=== PATIENT | female | born 1975 | race Caucasian/White ===

== ENCOUNTER → 2022-03-12 | Outpatient (CLI) | payer BC, SELFPAY ==
[2022-03-12 12:22] LABS: Absolute Lymphocyte Count 1.44 X10^3/uL (0.83-4.51); Basophil# 0.03 X10^3/uL; Basophil% 0.6 % (0-1); Hematocrit 39.8 % (37-47); Hemoglobin 13.2 g/dL (12.0-15.0); Lymphocyte # 1.44 X10^3/ul (0.83-4.51); Mean Corp Hgb Conc 33.2 g/dL (32-36); Mean Corpuscular Hgb 28.4 pg (27.0-32.0); Mean Corpuscular Volume 85.6 fL (81-99); Mean Platelet Vol. 10.1 fl (6.2-12.0); Monocyte# 0.43 X10^3/uL; Monocyte% 8.7 % (0-10); NRBC Flagged by Analyzer 0 % (0-5); Neutrophil # 2.95 X10^3/uL (2.7-7.7); Neutrophil % 59.5 % (47-70); Platelet Count 296 K/mm3 (150-450); RBC Distribution Width CV 13.2 % (11.6-14.6); RBC Distribution Width SD 40.9 fl (35.1-43.9); Red Blood Count 4.65 M/mm3 (4.2-5.4)
[2022-03-12 12:35] LABS: Vitamin B12 461 pg/mL (211-911); Vitamin D,25 Hydroxy 30.8 ng/mL
[2022-03-12 12:52] LABS: ALB/GLOB Ratio 0.9 RATIO (0.9-2.4); AST(SGOT) 13 U/L (15-37); Alanine Aminotransfer ALT/SGPT 18 U/L (13-56); Albumin, Serum 3.5 g/dL (3.2-5.0); Alkaline Phosphatase 68 U/L (45-117); Anion Gap 6 (5-15); BUN 15 mg/dL (7-18); BUN/Creat Ratio 20.6 RATIO (10-20); Calcium,Total 8.5 mg/dL (8.5-10.1); Chloride 110 mmol/L (98-107); Cholesterol 169 mg/dL (200); Creatinine, Serum 0.73 mg/dL (0.55-1.02); EST Glomerular Filtration Rate 91 mL/min (>60); Est Glom Filt Rate - Afr Amer 110 mL/min (>60); Globulin 3.8 g/dL (2.2-4.2); Glucose 93 mg/dL (74-106); High Density Lipoprotein 51 mg/dL; Potassium 4.2 mmol/L (3.5-5.1); Protein, Total 7.3 g/dL (6.4-8.2); Sodium Level 140 mmol/L (136-145); Thyroid Stim Hormone (TSH) 0.96 uIU/mL (0.358-3.74); Triglycerides 110 mg/dL; Very Low Density Lipoprotein 22 mg/dL (5-40)
== END | disposition home or self-care (01) ==
LOC: BIMLAB 08:02
PROVIDERS: PCP Nurse Practitioner Family; Referring Provider Nurse Practitioner Family; Visit Provider Nurse Practitioner Family
DX: Z00.00 Encounter for general adult medical examination without abnormal findings (principal); E56.9 Vitamin deficiency, unspecified; F41.9 Anxiety disorder, unspecified; F32.A Depression, unspecified; J30.2 Other seasonal allergic rhinitis
CPT/HCPCS: 36415; 80053; 80061; 82306; 82607; 84443; 85025

== ENCOUNTER → 2024-04-11 | Outpatient (CLI) | payer BC, SELFPAY ==
[2024-04-11 13:04] LABS: Absolute Neutrophil Count 2.2 X10^3/uL (2.0-7.7); Basophil# 0.01 X10^3/uL; Basophil% 0.2 % (0-1); Eosinophil# 0.09 X10^3/uL; Eosinophils% 2.2 % (0-5); Hematocrit 40.7 % (37-47); Hemoglobin 13.3 g/dL (12.0-15.0); Lymphocyte % 36.3 % (19-41); Mean Corp Hgb Conc 32.7 g/dL (32-36); Mean Corpuscular Hgb 29.2 pg (27.0-32.0); Mean Corpuscular Volume 89.3 fL (81-99); Mean Platelet Vol. 9.6 fl (6.2-12.0); Monocyte# 0.29 X10^3/uL; NRBC Flagged by Analyzer 0 % (0-5); Neutrophil # 2.23 X10^3/uL (2.7-7.7); Neutrophil % 54.1 % (47-70); Platelet Count 227 K/mm3 (150-450); RBC Distribution Width CV 12.7 % (11.6-14.6); RBC Distribution Width SD 41.8 fl (35.1-43.9); Red Blood Count 4.56 M/mm3 (4.2-5.4); White Blood Count 4.1 K/mm3 (4.4-11.0)
[2024-04-11 14:06] LABS: ALB/GLOB Ratio 1.8 RATIO (0.9-2.4); AST(SGOT) 16 U/L (<=31); Alanine Aminotransfer ALT/SGPT 12 U/L (<=34); Albumin, Serum 4.3 g/dL (3.5-5.0); Alkaline Phosphatase 53 U/L (35-104); Anion Gap 10 (5-15); BUN 14 mg/dL (4-19); BUN/Creat Ratio 18.3 RATIO (10-20); Calcium 8.8 mg/dL (7.6-11.0); Carbon Dioxide 23.3 mmol/L (22.0-29.0); Chloride 106 mmol/L (96-108); Cholesterol 183 mg/dL (<=200); Creatinine, Serum 0.8 mg/dL (0.6-1.0); EST Glomerular Filtration Rate 96 (>60); Globulin 2.5 g/dL (2.2-4.2); Glucose 83 mg/dL (70-99); High Density Lipoprotein 64 mg/dL; Low Density Lipoprotein Calc. 105 mg/dL; Potassium 4.5 mmol/L (3.3-5.1); Protein, Total 6.8 g/dL (5.9-8.4); Sodium Level 139 mmol/L (133-145); Total Bilirubin 0.35 mg/dL (0.00-1.30); Triglycerides 73 mg/dL; Very Low Density Lipoprotein 15 mg/dL (5-40); Vitamin B12 298 pg/mL (180-914); Vitamin D,25 Hydroxy 58.2 ng/mL (30-100); cholesterol:hdl ratio screen 2.87
== END | disposition home or self-care (01) ==
LOC: VSLAB 08:48
PROVIDERS: PCP Nurse Practitioner Family; Visit Provider Nurse Practitioner Family
DX: E66.9 Obesity, unspecified (principal); E56.9 Vitamin deficiency, unspecified; Z13.228 Encounter for screening for other metabolic disorders
CPT/HCPCS: 36415; 80053; 80061; 82306; 82607; 84443; 85025

== ENCOUNTER → 2024-06-18 | Outpatient (CLI) | payer BC, SELFPAY | END | disposition home or self-care (01) | LOC: VSLAB 14:49 | PROVIDERS: PCP Nurse Practitioner Family; Visit Provider Nurse Practitioner Family | DX: S00.86XA Insect bite (nonvenomous) of other part of head, initial encounter (principal) | CPT/HCPCS: 36415; 86617 ==

== ENCOUNTER → 2024-11-02 | Outpatient (CLI) | payer BC, SELFPAY ==
[2024-11-02 23:45] LABS: Mucous, Urine 0 SEEN /hpf (<or=2+); Squamous Epithelial Cells - UA 0 SEEN /hpf (5-10)
--- OUTSIDE RECORDS SUMMARY | 2024-11-02 23:47 | XMS RPT_ITS | CCD ---
Author Organization [facility] Care Team Providers Care [employer] F[employer] Name Role Phone JUNITO HOYTNDY Ubaldo Unavailable Unavailable Beto Huerta Unavailable Unavailable PAIGE CHEN Attending Unavailable MARCI CORONADO Primary Care Unavailable CARYN TORRES Attending UnavailMARCI Hawkins Primary Care Unavailable Beto Huerta MD Primary Care Provider Juan ELECTRONIC IMAGING SYSTEM OPERATOR, ELECTRONIC IMAGING SYSTEM OPERATOR-C Jacobo Attending Provider Beto Huerta MD Primary Care Provider Beto Huerta MD Primary Care Provider Beto Huerta MD Primary Care Provider Beto Huerta MD Primary Care Provider Beto Huerta MD Primary Care Provider Juan ELECTRONIC IMAGING SYSTEM OPERATOR-CJacobo Primary Care Provider Juan ELECTRONIC IMAGING SYSTEM OPERATOR-CJacobo Attending Provider Nickie ELECTRONIC IMAGING SYSTEM OPERATOR-CRadha Attending Provider BETO HUERTA Primary Care Unavailable BRADLEY BETO Winifred Primary Care Unavailable JACINTA SANCHEZ Referring Unavailable BLAYNE HUERTAHEN Winifred Primary Care Unavailable BLAYNE HUERTAHEN Winifred Primary Care Unavailable RADHA FU Referring UnavailJacobo Doyle Attending Unavailable Jacobo Martinez Primary Care Unavailable Radha Fu Attending Unavailable Jacobo Martinez Primary Care Unavailable Jacobo Martinez Primary Care Unavailable Radha Fu Referring Unavailable Radha Fu Consulting Unavailable Radha Fu Attending Unavailable JACINTA SANCHEZ Attending Unavailable BLAYNE HUERTAHEN B Primary Care Unavailable BRENDA RINALDI Attending Unavailable BRADLEY, BETO B Primary Care Unavailable BRADLEY, BETO B Primary Care Unavailable JACINTA SANCHEZ Attending Unavailable WEHNJACINTA Attending Unavailable BRADLEY, BETO B Primary Care Unavailable BRENDA RINALDI Referring Unavailable BRADLEY, BETO B Primary Care Unavailable BRADLEY, BETO B Primary Care Unavailable WEJACINTA DUNN Attending Unavailable BRADLEY, BETO B Primary Care Unavailable WESHAUN, JACINTA Cabrera Attending Unavailable BRADLEY, BETO B Primary Care Unavailable WEJACINTA DUNN Referring Unavailable BRADLEY, BETO B Primary Care Unavailable BRADLEY, BETO Primary Care Unavailable BRADLEY, BETO Attending Unavailable BRADLEY, BETO Primary Care Unavailable BRADLEY, BETO Attending Unavailable BRADLEY, BETO Primary Care Unavailable LUCI BERRY Attending Unavailable BRADLEY, BETO Primary Care Unavailable LUCI BERRY Referring Unavailable LUCI BERRY Attending Unavailable Allergies Allergy Classification Reported Allergen(s) Allergy Type Date of Onset Reaction(s) Facility (20 sources) Ciprofloxacin Drug Allergy 8 Nausea And Vomiting [facility] (20 sources) oxyCODONE Drug Allergy 8 Rash [facility] (2 sources) Promethazine Drug Allergy 9 [facility] (20 sources) Promethazine Drug Allergy 9 [facility] (7 sources) HYDROcodone; Translations: [HYDROCODONE] Drug Allergy 5 [facility] (1 source) Ciprofloxacin Drug Allergy 3 [facility] (1 source) oxyCODONE Drug Allergy 3 [facility]ository Medications Current Medications Medication Drug Class(es) Dates Sig (Normalized) Sig (Original) [id number] actuat albuterol 0.09 mg/actuat metered dose inhaler (20 sources) beta2-Adrenergic Agonist Start: 06-08-2022 End: 09-25-2024 take 2 puff(s) by inhalation every six hours as needed for wheezing albuterol 108 (90 Base) MCG/ACT inhaler Indications: Moderate persistent asthma without complication Inhale 2 puffs every 6 hours as needed for wheezing. 18 g 3 09/25/2024 Active Start: 03-12-2022 Albuterol Sulf ate 90 mcg/actuation HFA aerosol inhaler Active 2 NMA INHALATION EVERY 6 HOURS as needed March 12, 2022 1:00am Start: 03-12-2022 take 1 puff(s) by in halation every six hours Albuterol Sulfate Active 2 PUFF INHALATION EVERY 6 HOURS March 12, 2022 12:00am Start: 10-25-2020 End: 04-20-2024 take 2 puff(s) by inhalation every four hours as needed for wheezing albuterol HFA (PROVENTIL HFA, VENTOLIN HFA) 90 mcg/actuation inhaler Inhale 2 Puffs as instructed every 4 hours as needed for wheezing/shortness of breath. 1 Each 10/25/2020 04/20/2024 Discontinued Start: 10-20-2020 End: 04-20-2024 take 2 puff(s) by inhalation every four hours as needed for wheezing albuterol HFA (PROVENTIL HFA, VENTOLIN HFA) 90 mcg/actuation inhaler Inhale 2 Puffs as instructed every 4 hours as needed for wheezing/shortness of breath. 6.7 g 10/20/2020 04/20/2024 Discontinued Start: 05-22-2019 End: 06-08-2022 take 2 puff(s) by inhalation every six hours as needed albuterol 108 (90 Base) MCG/ACT inhaler Inhale 2 puffs every 6 hours as needed. 0 10/20/2020 Active Comment on above: Inhale 2 Puffs as in structed every 4 hours as needed for wheezing/shortness of breath. ALPRAZolam 0.5 mg oral tablet (20 sources) Benzodiazepine Start: 07-27-19 24 End: 10-26-19 25 take 0.5 tablet by mouth once daily as needed for anxiety ALPRAZolam (Xanax) 0.5 MG tablet Indications: Generalized anxiety disorder Take 0.5 tablets (0.25 mg) by mouth Nightly as needed for sleep or anxiety. 15 tablet 09/25/2024 10/25/2024 Active Start: 08-27-2021 End: 06-08-2022 take 1 tablet by mouth once daily as needed for sleep ALPRAZolam (Xanax) 0.5 MG tablet Indications: Insomnia, unspecified type Take 1 tablet (0.5 mg) by mouth Nightly as needed for sleep. 30 tablet 1 02/24/2022 Active Start: 11-05-2020 End: 01-04-2021 take 1 tablet by mouth once daily as needed for sleep ALPRAZolam (XANAX) 0.5 MG tablet Indications: Generalized anxiety disorder TAKE 1 TABLET BY MOUTH NIGHTLY NEEDED FOR SLEEP FOR UP TO 60 DAYS. 15 tablet 1 11/05/2020 01/04/2021 Active End: 07-27-2023 take 0.25 mg by mouth every twenty-four hours as needed ALPRAZolam (XANAX) 0.5 mg tablet Take 0.25 mg by mouth at bedtime as needed. patient takes one half tablet as needed. Active Comment on above: Take 0.25 mg by mout h at bedtime as needed. patient takes one half tablet as needed. benzonatate 200 mg oral capsule (2 sources) Non-narcotic Antitussive Start: 12-30-19 End: 01-29-20 take 1 capsule by mouth three times daily as needed for cough benzonatate (Tessalon) 200 MG capsule Indications: Acute non-recurrent frontal sinusitis Take 1 capsule (200 mg) by mouth 3 times daily as needed for cough. Do not crush or chew. 42 capsule 0 12/29/2022 01/28/2023 Active 60 actuat budesonide 0.08 mg/actuat / formoterol fumarate 0.0045 mg/actuat metered dose inhaler (20 sources) Corticosteroid, beta2-Adrenergic Agonist Start: 11-12-19 take 2 puff(s) by inhalation once daily budesonide-formoter ol (SYMBICORT) 80-4.5 MCG/ACT AERO Inhale 2 puffs into the lungs daily 10.2 g 3 11/11/2020 Active Start: 02-17-2018 take 2 puff(s) by mo uth twice daily SYMBICORT 80-4.5 MCG/ACT AERO TAKE 2 PUFFS BY MOUTH TWICE A DAY 6 02/17/2018 Active End: 06-04-2024 budesonide-formoterol (Symbi layla) 160-4.5 MCG/ACT inhaler Inhale 2 Inhalation in the morning and 2 Inhalation in the evening. 06/04/2024 Discontinued (Med list cleanup) budesonide/formoterol fumara te (SYMBICORT INHALATION) (14 sources) End: 12-19-2023 budesonide/formoterol fumara te (SYMBICORT INHALATION) Indications: History of asthma , History of pneumonia , Bronchitis Inhale as instructed. 12/19/2023 Discontinued (Other) budesonide/formo terol fumarate (SYMBICORT INHALATION) Indications: History of asthma , History of pneumonia , Bronchitis Inhale as instructed. 0 Active Comment on above: Inhale as instructed . doxycycline hyclate 100 mg oral capsule (2 sources) Tetracycline-class Drug Start: 01-21-2023 End: 01-31-2023 doxycycline (Vibramycin) 100 MG capsule Indications: Acute cough Take 1 capsule (100 mg) by mouth 2 times daily for 10 days. Take with at least 8 ounces (large glass) of water, do not lie down for 30 minutes after 20 capsule 0 01/21/2023 01/31/2023 Active 84 hr estradiol 0.37173 mg/hr transdermal system (13 sources) Estrogen Start: 08-01-2024 estradiol (VIVELLE-DOT) 0.05 mg/24 hr patch Apply 1 patch as directed two times a week. 2 times a week to lower abdomen or buttocks, not breast 24 patch 3 08/01/2024 Active Start: 04-20-2024 End: 09-25-2024 estradiol (Vivelle-DOT) 0.1 MG/24HR Place 1 patch on the skin Twice a Week. 04/20/2024 09/25/2024 Discontinued (Med list cleanup) Start: 04-20-2024 estradiol (KARLO YASMINE-DOT) 0.1 mg/24 hr patch Indications: Vasomotor symptoms due to menopause , Irritability , Brain fog Apply 1 Patch as directed two times a week. 24 Patch 1 04/20/2024 Active montelukast 10 mg oral tablet (20 sources) Leukotriene Receptor Antagonist Start: 02-09-2022 End: 07-26-2024 take 1 tablet by mouth once daily montelukast (Singulair) 10 MG tablet Indications: Other seasonal allergic rhinitis TAKE 1 TABLET (10 MG) BY MOUTH DAILY. 90 tablet 3 06/20/2024 Active Start: 07-10-2020 take 1 tablet by abhi once daily montelukast (SINGULAIR) 10 MG tablet Indications: Seasonal allergies Take 1 tablet by mouth daily 90 tablet 3 07/10/2020 Active MOUNJARO 7.5 mg/0.5 mL pen injector (4 sources) Start: 06-18-2024 inject 7.5 mg by subcutaneous injection every week MOUNJARO 7.5 mg/0.5 mL pen injector Inject 7.5 mg subcutaneously one time a week. 06/18/2024 Active Mounjaro 7.5 MG/0.5ML solution pen-injector (1 source) Start: 07-21-2023 Mounjaro 7.5 MG/0.5ML solution pen-injector inject 1 syringe subcutaneously once weekly 0 07/21/2023 Active Mounjaro 7.5 MG/0.5ML solution pen-injector (13 sources) Start: 07-21-2023 Mounjaro 7.5 MG/0.5ML solution pen-injector inject 1 syringe subcutaneously once weekly 07/21/2023 Active naproxen 500 mg oral tablet (7 sources) Nonsteroidal Anti-inflammatory Drug Start: 06-20-2024 End: 08-23-2024 take 1 tablet by mouth twice daily as needed for pain naproxen (Naprosyn) 500 MG tablet Indications: Acute pain of left knee TAKE 1 TABLET (500 MG) BY MOUTH 2 TIMES DAILY NEEDED FOR MILD PAIN (1-3) (PAIN). 60 tablet 07/24/2024 08/23/2024 Active Start: 05-07-2024 End: 06-06-2024 take 1 tablet by mouth twice daily as needed for pain naproxen (Naprosyn) 500 MG tablet Indications: Acute pain of left knee Take 1 tablet (500 mg) by mouth 2 times daily as needed for mild pain (1-3) (pain). 60 tablet 05/07/2024 06/06/2024 Active ondansetron 4 mg disintegrating oral tablet (12 sources) Serotonin-3 Receptor Antagonist Start: 12-29-2022 End: 01-28-2023 take 2 tablets by mouth every eight hours as needed for nausea and vomiting ondansetron ODT (Zofran-ODT) 4 MG disintegrating tablet Take 2 tablets (8 mg) by mouth every 8 hours as needed for nausea or vomiting. 20 tablet 3 12/29/2022 01/28/2023 Active Start: 05-07-2022 End: 09-27-2022 take 1 tablet by mouth every eight hours as needed for nausea and vomiting Ondansetron 4 mg tablet,disintegrating Active 4 mg PO Q8H as needed for nausea and vomiting September 27, 2022 4:27pm Start: 10-22-2020 take 1 tablet by abhi th three times daily as needed for nausea ondansetron (ZOFRAN) 4 MG tablet Take 1 tablet by mouth 3 times daily as needed for Nausea or Vomiting 15 tablet 0 10/22/2020 Active Start: 10-22-2020 End: 10-22-2020 ondansetron (ZOFRAN) 4 MG/2M L injection Start: 10-22-2020 End: 10-22-2020 ondansetron (ZOFRAN) injecti on 4 mg progesterone 200 mg oral capsule (13 sources) Progesterone Start: 08-01-2024 take 1 capsule by mouth once daily at dinner, then take 1 capsule by mouth once daily in the evening progesterone micronized (PROMETRIUM) 200 mg capsule Take 1 capsule by mouth daily with dinner. Take 1 pill in the evening daily with dinner. Needs food for absorption. Can't be used with peanut allergy. 90 capsule 3 08/01/2024 Active Start: 04-20-2024 progesterone ( Prometrium) 100 MG capsule Take 100 mg by mouth. 04/20/2024 Active sertraline 100 mg oral tablet (20 sources) Serotonin Reuptake Inhibitor Start: 09-25-2024 End: 09-25-2025 take 1 tablet by mouth once daily sertraline (Zoloft) 100 MG tablet Indications: Mild episode of recurrent major depressive disorder (HCC) , Generalized anxiety disorder Take 1 tablet (100 mg) by mouth daily. 90 tablet 3 09/25/2024 09/25/2025 Active Start: 05-07-2022 End: 09-25-2024 take 1 tablet by mouth once daily sertraline (Zoloft) 50 MG tablet TAKE 1 TABLET BY MOUTH EVERY DAY 90 tablet 3 03/21/2024 09/25/2024 Discontinued Start: 09-01-2010 End: 06-08-2022 SERTRALINE 100 mg ORAL table t 09/01/2010 Active Tirzepatide 7.5 mg/0.5 mL pe n injector (2 sources) Start: 08-04-2022 Tirzepatide 7. 5 mg/0.5 mL pen injector Active 7.5 mg SC EVERY WEEK 2 August 04, 2022 9:16am Completed/Discontinued Medications Medication Drug Class(es) Dates Sig (Normalized) Sig (Original) dexamethasone 6 mg oral tablet (1 source) Corticosteroid Start: 10-26-2020 End: 05-03-2022 take 1 tablet by mouth once daily at breakfast dexAMETHasone (DECADRON) 6 mg tablet Take 1 tablet by mouth daily with breakfast. For one dose starting tomorrow. 5 tablet 0 10/26/2020 05/03/2022 Discontinued Comment on above: Take 1 tablet by abhi th daily with breakfast. For one dose starting tomorrow. ethinyl estradiol 0.005 mg / norethindrone acetate 1 mg oral tablet (12 sources) Estrogen Start: 09-23-2023 End: 04-20-2024 take 1 tablet by mouth once daily norethindrone acetate-ethinyl estradiol (JINTELI) 1-5 mg-mcg tab Indications: Vasomotor symptoms due to menopause , Menstrual irregularity , Acute vaginitis , Cyclical pelvic pain Take 1 tablet by mouth once daily. 90 tablet 1 03/09/2024 04/20/2024 Discontinued fluconazole 150 mg oral tablet (9 sources) Azole Antifungal Start: 09-25-2023 End: 04-20-2024 fluconazole (DIFLUCAN) 150 mg tablet Indications: Acute vaginitis , Vaginal yeast infection Take 1 tablet by mouth every 72 hours as needed. 2 tablet 09/25/2023 04/20/2024 Discontinued fluticasone propionate 0.05 mg/actuat metered dose nasal spray (4 sources) Corticosteroid Start: 12-29-2022 End: 07-27-2023 take 2 spray(s) nasal route once daily fluticasone (Flonase) 50 MCG/ACT nasal spray Indications: Acute non-recurrent frontal sinusitis Administer 2 sprays into each nostril daily for 14 days. Shake gently. Before first use, prime pump. After use, clean tip and replace cap. 16 g 0 12/29/2022 07/27/2023 Discontinued (Med list cleanup) meloxicam 15 mg oral tablet (20 sources) Nonsteroidal Anti-inflammatory Drug Start: 02-11-2020 End: 04-20-2024 take 1 tablet by mouth once daily meloxicam (MOBIC) 15 mg tablet Take 1 tablet by mouth once daily. 30 tablet 1 02/11/2020 04/20/2024 Discontinued Comment on above: Take 1 tablet by abhi once daily. Mounjaro 5 MG/0.5ML solution pen-injector (6 sources) Start: 05-28-2022 End: 07-27-2023 inject 5 mg by subcutaneous injection every week Mounjaro 5 MG/0.5ML solution pen-injector 5 mg (0.5 mL) subcutaneously every week 0 05/28/2022 07/27/2023 Discontinued (Duplicate order) Start: 05-28-2022 inject 5 mg by subcu taneous injection every week Mounjaro 5 MG/0.5ML solution pen-injector 5 mg (0.5 mL) subcutaneously every week 0 05/28/2022 Active phentermine hydrochloride 37.5 mg oral tablet (6 sources) Sympathomimetic Amine Anorectic Start: 02-24-2022 End: 06-08-2022 take 32-32.9 tablets by mouth once daily before breakfast phentermine (Adipex-P) 37.5 MG tablet Indications: Class 1 obesity due to excess calories without serious comorbidity with body mass index (BMI) of 32.0 to 32.9 in adult Take 1 tablet (37.5 mg) by mouth every morning (before breakfast). 30 tablet 0 02/24/2022 06/08/2022 Discontinued (Med list cleanup) microencapsulated potassium chloride 20 meq extended release oral tablet (1 source) Start: 10-25-2020 End: 05-03-2022 take 1 tablet by mouth once daily potassium chloride ER (K-DUR, KLOR-CON) 20 mEq tablet Take 1 tablet by mouth once daily. 7 tablet 0 10/25/2020 05/03/2022 Discontinued Comment on above: Take 1 tablet by abhi once daily. predniSONE 10 mg oral tablet (4 sources) Start: 01-21-2023 End: 07-27-2023 predniSONE (Deltasone) 10 MG tablet Indications: Moderate persistent asthma without complication 4 pills daily for 3 days, 3 pills daily for 3 days, 2 pills daily for 3 days, 1 pill daily for 3 days. Take with food. Stop. 30 tablet 0 01/21/2023 07/27/2023 Discontinued (Med list cleanup) 50 ml sodium chloride 9 mg/ml injection (1 source) Start: 10-22-2020 End: 10-22-2020 0.9 % sodium chloride bolus Tirzepatide (Mounjaro) 5 mg/0.5 mL pen injector (5 sources) Start: 04-28-2022 End: 05-07-2022 Tirzepatide (Mounjaro) 5 mg/0.5 mL pen injector Discontinued 5 mg SC EVERY WEEK 2 April 28, 2022 12:54pm May 07, 2022 9:11am Start: 03-12-2022 End: 04-28-2022 Tirzepatide (Mounjaro) 5 mg/ 0.5 mL pen injector Discontinued 5 mg SC EVERY WEEK 2 March 12, 2022 1:00am April 28, 2022 12:54pm Start: 03-12-2022 Tirzepatide (M ounjaro) 5 mg/0.5 mL pen injector Active 5 MG SC EVERY WEEK 2 March 12, 2022 12:00am Tirzepatide (Mounjaro) 7.5 mg/0.5 mL pen injector (2 sources) Start: 05-07-2022 End: 08-04-2022 Tirzepatide (Mounjaro) 7.5 mg/0.5 mL pen injector Discontinued 7.5 mg SC EVERY WEEK 2 May 07, 2022 9:10am August 04, 2022 9:17am 1 ml triamcinolone acetonide 40 mg/ml injection (6 sources) Corticosteroid Start: 06-04-2024 End: 06-04-2024 triamcinolone acetonide (Kenalog-40) injection 60 mg Start: 06-04-2024 End: 06-04-2024 inject 60 mg by intramuscular injection once 60 mg, IntraMUSCular, Once, On Tue06/04/24 at 1445, For 1 dose Start: 07-27-2023 End: 07-27-2023 triamcinolone acetonide (Kenalog-40) injection 60 mg Start: 06-08-2022 End: 06-08-2022 triamcinolone acetonide (Kenalog-40) injection 60 mg Problems Active Problems Problem Classification Problem Date Documented Date Episodic/Chronic Anxiety disorders (20 sources) Generalized anxiety disorder; Translations: [Generalized anxiety disorder] Onset: 05-31-2015 05-31-2015 Chronic Anxiety disorders (2 sources) Feeling irritable; Translations: [Irritability and anger] 04-20-2024 Episodic Asthma (20 sources) Uncomplicated moderate persistent asthma; Translations: [Moderate persistent asthma, uncomplicated] Onset: 05-31-2015 05-31-2015 Chronic Diabetes mellitus without complication (4 sources) Hyperglycemia; Translations: [Hyperglycemia, unspecified] 03-12-2022 Episodic Inflammatory diseases of female pelvic organs (3 sources) Acute vaginitis; Translations: [Acute vaginitis] 09-23-2023 Episodic Menopausal disorders (7 sources) Menopausal syndrome; Translations: [Menopausal and female climacteric states] Onset: 07-17-2024 09-23-2023 Chronic Menstrual disorders (3 sources) Irregular periods; Translations: [Irregular menstruation, unspecified] 09-23-2023 Chronic Mood disorders (20 sources) Recurrent major depressive episodes, mild ; Translations: [Major depressive disorder, recurrent, mild] Onset: 06-18-2019 06-18-2019 Chronic Nausea and vomiting (1 source) Nausea and vomiting; Translations: [Nausea with vomiting, unspecified] Episodic Nonspecific chest pain (1 source) Chest pain, unspecified; Translations: [Chest pain, unspecified] Onset: 09-17-2024 Episodic Other female genital disorders (2 sources) History of gynecological disorder; Translations: [Personal history of other diseases of the female genital tract] Episodic Other lower respiratory disease (5 sources) Cough; Translations: [Cough] Onset: 04-05-2017 Resolved: 07-18-2019 07-18-2019 Episodic Other lower respiratory disease (1 source) Persistent cough; Translations: [Persistent cough] Episodic Other nervous system disorders (2 sources) Impaired cognition; Translations: [Other symptoms and signs involving cognitive functions and awareness] 04-20-2024 Episodic Other nutritional; endocrine; and metabolic disorders (20 sources) Obese class I; Translations: [Obesity, unspecified] Onset: 02-05-2019 02-05-2019 Chronic Other nutritional; endocrine; and metabolic disorders (3 sources) Obesity; Translations: [Other obesity due to excess calories] Chronic Other nutritional; endocrine; and metabolic disorders (1 source) Obesity, unspecified; Translations: [Obesity, unspecified] Onset: 04-26-2024 Chronic Other upper respiratory disease (20 sources) Seasonal allergy; Translations: [Other seasonal allergic rhinitis] Onset: 07-10-2020 07-10-2020 Chronic Other upper respiratory disease (3 sources) Other seasonal allergic rhinitis; Translations: [Allergic rhinitis, cause unspecified] Onset: 11-28-2021 03-12-2022 Chronic Other upper respiratory disease (3 sources) Seasonal allergic rhinitis; Translations: [Other seasonal allergic rhinitis] 08-22-2022 Chronic Other upper respiratory infections (1 source) Chronic sinusitis; Translations: [Chronic sinusitis, unspecified] 01-21-2023 Chronic Prolapse of female genital organs (14 sources) Incomplete uterovaginal prolapse; Translations: [Incomplete uterovaginal prolapse] Onset: 12-19-2023 12-19-2023 Chronic Residual codes; unclassified (4 sources) Insomnia; Translations: [Insomnia, unspecified] Episodic Residual codes; unclassified (1 source) Medical care unavailable; Translations: [Procedure and treatment not carried out for other reasons] 09-25-2023 Episodic Superficial injury; contusion (1 source) Insect bite (nonvenomous) of other part of head, initial encounter; Translations: [Insect bite (nonvenomous) of other part of head, initial encounter] Onset: 06-21-2024 Episodic Unclassified (2 sources) Cough / R05(ICD-10) Onset: 04-05-2017 Viral infection (3 sources) Disease caused by 2019-nCoV; Translations: [COVID-19] Onset: 10-11-2020 Episodic Viral infection (1 source) COVID-19; Translations: [COVID-19] Onset: 02-24-2024 Past or Other Problems Problem Classification Problem Date Documented Da te Episodic/Chronic Abdominal pain (20 sources) Pain in female pelvis; Translations: [Pelvic and perineal pain] Onset: 12-19-2023 Episodic Calculus of urinary tract (20 sources) History of calculus of kidney; Translations: [Personal history of urinary calculi] Onset: 02-14-2017 02-05-2019 Episodic Cardiac dysrhythmias (20 sources) Palpitations; Translations: [Palpitations] Onset: 10-18-2017 10-18-2017 Episodic Conditions associated with dizziness or vertigo (2 sources) Dizziness; Translations: [Dizziness and giddiness] Onset: 10-18-2017 10-18-2017 Episodic Nutritional deficiencies (20 sources) Vitamin deficiency; Translations: [Vitamin deficiency, unspecified] Onset: 03-22-2022 03-12-2022 Episodic Other aftercare (19 sources) Patient encounter status; Translations: [Encounter for screening for malignant neoplasm of colon] Onset: 02-16-2024 03-12-2022 Episodic Other non-traumatic joint disorders (7 sources) Pain in left knee; Translations: [Pain in joint, lower leg] Onset: 05-07-2024 05-07-2024 Episodic Other nutritional; endocrine; and metabolic disorders (20 sources) Body mass index 30+ - obesity; Translations: [Obesity, unspecified] Onset: 07-19-2015 Resolved: 12-29-2022 07-19-2015 Chronic Unclassified (1 source) Acute pain of left knee 05-07-2024 Results Test Name Value Interpretation Reference Range Facility Office Visiton 09-25-2024 Follow-up visit [id number] Candelaria Russell 1975 F Date Provider Department Center 09/25/2024 [facility] Family History Problem Relation Age of Onset No Known Problems Paternal Grandmother Heart disease Father Heart disease Paternal Grandfather No Known Problems Daughter No Known Problems Mother No Known Problems Daughter No Known Problems Sister Heart disease Maternal Grandfather Family Status - Relation Status Age at Paternal Grandmother Father Alive Paternal Grandfather Daughter Alive Mother Alive Daughter Alive Sister Alive Maternal Grandfather Maternal Grandmother Alive Level of Service:34252 AL OFFICE/OUTPATIENT ESTABLISHED MOD MDM 30 MIN Reason for Visit and Comments: Med Refill [[id number]] Normal [facility] Progress Noteon 09-25-2024 Progress Note [facility] - [address] [facility] [id number] Visit type: Established Patient Reason for Visit: Med Refill Assessment and Plan 1. Mild episode of recurrent major depressive disorder (HCC) (Primary) Anxiety is worse -Encouraged regular exercise -She is going to consider counseling -Increase Zoloft from 50 mg daily - sertraline (Zoloft) 100 MG tablet; Take 1 tablet (100 mg) by mouth daily. Dispense: 90 tablet; Refill: 3 2. Generalized anxiety disorder Worse -As #1 - ALPRAZolam (Xanax) 0.5 MG tablet; Take 0.5 tablets (0.25 mg) by mouth Nightly as needed for sleep or anxiety. Dispense: 15 tablet; Refill: 0 - sertraline (Zoloft) 100 MG tablet; Take 1 tablet (100 mg) by mouth daily. Dispense: 90 tablet; Refill: 3 3. Moderate persistent asthma without complication Stable - albuterol 108 (90 Base) MCG/ACT inhaler; Inhale 2 puffs every 6 hours as needed for wheezing. Dispense: 18 g; Refill: 3 4. Seasonal allergies Stable -Singulair 10 mg daily Follow up in about 6 months (around 03/28/2025) for follow up Dr Huerta 20 min. Note compiled with assistance of voice recognition software and though reviewed for errors, sound alike and misspelled words may be contained in the documentation. Subjective Med Refill Follow-up INA/insomnia. Dealing brain fog and inc anxiety. BP was spiking. Stopped her Vivelle patch. 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 More stress at work. Anxiety is worse. Was having some intermittent palpitations. Another clinic ordered a Holter monitor for 24 hours which was without any significant pathology. Does not have time for counseling. Zoloft 50 mg daily. Needing Xanax more often. Seasonal allergies. Not controlled. Taking Singulair Xyzal and Flonase without much help. She has asthma but this has not flared up. Asthma. Prn albuterol on hand but also has not needed as of late. Is taking tirzepitide through [facility]. Allergies[1] Current Medications[2] Medical History[3] Social History[4] Surgical History[5] Surgical History[6] Family History[7] Objective BP 111/75 (BP Location: Right arm, Patient Position: Sitting, BP Cuff Size: Adult) Pulse 101 Ht 5' 2.5" (1.588 m) Wt 154 lb (69.9 kg) SpO2 99% BMI 27.72 kg/m? Patient Weight 09/25/24 154 lb (69.9 kg) 06/04/24 159 lb (72.1 kg) 05/07/24 159 lb (72.1 kg) Physical Exam Nursing note reviewed. Constitutional: Appearance: Normal appearance. Cardiovascular: Rate and Rhythm: Normal rate and regular rhythm. Pulmonary: Effort: Pulmonary effort is normal. Breath sounds: Normal breath sounds. Abdominal: General: Abdomen is flat. Bowel sounds are normal. Tenderness: There is no abdominal tenderness. Musculoskeletal: Right lower leg: No edema. Left lower leg: No edema. Neurological: Mental Status: She is alert. Psychiatric: Mood and Affect: Mood normal. Behavior: Behavior normal. Thought Content: Thought content normal. Judgment: Judgment normal. Chart Clean Up: Medications Discontinued During This Encounter Medication Reason estradiol (Vivelle-DOT) 0.1 MG/24HR Med list cleanup sertraline (Zoloft) 50 MG tablet albuterol 108 (90 Base) MCG/ACT inhaler Reorder ALPRAZolam (Xanax) 0.5 MG tablet Reorder Beto Huerta MD 09/25/2024 10:12 AM [1] Allergies Allergen Reactions Ciprofloxacin Nausea And Vomiting Other reaction(s): Abd cramps/diarrhea Oxycodone Rash Other reaction(s): Abd cramps/diarrhea Promethazine Other reaction(s): wide awake [2] Current Outpatient Medications Medication Sig Dispense Refill montelukast (Singulair) 10 MG tablet TAKE 1 TABLET (10 MG) BY MOUTH DAILY. 90 tablet 3 Mounjaro 7.5 MG/0.5ML solution pen-injector inject 1 syringe subcutaneously once weekly progesterone (Prometrium) 100 MG capsule Take 100 mg by mouth. albuterol 108 (90 Base) MCG/ACT inhaler Inhale 2 puffs every 6 hours as needed for wheezing. 18 g 3 ALPRAZolam (Xanax) 0.5 MG tablet Take 0.5 tablets (0.25 mg) by mouth Nightly as needed for sleep or anxiety. 15 tablet 0 sertraline (Zoloft) 100 MG tablet Take 1 tablet (100 mg) by mouth daily. 90 tablet 3 No current facility-administe red medications for this visit. [3] Past Medical History: Diagnosis Date Generalized anxiety disorder 05/31/2015 Kidney stone Mild episode of recurrent major depressive disorder (HCC) 06/18/2019 Moderate persistent asthma without complication 05/31/2015 Obesity (BMI 30-39.9) 07/19/2015 [4] Social History Socioeconomic History Marital status: Tobacco Use Smoking status: Never Passive exposure: Never Smokeless tobacco: Never Vaping Use Vaping status: Never Used Substance and Sexual Activity Alcohol use: Not Currently Drug use: Never Social Drivers of Health Financial Resource Strain: Low Risk (09/24/2024) Overall Financial Resource Strain (CARDIA) Difficulty of Payin (more content not included)... [facility] ([facility]) -------- SALIMA RUSSELL ([id number]) 1975 F Date Time Provider Department 09/14/24 7:00 AM JACINTA SANCHEZ OBGYBR During your visit today, we recorded the following information about you: Blood pressure Weight Height Last Period 132/86 69.4 kg 1.626 m 08/15/24 Jacinta Sanchez PA-C 09/19/2024 7:24 AM Signed Obstetrics and Gynecology [place] Annual Exam Subjective Recording using ambient Culture Kitchen software for draft documentation of the visit was discussed with the patient/authorized sales representative uniforms; all questions welcomed and answered. Patient/authorized sales representative uniforms agreed to proceed CHIEF COMPLAINT: Salima Russell is a 49 yo patient who presents for routine POST DOCTORAL FELLOW exam HPI: Anxiety is still "so bad" following start Jinteli elevated blood pressures Switched from Jinteli to Prometrium and Vivelle dot- did not start VMS persist Postmenopausal? No. Menstrual cycle irregular not heavy (after starting Jinteli 09/2023) Intermenstrual spotting? No Post-coital bleeding? No +dyspareunia on occasion History of fibroids? No Dysmenorrhea? No PMDD? No History of sexual abuse? No History of anxiety disorder? Yes History of STD? No Concern for exposure to STDs? No Symptoms suggestive of Irritable Bowel Syndrome? No Dysuria, urinary frequency or urgency? No, stable MARJORIE Recent weight change? No Contraception: tubal sterilization Colonoscopy screening 2 yr ago, nl, repeat 10 yr Last pap 2023 OSMIN w/ neg HPV, no hx abnormal pap Last mammogram 2024 negative , no hx abnormal mammogram No hx nor concern STI, monogamous w/ HISTORY: OB History Gravida2 Para2 Term2 Preterm0 AB0 Living2 SAB0 IAB0 Ectopic0 Multiple0 Live Births2 Oval Or Circular Glass Cutter History LMP: 08/15/2024, Having periods Age at Menarche: 10 Age at First : Age at Menopause: Oval Or Circular Glass Cutter History Comments: Sexual Activity: Yes; Male Contraception: Tubal Ligation Menstrual Tracking History Flowsheet Row Office Visit from 09/14/2024 in OB/Gynecology Period Cycle (Days) 10 Period Duration (Days) 10 Menstrual Flow Heavy PAST MEDICAL HISTORY Diagnosis Date Anxiety and depression History of kidney stones 2018 right, required cysto PAST SURGICAL HISTORY Procedure Laterality Date DELIVERY ONLY 2003 DELIVERY ONLY 2008 with TL CYSTO FRAGMENTATION URETERAL STONE Right 2018 kidney stone PCHG TUBAL W/ Bilateral 2009 FAMILY HISTORY Problem Relation Age of Onset Breast Cancer Mother 64 alive age 70 (2018) Hypertension Father Heart Attack Father other (endometrial ablation) Sister AUB Stroke Maternal Grandfather Heart Attack Paternal Grandmother Cervical Cancer No Family History Ovarian cancer No Family History Uterine Cancer No Family History Colon Cancer No Family History Pancreatic Cancer No Family History Prostate Cancer No Family History Social History Tobacco Use Smoking status: Never Smokeless tobacco: Never Vaping Use Vaping status: Never Used Substance Use Topics Alcohol use: Yes Comment: social Drug use: No Current Outpatient Medications Medication Sig estradiol (VIVELLE-DOT) 0.05 mg/24 hr patch Apply 1 patch as directed two times a week. 2 times a week to lower abdomen or buttocks, not breast progesterone micronized (PROMETRIUM) 200 mg capsule Take 1 capsule by mouth daily with dinner. Take 1 pill in the evening daily with dinner. Needs food for absorption. Can't be used with peanut allergy. MOUNJARO 7.5 mg/0.5 mL pen injector Inject 7.5 mg subcutaneously one time a week. progesterone micronized (PROMETRIUM) 100 mg capsule Take 1 capsule by mouth daily at bedtime. TAKE WITH FOOD. estradiol (VIVELLE-DOT) 0.1 mg/24 hr patch Apply 1 Patch as directed two times a week. ALPRAZolam (XANAX) 0.5 mg tablet Take 0.25 mg by mouth at bedtime as needed. patient takes one half tablet as needed. SERTRALINE 100 mg ORAL tablet No current facility-administe red medications for this visit. ALLERGIES Allergen Reactions Hydrocodone Hives Screening tools reviewed and discussed with patient-POST DOCTORAL FELLOW intake questions, POST DOCTORAL FELLOW history questions, and 09/14/2024 New POST DOCTORAL FELLOW Intake First period 10 Still get period Yes LMP 08/15/2024 Period frequency Every 21-28 days Days of bleeding 5-10 Menstrual flow Heavy every hour maxi pad not saturated w/ clots Period amount bothersome Yes Bleeding between periods Yes Period symptoms Cramps Mood change Menopause symptoms Hot flashes Vaginal dryness Sexually active Yes Time with current partner 25 years Number of lifetime partners 2 Contraception Tubal Ligation control frequency Never HPV No Abnormal pap smear No, all prior PAP smears have been normal Pelvic pain Yes Multiple values from one day are sorted in reverse-chronologi ju order . Please see Patient Entered Data. REVIEW OF SYSTEMS: (more content not included)... Normal [facility] HOLTER MONITOR 24 HOURon HOLTER MONITOR 24 HOUR Holter Report : IMPRESSIONS AND FINDINGS: Sinus rhythm with periods of sinus tachycardia. Maximum HR:138 BPM, Minimum HR:69 BPM, Average HR:91 BPM Rare supraventricular ectopy seen as singles, one triplet and bigeminal cycles. Very rare Ventricular ectopy seen as one isolated PVC. Event marker not activated. No diary. Scanned on 07/24/2024. Lisa Sharma, CYNTHIA _ Confirmed by MD MARANDA, QARAB ([id number]) on 07/27/2024 2:54:50 PM Hookup Date: 20240720 Hookup Time: [id number] Recording Duration: 47487 S Minimum Heart Rate: 69 BPM Minimum Heart Rate Date/Time: 20240721 Maximum Heart Rate: 138 BPM Maximum Heart Rate Date/Time: 20240721 Average Heart Rate: 91 BPM Longest RR: 1.008 S Longest RR DATE/TIME: 2024072145 QRS complexes: 760225 Ventricular Ectopics: 1 Ventricular Isolated Beats: 1 Ventricular Bigeminal Cycles: 0 Ventricular Couplets: 0 Ventricular Runs: 0 Ventricular Beats in Runs: 0 Supraventricular Ectopics: 58 Supraventricular Isolated Beats: 55 Supraventricular Couplets: 0 Supraventricular Runs: 1 Supraventricular Beats in Runs: 3 Longest Supraventricular Run Date/Time: 20240721 Fastest Supraventricular Run, Date/Time: 20240721 Overreading Physician: LENORE LOW MD [facility] CNOVon 07-17-2024 CNOV Office Visit (OBGYBR) -------- SALIMA RUSSELL ([id number]) 1975 F Date Time Provider Department 07/17/24 1:00 PM BRENDA RINALDI OBGYBR During your visit today, we recorded the following information about you: Blood pressure Weight Height Last Period 132/84 69.4 kg 1.626 m 06/25/24 Brenda Rinaldi MD 07/24/2024 8:00 PM Signed Recording using MeetingSprout software for draft documentation of the visit was discussed with the patient/authorized sales representative uniforms; all questions welcomed and answered. Patient/authorized sales representative uniforms agreed to proceed SUBJECTIVE: The patient is a 49-year-old female presenting with perimenopausal symptoms, including anxiety, panic attacks, brain fog, and prolonged menstrual periods. Patient's last menstrual period was 06/25/2024 (exact date). Menopausal Symptoms - Currently using Vivelle-Dot estrogen patch twice a week and oral progesterone at night. - Reports feeling "terrible" since starting hormone therapy, with symptoms including increased blood pressure, lightheadedness, and severe anxiety. - Experiencing "brain fog" and memory issues, describing it as not thinking clearly" and doing really stupid stuff." - Denies experiencing these symptoms while on Gentilly. - Reports panic attacks and anxiety "through the roof" since starting hormone therapy. - Currently taking Zoloft and Xanax as needed for anxiety. - Reports blood pressure readings over 98, which is unusual for her. - Under the care of Dr. Noah Huerta, her primary care physician, for blood pressure management. - Interested in checking hormone levels to adjust medication dosages. Menstrual Irregularities - Still experiencing menstrual cycles, with the most recent period starting on June 25 and lasting a little over two weeks. - Denies ever going a full year without a period. - Reports that the prolonged menstrual period stopped early last week. - Denies abnormal bleeding currently but is concerned about the duration of her periods. Weight Management - Currently on Mounjaro for weight management. - Has lost approximately 40 pounds and reports stable weight loss. PAST MEDICAL HISTORY Diagnosis Date Anxiety and depression History of kidney stones 2018 right, required cysto PAST SURGICAL HISTORY Procedure Laterality Date DELIVERY ONLY 2003 DELIVERY ONLY 2008 with TL CYSTO FRAGMENTATION URETERAL STONE Right 2018 kidney stone PCHG TUBAL W/ Bilateral 2008 Current Outpatient Medications on File Prior to Visit Medication Sig MOUNJARO 7.5 mg/0.5 mL pen injector Inject 7.5 mg subcutaneously one time a week. progesterone micronized (PROMETRIUM) 100 mg capsule Take 1 capsule by mouth daily at bedtime. TAKE WITH FOOD. estradiol (VIVELLE-DOT) 0.1 mg/24 hr patch Apply 1 Patch as directed two times a week. ALPRAZolam (XANAX) 0.5 mg tablet Take 0.25 mg by mouth at bedtime as needed. patient takes one half tablet as needed. SERTRALINE 100 mg ORAL tablet No current facility-administe red medications on file prior to visit. Allergies: Hydrocodone OBJECTIVE: BP 132/84 Ht 162.6 cm (5' 4") Wt 69.4 kg (153 lb) LMP 06/25/2024 (Exact Date) BMI 26.26 kg/m? Patient appears well, INAD Pelvic Exam - deferred ASSESSMENT/PLAN: 1. Menopausal and perimenopausal disorder (N95.9) - Discussed perimenopausal symptoms. - Ordered hormone level blood tests; patient instructed to complete lab work today. - Discussed potential adjustment of hormone therapy based on lab results; may decrease Vivelle-Dot dosage and increase progesterone. - Results will be available within 1-2 days; will communicate findings and treatment adjustments via burrp!hart. - Advised continuation of Zoloft and Xanax as needed for anxiety management. - If your blood pressure remains high or you?re concerned, schedule an appointment with Dr. Noah Huerta (your PCP) for evaluation. - Patient understands and agrees with the plan. I spent a total of 30 minutes on the date of the service which included oadw-hq-khoy patient care, completing clinical documentation, obtaining and/or reviewing separately obtained history, counseling and educating the patient/family/car egiver, and ordering medications, tests, or procedures. Brenda Rinaldi MD Allergies As of Date: 07/17/2024 Noted Allergy Reaction HYDROCODONE 07/11/2024 4 - Hives Date Reviewed: 07/17/2024 Reviewed by: Geni Mclaughlin LPN - Fully Assessed Primary Visit Diagnosis:Menopaus al and perimenopausal disorder [N95.9] Order(s):FOLLICLE STIMULATING HORMONE [SQFSH] Order #: [id number] FUTURE ESTRADIOL-17B BLD [SQE2] Order #: [id number] FUTURE PROGESTERONE [SQPROG] Order #: [id number] FUTURE Prescriptions as of 07/24/2024 - MOUNJARO 7.5 mg/0.5 mL pen injector Inject 7.5 mg subcutaneously one time a week. - progesterone micronized (PROMETRIUM) 100 (more content not included)... Normal [facility] ESTRADIOL-17B BLDon 07-18-19 25 E2 [Mass/Vol] 585 pg/mL [facility] Comment on above: This test is not marjorie table for patients receiving treatment with the drug Fulvestrant (Faslodex). The drug causes an interference leading to falsely elevated estradiol results. Menstrual cycle Estradiol reference ranges: Follicular : < 234 pg/mL Ovulation : 41 to 398 pg/mL Luteal : < 342 pg/mL Estradiol reference ranges vary by gestational period: First trimester : 154 to 3243 pg/mL Second trimester : 1561 to 79218 pg/mL Third trimester : 8285 to >86245 pg/mL Post-menopausal Estradiol reference range: < 41 pg/mL Reference: 1. Estradiol - E2 (Estradiol III) [package insert V 3.0 Pakistani]. [facility], [place], [place], July 2015. Estradiol SerPl-mCncon 07-17 E2 [Mass/Vol] 585 pg/mL Normal [facility] Comment on above: Order Comment: Speci men Type: BLOOD SPECIMENOrdering Facility: [facility] Address: [address] [place] [address] Result Comment: This test is not suitable for patients receiving treatment with the drug Fulvestrant (Faslodex). The drug causes an interference leading to falsely elevated estradiol results. Menstrual cycle Estradiol reference ranges: Follicular : < 234 pg/mL Ovulation : 41 to 398 pg/mL Luteal : < 342 pg/mL Estradiol reference ranges vary by gestational period: First trimester : 154 to 3243 pg/mL Second trimester : 1561 to 11546 pg/mL Third trimester : 8285 to >27300 pg/mL Post-menopausal Estradiol reference range: < 41 pg/mL Reference: 1. Estradiol - E2 (Estradiol III) [package insert V 3.0 Pakistani]. [facility], [place], [place], July 2015. Performed By: #### 2 243-4, 2839-9, 13525-0 ####[facility] [id number] [address] FOLLICLE STIMULATING HORMONE on 07-17-2024 Follitropin Qn 4.4 m[IU]/mL See comment mIU/mL [facility] Comment on above: Reference range: Follicular: 3.5-12.5 mIU/mL Ovulation: 4.7-21.5 mIU/mL Luteal: 1.7-7.7 mIU/mL Postmenopausal: 25.8-134.8 mIU/mL [facility] SerPl-aCncon 07-17-2024 Follitropin Qn 4.4 m[IU]/mL Normal See comment [facility] Comment on above: Order Comment: Speci men Type: BLOOD SPECIMENOrdering Facility: [facility] Address: [address] [place] [address] Result Comment: Refe rence range: Follicular: 3.5-12.5 mIU/mL Ovulation: 4.7-21.5 mIU/mL Luteal: 1.7-7.7 mIU/mL Postmenopausal: 25.8-134.8 mIU/mL Performed By: #### 2 243-4, 2839-9, 40901-0 ####[facility] [id number] [address] [place] No Panel Informationon 07-17 [facility] PROGESTERONEon 07-17-2024 Progesterone [Mass/Vol] 0.5 ng/mL See comment [facility] Comment on above: Menstrual Cycle Prog esterone Reference Ranges: Follicular: <1.0 ng/mL Ovulation: <12.1 ng/mL Luteal: 1.8 to 23.9 ng/mL. Progesterone Reference Ranges vary by gestational period: First Trimester: 11.0 to 44.3 ng/mL Second Trimester: 25.4 to 83.3 ng/mL Third Trimester: 58.7 to 214 ng/mL Post menopausal Progesterone: <0.5 ng/mL Reference: 1. Progesterone (Progesterone III) [package insert V 1.0 Pakistani]. [facility], [place], [place]. November 2014. Progest SerPl-mCncon 025 Progesterone [Mass/Vol] 0.5 ng/mL Normal See comment [facility] Comment on above: Order Comment: Speci men Type: BLOOD SPECIMENOrdering Facility: [facility] Address: [address] [place] [address] Result Comment: Mens trual Cycle Progesterone Reference Ranges: Follicular: <1.0 ng/mL Ovulation: <12.1 ng/mL Luteal: 1.8 to 23.9 ng/mL. Progesterone Reference Ranges vary by gestational period: First Trimester: 11.0 to 44.3 ng/mL Second Trimester: 25.4 to 83.3 ng/mL Third Trimester: 58.7 to 214 ng/mL Post menopausal Progesterone: <0.5 ng/mL Reference: 1. Progesterone (Progesterone III) [package insert V 1.0 Pakistani]. [facility], [place], [place]. November 2014. Performed By: #### 2 243-4, 2839-9, 05258-7 ####[facility] [id number] [address] 36on 07-12-2024 36 Name of caller: Salima Contact phone number: [phone] Relationship to Patient: patient Provider: [place] Practice: [facility] Chief Complaint/Reason for Call: patient said she scheduled with a different dr she wanted the ed visit with Luci Berry cancelled . Best time of day caller can be reached: any Patient advised that office/PCP has 24-48 business hours to return their call: No [facility] 36 Appointment noted. Normal [facility] 36 Left vm scheduled with Wilman berry [facility] 36 Name of Caller: Salima Contact Phone Number: [phone] Reason for Appointment: pt calling needing an ED follow up for chest pain and sob. She also said she needs a heart monitor ordered and would like to get in jeet Office Name: ana Medication Refills need, if any: Medication Name: [facility] ALLIED HEALTHon 07-11-2024 ALLIED HEALTH HNO ID: [id number] Author: CHLOE AHUMADA RT(Nikki) Service: Radiology Author Type: Technologist Type: Allied Health Filed: 07/11/2024 13:20 Note Text: Radiology Service Progress Note PATIENT NAME: Salima Russell DATE OF SERVICE: July 11, 2024 TIME: 1:20 PM PATIENT IDENTITY VERIFICATION COMPLETED USING TWO (2) IDENTIFIERS: Name and Date of confirmed by patient verbally. FALL SCREENING: Has the patient had 2 falls in the last year or 1 fall with injury or currently using an Ambulatory Assistive Device (Walker, Cane, Wheelchair, Crutches, etc.)? Emergency Room Patient: Screened in ED PATIENT GENDER DATA: Assigned female at . status: : No status: NO. PATIENT RELEVANT IMPLANT DATA REVIEWED: Not Applicable PATIENT PRESENTS WITH AN IMPLANTABLE OR ATTACHED ASSURANCE SOURCING MANAGER: No RADIOLOGY DEPARTMENT: General X-ray: Exam(s) Completed: Chest X-Ray PERIPHERAL IV DATA: Not applicable SIGNED BY: RT Mikey(R) July 11, 2024 1:20 PM [facility] Basic metabolic 2000 panelon 07-11-2024 Anion gap [Moles/Vol] 6 mmol/L Low 8-15 [facility] Comment on above: Order Comment: Speci men Type: BLOOD SPECIMEN [facility] Address: [address] [place] [address] Performed By: #### 2 4321-2, 43172-4 #### [facility] CLIA [id number] [address] [place] [address] [place] Calcium [Mass/Vol] 8.7 mg/dL Normal 8.5-10.2 [facility] Comment on above: Order Comment: Speci men Type: BLOOD SPECIMEN Ordering Facility: [facility] Address: [address] [place] [address] Performed By: #### 2 4321-2, #### [facility] CLIA [id number] [address] [place] [address] [place] Chloride [Moles/Vol] 103 mmol/L Normal 98-107 [facility] Comment on above: Order Comment: Speci men Type: BLOOD SPECIMEN Ordering Facility[facility] Address: [address] [place] [address] Performed By: #### 2 4320-2, #### [facility] CLIA [id number] [address] [place], [place] [id number] [place] CO2 [Moles/Vol] 27 mmol/L Normal 22-30 [facility] Comment on above: Order Comment: Speci men Type: BLOOD SPECIMEN [facility]ing Facility[facility] Address: [address] [place] [address] Performed By: #### 2 2, #### [facility] CLIA [id number] [address] [place] [address] [place] Creatinine [Mass/Vol] 0.65 mg/dL Normal 0.58-0.96 [facility] Comment on above: Order Comment: Speci men Type: BLOOD SPECIMEN Ordering Facility: [facility] Address: [address] [place] [address] Result Comment: Use of this assay is not recommended for patients undergoing treatment with phenindione, due to the potential for falsely depressed results. Performed By: #### 2 4320-2, #### [facility] CLIA [id number] [address] [place] [address] [place] Creatinine and Glomerular filtration rate.predicted panel (S/P/Bld) 107 mL/min/1.73m??? Normal >=60 [facility] Comment on above: Order Comment: Sunni santoyo Type: BLOOD SPECIMEN [facility] Address: [address] [place] [address] Result Comment: Merry mated Glomerular Filtration Rate (eGFR) is calculated using the 2020 CKD-EPI creatinine equation. This equation utilizes serum creatinine, sex, and age as parameters. The creatinine assay has traceable calibration to isotope dilution-mass spectrometry. Refer to KDIGO guidelines for clinical interpretation. In patients with unstable renal function, e.g. those with acute kidney injury, the eGFR may not accurately reflect actual GFR. Performed By: #### 2 4321-2, 17977-2 #### [facility] CLIA [id number] [address] [place] [address] [place] Glucose [Mass/Vol] 108 mg/dL High 74-99 [facility] Comment on above: Order Comment: Sunni santoyo Type: BLOOD SPECIMEN Ordering Facility: [facility] Address: [address] [place] [address] Result Comment: The [place] Diabetes Association (ADA) provides guidance for cutoff values for fasting glucose and random glucose. The ADA defines fasting as no caloric intake for at least 8 hours. Fasting plasma glucose results between 100 to 125 mg/dL indicate increased risk for diabetes (prediabetes). Fasting plasma glucose results greater than or equal to 126 mg/dL meet the criteria for diagnosis of diabetes. In the absence of unequivocal hyperglycemia, results should be confirmed by repeat testing. In a patient with classic symptoms of hyperglycemia or hyperglycemic crisis, random plasma glucose results greater than or equal to 200 mg/dL meet the criteria for diagnosis of diabetes. Reference: Standards of Medical Care in Diabetes 2016, [place] Diabetes Association. Diabetes Care. 2016.39(Suppl 1). Performed By: #### 2 4321-2, 28872-5 #### [facility] CLIA [id number] [address] [place] [address] [place] Potassium [Moles/Vol] 4.0 mmol/L Normal 3.7-5.1 [facility] Comment on above: Order Comment: Sunni santoyo Type: BLOOD SPECIMEN Ordering Facility: [facility] Address: [address] [id number] Performed By: #### 2 4321-2, #### [facility] CLIA [id number] [address] [place] [address] [place] Sodium [Moles/Vol] 136 mmol/L Normal 136-144 [facility] Comment on above: Order Comment: Speci men Type: BLOOD SPECIMEN Ordering Facility: [facility] Address: [address] [place] [address] Performed By: #### 2 4321-2, #### [facility] CLIA [id number] [address] [place] [address] [place] Urea nitrogen [Mass/Vol] 15 mg/dL Normal 7-21 [facility] Comment on above: Order Comment: Speci men Type: BLOOD SPECIMEN Ordering Facility: [facility] Address: [address] [place] [address] Performed By: #### 2 432-2, #### [facility] CLIA [id number] [address] [place], [place] [phone] [place] CBC W Auto Differential pane l (Bld)on 07-11-2024 Basophils (Bld) [#/Vol] 10*3/uL Normal <0.11 [facility] Comment on above: Order Comment: Speci men Type: BLOOD SPECIMEN Ordering Facility: [facility] Address: [address] [place] [address] Performed By: #### 5 7021-8 #### [facility] CLIA [id number] [address] [place], [place] [phone] [place] Basophils/100 WBC (Bld) 0.3 % Normal A [facility] Comment on above: Order Comment: Speci men Type: BLOOD SPECIMEN Ordering Facility: [facility] Address: [address] [place] [address] Performed By: #### 5 7021-8 #### [facility] CLIA [id number] [address] [place], [place] [phone] [place] Differential cell count method Nom (Bld) Auto Normal [facility] Comment on above: Order Comment: Speci men Type: BLOOD SPECIMEN Ordering Facility: [facility] Address: [address] [place] [address] Performed By: #### 5 7021-8 #### [facility] CLIA [id number] [address] [place] [address] [place] Eosinophils (Bld) [#/Vol] 0.11 10*3/uL Normal <0.46 [facility] Comment on above: Order Comment: Speci men Type: BLOOD SPECIMEN Ordering Facility: [facility] Address: [address] [place] [address] Performed By: #### 5 7021-8 #### [facility] CLIA [id number] [address] [place], [place] [phone] [facility] Eosinophils/100 WBC (Bld) 1.7 % Normal [facility] Comment on above: Order Comment: Speci men Type: BLOOD SPECIMEN Ordering Facility: [facility] Address: [address] [place] [address] Performed By: #### 5 7021-8 #### [facility] CLIA [id number] [address] [place], [place] [phone] [place] Erythrocyte distribution width (RBC) [Ratio] 12.3 % Normal 11.5-15.0 [facility] Comment on above: Order Comment: Speci men Type: BLOOD SPECIMEN Ordering Facility: [facility] Address: [address] [place] [address] Performed By: #### 5 7021-8 #### [facility] CLIA [id number] [address] [place] [address] [place] Hematocrit (Bld) [Volume fraction] 41.0 % Normal 36.0-46.0 [facility] Comment on above: Order Comment: Speci men Type: BLOOD SPECIMEN Ordering Facility: [facility] Address: [address] [place] [address] Performed By: #### 5 7021-8 #### [facility] CLIA [id number] [address] [place] [address] [place] Hemoglobin (Bld) [Mass/Vol] 13.9 g/dL Normal 11.5-15. 5 [facility] Comment on above: Order Comment: Speci men Type: BLOOD SPECIMEN Ordering Facility: [facility] Address: [address] [place] [address] Performed By: #### 5 7021-8 #### [facility] CLIA [id number] [address] [place] [address] [place] Immature granulocytes (Bld) [#/Vol] 10*3/uL Normal <0.10 [facility] Comment on above: Order Comment: Speci men Type: BLOOD SPECIMEN Ordering Facility: [facility] Address: [facility] [place] [address] Performed By: #### 5 7021-8 #### [facility] CLIA [id number] [address] [place], [place] [phone] [place] Immature granulocytes/100 WBC (Bld) 0.2 % Normal [facility] Comment on above: Order Comment: Speci men Type: BLOOD SPECIMEN Ordering Facility: [facility] Address: [address] [place] [address] Performed By: #### 5 7021-8 #### [facility] CLIA [id number] [address] [place], [place] [phone] [place] Lymphocytes (Bld) [#/Vol] 2.03 10*3/uL Normal 1.00-4.0 0 [facility] Comment on above: Order Comment: Speci men Type: BLOOD SPECIMEN Ordering Facility: [facility] Address: [address] [place] [address] Performed By: #### 5 7021-8 #### [facility] CLIA [id number] [address] [place], [place] [phone] [place] Lymphocytes/100 WBC (Bld) 32.1 % Normal [facility] Comment on above: Order Comment: Speci men Type: BLOOD SPECIMEN Ordering Facility: [facility] Address: [address] [place] [address] Performed By: #### 5 7021-8 #### [facility] CLIA [id number] [address] [place] [address] [place] MCH (RBC) [Entitic mass] 31.0 pg Normal 26.0-34.0 [facility] Comment on above: Order Comment: Speci men Type: BLOOD SPECIMEN Ordering Facility: [facility] Address: [address] [place] [address] Performed By: #### 5 7021-8 #### [facility] CLIA [id number] [address] [place] [address] [place] MCHC (RBC) [Mass/Vol] 33.9 g/dL Normal 30.5-36.0 [facility] Comment on above: Order Comment: Speci men Type: BLOOD SPECIMEN Ordering Facility: [facility] Address: [address] [place] [address] Performed By: #### 5 7021-8 #### [facility] CLIA [id number] [address] [place] [address] [place] MCV (RBC) [Entitic vol] 91.5 fL Normal 80.0-100.0 A [facility] Comment on above: Order Comment: Speci men Type: BLOOD SPECIMEN Ordering Facility: [facility] Address: [address] [place] [address] Performed By: #### 5 7021-8 #### [facility] CLIA [id number] [address] [place], [place] [phone] [facility] Monocytes (Bld) [#/Vol] 0.42 10*3/uL Normal <0.87 [facility] Comment on above: Order Comment: Speci men Type: BLOOD SPECIMEN Ordering Facility: [facility] Address: [address] [place] [address] Performed By: #### 5 7021-8 #### [facility] CLIA [id number] [address] [place], [place] [phone] [facility] Monocytes/100 WBC (Bld) 6.6 % Normal A [facility] Comment on above: Order Comment: Speci men Type: BLOOD SPECIMEN Ordering Facility: [facility] Address: [address] [place] [address] Performed By: #### 5 7021-8 #### [facility] CLIA [id number] [address] [place] [address] [place] Neutrophils (Bld) [#/Vol] 3.73 10*3/uL Normal 1.45-7.5 0 [facility] Comment on above: Order Comment: Speci men Type: BLOOD SPECIMEN Ordering Facility: [facility] Address: [address] [place] [address] Performed By: #### 5 7021-8 #### [facility] CLIA [id number] [address] [place] [address] [place] Neutrophils/100 WBC (Bld) 59.1 % Normal [facility] Comment on above: Order Comment: Speci men Type: BLOOD SPECIMEN Ordering Facility: [facility] Address: [address] [place] [address] Performed By: #### 5 7021-8 #### [facility] CLIA [id number] [address] [place] [address] [place] Nucleated RBC (Bld) [#/Vol] Normal [facility] Comment on above: Order Comment: Speci men Type: BLOOD SPECIMEN Ordering Facility: [facility] Address: [address] [place] [address] Performed By: #### 5 7021-8 #### [facility] CLIA [id number] [address] [place] [address] [place] Nucleated RBC/100 WBC (Bld) [Ratio] Normal [facility] Comment on above: Order Comment: Speci men Type: BLOOD SPECIMEN Ordering Facility: [facility] Address: [address] [place] [address] Performed By: #### 5 7021-8 #### [facility] CLIA [id number] [address] [place] [address] [place] Platelet mean volume (Bld) [Entitic vol] 9.1 fL Normal 9.0-12.7 [facility] Comment on above: Order Comment: Speci men Type: BLOOD SPECIMEN Ordering Facility: [facility] Address: [address] [place] [address] Performed By: #### 5 7021-8 #### [facility] CLIA [id number] [address] [place] [address] [place] Platelets (Bld) [#/Vol] 259 10*3/uL Normal 150-400 [facility] Comment on above: Order Comment: Speci men Type: BLOOD SPECIMEN Ordering Facility: [facility] Address: [address] [place] [address] Performed By: #### 5 7021-8 #### [facility] CLIA [id number] [address] [place] [address] [facility] RBC (Bld) [#/Vol] 4.48 10*6/uL Normal 3.90-5.20 [facility] Comment on above: Order Comment: Speci men Type: BLOOD SPECIMEN Ordering Facility: [facility] Address: [address] [place] [address] Performed By: #### 5 7021-8 #### [facility] CLIA [id number] [address] [place] [address] [place] WBC (Bld) [#/Vol] 6.32 10*3/uL Normal 3.70-11.00 [facility] Comment on above: Order Comment: Speci men Type: BLOOD SPECIMEN Ordering Facility: [facility] Address: [address] [place] [address] Performed By: #### 5 7021-8 #### [facility] CLIA [id number] [address] [place] [address] [facility] ED NOTEon 07-11-2024 ED NOTE HNO ID: [id number] Author: MARITZA ROUSE RN Service: Emergency Medicine Author Type: Registered Nurse Type: ED Notes Filed: 07/11/2024 15:02 Note Text: Discussed discharge instructions with pt including importance of follow up with pcp. Education provided including s/s to return to ER. Pt verbalized understanding. Pt resp even and unlabored with no s/s of distress noted. Pt able to speak in complete sentences without difficulty. All questions answered and pt denies any needs at this time. Pt ambulatory with steady gait on departure. Normal [facility] ED PROV NOTEon 07-11-2024 ED PROV NOTE HNO ID: [id number] Author: MARIA ANTONIA DRAKE APRN.ALEXANDRA Service: Emergency Medicine Author Type: Nurse Practitioner Type: ED Provider Notes Filed: 07/11/2024 14:59 Note Text: ED Provider Note Patient Name: Salima Russell : 1975 SERVICE DATE: 07/11/24 History Patient presents with: Dizziness Chest Pain: Pt reports dizziness with and without movement since Tuesday and getting worse, chest pain with no radiation that started today. Pt repots assoc SOB. Pt denies any fever chills, N/V Patient is a 49-year-old female presenting to the ED with a chief complaint of palpitations. This is been coming and going intermittently for about the past 4 to 5 days. She states when these palpitations occur she does get some pain in her chest that she feels dizzy. Nothing seems to provoke these episodes. They come and go spontaneously. She has a history of anxiety and notes that she takes Zoloft and Xanax as needed. She suspects that she may be feeling anxious just because of the symptoms and that the anxiety may not truly be causing it. She does note that she recently started estrogen patches and progesterone tablets daily for menopause. She does not feel like it is helping. She is occasionally nauseous denies any abdominal pain or vomiting. No changes. PAST MEDICAL HISTORY Diagnosis Date Anxiety and depression History of kidney stones 2018 right, required cysto PAST SURGICAL HISTORY Procedure Laterality Date DELIVERY ONLY 2004 DELIVERY ONLY 2009 with TL CYSTO FRAGMENTATION URETERAL STONE Right 2018 kidney stone PCHG TUBAL W/ Bilateral 2009 FAMILY HISTORY Problem Relation Age of Onset Breast Cancer Mother 64 alive age 70 (2019) Hypertension Father Heart Attack Father other (endometrial ablation) Sister AUB Stroke Maternal Grandfather Heart Attack Paternal Grandmother Cervical Cancer No Family History Ovarian cancer No Family History Uterine Cancer No Family History Colon Cancer No Family History Pancreatic Cancer No Family History Prostate Cancer No Family History Social History Tobacco Use Smoking status: Never Smokeless tobacco: Never Vaping Use Vaping status: Never Used Substance and Sexual Activity Alcohol use: Yes Comment: social Drug use: No Sexual activity: Yes Partners: Male control/protection : Tubal Ligation ALLERGIES Allergen Reactions Hydrocodone Hives Review of Systems All other systems reviewed and are negative. Physical Exam Vitals [07/11/24 1236] BP Pulse Temp Temp src Resp SpO2 Weight Height 160/97 (!) 107 36.4 ?C (97.6 ?F) Temporal 20 99 % 69.4 kg (153 lb) 1.626 m (5' 4") Physical Exam Vitals and nursing note reviewed. Constitutional: Appearance: Normal appearance. She is well-developed. HENT: Head: Normocephalic and atraumatic. Nose: Nose normal. Mouth/Throat: Mouth: Mucous membranes are moist. Eyes: General: No scleral icterus. Cardiovascular: Rate and Rhythm: Normal rate. Pulses: Normal pulses. Heart sounds: Normal heart sounds. Pulmonary: Effort: Pulmonary effort is normal. No respiratory distress. Breath sounds: Normal breath sounds. Abdominal: General: Abdomen is flat. Bowel sounds are normal. There is no distension. Palpations: Abdomen is soft. Tenderness: There is no abdominal tenderness. There is no guarding or rebound. Musculoskeletal: General: Normal range of motion. Cervical back: Normal range of motion. Skin: General: Skin is warm. Capillary Refill: Capillary refill takes less than 2 seconds. Neurological: Mental Status: She is alert and oriented to person, place, and time. Psychiatric: Mood and Affect: Mood normal. Behavior: Behavior normal. Thought Content: Thought content normal. Diagnostic Testing ED Labs Ordered and Reviewed - No data to display Procedures ED Course / Clinical Impression Clinical Impressions as of 07/11/24 1457 Palpitations MDM / Disposition / Plan Patient is a 49-year-old female here in the ED with complaints of palpitations with dizziness and some chest discomfort. Presentation she is mildly tachycardic which I believe is normal due to anxiety/stress. Vital signs otherwise stable. Work appears reassuring. EKG shows no acute ischemic changes no arrhythmia. Chest x-ray without acute Pardy pulm abnormalities. She has 2 normal cardiac biomarkers making ACS unlikely. Thyroid normal. Electrolytes normal. No acute anemia. No acute leukocytosis. Given reassuring exam and findings we will plan to discharge home with PCP follow-up. Would benefit from Holter monitor given her symptoms or complaints. History and Record Review External record(s) reviewed: PDMP reviewed. SIGNATURE: Maria Antonia Drake APRN.ALEXANDRA Kierra VIDAL MARIA ANTONIA 07/11/24 1459 Normal [facility] EKGon 07-11-2024 Electrocardiogram Ventricular Rate : 98 BPM Atrial Rate : 98 BPM P-R Interval : 142 ms QRS Duration : 80 ms Q-T Interval : 334 ms QTC Calculation(Bazett ) : 426 ms Calculated P Rock : 38 degrees Calculated R Rock : 25 degrees Calculated T Rock : 42 degrees NORMAL SINUS RHYTHM NORMAL ECG WHEN COMPARED WITH ECG OF 25-Oct-2020 11:04, NONSPECIFIC T WAVE ABNORMALITY NO LONGER EVIDENT IN LATERAL LEADS Confirmed by KELSY BENITEZ MD ([id number]) on 07/12/2024 8:41:23 AM NAME : SALIMA RUSSELL PID : [id number] : 1975 Gender : Female Race : ORD : Procedure Date : Jul 11 2024 12:37:34 Edit Date : Jul 12 2024 08:41:24 Diagnosis: NORMAL SINUS RHYTHM NORMAL ECG WHEN COMPARED WITH ECG OF 25-Oct-2020 11:04, NONSPECIFIC T WAVE ABNORMALITY NO LONGER EVIDENT IN LATERAL LEADS Confirmed by KELSY BENITEZ MD ([id number]) on 07/12/2024 8:41:23 AM Test Reason : Location : 148 : [facility] ED Overread By : KELSY BENITEZ MD Edited By : KELSY BENITEZ MD Referred By : , Acquired by : MIMI BIGGS [facility] HIGH SENSITIVITY TROPONIN I (INITIAL)on 07-11-2024 Tropinin I.cardiac panel High sensitivity method <2.0 Normal <=20.7 [facility] Comment on above: Order Comment: Speci men Type: BLOOD SPECIMEN Ordering Facility: [facility] Address: [address] [place] [address] Performed By: #### L [id number] #### [facility] CLIA [id number] [address] [place] [address] [place] HIGH SENSITIVITY TROPONIN I (SECOND)on 07-11-2024 Tropinin I.cardiac panel High sensitivity method <2.0 Normal <=20.7 [facility] Comment on above: Order Comment: Speci men Type: BLOOD SPECIMENOrdering Facility: [facility] Address: [address] [place], [place] [address] Performed By: #### H STROPI2 ####[facility] [id number] [address] [place] [id number] [place] Magnesium SerPl-mCncon 07-11 Magnesium [Mass/Vol] 1.8 mg/dL Normal 1.7-2.3 [facility] Comment on above: Order Comment: Speci men Type: BLOOD SPECIMEN Ordering Facility: [facility] Address: [address] [place] [address] Performed By: #### 2 4321-2, 70592-4 #### [facility] CLIA [id number] [address] [place], [place] [id number] [place] TSH SerPl-aCncon 07-11-2024 TSH Qn 1.684 m[IU]/L Normal 0.270-4.200 [facility] Comment on above: Order Comment: Speci yarelis Type: BLOOD SPECIMEN Ordering Facility: [facility] Address: [address] [place] [address] Performed By: #### 3 016-3 #### [facility] CLIA [id number] [address] [place], [place] [id number] [place] XR CHEST 2V FRONTAL/LATon XR CHEST 2V FRONTAL/LAT * * *Final Repor t* * * DATE OF EXAM: Jul 11 2024 1:21PM [id number] - XR CHEST 2V FRONTAL/LAT / PROCEDURE REASON: Chest Pain * * * * Physician Interpretation * * * * EXAMINATION: CHEST RADIOGRAPH (2 VIEW FRONTAL and LATERAL) CLINICAL HISTORY: Chest Pain MQ: [id number] EXAM DATE/TIME: 07/11/2024 1:21 PM COMPARISON: 02/24/2024 RESULT: Lines, tubes, and devices: None. Lungs and pleura: No consolidation. No lung mass. No pleural effusion. No pneumothorax. Cardiomediastinal silhouette: Normal cardiomediastinal silhouette. Bones and soft tissues: Degenerative changes are present within the thoracic spine. IMPRESSION: No acute radiographic abnormality. Waterworks Chief Engineer: BECKY Transcribe Date/Time: Jul 11 2024 1:46P Dictated by : SERVANDO ALAN MD This examination was interpreted and the report reviewed and electronically signed by: SERVANDO ALAN MD on Jul 11 2024 1:46PM EST [id number] Normal [facility] Lyme Antibodies,W Bloton Lyme Additional Comment Normal . [facility] Comment on above: Result Comment: Per CDC criteria, the Lyme IgG Immunoblot is interpreted as positive if IgG-class antibodies are detected to 5 or more B. burgdorferi proteins, and the Lyme IgM Immunoblot is interpreted as positive if IgM-class antibodies are detected to 2 or more B. burgdorferi proteins. Immunoblot patterns not meeting these criteria should not be interpreted as positive. Epitopes from certain B. burgdorferi proteins (e.g., p41) are conserved across other bacteria, which may lead to the detection of IgM-and/or IgG class antibodies on the Lyme disease immunoblots in patients without Lyme disease. Immunoblot should only be ordered on specimens that are positive or equivocal by an FDA-licensed Lyme disease antibody screening test (e.g., EIA). Results of the Lyme IgM immunoblot should not be considered in patients with 30 or more days of symptoms. Performed at: [address] [id number] [employer] Craft[employer] Teacher: Alyssa Freitas MD, Phone: [phone] Performed By: #### L 7000.5800 #### [facility] [address] [place], [address] LYME IgG INTERP Negative Normal Negative [facility] Comment on above: Performed By: #### L 7000.5800 #### [facility] [address] [place], [address] LYME IgM INTERP Negative Normal Negative [facility] Comment on above: Result Comment: Adilson welch Note: Lyme immunoblot alone is not recommended for the diagnosis of Lyme disease. Current guidelines recommend the use of a two-tiered approach to Lyme serology testing to improve the sensitivity and specificity of testing. [facility] offers test code 906165 Lyme Disease Serology with Reflex to aid in the diagnosis of Lyme Disease. Performed By: #### L 6999.5800 #### [facility] [address] [place], [address] P18 Ab Absent Normal . [facility] Comment on above: Performed By: #### L 6999.5800 #### [facility] [address] [place], [address] P23 Ab Absent Normal . [facility] Comment on above: Performed By: #### L 6999.0 #### [facility] [address] [place], [address] P28 Ab Absent Normal . [facility] Comment on above: Performed By: #### L 5800 #### [facility] [address] [place], [address] P30 Ab Absent Normal . [facility] Comment on above: Performed By: #### L 5800 #### [facility] [address] [place], [address] P39 Ab Absent Normal . [facility] Comment on above: Performed By: #### L 5800 #### [facility] [address] [place], [address] P39 Ab Present Normal . [facility] Comment on above: Performed By: #### L 5800 #### [facility] [address] [place], [address] P41 Ab Present Normal . [facility] Comment on above: Performed By: #### L 6999.5800 #### [facility] [address] [place], [address] P41 Ab Absent Normal . [facility] Comment on above: Performed By: #### L 5800 #### [facility] [address] [place], [address] P45 Ab Absent Normal . [facility] Comment on above: Performed By: #### L 7000.5800 #### [facility] [address], [address] P58 Ab Absent Normal . [facility] Comment on above: Performed By: #### L [id number] #### [facility] [address], [address] P66 Ab Absent Normal . [facility] Comment on above: Performed By: #### L 7000.5800 #### [facility] [address] [place], [address] P93 Ab Absent Normal . [facility] Comment on above: Performed By: #### L 7000.5800 #### [facility] [address] [place], [place], [address] 36on 06-19-2024 36 Patient scheduled 12/07/24 Normal [facility] 36on 06-18-2024 36 Lmom to schedule for physical to get Rx refills. Normal [facility] 36 Pt is overdue for physical Please call to schedule Normal [facility] AMB POC DRUG SCREEN 12, LABS OURCEOrdered By: Kayla Mancia on 06-04-2024 Amphetamine Screen, Urine Negative [facility] Barbiturates Screen Ql (U) Not detected None De tected [facility] Benzodiazepines Ql (U) Not detected None Detect ed [facility] BUPRENORPHINE SCREEN Negative Negative [facility] Cannabinoids Screen (U) [Mass/Vol] Negative [facility] Cocaine Ql (U) Not detected None Detected [facility] FENTANYL SCREEN, URINE Negative Negative [facility] Interpretation and review of laboratory results Normal [facility] Methadone Screen Ql (U) Not detected [facility] Methamphetamine (U) [Mass/Vol] Negative [facility] Methylenedioxymethamphetami ne (U) [Mass/Vol] Negative ng/mL [facility] Opiates Screen Ql (U) Not detected S [facility] oxyCODONE Ql (U) Negative [facility] Phencyclidine Ql (U) Not detected None Detected [facility] TRAMADOL SCREEN, URINE Negative Negative [facility] Tricyclic antidepressants Screen Ql (U) Not detected [facility] Office Visiton 06-04-2024 Follow-up visit [id number] Candelaria Russell 1975 F Date Provider Department Center 06/04/2024 [id number] MOSER [facility] Family History Problem Relation Age of Onset No Known Problems Paternal Grandmother Heart disease Father Heart disease Paternal Grandfather No Known Problems Daughter No Known Problems Mother No Known Problems Daughter No Known Problems Sister Heart disease Maternal Grandfather Family Status - Relation Status Age at Paternal Grandmother Father Alive Paternal Grandfather Daughter Alive Mother Alive Daughter Alive Sister Alive Maternal Grandfather Maternal Grandmother Alive Level of Service:84981 AL OFFICE/OUTPATIENT ESTABLISHED MOD MDM 30 MIN Reason for Visit and Comments: Med Refill [[id number]] - Here for med refill and requesting Kenalog shot for allergies. Was exposed to ticks recently, daughter was sick. Normal [facility] Progress Noteon 06-04-2024 Progress Note [facility] [place] [id number] [facility] [address] [facility] [address] Visit type: Established Patient Reason for Visit: Med Refill (Here for med refill and requesting Kenalog shot for allergies. Was exposed to ticks recently, daughter was sick. ) Assessment and Plan 1. Seasonal allergies (Primary) Uncontrolled. Recommended: -cont OTC meds - triamcinolone acetonide (Kenalog-40) injection 60 mg 2. Moderate persistent asthma without complication Stable declines daily meds other than singulair -albuterol prn 3. Generalized anxiety disorder stable - ALPRAZolam (Xanax) 0.5 MG tablet; Take 0.5 tablets (0.25 mg) by mouth Nightly as needed for sleep or anxiety. Dispense: 15 tablet; Refill: 0 - AMB POC DRUG SCREEN 12, [facility] Follow up in about 6 months (around 12/04/2024) for follow up Dr Huerta 20 min. Subjective HPI Seasonal allergies. Not controlled. Taking Singulair Xyzal and Flonase without much help. She has asthma but this has not flared up. Would like to have Kenalog. Asthma. Prn albuterol on hand but also has not needed as of late INA/insomnia. Mood has been good. Still needs Xanax 1-2 times a week to help sleep. Zoloft 50 mg daily helpful Allergies Allergen Reactions Ciprofloxacin Nausea And Vomiting Other reaction(s): Abd cramps/diarrhea Oxycodone Rash Other reaction(s): Abd cramps/diarrhea Promethazine Other reaction(s): wide awake Current Outpatient Medications Medication Sig Dispense Refill albuterol 108 (90 Base) MCG/ACT inhaler Inhale 2 puffs every 6 hours as needed for wheezing. 18 g 3 estradiol (Vivelle-DOT) 0.1 MG/24HR Place 1 patch on the skin Twice a Week. montelukast (Singulair) 10 MG tablet Take 1 tablet (10 mg) by mouth daily. 90 tablet 3 Mounjaro 7.5 MG/0.5ML solution pen-injector inject 1 syringe subcutaneously once weekly naproxen (Naprosyn) 500 MG tablet Take 1 tablet (500 mg) by mouth 2 times daily as needed for mild pain (1-3) (pain). 60 tablet 0 progesterone (Prometrium) 100 MG capsule Take 100 mg by mouth. sertraline (Zoloft) 50 MG tablet TAKE 1 TABLET BY MOUTH EVERY DAY 90 tablet 3 ALPRAZolam (Xanax) 0.5 MG tablet Take 0.5 tablets (0.25 mg) by mouth Nightly as needed for sleep or anxiety. 15 tablet 0 No current facility-administe red medications for this visit. Past Medical History: Diagnosis Date Generalized anxiety disorder 05/31/2015 Kidney stone Mild episode of recurrent major depressive disorder (HCC) 06/18/2019 Moderate persistent asthma without complication 05/31/2015 Obesity (BMI 30-39.9) 07/19/2015 Social History Socioeconomic History Marital status: Tobacco Use Smoking status: Never Passive exposure: Never Smokeless tobacco: Never Vaping Use Vaping status: Never Used Substance and Sexual Activity Alcohol use: Not Currently Drug use: Never Social Drivers of Health Financial Resource Strain: Low Risk (06/01/2021) Received from [facility] Overall Financial Resource Strain (CARDIA) Difficulty of Paying Living Expenses: Not hard at all Food Insecurity: No Food Insecurity (06/01/2021) Received from [facility] Hunger Vital Sign Worried About Running Out of Food in the Last Year: Never true Ran Out of Food in the Last Year: Never true Transportation Needs: No Transportation Needs (06/01/2021) Received from [facility] PRAPARE - Transportation Lack of Transportation (Medical): No Lack of Transportation (Non-Medical): No Physical Activity: Sufficiently Active (06/01/2021) Received from [facility] Exercise Vital Sign Days of Exercise per Week: 4 days Minutes of Exercise per Session: 60 min Stress: Stress Concern Present (06/01/2021) Received from [facility] [employer] [place] [employer] - Occupational Stress Questionnaire Feeling of Stress : To some extent Social Connections: Socially Integrated (06/01/2021) Received from [facility] Social Connection and Isolation Panel [NHANES] Frequency of Communication with Friends and Family: More than three times a week Frequency of Social Gatherings with Friends and Family: More than three times a week Attends Gnosticist Services: More than 4 times per year Active Member of Clubs or Organizations: Yes Attends Club or Organization Meetings: More than 4 times per year Marital Status: Past Surgical History: Procedure Laterality Date ABDOMINAL SURGERY SECTION (HISTORICAL) X 2 OTHER SURGICAL HISTORY Right 11/17/2017 cystoscopy pyelogram ureteroscopy stone basket extraction stent placement right WISDOM TOOTH EXTRACTION Pas (more content not included)... Normal [facility] Office Visiton 05-07-2024 Follow-up visit [id number] Candelaria Russell 1975 F Date Provider Department Center 05/07/2024 [id number] BERRY [facility] Family History Problem Relation Age of Onset No Known Problems Paternal Grandmother Heart disease Father Heart disease Paternal Grandfather No Known Problems Daughter No Known Problems Mother No Known Problems Daughter No Known Problems Sister Heart disease Maternal Grandfather Family Status - Relation Status Age at Paternal Grandmother Father Alive Paternal Grandfather Daughter Alive Mother Alive Daughter Alive Sister Alive Maternal Grandfather Maternal Grandmother Alive Level of Service:84177 AL OFFICE/OUTPATIENT ESTABLISHED LOW MDM 20 MIN Reason for Visit and Comments: Knee Pain [[id number]] - states has been having intermittent left knee pain for the last month. At times walks with a limp. Has woken her up at night. Unknown injury Normal [facility] Progress Noteon 05-07-2024 Progress Note [facility] [place] [address] [facility] [address] [facility] [address] Dept Visit Date: 05/07/24 HPI: Candelaria Russell is a 49 y.o. female who presents today for: Chief Complaint Patient presents with Knee Pain states has been having intermittent left knee pain for the last month. At times walks with a limp. Has woken her up at night. Unknown injury Knee Pain There was no injury mechanism. The pain is present in the left knee. The quality of the pain is described as aching. The pain is moderate. The pain has been Fluctuating since onset. Associated symptoms include an inability to bear weight. Pertinent negatives include no loss of motion, loss of sensation, muscle weakness, numbness or tingling. She reports no foreign bodies present. The symptoms are aggravated by movement, palpation and weight bearing. She has tried NSAIDs and rest for the symptoms. The treatment provided mild relief. Current Outpatient Medications Medication Sig Dispense Refill albuterol 108 (90 Base) MCG/ACT inhaler Inhale 2 puffs every 6 hours as needed for wheezing. 18 g 3 ALPRAZolam (Xanax) 0.5 MG tablet Take 0.5 tablets (0.25 mg) by mouth Nightly as needed for sleep or anxiety. 15 tablet 0 montelukast (Singulair) 10 MG tablet Take 1 tablet (10 mg) by mouth daily. 90 tablet 3 Mounjaro 7.5 MG/0.5ML solution pen-injector inject 1 syringe subcutaneously once weekly sertraline (Zoloft) 50 MG tablet TAKE 1 TABLET BY MOUTH EVERY DAY 90 tablet 3 budesonide-formote rol (Symbicort) 160-4.5 MCG/ACT inhaler Inhale 2 Inhalation in the morning and 2 Inhalation in the evening. (Patient not taking: Reported on 05/07/2024) naproxen (Naprosyn) 500 MG tablet Take 1 tablet (500 mg) by mouth 2 times daily as needed for mild pain (1-3) (pain). 60 tablet 0 No current facility-administe red medications for this visit. Allergies Allergen Reactions Ciprofloxacin Nausea And Vomiting Other reaction(s): Abd cramps/diarrhea Oxycodone Rash Other reaction(s): Abd cramps/diarrhea Promethazine Other reaction(s): wide awake Past Medical History: Diagnosis Date Generalized anxiety disorder 05/31/2015 Kidney stone Mild episode of recurrent major depressive disorder (HCC) 06/18/2019 Moderate persistent asthma without complication 05/31/2015 Obesity (BMI 30-39.9) 07/19/2015 Subjective: Review of Systems Musculoskeletal: Positive for arthralgias and gait problem. Neurological: Negative for tingling and numbness. Objective: BP 114/68 (BP Location: Right arm, Patient Position: Sitting, BP Cuff Size: Adult) Pulse 89 Temp 36.7 ?C (98.1 ?F) (Temporal) Ht 5' 2.5" (1.588 m) Wt 159 lb (72.1 kg) SpO2 97% BMI 28.62 kg/m? Physical Exam Vitals and nursing note reviewed. Constitutional: General: She is not in acute distress. Appearance: Normal appearance. She is not ill-appearing or toxic-appearing. Pulmonary: Effort: Pulmonary effort is normal. Musculoskeletal: Right knee: Normal. Left knee: No swelling, erythema, ecchymosis or crepitus. Decreased range of motion (limited flexion due to pain). Tenderness present over the lateral joint line. No patellar tendon tenderness. No LCL laxity, MCL laxity or ACL laxity.Normal alignment, normal meniscus and normal patellar mobility. Instability Tests: Anterior drawer test negative. Posterior drawer test negative. Neurological: Mental Status: She is alert. Assessment: Diagnosis Plan 1. Acute pain of left knee XR knee 3 views left naproxen (Naprosyn) 500 MG tablet [facility] [place] Plan: Salima was seen today for knee pain. Diagnoses and all orders for this visit: Acute pain of left knee (Primary) Acute, uncontrolled. No known injury. No improvement with home treatment, activity modification, brace, nsaids. Check xray today. Naproxen as needed. See PT. - XR knee 3 views left; Future - naproxen (Naprosyn) 500 MG tablet; Take 1 tablet (500 mg) by mouth 2 times daily as needed for mild pain (1-3) (pain). - [facility] [place]; Future Follow up if symptoms worsen or fail to improve. Luci Berry APRN-[facility] FORMER 05/07/2024 9:07 AM Normal [facility] XR Knee - left 3 Viewson 1. Small joint effusion. No acute osseous abnormality. Report Dictated on Electronically Signed By: Tom Olivares MD Electronically Signed Date/Time: 05/07/2024 11:56 PM EDT [facility] Patient Name: CANDELARIA RUSSELL : 1975 Exam Date/Time: 05/07/2024 09:17 Procedure: XR KNEE 3 VIEWS LEFT Ordering Provider: BERRY JENNIFER Reason For Exam: left knee pain LEFT KNEE THREE VIEWS CLINICAL INDICATION: left knee pain TECHNIQUE: Three views of the left knee. COMPARISON: None FINDINGS: No significant joint space narrowing. No fracture or dislocation. Small joint effusion. [facility] Tom Olivares MD - 05/07/2024 Patient Name: CANDELARIA RUSSELL : 1975 Exam Date/Time: 05/07/2024 09:17 Procedure: XR KNEE 3 VIEWS LEFT Ordering Provider: BERRY JENNIFER Reason For Exam: left knee pain LEFT KNEE THREE VIEWS CLINICAL INDICATION: left knee pain TECHNIQUE: Three views of the left knee. COMPARISON: None FINDINGS: No significant joint space narrowing. No fracture or dislocation. Small joint effusion. IMPRESSION: 1. Small joint effusion. No acute osseous abnormality. Report Dictated on Electronically Signed By: Tom Olivares MD Electronically Signed Date/Time: 05/07/2024 11:56 PM EDT [facility] Rad[facility] Study observation (narrative) [employer] XR Knee - left 3 ViewsOrdere d By: Tom Olivares on 05-07-2024 [employer] Work Phone: 36on 05-05-2024 36 S: patient calling [facility] d/t left knee pain B: Symptoms started a month ago A:states has been having intermittent knee pain for the last month. At times walks with a limp. Has woken her up at night. Denies swelling redness, fever. Covid screening negative Has been taking ibuprofen and wearing knee brace that helps temporarily. R: Insurance verified. Maureen scheduled with Wilman Berry on 05/07 at 8:40 advised to come 10-15 minutes early bring insurance card id and medication list. Discussed otc medication. Patient advised to call back with worsening of symptoms, concern or questions. Patient verbalized understanding. Reason for Disposition [1] MODERATE pain (e.g., interferes with normal activities, limping) AND [2] present > 3 days Protocols used: Knee Ygji-NUEOX-CV Normal [facility] Absolute lymphocyte countOrd ered By: Jacobo Martinez on 04-11-2024 Lymphocytes Auto (Unsp spec) [#/Vol] 1.50 10*3/uL 0.83-4.51 [facility] Absolute neutrophil countOrd ered By: Jacobo Martinez on 04-11-2024 Neutrophils (Bld) [#/Vol] 2.2 10*3/uL 2.0-7.7 [facility] Automated lymphocyte count a s percentage of total leukocytesOrdered By: Jacobo Martinez on 04-11-2024 Lymphocytes/100 WBC Auto (Unsp spec) 36.3 % 19-41 [facility] BUN/creatinine ratioOrdered By: Jacobo Martinez on 04-11-2024 Urea nitrogen/Creatinine [Mass ratio] 18.3 mg/mg 10-20 [facility] Basophil percentageOrdered B y: Jacobo Martinez on 04-11-2024 Basophils/100 WBC (Bld) 0.2 % 0-1 [facility] Bilirubin, totalOrdered By: Jacobo Martinez on 04-11-2024 Bilirubin [Mass/Vol] 0.35 mg/dL 0.00-1.30 [facility] CBC W/Diff, Automatedon 03-18 Absolute Lymph 1.50 X10 3/uL Normal 0.83-4.51 [facility] Comment on above: Performed By: #### L 500.4050, L100.0100, L500.4100, L501.9520, L506.1001, L503.0106 #### [facility] [address] [place], [address] Absolute Neut 2.2 X10 3/uL Normal 2.0-7.7 [facility] Comment on above: Performed By: #### L 500.4050, L100.0100, L500.4100, L501.9520, L506.1001, L503.0106 #### [facility] [address] [place], [address] Basophils/100 WBC (Bld) 0.2 % Normal 0-1 [facility] Comment on above: Performed By: #### L 500.4050, L100.0100, L500.4100, L501.9520, L506.1001, L503.0106 #### [facility] [address] [place], [address] Eosinophils/100 WBC (Bld) 2.2 % Normal 0-5 [facility] Comment on above: Performed By: #### L 500.4050, L100.0100, L500.4100, L501.9520, L506.1001, L503.0106 #### [facility] [address] [place], [address] Erythrocyte distribution width (RBC) [Ratio] 12.7 % Normal 11.6-14.6 [facility] Comment on above: Performed By: #### L 500.4050, L100.0100, L500.4100, L501.9520, L506.1001, L503.0106 #### [facility] [address] [place], [address] Hematocrit (Bld) [Volume fraction] 40.7 % Normal 37-47 [facility] Comment on above: Performed By: #### L 500.4050, L100.0100, L500.4100, L501.9520, L506.1001, L503.0106 #### [facility] [address] [place], [address] Hemoglobin (Bld) [Mass/Vol] 13.3 g/dL Normal 12.0-15. 0 [facility] Comment on above: Performed By: #### L 500.4050, L100.0100, L500.4100, L501.9520, L506.1001, L503.0106 #### [facility] [address] [place], [address] IG% 0.200 Normal 0.0-0.9 [facility] Comment on above: Result Comment: IG% - Immature Granulocytes (promyelocytes, myelocytes and metamyelocytes) > 1% indicates that a LEFT SHIFT is Present. Performed By: #### L 500.4050, L100.0100, L500.4100, L501.9520, L506.1001, L503.0106 #### [facility] [address] [place], [address] Lymphocytes/100 WBC (Bld) 36.3 % Normal 19-41 [facility] Comment on above: Performed By: #### L 500.4050, L100.0100, L500.4100, L501.9520, L506.1001, L503.0106 #### [facility] [address] [place], [address] MCH (RBC) [Entitic mass] 29.2 pg Normal 27.0-32.0 [facility] Comment on above: Performed By: #### L 500.4050, L100.0100, L500.4100, L501.9520, L506.1001, L503.0106 #### [facility] [address], [address] MCHC (RBC) [Mass/Vol] 32.7 g/dL Normal 32-36 [facility] Comment on above: Performed By: #### L 500.4050, L100.0100, L500.4100, L501.9520, L506.1001, L503.0106 #### [facility] [address] [place], [address] MCV (RBC) [Entitic vol] 89.3 fL Normal 81-99 [facility] Comment on above: Performed By: #### L 500.4050, L100.0100, L500.4100, L501.9520, L506.1001, L503.0106 #### [facility] [address] [place], [address] Monocytes/100 WBC (Bld) 7.0 % Normal 0-10 [facility] Comment on above: Performed By: #### L 500.4050, L100.0100, L500.4100, L501.9520, L506.1001, L503.0106 #### [facility] [address] [place], [address] Neutrophils/100 WBC (Bld) 54.1 % Normal 47-70 [facility] Comment on above: Performed By: #### L 500.4050, L100.0100, L500.4100, L501.9520, L506.1001, L503.0106 #### [facility] [address] [place], [address] Nucleated RBC (Bld) [#/Vol] 0 10*3/uL Normal 0-5 [facility] Comment on above: Performed By: #### L 500.4050, L100.0100, L500.4100, L501.9520, L506.1001, L503.0106 #### [facility] [address] [place], [address] Platelet mean volume (Bld) [Entitic vol] 9.6 fL Normal 6.2-12.0 [facility] Comment on above: Performed By: #### L 500.4050, L100.0100, L500.4100, L501.9520, L506.1001, L503.0106 #### [facility] [address] [place], [address] Platelets (Bld) [#/Vol] 227 10*3/uL Normal 150-450 [facility] Comment on above: Performed By: #### L 500.4050, L100.0100, L500.4100, L501.9520, L506.1001, L503.0106 #### [facility] [address] [place], [address] RBC (Bld) [#/Vol] 4.56 10*6/uL Normal 4.2-5.4 [facility] Comment on above: Performed By: #### L 500.4050, L100.0100, L500.4100, L501.9520, L506.1001, L503.0106 #### [facility] [address] [place], [address] RDW SD 41.8 fl Normal 35.1-43.9 [facility] Comment on above: Performed By: #### L 500.4050, L100.0100, L500.4100, L501.9520, L506.1001, L503.0106 #### [facility] [address] [place], [address] WBC (Bld) [#/Vol] 4.1 10*3/uL Low 4.4-11.0 [facility] Comment on above: Performed By: #### L 500.4050, L100.0100, L500.4100, L501.9520, L506.1001, L503.0106 #### [facility] [address] [place], [address] Calculated very low density lipoprotein (VLDL) cholesterol measurementOrdered By: Jacobo Martinez on 04-11-2024 Calculated very low density lipoprotein (VLDL) cholesterol measurement 15 mg/dL 5-40 [facility] VLDL Cholesterol 15 mg/dL 5-40 [facility] Carbon dioxide measurementOr dered By: Jacobo Martinez on 04-11-2024 CO2 [Moles/Vol] 23.3 mmol/L 22.0-29.0 [facility] Chloride measurementOrdered By: Jacobo Martinez on 04-11-2024 Chloride [Moles/Vol] 106 mmol/L 96-108 [facility] Comprehensive Metabolic Prof ilon 04-11-2024 Albumin [Mass/Vol] 4.3 g/dL Normal 3.5-5.0 [facility] Comment on above: Performed By: #### L 500.4050, L100.0100, L500.4100, L501.9520, L506.1001, L503.0106 #### [facility] [address] [place], [address] Albumin/Globulin [Mass ratio] 1.8 {ratio} Normal 0.9-2.4 [facility] Comment on above: Performed By: #### L 500.4050, L100.0100, L500.4100, L501.9520, L506.1001, L503.0106 #### [facility] [address] [place], [address] ALK PHOS 53 U/L Normal 35-104 [facility] Comment on above: Performed By: #### L 500.4050, L100.0100, L500.4100, L501.9520, L506.1001, L503.0106 #### [facility] [address] [place], [address] ALT [Catalytic activity/Vol] 12 U/L Normal <=34 [facility] [facility] Comment on above: Performed By: #### L 500.4050, L100.0100, L500.4100, L501.9520, L506.1001, L503.0106 #### [facility] [address] [place], [address] Anion gap [Moles/Vol] 10 mmol/L Normal 5-15 [facility] Comment on above: Performed By: #### L 500.4050, L100.0100, L500.4100, L501.9520, L506.1001, L503.0106 #### [facility] [address], [address] AST [Catalytic activity/Vol] 16 U/L Normal <=31 [facility] Comment on above: Performed By: #### L 500.4050, L100.0100, L500.4100, L501.9520, L506.1001, L503.0106 #### [facility] [address] [place], [address] Bilirubin [Mass/Vol] 0.35 mg/dL Normal 0.00-1.30 [facility] Comment on above: Performed By: #### L 500.4050, L100.0100, L500.4100, L501.9520, L506.1001, L503.0106 #### [facility] [address] [place], [address] BUN/CRE 18.3 RATIO Normal 10-20 [facility] Comment on above: Performed By: #### L 500.4050, L100.0100, L500.4100, L501.9520, L506.1001, L503.0106 #### [facility] [address] [place], [address] Calcium [Mass/Vol] 8.8 mg/dL Normal 7.6-11.0 [facility] Comment on above: Performed By: #### L 500.4050, L100.0100, L500.4100, L501.9520, L506.1001, L503.0106 #### [facility] [address] [place], [address] Chloride [Moles/Vol] 106 mmol/L Normal 96-108 [facility] Comment on above: Performed By: #### L 500.4050, L100.0100, L500.4100, L501.9520, L506.1001, L503.0106 #### [facility] [address] [place], [address] CO2 [Moles/Vol] 23.3 mmol/L Normal 22.0-29.0 [facility] Comment on above: Performed By: #### L 500.4050, L100.0100, L500.4100, L501.9520, L506.1001, L503.0106 #### [facility] [address] [place], [address] Creatinine [Mass/Vol] 0.8 mg/dL Normal 0.6-1.0 [facility] Comment on above: Performed By: #### L 500.4050, L100.0100, L500.4100, L501.9520, L506.1001, L503.0106 #### [facility] [address] [place], [address] GFR/1.73 sq M.predicted among non-blacks MDRD (S/P/Bld) [Vol rate/Area] 96 mL/min/{1.73_m2} Normal >60 [facility] Comment on above: Result Comment: mL/m in/1.73m2 CKD-EPI Creatinine Equation (2020) Performed By: #### L 500.4050, L100.0100, L500.4100, L501.9520, L506.1001, L503.0106 #### [facility] [address] [place], [address] Globulin (S) [Mass/Vol] 2.5 g/dL Normal 2.2-4.2 [facility] Comment on above: Performed By: #### L 500.4050, L100.0100, L500.4100, L501.9520, L506.1001, L503.0106 #### [facility] [address] [place], [address] Glucose [Mass/Vol] 83 mg/dL Normal 70-99 [facility] Comment on above: Performed By: #### L 500.4050, L100.0100, L500.4100, L501.9520, L506.1001, L503.0106 #### [facility] [address] [place], [address] Potassium [Moles/Vol] 4.5 mmol/L Normal 3.3-5.1 [facility] Comment on above: Performed By: #### L 500.4050, L100.0100, L500.4100, L501.9520, L506.1001, L503.0106 #### [facility] [address] [place], [address] Sodium [Moles/Vol] 139 mmol/L Normal 133-145 [facility] Comment on above: Performed By: #### L 500.4050, L100.0100, L500.4100, L501.9520, L506.1001, L503.0106 #### [facility] [address] [place], [address] T PROT 6.8 g/dL Normal 5.9-8.4 [facility] Comment on above: Performed By: #### L 500.4050, L100.0100, L500.4100, L501.9520, L506.1001, L503.0106 #### [facility] [address] [place], [address] Urea nitrogen [Mass/Vol] 14 mg/dL Normal 4-19 [facility] Comment on above: Performed By: #### L 500.4050, L100.0100, L500.4100, L501.9520, L506.1001, L503.0106 #### [facility] [address] [place], [address] Eosinophil percentageOrdered By: Jacobo Martinez on 04-11-2024 Eosinophils/100 WBC (Bld) 2.2 % 0-5 [facility] Erythrocyte distribution wid th ratioOrdered By: Jacobo Martinez on 04-11-2024 Erythrocyte distribution width (RBC) [Ratio] 12.7 % 11.6-14.6 [facility] Erythrocyte distribution wid th standard deviationOrdered By: Jacobo Martinez on 04-11-2024 Erythrocyte distribution width (RBC) [Entitic vol] 41.8 fL 35.1-43.9 [facility] Erythrocyte distribution width (RBC) [Ratio] 41.8 fl 35.1-43.9 [facility] GFR/1.73 sq M.predicted tatiana g non-blacks MDRD (S/P/Bld) [Vol rate/Area]Ordered By: Jacobo Martinez on 04-11-2024 Estimated GFR (MDRD) Non-Af Amer 96 >60 [facility] Comment on above: mL/min/1.73m2 CKD-EP I Creatinine Equation (2020) Glomerular filtration rate ( GFR) estimation/1.73 sq m using serum, plasma, or whole bOrdered By: Jacobo Martinez on 04-11-2024 GFR/1.73 sq M.predicted among non-blacks MDRD (S/P/Bld) [Vol rate/Area] 96 mL/min/{1.73_m2} >60 [facility] Comment on above: mL/min/1.73m2 CKD-EP I Creatinine Equation (2020) Hematocrit Auto (Bld) [Volum e fraction]Ordered By: Jacobo Martinez on 04-11-2024 Hematocrit (Bld) [Volume fraction] 40.7 % 37-47 [facility] Hemoglobin measurementOrdere d By: Jacobo Martinez on 04-11-2024 Hemoglobin (Bld) [Mass/Vol] 13.3 g/dL 12.0-15. 0 [facility] Immature granulocytes/100 WB C Auto (Bld)Ordered By: Jacobo Martinez on 04-11-2024 Immature granulocytes/100 WBC (Bld) 0.200 % 0.0-0.9 [facility] Comment on above: IG% - Immature Granu locytes (promyelocytes, myelocytes and metamyelocytes) > 1% indicates that a LEFT SHIFT is Present. L503.0106on 04-11-2024 Cobalamin (Vitamin B12) [Mass/Vol] 298 pg/mL Normal 180-914 [facility] Comment on above: Performed By: #### L 500.4050, L100.0100, L500.4100, L501.9520, L506.1001, L503.0106 #### [facility] [address] [place], [address] L506.1001on 04-11-2024 Vitamin D 25-OH 58.2 ng/mL Normal 30-100 [facility] Comment on above: Result Comment: Delaney min D Status Deficiency: <20 ng/mL (50nmol/L) Insufficiency: 20-30 ng/mL (50-75 nmol/L) Sufficiency: 30-100 ng/mL (75-250 nmol/L) Toxicity: >100 ng/mL (>250 nmol/L) Performed By: #### L 500.4050, L100.0100, L500.4100, L501.9520, L506.1001, L503.0106 #### [facility] [address] [place], [address] LDL calc ser/plasOrdered By: Jacobo Martinez on 04-11-2024 Cholesterol in LDL [Mass/Vol] 105 mg/dL [facility] Comment on above: Loghgplmax=276-189 m g/dL & Higher Vuru=267 mg/dL or greater LDL Cholesterol, Calculated 105 mg/dL [facility] Comment on above: Wozetpekuz=473-314 m g/dL & Higher Ffjn=511 mg/dL or greater Laboratory - Chemistry and C hemistry - challengeOrdered By: Jacobo Martinez on 04-11-2024 AST [Catalytic activity/Vol] 16 U/L <32 [facility] Lipid Profileon 04-11-2024 CHOL:HDL 2.87 Normal [facility] Comment on above: Performed By: #### L 500.4050, L100.0100, L500.4100, L501.9520, L506.1001, L503.0106 #### [facility] [address] [place], [address] Cholesterol [Mass/Vol] 183 mg/dL Normal <=200 [facility] Comment on above: Result Comment: Chol esterol level, Desirable <200 mg/dL Borderline high cholesterol 200-239 mg/dL High cholesterol >=240 mg/dL Recommendations of the NCEP Adult Treatment Panel for the following risk-cutoff thresholds for the [place] population. Performed By: #### L 500.4050, L100.0100, L500.4100, L501.9520, L506.1001, L503.0106 #### [facility] [address] [place], [address] Cholesterol in HDL [Mass/Vol] 64 mg/dL Normal [facility] Comment on above: Result Comment: Barbie onal Cholesterol Education Program (NCEP) guidelines: <40 mg/dL: Low HDL-cholesterol (major risk factor for CHD) >= 60 mg/dL: High HDL-cholesterol (negative risk factor for CHD) HDL-cholesterol is affected by a number of factors, e.g. smoking, exercise, hormones, sex and age. Performed By: #### L 500.4050, L100.0100, L500.4100, L501.9520, L506.1001, L503.0106 #### [facility] [address] [place], [address] Cholesterol in LDL [Mass/Vol] 105 mg/dL Normal [facility] Comment on above: Result Comment: Bord qdtpmj=686-679 mg/dL Higher Ebmi=930 mg/dL or greater Performed By: #### L 500.4050, L100.0100, L500.4100, L501.9520, L506.1001, L503.0106 #### [facility] [address] [place], [address] Cholesterol in VLDL [Mass/Vol] 15 mg/dL Normal 5-40 [facility] Comment on above: Performed By: #### L 500.4050, L100.0100, L500.4100, L501.9520, L506.1001, L503.0106 #### [facility] [address] [place], [address] Triglyceride [Mass/Vol] 73 mg/dL Normal [facility] Comment on above: Result Comment: The drugs N-Acetylcysteine and Metamizole may falsely depress this assay. Normal range: <150 mg/dL Borderline High: 150-199 mg/dL High: 200-499 mg/dL Very High: >500 mg/dL Performed By: #### L 500.4050, L100.0100, L500.4100, L501.9520, L506.1001, L503.0106 #### [facility] [address] [place], [place], [id number] [phone] Lymphocytes Auto (Unsp spec) [#/Vol]Ordered By: Jacobo Martinez on 04-11-2024 Lymphocytes (Bld) [#/Vol] 1.50 10*3/uL 0.83-4.5 1 [facility] Lymphocytes/100 WBC Auto (Un sp spec)Ordered By: Jacobo Martinez on 04-11-2024 Lymphocytes/100 WBC (Bld) 36.3 % 19-41 [facility] MCV (mean corpuscular volume ) determinationOrdered By: Jacobo Martinez on 04-11-2024 MCV (RBC) [Entitic vol] 89.3 fL 81-99 [facility] Mean corpuscular hemoglobin (MCH) determinationOrdered By: Jacobo Martinez on 04-11-2024 MCH (RBC) [Entitic mass] 29.2 pg 27.0-32.0 [facility] Mean corpuscular hemoglobin concentration (MCHC) determinationOrdered By: Jacobo Martinez on 04-11-2024 MCHC (RBC) [Mass/Vol] 32.7 g/dL 32-36 [facility] Mean platelet volume determi nationOrdered By: Jacobo Martinez on 04-11-2024 Platelet mean volume (Bld) [Entitic vol] 9.6 fL 6.2-12.0 [facility] Monocyte percentageOrdered B y: Jacobo Martinez on 04-11-2024 Monocytes/100 WBC (Bld) 7.0 % 0-10 [facility] Neutrophil percentageOrdered By: Jacobo Martinez on 04-11-2024 Neutrophils/100 WBC (Bld) 54.1 % 47-70 [facility] Nucleated red blood cell per centageOrdered By: Jacobo Martinez on 04-11-2024 Nucleated RBC/100 WBC (Bld) [Ratio] 0 % 0-5 [facility] Platelet countOrdered By: Shanda Martinez on 04-11-2024 Platelets (Bld) [#/Vol] 227 10*3/uL 150-450 [facility] RBC Auto (Bld) [#/Vol]Ordere d By: Jacobo Martinez on 04-11-2024 RBC (Bld) [#/Vol] 4.56 10*6/uL 4.2-5.4 [facility] Screening total cholesterol/ high density lipoprotein (HDL) cholesterol ratioOrdered By: Jacobo Martinez on 04-11-2024 Cholesterol.total/Cholester ol in HDL [Mass ratio] 2.87 {ratio} [facility] Serum creatinine measurement (mass/volume)Ordered By: Jacobo Martinez on 04-11-2024 Creatinine [Mass/Vol] 0.8 mg/dL 0.70-1.20 [facility] Serum globulin measurementOr dered By: Jacobo Martinez on 04-11-2024 Globulin (S) [Mass/Vol] 2.5 g/dL 2.2-4.2 [facility] Serum glucose measurement (m ass/volume)Ordered By: Jacobo Martinez on 04-11-2024 Glucose [Mass/Vol] 83 mg/dL 70-99 [facility] Serum or plasma alanine light otransferase (ALT) measurementOrdered By: Jacobo Martinez on 04-11-2024 ALT [Catalytic activity/Vol] 12 U/L <35 [facility] Serum or plasma albumin teresa urement (mass/volume)Ordered By: Jacobo Martinez on 04-11-2024 Albumin [Mass/Vol] 4.3 g/dL 3.5-5.0 [facility] Serum or plasma albumin/glob ulin mass ratioOrdered By: Jacobo Martinez on 04-11-2024 Albumin/Globulin [Mass ratio] 1.8 {ratio} 0.9-2.4 [facility] Serum or plasma alkaline gayathri sphatase measurementOrdered By: Jacobo Martinez on 04-11-2024 ALP [Catalytic activity/Vol] 53 U/L 35-104 [facility] Serum or plasma anion gap de termination (moles/volume)Ordered By: Jacobo Martinez on 04-11-2024 Anion gap [Moles/Vol] 10 mmol/L 5-15 [facility] Serum or plasma calcium teresa urement (mass/volume)Ordered By: Jacobo Martinez on 04-11-2024 Calcium [Mass/Vol] 8.8 mg/dL 7.6-11.0 [facility] Serum or plasma cholesterol in HDL measurement (mass/volume)Ordered By: Jacobo Martinez on 04-11-2024 Cholesterol in HDL [Mass/Vol] 64 mg/dL >40 [facility] Comment on above: National Cholesterol Education Program (NCEP) guidelines:<40 mg/dL: Low HDL-cholesterol (major risk factor for CHD)>= 60 mg/dL: High HDL-cholesterol (negative risk factor for CHD)HDL-cholesterol is affected by a number of factors, e.g. smoking, exercise, hormones, sex and age. Serum or plasma cholesterol measurement (mass/volume)Ordered By: Jacobo Martinez on 04-11-2024 Cholesterol [Mass/Vol] 183 mg/dL <201 [facility] Comment on above: Cholesterol level, D esirable <200 mg/dLBorderline high cholesterol 200-239 mg/dLHigh cholesterol >=240 mg/dLRecommendations of the NCEP Adult Treatment Panel for the following risk-cutoff thresholds for the [place] population. Serum or plasma potassium me asurementOrdered By: Jacobo Martinez on 04-11-2024 Potassium [Moles/Vol] 4.5 mmol/L 3.3-5.1 [facility] Serum or plasma sodium measu rement (moles/volume)Ordered By: Jacobo Martinez on 04-11-2024 Sodium [Moles/Vol] 139 mmol/L 133-145 [facility] Serum or plasma urea nitroge n measurement (mass/volume)Ordered By: Jacobo Martinez on 04-11-2024 Urea nitrogen [Mass/Vol] 14 mg/dL 4-19 [facility] TSH DL <= 0.005 mIU/L QnOrde red By: Jacobo Martinez on 04-11-2024 Thyroid Stimulating Hormone (TSH) 1.260 uIU/mL 0.300-4.200 [facility] TSH Qn 1.260 uIU/mL 0.300-4.200 [facility] Thyroid Stim Hormone (TSH)on 04-11-2024 TSH 1.260 uIU/mL Normal 0.300-4.200 [facility] Comment on above: Performed By: #### L 500.4050, L100.0100, L500.4100, L501.9520, L506.1001, L503.0106 #### [facility] [address], [address] Total proteinOrdered By: Aminta Martinez on 04-11-2024 Protein [Mass/Vol] 6.8 g/dL 5.9-8.4 [facility] Triglycerides measurementOrd ered By: Jacobo Martinez on 04-11-2024 Triglyceride [Mass/Vol] 73 mg/dL <199 [facility] Comment on above: The drugs N-Acetylcy steine and Metamizole may falsely depress this assay. Normal range: <150 mg/dLBorderline High: 150-199 mg/dLHigh: 200-499 mg/dLVery High: >500 mg/dL Vitamin B12 ser/plasOrdered By: Jacobo Martinez on 04-11-2024 Cobalamin (Vitamin B12) [Mass/Vol] 298 pg/mL 180-914 [facility] Vitamin D, 25-hydroxyOrdered By: Jacobo Martinez on 04-11-2024 Vitamin D 25-Hydroxy 58.2 ng/mL 30-100 [facility] Comment on above: Vitamin D StatusDefi ciency: <20 ng/mL (50nmol/L)Insufficiency: 20-30 ng/mL (50-75 nmol/L)Sufficiency: 30-100 ng/mL (75-250 nmol/L)Toxicity: >100 ng/mL (>250 nmol/L) White blood cell (WBC) count Ordered By: Jacobo Martinez on 04-11-2024 WBC (Bld) [#/Vol] 4.1 10*3/uL Low 4.4-11.0 [facility] XR CHEST 2V FRONTAL/LATon XR CHEST 2V FRONTAL/LAT * * *Final Repor t* * * DATE OF EXAM: Feb 24 2024 9:26AM MDX 5291 - XR CHEST 2V FRONTAL/LAT / PROCEDURE REASON: covid 19, u07.1 * * * * Physician Interpretation * * * * EXAMINATION: CHEST RADIOGRAPH (2 VIEW FRONTAL and LATERAL) CLINICAL HISTORY: , COVID 19 MQ: XC2_6 EXAM DATE/TIME: 02/24/2024 9:26 AM COMPARISON: 10/25/2020 RESULT: Lines, tubes, and devices: None. Lungs and pleura: No consolidation. No lung mass. No pleural effusion. No pneumothorax. Cardiomediastinal silhouette: Normal cardiomediastinal silhouette. Bones and soft tissues: Unremarkable. IMPRESSION: No acute radiographic abnormality. Waterworks Chief Engineer: SHAUNPlanet OS Transcribe Date/Time: Feb 24 2024 4:54P Dictated by : MATHEUS SANTANA MD This examination was interpreted and the report reviewed and electronically signed by: MATHEUS SANTANA MD on Feb 24 2024 4:55PM EST [id number] IACN [facility] XR Chest PA and Lateralon IMPRESSION: No acute radiographic abnormality. Waterworks Chief Engineer: BECKY Transcribe Date/Time: Feb 24 2024 4:54P Dictated by : MATHEUS SANTANA MD This examination was interpreted and the report reviewed and electronically signed by: MATHEUS SANTANA MD on Feb 24 2024 4:55PM [facility] * * *Final Report* * * DATE OF EXAM: Feb 24 2024 9:26AM MDX 5291 - XR CHEST 2V FRONTAL/LAT / PROCEDURE REASON: covid 19, u07.1 * * * * Physician Interpretation * * * * EXAMINATION: CHEST RADIOGRAPH (2 VIEW FRONTAL & LATERAL) CLINICAL HISTORY: , COVID 19 MQ: XC2_6 EXAM DATE/TIME: 02/24/2024 9:26 AM COMPARISON: 10/25/2020 RESULT: Lines, tubes, and devices: None. Lungs and pleura: No consolidation. No lung mass. No pleural effusion. No pneumothorax. Cardiomediastinal silhouette: Normal cardiomediastinal silhouette. Bones and soft tissues: Unremarkable. [facility] Provider, [facility] - 02/24/2024 * * *Final Report* * * DATE OF EXAM: Feb 24 2024 9:26AM MDX 5291 - XR CHEST 2V FRONTAL/LAT / PROCEDURE REASON: covid 19, u07.1 * * * * Physician Interpretation * * * * EXAMINATION: CHEST RADIOGRAPH (2 VIEW FRONTAL & LATERAL) CLINICAL HISTORY: , COVID 19 MQ: XC2_6 EXAM DATE/TIME: 02/24/2024 9:26 AM COMPARISON: 10/25/2020 RESULT: Lines, tubes, and devices: None. Lungs and pleura: No consolidation. No lung mass. No pleural effusion. No pneumothorax. Cardiomediastinal silhouette: Normal cardiomediastinal silhouette. Bones and soft tissues: Unremarkable. IMPRESSION IMPRESSION: No acute radiographic abnormality. Waterworks Chief Engineer: PSCB Transcribe Date/Time: Feb 24 2024 4:54P Dictated by : MATHEUS SANTANA MD This examination was interpreted and the report reviewed and electronically signed by: MATHEUS SANTANA MD on Feb 24 2024 4:55PM [facility] Radiology Study observation (narrative) [facility] XR Chest PA and LateralOrder ed By: Cc Provider on 02-24-2024 [facility] NBA SCREENING W TOMOon 02-[address] [facility] SCREENING W WILDER * * *Final Report* * * DATE OF EXAM: Feb 16 2024 7:53AM CATRINA 0582 - NBA SCREENING W WILDER / PROCEDURE REASON: Z12.31-Encounter for screening mammogram for malignant neoplasm of breast * * * * Physician Interpretation * * * * [place] [phone] #[id number] - NBA SCREENING W WILDER HISTORY: Patient is 48 years old and is seen for screening. No current complaints. Patient states no personal history of breast cancer. Patient states no personal history of other cancers. COMPARISON STUDIES: The present examination has been compared to prior imaging studies dated 04/02/2019 (mammogram), 08/03/2022 (mammogram), 08/09/2022 (ultrasound) and 08/09/2022 (mammogram). MAMMOGRAM TECHNIQUE: The study was acquired using full field digital technology and interpreted from soft copy. Digital Breast Tomosynthesis (DBT) images were obtained and used to assist in the interpretation of this examination. Computer-aided detection was utilized by the radiologist in the interpretation of this examination. MAMMOGRAM FINDINGS: There are scattered areas of fibroglandular density. No suspicious masses, calcifications or other abnormalities are seen in either breast. There are no significant interval changes. IMPRESSION: There is no mammographic evidence of malignancy in either breast. Routine screening mammogram is recommended. Annual mammogram will be due in 1 year. BI-RADS Category 1: Negative RISK: Based on the Tyrer-Cuzick (TC) risk assessment model, this patient has a 14.9% lifetime risk of developing breast cancer, meaning they are at average risk for developing breast cancer. However, this is only an estimate based on available history provided on the patient's questionnaire. We encourage all patients to talk with their providers about these results, further recommendations for managing breast health, and appropriate supplemental screening options if the patient has dense breast tissue. Interpreting Radiologist: Aleksandar Campoverde M.D. Electronically signed on: 02/17/2024 Waterworks Chief Engineer: MAMIE Transcribe Date/Time: Feb 16 2024 7:40A Dictated by : ALEKSANDAR CAMPOVERDE MD This examination was interpreted and the report reviewed and electronically signed by: ALEKSANDAR CAMPOVERDE MD on Feb 17 2024 7:30PM EST [id number] IACN [facility] 36on 02-09-2024 36 Duplicate automated callback made. Patient already has apt today with office. Patient advised to call back with other questions or concerns. Reason for Disposition Caller has already spoken with another triager or PCP (or office), and has further questions and triager able to answer questions. Protocols used: No Contact or Duplicate Contact [facility] CNPN Telephone (NETNAV) -------- SALIMA RUSSELL ([id number]) 1975 F Date Time Provider Department 02/01/24 NO PCP NETNAV During your visit today, we recorded the following information about you: Noelle Winchester 02/01/2024 12:47 PM Signed POPULATION HEALTH NAVIGATION OUTREACH Action/FYI Contacted Patient Reason for Outreach Care Gap/HCC or Scheduling Wellness Visits Care Gaps due: Physical Therapy Patient Contacted: Unable or unnecessary to reach patient: Left message Navigation Signature: Noelle Winchester February 01, 2024 12:47 PM Allergies As of Date: 02/01/2024 (No Known Allergies) Date Reviewed: 12/19/2023 Reviewed by: Jacinta Sanchez PA-C - Fully Assessed Prescriptions as of 02/01/2024 - fluconazole (DIFLUCAN) 150 mg tablet Take 1 tablet by mouth every 72 hours as needed. - norethindrone acetate-ethinyl estradiol (JINTELI) 1-5 mg-mcg tab Take 1 tablet by mouth once daily. - ALPRAZolam (XANAX) 0.5 mg tablet Take 0.25 mg by mouth at bedtime as needed. patient takes one half tablet as needed. - albuterol HFA (PROVENTIL HFA, VENTOLIN HFA) 90 mcg/actuation inhaler Inhale 2 Puffs as instructed every 4 hours as needed for wheezing/shortness of breath. - albuterol HFA (PROVENTIL HFA, VENTOLIN HFA) 90 mcg/actuation inhaler Inhale 2 Puffs as instructed every 4 hours as needed for wheezing/shortness of breath. - meloxicam (MOBIC) 15 mg tablet Take 1 tablet by mouth once daily. - SERTRALINE 100 mg ORAL tablet Problem List As Of Date 02/01/2024 Noted Resolved Obesity, Class I, BMI 30-34.9 [E66.811] 02/05/2019 Anxiety and depression [F41.9, F32.A] History of kidney stones [Z87.442] 2018 Incomplete uterovaginal prolapse [N81.2] 12/19/2023 Pelvic pain in female [R10.2] 12/19/2023 Encounter Status:Closed by NOELLE WINCHESTER on 02/01/24 Normal [facility] 36on 01-11-2024 36 Medication name: Alprazolam Medication dosage: 0.50 mg (Miligrams Monthly quantity needed: 15 How many day supply requestin Medication route: oral (PO) Medication administration time(s): daily If taking medication PRN, reason for taking medication: N/A If this is a controlled substance do you receive this or any other controlled medication from any other doctor or facility: N/A Ordering provider: Date of last office visit: 07/27/23 Date of next office visit: None Date of last refill: (see medication tab): 07/27/23 Updated/Validated preferred pharmacy: Yes Patient instructed to contact the pharmacy prior to picking up the medication: Yes Normal [facility] US Pelvison 01-03-2024 Indication Pain, AUB Impression The uterus is anteverted and measures 97 mm x 57 mm x 67 mm. The endometrial thickness is 5.1 mm. The myometrium appears heterogenous. The right ovary measures 19 mm x 15 mm x 16 mm. Physiological in appearance. The left ovary measures 25 mm x 26 mm x 18 mm. Physiological in appearance. There is no free fluid visualized. Recommendations Clinically correlate. Repeat US will be performed if requested. Method Transabdominal and transvaginal ultrasound examination, 3D ultrasound examination, Color Doppler examination. View: Adequate visualization Uterus Uterus: Visualized Uterus position: anteverted Description of uterine malformations: normally shaped Myometrium: heterogeneous Endometrium: endometrial midline: linear Cervix details: normal Uterus length 97 mm Uterus width 67 mm Uterus height 57 mm Uterus Vol 193.2 cm Endometrial thickness, total 5.1 mm Right Ovary Rt ovary: Visualized Outline: smooth Rt ovary morphology: postmenopausal atrophic Rt ovary D1 19 mm Rt ovary D2 15 mm Rt ovary D3 16 mm Rt ovary Vol 2.5 cm Left Ovary Lt ovary: Visualized Outline: smooth Lt ovary morphology: premenopausal normal follicular Lt ovary D1 25 mm Lt ovary D2 26 mm Lt ovary D3 18 mm Lt ovary Vol 5.9 cm Cul de Sac Visualized. no free fluid visualized Performed By: Chanda Rushing RDMS Read By: Santos Aburto M.D. MATERNAL MEDICINE [facility] US Pelvison 01-02-2024 Radiology Study observation (narrative) [facility] CNOVon 12-19-2023 CNOV Office Visit (OBGMEM) -------- SALIMA RUSSELL ([id number]) 1975 F Date Time Provider Department 12/19/23 8:00 AM JACINTA SANCHEZ OBMARIANNE During your visit today, we recorded the following information about you: Respiration Blood pressure Weight Last Period 18/minute 122/84 72.6 kg 10/21/23 Jacinta Sanchez, PA-C 12/19/2023 8:33 AM Signed Salima Russell is a 48 year old female who presents for routine POST DOCTORAL FELLOW exam with the complaint of sharp pelvic pain, intermittent for the past 4 mth, but recurrent over the past 1.5 yr. Pain is Left sided stabbing intermittent. Comes and goes. Normal pelvic US 05/2022 in the evaluation of the same. Currently having any pain? No 0 on a scale of 0 to 10 Her VMS and mood changes +irritable, hot flashes, night sweats have somewhat improved since starting Jinteli, though did have irregular bleeding for the first three months. Not currently bleeding. Postmenopausal? No. Menstrual cycle irregular not heavy (after starting HT 09/2023) Intermenstrual spotting? No Post-coital bleeding? No +dyspareunia on occasion History of fibroids? No Dysmenorrhea? No PMDD? No History of sexual abuse? No History of anxiety disorder? Yes History of STD? No Concern for exposure to STDs? No Symptoms suggestive of Irritable Bowel Syndrome? No Dysuria, urinary frequency or urgency? No, stable MARJORIE Recent weight change? No Contraception: tubal sterilization Colonoscopy screening 1 yr ago, nl, repeat 10 yr Last pap 2018 OSMIN w/ neg HPV, no hx abnormal pap Last mammogram 2022 negative after adtl views, no hx abnormal mammogram No hx nor concern STI, monogamous w/ OB History T2 L2 SAB0 IAB0 Ectopic0 Multiple0 Live Births2 PAST MEDICAL HISTORY Diagnosis Date Anxiety and depression History of kidney stones 2018 right, required cysto PAST SURGICAL HISTORY Procedure Laterality Date DELIVERY ONLY 2003 DELIVERY ONLY 2009 with TL CYSTO FRAGMENTATION URETERAL STONE Right 2018 kidney stone PCHG TUBAL W/ Bilateral 2008 FAMILY HISTORY Problem Relation Age of Onset Breast Cancer Mother 64 alive age 70 (2018) Hypertension Father Heart Attack Father Stroke Maternal Grandfather Heart Attack Paternal Grandmother Cervical Cancer No Family History Ovarian cancer No Family History Uterine Cancer No Family History Colon Cancer No Family History Pancreatic Cancer No Family History Prostate Cancer No Family History Social History Tobacco Use Smoking status: Never Smokeless tobacco: Never Vaping Use Vaping status: Never Used Substance Use Topics Alcohol use: Yes Comment: social Drug use: No EXAM: BP 122/84 Resp 18 Wt 72.6 kg (160 lb 0.9 oz) LMP 10/21/2023 (Exact Date) BMI 27.47 kg/m? GENERAL: pleasant, female in no apparent distress HEENT: Normocephalic, atraumatic, mucus membranes moist, and no lesions NECK: Supple, full range of motion, no adenopathy, and thyroid normal DERMATOLOGY: Normal, without lesions, non-icteric, and non-hirsute CHEST: Normal inspiratory effort ABDOMEN: soft, non-tender, and no masses PELVIC: external genitalia normal, normal Bartholin's glands, urethra, Shelton's glands, no vulvar lesions, no cervical lesions, good vaginal support, physiologic discharge present, normal appearing perineal body and perianal region BIMANUAL: uterus normal size, shape and consistency, no adnexal masses, non-tender, and no cervical motion tenderness, grade I-II uterovaginal prolapse RECTOVAGINAL: deferred. NEURO: alert and oriented x3,exam grossly non-focal EXTREMITIES: normal ASSESSMENT: Women's annual routine gynecological examination (primary encounter diagnosis) Encounter for screening mammogram for malignant neoplasm of breast Cervical cancer screening Screening for hpv (human papillomavirus) Pelvic pain in female Incomplete uterovaginal prolapse VMS improvement 3 mth after starting Jinteli, okay to continue. Update at 6 mth to office for refills if indicated, vs VV if change in therapy desired Pelvic US and PFPT w/ normal US 1) Health maintenance: Pap/HPV updated today Mammogram ordered w/ wilder Nutrition, exercise and routine health maintenance exams reviewed. Labs per PCP Colon cancer screening up to date 2) Contraception: tubal ligation. 3) STD screening: declined Follow up 1 yr sooner PRN Jacinta Sanchez PA-C Allergies As of Date: 12/19/2023 (No Known Allergies) Date Reviewed: 12/19/2023 Reviewed by: Jacinta Sanchez PA-C - Fully Assessed Reason for Visit: Well Woman [[id number]] Primary Visit Diagnosis:Women's annual routine gynecological examination [Z01.419] Other Visit Diagnoses:Encounte r for screening mammogram for malignant neoplasm of breast [Z12.31] Cervical cancer screening [Z12.4] Screening for HPV (human papillomavirus) [Z11.51] (more content not included)... Normal [facility] HIGH RISK HUMAN PAPILLOMA MERLIN (HPV), PCR FOR DETECTION AND GENOTYPINGon 12-19-2023 HPV 16 Ag Ql (Unsp spec) Not detected Normal Not detec buster [facility] Comment on above: Order Comment: Speci men Type: FLUID SPECIMENOrdering Facility: [facility] Address: [address] [place] [address] Performed By: #### H PVHRT ####[facility] LABCLIA [id number] [place] [address] [place] HPV 18 Ag Ql (Unsp spec) Not detected Normal Not detec buster [facility] Comment on above: Order Comment: Speci men Type: FLUID SPECIMENOrdering Facility: [facility] Address: [address] [place] [address] Performed By: #### H PVHRT ####[facility] LABCLIA [id number] [place] [address] [place] HPV 31+33+35+39+45+51+52+56+58+ 59+66+68 DNA CINTIA+probe Ql (Cvx) Not detected Normal Not detected [facility] Comment on above: Order Comment: Speci men Type: FLUID SPECIMENOrdering Facility: [facility] Address: [address] [place] [address] Result Comment: High Risk HPV Other Type includes HPV types 31, 33, 35, 39, 45, 51, 52, 56, 58, 59, 66 and 68. Performed By: #### H PVHRT ####[facility] LABCLIA [id number] [place] [address] [place] PAP TESTon 12-19-2023 ADEQUACY Satisfactory for interpretation. Normal [facility] Comment on above: Order Comment: Speci men Type: FLUID SPECIMENOrdering Facility: [facility] Address: [address] [place] [address] Performed By: #### L [id number] ####[facility] LABCLIA [id number] [place] [address] [place] CASE REPORT Normal [facility] Comment on above: Order Comment: Speci men Type: FLUID SPECIMENOrdering Facility: [facility] Address: [address] [place] [address] Result Comment: Gyne cologic Cytology Report Case: [id number] Authorizing Provider: Jacinta Sanchez PA-C Collected: 12/19/2023 08:34 AM Ordering Location: Obstetrics/Gynecology Received: 12/19/2023 01:44 PM First Screen: Janice Morris, CT, ASCP Pathologist: Luci Mathis MD Specimen: Pap Test, ThinPrep, Cervix Performed By: #### L [id number] ####[facility] LABCLIA [id number] [place] [id number] [place] CLINICAL HISTORY, CYTOLOGY, POST DOCTORAL FELLOW Routine Exam Normal [facility] Comment on above: Order Comment: Speci men Type: FLUID SPECIMENOrdering Facility: [facility] Address: [address] [place] [address] Performed By: #### L [id number] ####[facility] LABCLIA [id number] [facility] [place] [address] [place] FINAL PERFORMING LAB Normal [facility] Comment on above: Order Comment: Speci men Type: FLUID SPECIMENOrdering Facility: [facility] Address: [address] [place] [address] Result Comment: Tech nical component, milk tester screening performed at [facility], [address] [place], [place] [id number] CLIA# [id number] Diagnostic interpretation performed at [facility], [address] [place], [place] [id number] CLIA# [id number] Agency Sales Management Assistant: Willi Gallardo M.D. Performed By: #### L [id number] ####[facility] LABCLIA [id number] [place] [address] [place] INTERPRETATION, CYTOLOGY, POST DOCTORAL FELLOW Normal [facility] Comment on above: Order Comment: Speci men Type: FLUID SPECIMENOrdering Facility: [facility] Address: [address] [place] [address] Result Comment: Nega tive for squamous intraepithelial lesion. Performed By: #### L [id number] ####[facility] LABCLIA [id number] [place] [address] [place] LMP 10/21/2023 Normal [facility] Comment on above: Order Comment: Speci men Type: FLUID SPECIMENOrdering Facility: [facility] Address: [address] [place] [address] Performed By: #### L [id number] ####[facility] LABCLIA [id number] [place] [address] [place] PAP DISCLAIMER COMMENT The Pap Smear is a screening test for cervical cancer. False negative results occur with all screening tests, emphasizing the need for rescreening at recommended intervals, and clinical correlation. Normal [facility] Comment on above: Order Comment: Speci men Type: FLUID SPECIMENOrdering Facility: [facility] Address: [address] [place] [address] Performed By: #### L [id number] ####[facility] LABCLIA [id number] [place] [address] [place] PAP OVERHEAD CRANE INSPECTOR COMMENT This specimen has been analyzed by the ThinPrep Imaging System, an automated imaging and review system, which assists the laboratory in evaluating cells on ThinPrep Pap tests. Following automated imaging, selected ramirez from every slide are reviewed by a milk tester. Normal [facility] Comment on above: Order Comment: Speci men Type: FLUID SPECIMENOrdering Facility: [facility] Address: [address] [place] [address] Performed By: #### L [id number] ####[facility] LABCLIA [id number] [place] [address] [place] BACTERIAL VAGINOSIS NAATon 0 09-23-2023 Lactobacillus crispatus+gasseri+jensenii + Gardnerella vaginalis + Atopobium vaginae rRNA CINTIA+probe Ql (Vag fld) Negative Normal Negative for bacterial vaginosis [facility] Comment on above: Order Comment: Speci men Type: SWABOrdering Facility: [facility] Address: [address] [place] [address] Performed By: #### B VAMP, CVTV ####[facility] LABCLIA [id number] [place] [address] [place] ANTONI/TRICHOMONAS NAATon 0 8 C. glabrata RNA CINTIA+probe Ql (Vag fld) Negative Normal Negative for Antoni glabrata [facility] Comment on above: Order Comment: Speci men Type: SWABOrdering Facility: [facility] Address: [address] [place] [address] Performed By: #### B VAMP, CVTV ####[facility] LABCLIA [id number] [place] [address] [place] Antoni sp DNA CINTIA+probe Ql (Vag fld) Positive Abnormal Negative for Antoni species [facility] Comment on above: Order Comment: Speci men Type: SWABOrdering Facility: [facility] Address: [address] [place] [address] Performed By: #### B VAMP, CVTV ####[facility] LABCLIA [id number] [place] [address] [place] T. vaginalis DNA CINTIA+probe Ql (Unsp spec) Negative Normal Negative for Trichomonas vaginalis by amplification [facility] Comment on above: Order Comment: Speci men Type: SWABOrdering Facility: [facility] Address: [address] [place] [address] Performed By: #### B VAMP, CVTV ####[facility] LABCLIA [id number] [place] [address] [place] CNOVon 09-23-2023 CNOV Office Visit (OBGYBR) -------- SALIMA RUSSELL ([id number]) 1975 F Date Time Provider Department 09/23/23 9:15 AM JACINTA SANCHEZ OBGYCHELITA During your visit today, we recorded the following information about you: Blood pressure Weight Height Last Period 117/80 72.8 kg 1.626 m 08/26/23 Jacinta Sanchez PA-C 09/23/2023 1:53 PM Signed Salima Russell is a 48 year old female who presents with the complaint of sharp pelvic pain, intermittent for the past 2 mth, but recurrent over the past 1.5 yr. Pain is Left sided stabbing intermittent. Comes and goes Currently having any pain? No 0 on a scale of 0 to 10 Also bothered by +irritable, hot flashes, night sweats first two days of bleeding. Becoming bothersome and feels irritability is affecting quality of life and relationships Also recent abx use and believes sx associated w/ vaginal yeast infection including vaginal irritation Postmenopausal? No. Menstrual cycle every 28-34 days Flow 3-21 days Heavy bleeding? Yes, first few days Intermenstrual spotting? No Post-coital bleeding? sometimes History of fibroids? No Dysmenorrhea? No PMDD? No History of sexual abuse? No History of anxiety disorder? Yes History of STD? No Concern for exposure to STDs? No Symptoms suggestive of Irritable Bowel Syndrome? No Dysuria, urinary frequency or urgency?yes, frequency Recent weight change? No Contraception: tubal sterilization OB History T2 L2 SAB0 IAB0 Ectopic0 Multiple0 Live Births2 PAST MEDICAL HISTORY No date: Anxiety and depression 2018: History of kidney stones Comment: right, required cysto PAST SURGICAL HISTORY 2004: DELIVERY ONLY 2009: DELIVERY ONLY Comment: with TL 2018: CYSTO FRAGMENTATION URETERAL STONE; Right Comment: kidney stone 2009: PCHG TUBAL W/ ; Bilateral FAMILY HISTORY Problem Relation Age of Onset Hypertension Father Stroke Maternal Grandfather Breast Cancer Mother 64 alive age 70 (2019) Cervical Cancer No Family History Ovarian cancer No Family History Uterine Cancer No Family History Colon Cancer No Family History Pancreatic Cancer No Family History Prostate Cancer No Family History Social History Tobacco Use Smoking status: Never Smokeless tobacco: Never Vaping Use Vaping Use: Never used Substance Use Topics Alcohol use: Yes Comment: social Drug use: No EXAM: BP 117/80 Ht 162.6 cm (5' 4") Wt 72.8 kg (160 lb 7.9 oz) LMP 08/26/2023 (Exact Date) BMI 27.55 kg/m? GENERAL: pleasant, female in no apparent distress HEENT: Normocephalic, atraumatic, mucus membranes moist, and no lesions NECK: Supple, full range of motion, no adenopathy, and thyroid normal DERMATOLOGY: Normal, without lesions, non-icteric, and non-hirsute CHEST: Normal inspiratory effort ABDOMEN: soft, non-tender, and no masses PELVIC: external genitalia normal, normal Bartholin's glands, urethra, Shelton's glands, no vulvar lesions, no cervical lesions, good vaginal support, physiologic discharge present, normal appearing perineal body and perianal region BIMANUAL: uterus normal size, shape and consistency, no adnexal masses, non-tender, and no cervical motion tenderness RECTOVAGINAL: deferred. NEURO: alert and oriented x3,exam grossly non-focal EXTREMITIES: normal ASSESSMENT: Vasomotor symptoms due to menopause (primary encounter diagnosis) Menstrual irregularity Acute vaginitis Cyclical pelvic pain PLAN: Bothersome vasomotor symptoms, mood changes, cyclic menstrual sx. Supportive/hormona l/non-hormonal options discussed, as well as option for observation. No h/o breast disease, no endometrial disease, no abnormal vaginal bleeding, no h/o DVT/clotting disorder, no CVA hx, no liver nor gallbladder disease. No contraindication for HRT. Pt made aware of r/b/a/se of medication, and will trial Jinteli Vaginitis testing for pathogen directed tx as indicated based on results The following approved medication requests have been transmitted electronically. Requested Prescriptions Signed Prescriptions Disp Refills norethindrone acetate-ethinyl estradiol (JINTELI) 1-5 mg-mcg tab 90 tablet 1 Sig: Take 1 tablet by mouth once daily. Jacinta Sanchez PA-C Follow up 6 mth routine POST DOCTORAL FELLOW exam and recheck symptoms CARYL Ruiz Danielle E, PA-C 09/23/2023 9:21 AM Signed Non-Hormonal Ways to [place] with Hot Flashes and Menopause Hormone therapy is the most effective therapy for hot flashes. It is also the only FDA approved method to treat hot flashes. However, other non-hormonal options are available for women who are suffering from symptoms, but are not yet ready to consider hormone therapy. Some women are not appropriate candidates for hormone therapy, such as those have been recently treated for breast cancer, ovarian cancer, or endometrial/uterin e cancer. (more content not included)... Normal [facility] Perrin AMB POC DRUG SCREEN 12, LABS OURCEon 07-27-2023 Amphetamine Screen, Urine Negative [facility] Barbiturates Screen Ql (U) Not detected None De tected [facility] Benzodiazepines Ql (U) Not detected None Detect ed [facility] Cannabinoids Screen (U) [Mass/Vol] Negative [facility] Cocaine Ql (U) Not detected None Detected [facility] Interpretation and review of laboratory results Normal [facility] Methadone Screen Ql (U) Negative S [facility] Methamphetamine (U) [Mass/Vol] Negative [facility] Methylenedioxymethamphetami ne (U) [Mass/Vol] Negative ng/mL [facility] Opiates Screen Ql (U) Not detected S [facility] oxyCODONE Ql (U) Negative [facility] Phencyclidine Ql (U) Not detected None Detected [facility] Tricyclic antidepressants Screen Ql (U) Not detected [facility] Radiology Study observation (narrative) [facility] XR Chest 2 Viewson 3 No acute consolidative process. Report Dictated on Electronically Signed By: Adal Drake DR Electronically Signed Date/Time: 01/22/2023 1:04 AM EST [facility] Patient Name: CANDELARIA RUSSELL : 1975 Exam Date/Time: 01/21/2023 15:02 Procedure: XR CHEST 2 VIEWS Ordering Provider: MENDENHALL GLENNA Reason For Exam: COUGH Clinical History: COUGH Comparison: 01/19/2021 Technique: PA and lateral radiographs were obtained of the chest. Findings: The heart size and mediastinal contours are normal. Pulmonary vascularity is normal and there is no pneumothorax. The lungs are clear with no acute infiltrate or effusion. No displaced rib fractures seen. [facility] Adal Drake MD - 01/22/2023 Patient Name: CANDELARIA RUSSELL : 1975 Exam Date/Time: 01/21/2023 15:02 Procedure: XR CHEST 2 VIEWS Ordering Provider: MENDENHALL GLENNA Reason For Exam: COUGH Clinical History: COUGH Comparison: 01/19/2021 Technique: PA and lateral radiographs were obtained of the chest. Findings: The heart size and mediastinal contours are normal. Pulmonary vascularity is normal and there is no pneumothorax. The lungs are clear with no acute infiltrate or effusion. No displaced rib fractures seen. IMPRESSION: No acute consolidative process. Report Dictated on Electronically Signed By: Adal Drake DR Electronically Signed Date/Time: 01/22/2023 1:04 AM EST [employer] XR Chest 2 ViewsOrdered By: Adal Drake on 01-22-2023 [employer] Work Phone: XR Chest 2 Viewson Radiology Study observation (narrative) [facility] [place] [address] COLONOSCOPY DIAGNOSTICon [facility] NBA DIAG W WILDER LEFTon 08-09 [facility] US BREAST LTD LEFTon 023 [facility] NBA SCREENING W TOMOon 08-03 [facility] PELVIC US WHIon 05-20-2022 [facility] Absolute lymphocyte countOrd ered By: Jacobo Martinez on 03-12-2022 Lymphocytes Auto (Unsp spec) [#/Vol] 1.44 10*3/uL 0.83-4.51 [facility] Basophil percentageOrdered B y: Jacobo Martinez on 03-12-2022 Basophils/100 WBC (Bld) 0.6 % 0-1 [facility] Bilirubin [Mass/Vol] 0.20 mg/dL 0.20-1.00 [facility] Comment on above: For patients on eltr ombopag therapy, use of Dimension [place] TBIL is not recommended. Chloride [Moles/Vol] 110 mmol/L 98-107 [facility] Cholesterol [Mass/Vol] 169 mg/dL <200 [facility] Comment on above: <200 mg/dL Desirable 200-240 mg/dL Borderline >240 mg/dL High Risk Eosinophils/100 WBC (Bld) 2.0 % 0-5 [facility] Glucose [Mass/Vol] 93 mg/dL 74-106 [facility] Neutrophils (Bld) [#/Vol] 3.0 10*3/uL 2.0-7.7 [facility] Neutrophils/100 WBC (Bld) 59.5 % 47-70 [facility] Potassium [Moles/Vol] 4.2 mmol/L 3.5-5.1 [facility] Protein [Mass/Vol] 7.3 g/dL 6.4-8.2 [facility] Sodium [Moles/Vol] 140 mmol/L 136-145 [facility] Triglyceride [Mass/Vol] 110 mg/dL <199 [facility] Comment on above: The drugs N-Acetylcy steine and Metamizole may falsely depress this assay.Serum Triglycerides Reference Interval Normal <150 mg/dL Borderline high 150 - 199 mg/dL High 200 - 499 mg/dL Very High > or = 500 mg/dL WBC (Bld) [#/Vol] 5.0 10*3/uL 4.4-11.0 [facility] Blood erythrocytes count (nu mber/volume)Ordered By: Jacobo Martinez on 03-12-2022 RBC (Bld) [#/Vol] 4.65 10*6/uL 4.2-5.4 [facility] Blood hemoglobin measurement (mass/volume)Ordered By: Jacobo Martinez on 03-12-2022 Hemoglobin (Bld) [Mass/Vol] 13.2 g/dL 12.0-15. 0 [facility] Blood lymphocytes/100 leukoc ytesOrdered By: Jacobo Martinez on 03-12-2022 Lymphocytes/100 WBC (Bld) 29.0 % 19-41 [facility] Blood monocytes/100 leukocyt esOrdered By: Jacobo Martinez on 03-12-2022 Monocytes/100 WBC (Bld) 8.7 % 0-10 [facility] Blood platelet mean volumeOr dered By: Jacobo Martinez on 03-12-2022 Platelet mean volume (Bld) [Entitic vol] 10.1 fL 6.2-12.0 [facility] Determination of erythrocyte mean corpuscular volume (MCV)Ordered By: Jacobo Martinez on 03-12-2022 MCV (RBC) [Entitic vol] 85.6 fL 81-99 [facility] Hematocrit Auto (Bld) [Volum e fraction]Ordered By: Jacobo Martinez on 03-12-2022 Hematocrit (Bld) [Volume fraction] 39.8 % 37-47 [facility] Laboratory - Chemistry and C hemistry - challengeOrdered By: Jacobo Martinez on 03-12-2022 ALP [Catalytic activity/Vol] 68 U/L 45-117 [facility] ALT [Catalytic activity/Vol] 18 U/L 13-56 [facility] CO2 [Moles/Vol] 24.0 mmol/L 21.0-32.0 [facility] Cobalamin (Vitamin B12) [Mass/Vol] 461 pg/mL 211-911 [facility] Globulin (S) [Mass/Vol] 3.8 g/dL 2.2-4.2 [facility] Urea nitrogen/Creatinine [Mass ratio] 20.6 mg/mg 10-20 [facility] Laboratory - Hematology and Cell countsOrdered By: Jacobo Martinez on 03-12-2022 Erythrocyte distribution width (RBC) [Entitic vol] 40.9 fL 35.1-43.9 [facility] Erythrocyte distribution width (RBC) [Ratio] 13.2 % 11.6-14.6 [facility] Immature granulocytes/100 WBC (Bld) 0.200 % 0.0-0.9 [facility] Comment on above: IG% - Immature Granu locytes (promyelocytes, myelocytes and metamyelocytes) > 1% indicates that a LEFT SHIFT is Present. MCH (RBC) [Entitic mass] 28.4 pg 27.0-32.0 [facility] Nucleated RBC/100 WBC (Bld) [Ratio] 0 % 0-5 [facility] Laboratory - Hematology and Cell countson 03-12-2022 HbA1c (Bld) [Mass fraction] 5.6 % 4.2-6.3 [facility] MCHC Auto (RBC) [Mass/Vol]Or dered By: Jacobo Martinez on 03-12-2022 MCHC (RBC) [Mass/Vol] 33.2 g/dL 32-36 [facility] No Panel InformationOrdered By: Jacobo Martinez on 03-12-2022 Estimated GFR (MDRD) Amer 110 mL/min >60 [facility] Comment on above: GFR Calc Estimated GFR (MDRD) Non-Af Amer 91 mL/min >60 [facility] Comment on above: Non- GFR Calc Thyroid Stimulating Hormone (TSH) 0.96 uIU/mL 0.358-3.74 [facility] Vitamin D 25-Hydroxy 30.8 ng/mL [facility] Comment on above: Vitamin D 25(OH) Sta tus Range Deficiency <20 ng/mL (50nmol/L) Insufficiency 20 - 30 ng/mL (50 - 75 nmol/L) Sufficiency 30 - 100 ng/mL (75 - 250 nmol/L) Toxicity >100 ng/mL (>250 nmol/L) Platelets bldOrdered By: Aminta Martinez on 03-12-2022 Platelets (Bld) [#/Vol] 296 10*3/uL 150-450 [facility] Serum or plasma albumin teresa urement (mass/volume)Ordered By: Jacobo Martinez on 03-12-2022 Albumin [Mass/Vol] 3.5 g/dL 3.2-5.0 [facility] Serum or plasma albumin/glob ulin mass ratioOrdered By: Jacobo Martinez on 03-12-2022 Albumin/Globulin [Mass ratio] 0.9 {ratio} 0.9-2.4 [facility] Serum or plasma calcium teresa urement (mass/volume)Ordered By: Jacobo Martinez on 03-12-2022 Calcium [Mass/Vol] 8.5 mg/dL 8.5-10.1 [facility] Serum or plasma cholesterol in HDL measurement (mass/volume)Ordered By: Jacobo Martinez on 03-12-2022 Cholesterol in HDL [Mass/Vol] 51 mg/dL >40 [facility] Comment on above: The drugs N-Acetylcy steine and Metamizole may falsely depress this assay. Reference Range HDL <40 mg/dL Low HDL Cholesterol HDL >or= 60 mg/dL High HDL Cholesterol Serum or plasma cholesterol in VLDL measurement (mass/volume)Ordered By: Jacobo Martinez on 03-12-2022 Cholesterol in VLDL [Mass/Vol] 22 mg/dL 5-40 [facility] Serum or plasma creatinine m easurement (mass/volume)Ordered By: Jacobo Martinez on 03-12-2022 Creatinine [Mass/Vol] 0.73 mg/dL 0.55-1.02 [facility] Comment on above: The validity of the calculated GFR & GFRAA in patients over 70 years has not been determined. Clinical correlation is essential. Serum or plasma low density lipoprotein (LDL) cholesterol measurement (mass/volume)Ordered By: Jacobo Martinez on 03-12-2022 Cholesterol in LDL [Mass/Vol] 96 mg/dL 0-130 [facility] Serum or plasma urea nitroge n measurement (mass/volume)Ordered By: Jacobo Martinez on 03-12-2022 Urea nitrogen [Mass/Vol] 15 mg/dL 7-18 [facility] Thin prep Papanicolaou smear with manual screeningOrdered By: Jacobo Martinez on 03-12-2022 Thin prep Papanicolaou smear with manual screening 13 U/L 15-37 [facility] Thin prep Papanicolaou smear with manual screening 6 5-15 [facility] Laboratory - Drug toxicology on 02-24-2022 Barbiturates Screen Ql (U) Not detected None De tected [facility] Benzodiazepines Ql (U) Not detected None Detect ed [facility] Cannabinoids Screen (U) [Mass/Vol] Negative [facility] Cocaine Ql (U) Not detected None Detected [facility] Methadone Screen Ql (U) Negative [facility] Methamphetamine (U) [Mass/Vol] Negative [facility] Methylenedioxymethamphetami ne (U) [Mass/Vol] Negative ng/mL [facility] Opiates Screen Ql (U) Not detected S [facility] oxyCODONE Ql (U) Negative [facility] Phencyclidine Ql (U) Not detected None Detected [facility] Tricyclic antidepressants Screen Ql (U) Not detected [facility] No Panel Informationon 02-24 Amphetamine Screen, Urine Negative [facility] BUPRENORPHINE SCREEN Negative Negative [facility] FENTANYL SCREEN, URINE Negative Negative [facility] Interpretation and review of laboratory results Normal [facility] TRAMADOL SCREEN, URINE Negative Negative [facility] CR Chest PA/LATon 01-19-2021 CR Chest PA/LAT Patient Name: CANDELARIA RUSSELL Diagnostic Radiology ACCESSION EXAM DATE/TIME PROCEDURE ORDERING PROVIDER [id number] 01/19/2021 11:40 EST CR Chest PA and LAT MD HUERTA STEPHEN B CPT code 70770 Reason For Exam (CR Chest PA and LAT) COVID-19 Report CLINICAL INFORMATION: Covid. Frontal and lateral views of the chest were obtained. Comparison was made to the study dated 11/13/2020. No acute pulmonary disease is noted. The previously seen minimal streaky infiltrate in the left lung base is no longer visualized. The cardiovascular silhouette is within normal limits. There are no pleural effusions. IMPRESSION: No acute pulmonary disease. Report Dictated on Final Dictated: 01/19/2021 12:57 pm Dictating Physician: DO ONOFRE ANTHONY Signed Date and Time: 01/19/2021 12:57 pm Signed by: DO ONOFRE ANTHONY Transcribed Date and Time: 01/19/2021 12:57 Normal [facility] CR Chest PA/LATon 11-13-2020 CR Chest PA/LAT Patient Name: CANDELARIA RUSSELL Diagnostic Radiology ACCESSION EXAM DATE/TIME PROCEDURE ORDERING PROVIDER [id number] 11/13/2020 16:01 EDT CR Chest PA and LAT LAY LUNA DIANE R CPT code 43902 Reason For Exam (CR Chest PA and LAT) COVID-19 Report CHEST, PA and LATERAL: INDICATION: Pneumonia COMPARISON: 10/31/2020 PA and lateral views of the chest were obtained. The heart is normal in size. The mediastinal silhouette is normal. Minimal streaky infiltrate is seen involving the left lung base. No effusions are noted. There is no pleural thickening. The osseous structures are unremarkable. IMPRESSION: Minimal streaky infiltrate of the left base. Report Dictated on Final Dictated: 11/16/2020 4:54 pm Dictating Physician: DO FREED ALFRED Signed Date and Time: 11/16/2020 4:54 pm Signed by: DO FREED ALFRED Transcribed Date and Time: 11/16/2020 4:54 Normal [facility] CR Chest PA/LATon 10-31-2020 CR Chest PA/LAT Patient Name: CANDELARIA RUSSELL Diagnostic Radiology ACCESSION EXAM DATE/TIME PROCEDURE ORDERING PROVIDER [id number] 10/31/2020 11:02 EDT CR Chest PA and LAT JANIE FERNANDEZ CPT code 26966 Reason For Exam (CR Chest PA and LAT) f/u from 10/25 XR showing pneumonia Report PA AND LATERAL CHEST CLINICAL INDICATION: Cough, shortness of breath, history of Covid 19 pneumonia TECHNIQUE: PA and Lateral chest COMPARISON: Most recent available study from 03/20/2018 FINDINGS: The cardiac and mediastinal silhouettes are normal. There is patchy vague opacity in the peripheral mid and lower left lung. The right lung appears grossly clear. There is no sizable pleural effusion. The osseous structures are unremarkable. IMPRESSION: Multifocal left lung infiltrate, concerning for pneumonia. Imaging features can be seen with (Covid-19) pneumonia, though are nonspecific and can occur with a variety of infectious and noninfectious processes. Report Dictated on Final Dictated: 10/31/2020 1:15 pm Dictating Physician: MD REEDER KERISTEN L Signed Date and Time: 10/31/2020 1:17 pm Signed by: MD REEDER KERISTEN L Transcribed Date and Time: 10/31/2020 1:15 Normal [facility] Basic Metabolic Panelon Urea nitrogen [Mass/Vol] 11 mg/dL Normal - [facility] Comment on above: Performed By: #### H CORINE BMP3 #### [facility] [address] [place] [address] Creatinine [Mass/Vol] 0.45 mg/dL Low 0.52-1.25 [facility] Comment on above: Performed By: #### H CORINE BMP3 #### [facility] [address] [place] [address] eGFR OTHER > 90.0 Normal >60 [facility] Comment on above: Result Comment: KDIG O guidelines provide the following GFR categories: Stage GFR(ml/min/1.73 m2) Terms G1 >=90 Normal or high G2 60-89 Mildly decreased* G3a 45-59 Mildly to moderately decreased G3b 30-44 Moderately to severely decreased G4 15-29 Severely decreased G5 <15 Kidney failure *Relative to young adult level. In the absence of evidence of kidney damage, neither GFR category G1 nor G2 fulfill the criteria for CKD. The CKD-EPI equation is validated in individuals 18 years of age and older. Currently the best equation for estimating glomerular filtration rate (GFR) from serum creatinine in children is the Bedside Amos equation. It is less accurate in patients with extremes of muscle mass, restriction of dietary protein, ingestion of creatine, extra-renal metabolism of creatinine, or treatment with medications that affect renal tubular creatinine secretion. Performed By: #### H CORINE BMP3 #### [facility] [address] [place] [address] GFR/1.73 sq M.predicted among blacks MDRD (S/P/Bld) [Vol rate/Area] mL/min/{1.73_m2} Normal >60 [facility] Comment on above: Performed By: #### H CORINE BMP3 #### [facility] [address] [place] [address] Potassium [Moles/Vol] 4.1 mmol/L Normal 3.5-5.1 [facility] Comment on above: Performed By: #### H CORINE BMP3 #### [facility] [address] [place] [address] Chloride [Moles/Vol] 110 mmol/L High 98-107 [facility] Comment on above: Performed By: #### H CORINE BMP3 #### [facility] [address] [place] [address] Sodium [Moles/Vol] 136 mmol/L Normal 135-145 [facility] Comment on above: Performed By: #### H CORINE BMP3 #### [facility] [address] [place] [address] Basic Metabolic PanelOrdered By: Brian Brown on 10-22-2020 Anion gap [Moles/Vol] 5 mmol/L Normal 3-13 [facility] Work Phone: Comment on above: Performed By: #### H CORINE BMP3 #### [facility] [address] [place] [address] Calcium [Mass/Vol] 8.5 mg/dL Normal 8.4-10.4 [facility] Work Phone: Comment on above: Performed By: #### H JOURDAN POOL3 #### [facility] [address] [place] [address] CO2 [Moles/Vol] 21 mmol/L Low 22-30 [facility] Work Phone: Comment on above: Performed By: #### H JOURDAN POOL3 #### [facility] [address] [place] [address] Glucose [Mass/Vol] 107 mg/dL High 70-100 [facility] Work Phone: Comment on above: Performed By: #### H JOURDAN POOL3 #### [facility] [address] [facility] [place] [address] Chloride [Moles/Vol] 110 mmol/L High 98 - 10 7 mmol/L [facility] Work Phone: Creatinine [Mass/Vol] 0.45 mg/dL Low 0.52 - 1.25 mg/dL [facility] Work Phone: EGFR IF NonAfrican Trinidadian >90.0 >60 mL/m in [facility] Work Phone: Comment on above: KDIGO guidelines pro vide the following GFR categories: Stage GFR(ml/min/1.73 m2) Terms G1 >=90 Normal or high G2 60-89 Mildly decreased* G3a 45-59 Mildly to moderately decreased G3b 30-44 Moderately to severely decreased G4 15-29 Severely decreased G5 <15 Kidney failure *Relative to young adult level. In the absence of evidence of kidney damage, neither GFR category G1 nor G2 fulfill the criteria for CKD. The CKD-EPI equation is validated in individuals 18 years of age and older. Currently the best equation for estimating glomerular filtration rate (GFR) from serum creatinine in children is the Bedside Amos equation. It is less accurate in patients with extremes of muscle mass, restriction of dietary protein, ingestion of creatine, extra-renal metabolism of creatinine, or treatment with medications that affect renal tubular creatinine secretion. GFR/1.73 sq M.predicted among blacks MDRD (S/P/Bld) [Vol rate/Area] mL/min/{1.73_m2} >60 mL/min [facility] Work Phone: Interpretation and review of laboratory results Abnormal [facility] Work Phone: Potassium [Moles/Vol] 4.1 mmol/L 3.5 - 5.1 mmol/L [facility] Work Phone: Sodium [Moles/Vol] 136 mmol/L 135 - 145 mmol/L [facility] Work Phone: Urea nitrogen (BldV) [Mass/Vol] 11 mg/dL 9 - 20 mg/dL [facility] Work Phone: 1 Test Performed by [facility], [address] [place], [place] [address] [place] [address] [facility] Work Phone: [facility] Work Phone: Hemogram (CBC) w/Auto DiffOr dered By: Brian Brown on 10-22-2020 Absolute Baso # 0.0 10*3/uL 0.0 - 0.2 10*3/uL [facility] Work Phone: Absolute Neut # 2.3 10*3/uL 1.8 - 7.0 10*3/uL [facility] Work Phone: 222 Basophils/100 WBC (Bld) 0.4 % 0.0 - 2.0 % [facility] Work Phone: 222 Eosinophils (Bld) [#/Vol] 0.0 10*3/uL 0. 0 - 0.5 10*3/uL [facility] Work Phone: 222 Eosinophils/100 WBC (Bld) 0.0 % Low 1.0 - 6.0 % [facility] Work Phone: 222 Granulocytes/100 WBC (Bld) 73.8 % 40.0 - 80 .0 % [facility] Work Phone: Hematocrit (Bld) [Volume fraction] 37.9 % 35.0 - 47.0 % [facility] Work Phone: Hemoglobin.gastrointestinal spec 1 Ql (Stl) 12.8 g/dL 11.7 - 16.0 g/dL [facility] Work Phone: [phone] Interpretation and review of laboratory results Abnormal [facility] Work Phone: 1() 222 Lymphocytes (Bld) [#/Vol] 0.6 10*3/uL Low 1. 0 - 4.3 10*3/uL [facility] Work Phone: 1() 222 Lymphocytes/100 WBC (Bld) 17.7 % Low 20.0 - 40. 0 % [facility] Work Phone: 1() 222 MCH (RBC) [Entitic mass] 29.4 pg 26.0 - 34.0 pg [facility] Work Phone: 1() 222 MCHC (RBC) [Mass/Vol] 33.8 % 32.0 - 36.0 % [facility] Phone: 1() 222 MCV (RBC) [Entitic vol] 86.9 fL 79.0 - 98.0 fL [facility] Work Phone: 1() 222 Monocytes (Bld) [#/Vol] 0.3 10*3/uL 0.0 - 0.8 10*3/uL [facility] Work Phone: 1() 222 Monocytes/100 WBC (Bld) 8.1 % 2.0 - 10.0 % [facility] Phone: 1() 222 Platelet distribution width (Bld) [Ratio] 12.8 % 11.5 - 14.5 % [facility] Phone: 1() 222 Platelet mean volume (Bld) [Entitic vol] 8.0 fL 7.4 - 10.4 fL [facility] Phone: 1() 222 Platelets (Bld) [#/Vol] 139 10*3/uL Low 140 - 440 10*3/uL [facility] Work Phone: 1() 222 RBC (Bld) [#/Vol] 4.36 10*6/uL 3.80 - 5.2 0 10*6/uL [facility] Work Phone: 1() 222 WBC (Bld) [#/Vol] 3.1 10*3/uL Low 3.6 - 10.7 10*3/uL [facility] Work Phone: 1() 222 Test Performed by [facility], [facility] [address] , [place] [id number] [place] [address] Work Phone: [facility] Work Phone: Hemogram w/ Autodiffon 10-22 Abs Baso Cnt 0.0 10*3/uL Normal 0.0-0.2 [facility] Comment on above: Performed By: #### H EMDF, BMP3 #### [facility] [address] [place] [address] Abs Neutrophile Cnt 2.3 10*3/uL Normal 1.8-7.0 [facility] Comment on above: Performed By: #### H EMDF BMP3 #### [facility] [address] [place] [place] [address] Basophils/100 WBC (Bld) 0.4 % Normal 0.0-2.0 [facility] Comment on above: Performed By: #### H CORINE BMP3 #### [facility] [address] [place] [address] Eosinophils (Bld) [#/Vol] 0.0 10*3/uL Normal 0.0-0.5 [facility] Comment on above: Performed By: #### H CORINE BMP3 #### [facility] [address] [place] [address] Eosinophils/100 WBC (Bld) 0.0 % Low 1.0-6.0 [facility] Comment on above: Performed By: #### H CORINE BMP3 #### [facility] [address] [place] [address] Erythrocyte distribution width (RBC) [Ratio] 12.8 % Normal 11.5-14.5 [facility] Comment on above: Performed By: #### H EMDBozena BMP3 #### [facility] [address] [place] [place] [address] Granulocytes/100 WBC (Bld) 73.8 % Normal 40.0-80.0 [facility] Comment on above: Performed By: #### H EMDF, BMP3 #### [facility] [address] [place] [address] Hematocrit (Bld) [Volume fraction] 37.9 % Normal 35.0-47.0 [facility] Comment on above: Performed By: #### H CORINE BMP3 #### [facility] [address] [place] [address] Hemoglobin (Bld) [Mass/Vol] 12.8 g/dL Normal 11.7-16. 0 [facility] Comment on above: Performed By: #### H CORINE BMP3 #### [facility] [address] [place] [address] Lymphocytes (Bld) [#/Vol] 0.6 10*3/uL Low 1.0-4.3 [facility] Comment on above: Performed By: #### H CORINE BMP3 #### [facility] [address] [place] [place] [address] Lymphocytes/100 WBC (Bld) 17.7 % Low 20.0-40.0 [facility] Comment on above: Performed By: #### Yoel POOL BMP3 #### [facility] [address] [place] [address] MCH (RBC) [Entitic mass] 29.4 pg Normal 26.0-34.0 [facility] Comment on above: Performed By: #### Yoel POOL BMP3 #### [facility] [address] [place] [place] [address] MCHC 33.8 % Normal 32.0-36.0 [facility] Comment on above: Performed By: #### H CORINE BMP3 #### [facility] [address] [place] [address] MCV (RBC) [Entitic vol] 86.9 fL Normal 79.0-98.0 [facility] Comment on above: Performed By: #### H CORINE BMP3 #### [facility] [address] [place] [place] [address] Monocytes (Bld) [#/Vol] 0.3 10*3/uL Normal 0.0-0.8 [facility] Comment on above: Performed By: #### H CORINE BMP3 #### [facility] [address] [place] [address] Monocytes/100 WBC (Bld) 8.1 % Normal 2.0-10.0 [facility] Comment on above: Performed By: #### H CORINE, BMP3 #### [facility] [address] [place] [address] Platelet mean volume (Bld) [Entitic vol] 8.0 fL Normal 7.4-10.4 [facility] Comment on above: Performed By: #### H CORINE, BMP3 #### [facility] [address] [place] [address] Platelets (Bld) [#/Vol] 139 10*3/uL Low 140-440 [facility] Comment on above: Performed By: #### H CORINE, BMP3 #### [facility] [address] [place] [address] RBC (Bld) [#/Vol] 4.36 10*6/uL Normal 3.80-5.20 [facility] Comment on above: Performed By: #### H EMDBozena, BMP3 #### [facility] [address] [place] [address] WBC (Bld) [#/Vol] 3.1 10*3/uL Low 3.6-10.7 [facility] Comment on above: Performed By: #### H EMDF, BMP3 #### [facility] [address] [place] [address] CHEST 2 VIEW PA AND LATon CHEST 2 VIEW PA AND LAT Name: DELMI RUSSELL STUDY:CHEST 2 VIEW PA AND LAT; 04/05/2017 4:52 pm INDICATION:Signs/S ymptoms: cough. COMPARISON:None. ORDERING CLINICIAN:BEN HOYT FINDINGS: CARDIOMEDIASTINAL SILHOUETTE:Cardiom ediastinal silhouette is normal in size and configuration. LUNGS:Lungs are clear. ABDOMEN:No remarkable upper abdominal findings. BONES:No acute osseous changes. IMPRESSION:1. No evidence of acute cardiopulmonary process.Electronic ally signed by: DOMINICK WASHINGTON MD Normal [facility] Vital Signs Date Time Vital Sign Value Performing Clinician Facility 09-25-2024 09:47-0400 Body height 158.8 cm Beto Huerta MD Work Phone: [facility] 09-25-2024 09:47-0400 Body mass index (BMI) [Ratio] 27.72 kg/m2 Beto Huerta MD Work Phone: [facility] 09-25-2024 09:47-0400 Body weight 69.85 kg Beto Huerta MD Work Phone: [facility] 09-25-2024 09:47-0400 Diastolic blood pressure 75 mm[Hg] Beto Huerta MD Work Phone: [facility] 09-25-2024 09:47-0400 Heart rate 101 /min Beto Huerta MD Work Phone: [facility] 09-25-2024 09:47-0400 SaO2% (BldA) [Mass fraction] 99 % Beto Huerta MD Work Phone: [facility] 09-25-2024 09:47-0400 Systolic blood pressure 111 mm[Hg] Beto Huerta MD Work Phone: [facility] 07-17-2024 13:00-0400 Body height 162.6 cm Brenda Rinaldi MD Work Phone: [facility] 07-17-2024 13:00-0400 Body mass index (BMI) [Ratio] 26.26 kg/m2 Brenda Rinaldi MD Work Phone: [facility] 07-17-2024 13:00-0400 Body weight 69.4 kg Brenda Rinaldi MD Work Phone: [facility] 07-17-2024 13:00-0400 Diastolic blood pressure 84 mm[Hg] Brenda Rinaldi MD Work Phone: [facility] 07-17-2024 13:00-0400 Systolic blood pressure 132 mm[Hg] Brenda Rinaldi MD Work Phone: [facility] 06-04-2024 13:58-0400 Body height 163.8 cm Beto Huerta MD Work Phone: [facility] 06-04-2024 13:58-0400 Body mass index (BMI) [Ratio] 26.87 kg/m2 Beto Huerta MD Work Phone: [facility] 06-04-2024 13:58-0400 Body temperature 98.1 [degF] Beto Huerta MD Work Phone: [facility] 06-04-2024 13:58-0400 Body weight 72.12 kg Beto Huerta MD Work Phone: [facility] 06-04-2024 13:58-0400 Diastolic blood pressure 81 mm[Hg] Beto Huerta MD Work Phone: [facility] 06-04-2024 13:58-0400 Heart rate 73 /min Beto Huerta MD Work Phone: [facility] 06-04-2024 13:58-0400 SaO2% (BldA) [Mass fraction] 96 % Beto Huerta MD Work Phone: [facility] 06-04-2024 13:58-0400 Systolic blood pressure 121 mm[Hg] Beto Huerta MD Work Phone: [facility] 05-07-2024 08:49-0400 Body height 158.8 cm Luci Lozada CNP Work Phone: [facility] 05-07-2024 08:49-0400 Body mass index (BMI) [Ratio] 28.62 kg/m2 Luci Berry APRN - ALEXANDRA Work Phone: [facility] 05-07-2024 08:49-0400 Body temperature 98.1 [degF] Luci Berry APRN - [employer] Work Phone: [facility] 05-07-2024 08:49-0400 Body weight 72.12 kg Luci Lozada CNP Work Phone: [facility] 05-07-2024 08:49-0400 Diastolic blood pressure 68 mm[Hg] Luci Ariasias [employer] - [employer] Work Phone: [facility] 05-07-2024 08:49-0400 Heart rate 89 /min Luci Berry [employer] - [employer] Work Phone: [facility] 05-07-2024 08:49-0400 SaO2% (BldA) [Mass fraction] 97 % Luci Berry [employer] - [employer] Work Phone: [facility] 05-07-2024 08:49-0400 Systolic blood pressure 114 mm[Hg] Luci Ariasias [employer] - [employer] Work Phone: [facility] 12-19-2023 08:07-0500 Body mass index (BMI) [Ratio] 27.47 kg/m2 Jacinta Sanchez PA-C Work Phone: [facility] 12-19-2023 08:07-0500 Body weight 72.6 kg Jacinta Sanchez PA-C Work Phone: [facility] 12-19-2023 08:07-0500 Diastolic blood pressure 84 mm[Hg] Jacinta Sanchez PA-C Work Phone: [facility] 12-19-2023 08:07-0500 Respiratory rate 18 /min Jacinta Sanchez PA-C Work Phone: [facility] [facility] 12-19-2023 08:07-0500 Systolic blood pressure 122 mm[Hg] Jacinta Sanchez PA-C Work Phone: [facility] 09-23-2023 08:59-0400 Body height 162.6 cm Jacinta Sanchez PA-C Work Phone: [facility] 09-23-2023 08:59-0400 Body mass index (BMI) [Ratio] 27.55 kg/m2 Jacinta Sanchez PA-C Work Phone: [facility] 09-23-2023 08:59-0400 Body weight 72.8 kg Jacinta Sanchez PA-C Work Phone: [facility] 09-23-2023 08:59-0400 Diastolic blood pressure 80 mm[Hg] Jacinta Sanchez PA-C Work Phone: [facility] 09-23-2023 08:59-0400 Systolic blood pressure 117 mm[Hg] Jacinta Sanchez PA-C Work Phone: [facility] 07-27-2023 15:18-0400 Body height 158.8 cm Beto Huerta MD Work Phone: [facility] 07-27-2023 15:18-0400 Body mass index (BMI) [Ratio] 28.8 kg/m2 Beto Huerta MD Work Phone: [facility] 07-27-2023 15:18-0400 Body weight 72.58 kg Beto Huerta MD Work Phone: [facility] 07-27-2023 15:18-0400 Diastolic blood pressure 82 mm[Hg] Beto Huerta MD Work Phone: [facility] 07-27-2023 15:18-0400 Heart rate 84 /min Beto Huerta MD Work Phone: [facility] 07-27-2023 15:18-0400 SaO2% (BldA) [Mass fraction] 98 % Beto Huerta MD Work Phone: [facility] 07-27-2023 15:18-0400 Systolic blood pressure 129 mm[Hg] Beto Huerta MD Work Phone: [facility] 01-21-2023 14:23-0500 Body height 158.8 cm Alejandrina Mendenhall MD Work Phone: [facility] 01-21-2023 14:23-0500 Body mass index (BMI) [Ratio] 28.8 kg/m2 Alejandrina Mendenhall MD Work Phone: [facility] 01-21-2023 14:23-0500 Body temperature 98.2 [degF] Alejandrina Mendenhall MD Work Phone: [facility] 01-21-2023 14:23-0500 Body weight 72.58 kg Alejandrina Mendenhall MD Work Phone: [facility] 01-21-2023 14:23-0500 Diastolic blood pressure 82 mm[Hg] Alejandrina Mendenhall MD Work Phone: [facility] 01-21-2023 14:23-0500 Heart rate 98 /min Alejandrina Mendenhall MD Work Phone: [facility] 01-21-2023 14:23-0500 SaO2% (BldA) [Mass fraction] 98 % Alejandrina Mendenhall MD Work Phone: [facility] 01-21-2023 14:23-0500 Systolic blood pressure 136 mm[Hg] Alejandrina Mendenhall MD Work Phone: [facility] 10-08-2022 08:45-0400 Diastolic blood pressure 53 mm[Hg] Noah Hayes MD Work Phone: [facility] 10-08-2022 08:45-0400 Heart rate 76 /min Noah Hayes MD Work Phone: [facility] 10-08-2022 08:45-0400 Respiratory rate 18 /min Noah Hayes MD Work Phone: [facility] 10-08-2022 08:45-0400 SaO2% (BldA) [Mass fraction] 100 % Noah Hayes MD Work Phone: [facility] 10-08-2022 08:45-0400 Systolic blood pressure 92 mm[Hg] Noah Hayes MD Work Phone: [facility] 10-08-2022 08:18-0400 Body temperature 97.7 [degF] Noah Hayes MD Work Phone: [facility] 10-08-2022 06:43-0400 Body height 162.6 cm Noah Hayes MD Work Phone: [facility] 10-08-2022 06:43-0400 Body weight 70.31 kg Noah Hayes MD Work Phone: [facility] 06-08-2022 07:43-0400 Body height 163.8 cm Beto Huerta MD Work Phone: [facility] 06-08-2022 07:43-0400 Body mass index (BMI) [Ratio] 28.73 kg/m2 Beto Huerta MD Work Phone: [facility] 06-08-2022 07:43-0400 Body temperature 98.01 [degF] Beto Huerta MD Work Phone: [facility] 06-08-2022 07:43-0400 Body weight 77.11 kg Beto Huerta MD Work Phone: [facility] 06-08-2022 07:43-0400 Diastolic blood pressure 81 mm[Hg] Beto Huerta MD Work Phone: [facility] 06-08-2022 07:43-0400 Heart rate 85 /min Beto Huerta MD Work Phone: [facility] 06-08-2022 07:43-0400 SaO2% (BldA) [Mass fraction] 98 % Beto Huerta MD Work Phone: [facility] 06-08-2022 07:43-0400 Systolic blood pressure 115 mm[Hg] Beto Huerta MD Work Phone: [facility] 05-31-2022 07:22-0400 Body weight 78.47 kg Jacinta Sanchez PA-C Work Phone: [facility] 05-31-2022 07:22-0400 Diastolic blood pressure 70 mm[Hg] Jacinta WHITEC Work Phone: [facility] 05-31-2022 07:22-0400 Systolic blood pressure 98 mm[Hg] Jacinta CHUN-C Work Phone: [facility] 05-03-2022 07:29-0400 Body weight 80.29 kg Jacinta WHITEC Work Phone: [facility] 05-03-2022 07:29-0400 Diastolic blood pressure 64 mm[Hg] Jacinta CHUN-C Work Phone: [facility] 05-03-2022 07:29-0400 Systolic blood pressure 90 mm[Hg] Jacinta CHUN-C Work Phone: [facility] 03-12-2022 07:11-0500 Body height 163.83 cm ELECTRONIC IMAGING SYSTEM OPERATOR-C Jacobo Martinez ELECTRONIC IMAGING SYSTEM OPERATOR Work Phone: [facility] 03-12-2022 07:11-0500 Body mass index (BMI) [Ratio] 31.6 kg/m2 ELECTRONIC IMAGING SYSTEM OPERATOR-C Jacobo Martinez ELECTRONIC IMAGING SYSTEM OPERATOR Work Phone: [facility] 03-12-2022 07:11-0500 Body temperature 97.4 [degF] ELECTRONIC IMAGING SYSTEM OPERATOR-C Jacobo Martinez ELECTRONIC IMAGING SYSTEM OPERATOR Work Phone: [facility] 03-12-2022 07:11-0500 Body weight 85.04 kg ELECTRONIC IMAGING SYSTEM OPERATOR-C Jacobo Martinez ELECTRONIC IMAGING SYSTEM OPERATOR Work Phone: [facility] 03-12-2022 07:11-0500 Diastolic blood pressure 60 mm[Hg] ELECTRONIC IMAGING SYSTEM OPERATOR-C Jacobo Martinez ELECTRONIC IMAGING SYSTEM OPERATOR Work Phone: [facility] 03-12-2022 07:11-0500 Heart rate 84 /min ELECTRONIC IMAGING SYSTEM OPERATOR-C Jacobo Martinez ELECTRONIC IMAGING SYSTEM OPERATOR Work Phone: [facility] 03-12-2022 07:11-0500 Respiratory rate 18 /min ELECTRONIC IMAGING SYSTEM OPERATOR-C Jacobo Martinez ELECTRONIC IMAGING SYSTEM OPERATOR Work Phone: [facility] 03-12-2022 07:11-0500 SaO2% (BldA) [Mass fraction] 98 % ELECTRONIC IMAGING SYSTEM OPERATOR-C Jacobo Martinez ELECTRONIC IMAGING SYSTEM OPERATOR Work Phone: [facility] 03-12-2022 07:11-0500 Systolic blood pressure 106 mm[Hg] ELECTRONIC IMAGING SYSTEM OPERATOR-C Jacobo Martinez ELECTRONIC IMAGING SYSTEM OPERATOR Work Phone: [facility] 02-24-2022 07:03-0500 Body height 163.8 cm Love Roberson APRN - [employer] Work Phone: [employer] 02-24-2022 07:03-0500 Body mass index (BMI) [Ratio] 32.18 kg/m2 Love Roberson APRN - [employer] Work Phone: [employer] 02-24-2022 07:03-0500 Body weight 86.36 kg Love Roberson APRN - [employer] Work Phone: [facility] 02-24-2022 07:03-0500 Diastolic blood pressure 77 mm[Hg] Love Roberson APRN - [employer] Work Phone: [facility] 02-24-2022 07:03-0500 Heart rate 80 /min Love Roberson APRN - [employer] Work Phone: [facility] 02-24-2022 07:03-0500 Respiratory rate 18 /min Love Roberson APRN - [employer] Work Phone: [facility] 02-24-2022 07:03-0500 Systolic blood pressure 109 mm[Hg] Love Roberson APRN - [employer] Work Phone: [facility] 10-22-2020 13:40-0400 Diastolic blood pressure 75 mm[Hg] Brian Brown MD Work Phone: [facility] Work Phone: 10-22-2020 13:40-0400 Heart rate 84 /min Brian Brown MD Work Phone: [facility] Work Phone: 10-22-2020 13:40-0400 Respiratory rate 20 /min Brian Brown MD Work Phone: [facility] Work Phone: 10-22-2020 13:40-0400 SaO2% (BldA) [Mass fraction] 98 % Brian Brown MD Work Phone: [facility] Work Phone: 10-22-2020 13:40-0400 Systolic blood pressure 112 mm[Hg] Brian Brown MD Work Phone: [facility] Work Phone: 10-22-2020 12:20-0400 Body height 162.6 cm [facility] Work Phone: 10-22-2020 12:20-0400 Body mass index (BMI) [Ratio] 28.32 kg/m2 Brian Brown MD Work Phone: [facility] Work Phone: 10-22-2020 12:20-0400 Body temperature 98.4 [degF] Brian Brown MD Work Phone: [facility] Work Phone: 10-22-2020 12:20-0400 Body weight 74.84 kg Brian Brown MD Work Phone: [facility] Work Phone: Encounters Encounter Date Encounter Type Care Provider Facility Start: 10-04-2024 ambulatory [facility] Facility:[facility] Start: 09-25-2024 End: 09-25-2024 Office outpatient visit 25 minutes Beto Huerta MD Work Phone: [facility] Comment on above: Mild episode of recu rrent major depressive disorder (HCC) (Primary Dx); Generalized anxiety disorder; Moderate persistent asthma without complication; Seasonal allergies Start: 09-25-2024 End: 09-25-2024 ambulatory BETO HUERTA [facility] Start: 09-14-2024 End: 09-14-2024 ambulatory BETO HUERTA Facility:[facility] Start: 09-14-2024 Patient encounter procedure JACINTA SANCHEZ [facility] Start: 09-10-2024 End: 09-10-2024 ambulatory BETO HUERTA Facility:[facility] Start: 08-13-2024 End: 08-13-2024 ambulatory Jacinta WHITEC Work Phone: OB/Gynecology Comment on above: Medication Start: 07-25-2024 End: 08-01-2024 ambulatory Brenda Rinaldi MD Work Phone: OB/Gynecology Comment on above: Test results Start: 07-20-2024 ambulatory BETO HUERTA Facili ty:[facility] Start: 07-20-2024 End: 07-24-2024 Subsequent hospital visit by physician Janette [facility] Work Phone: Cardiology Lab Comment on above: Acute pain of left k nee Start: 07-17-2024 End: 07-17-2024 Patient encounter procedure Brenda Rinaldi MD Work Phone: OB/Gynecology Comment on above: Menopausal and perim enopausal disorder (Primary Dx) Start: 07-17-2024 End: 07-17-2024 ambulatory BRENDA RINALDI Facility:[facility] Start: 07-12-2024 End: 08-08-2024 Telephone encounter Beto Huerta MD Work Phone: [facility] Comment on above: ER Follow-up; Appoin tment Request; Cancelled Appointment (Patient cancelled appointment with luci Berry . Patient stated she made a appointment elsewhere.) Start: 07-11-2024 End: 07-11-2024 Emergency department patient visit BETO HUERTA Facility:[facility] Start: 06-18-2024 End: 06-18-2024 ambulatory Jacobo Martinez ELECTRONIC IMAGING SYSTEM OPERATOR-C Work Phone: [facility] Work Phone: Start: 06-18-2024 End: 06-18-2024 Patient encounter procedure Radha Fu ELECTRONIC IMAGING SYSTEM OPERATOR-C -Laboratory, [facility] Start: 06-18-2024 End: 06-18-2024 ambulatory Radha Fu Facility:[facility] Start: 06-16-2024 End: 06-20-2024 Refill Luci Berry [employer] Work Phone: [facility] Comment on above: Acute pain of left k nee Other seasonal aller gic rhinitis Start: 06-04-2024 End: 06-04-2024 Office outpatient visit 25 minutes Beto Huerta MD Work Phone: [facility] Comment on above: Seasonal allergies ( Primary Dx); Moderate persistent asthma without complication; Generalized anxiety disorder Start: 06-04-2024 End: 06-04-2024 ambulatory [facility] Start: 05-07-2024 End: 05-07-2024 Subsequent hospital visit by physician Luci Berry [employer] Work Phone: [facility] X-ray Comment on above: Acute pain of left k nee Start: 05-07-2024 End: 05-07-2024 ambulatory [facility] Start: 05-07-2024 End: 05-07-2024 Office outpatient visit 15 minutes Luci Berry [employer] Work Phone: [facility] Comment on above: Acute pain of left k nee (Primary Dx) Start: 05-05-2024 End: 05-05-2024 ambulatory Nelsy Jorgensen RN [facility] Clinical Communication Start: 05-05-2024 End: 05-05-2024 Patient encounter procedure Nelsy Jorgensen RN [facility] Clinical Communication Start: 04-20-2024 End: 04-20-2024 ambulatory Jacinta Sanchez PA-C Work Phone: OB/Gynecology Comment on above: Vasomotor symptoms d ue to menopause (Primary Dx); Irritability; Brain fog Start: 04-20-2024 End: 04-20-2024 Telemedicine consultation with patient Jacinta Sanchez PA-C Work Phone: OB/Gynecology Start: 04-11-2024 End: 04-11-2024 ambulatory Jacobo aMrtinez ELECTRONIC IMAGING SYSTEM OPERATOR-C Work Phone: [facility] Work Phone: Start: 04-11-2024 End: 04-11-2024 Patient encounter procedure Jacobo Martinez ELECTRONIC IMAGING SYSTEM OPERATOR-C -[facility] Start: 04-11-2024 End: 04-11-2024 ambulatory Jacobo Martinez Facility:[facility] Start: 04-02-2024 End: 04-03-2024 ambulatory Jacinta Sanchez PA-C Work Phone: Obstetrics/Gynecology Comment on above: Hormone pill Start: 03-20-2024 End: 03-21-2024 Refill Beto Huerta MD Work Phone: [facility] Clinical Communication Start: 03-09-2024 End: 03-09-2024 Refill Jacinta Sanchez PA-C Work Phone: OB/Gynecology Comment on above: Refill Request Start: 03-08-2024 End: 03-08-2024 Refill Jacinta Sanchez PA-C Work Phone: OB/Gynecology Comment on above: Refill Request Start: 02-24-2024 ambulatory BETO Winifred Ray ty:[facility] Start: 02-24-2024 End: 02-24-2024 Subsequent hospital visit by physician Xr [facility] Radiology Comment on above: COVID-19 [U07.1] Start: 02-16-2024 ambulatory BETO Ray ty:[facility] Start: 02-16-2024 End: 02-16-2024 Subsequent hospital visit by physician Screen/Diagnostic Mammo 1 [facility] Work Phone: Mammography Comment on above: Encounter for screen ing mammogram for malignant neoplasm of breast [Z12.31] Start: 02-09-2024 End: 02-09-2024 ambulatory Ann Guevara RN [facility] Clinical Communication Start: 02-09-2024 End: 02-09-2024 [facility] Start: 02-01-2024 End: 02-01-2024 Telephone encounter No Pcp SPICE BLENDER [facility] Start: 01-11-2024 End: 01-11-2024 Refill Beto Huerta MD Work Phone: [facility] Comment on above: Generalized anxiety disorder Start: 01-02-2024 End: 01-02-2024 ambulatory Appeals Rn [facility] Work Phone: OB/Gynecology Start: 01-02-2024 End: 01-02-2024 Patient encounter procedure Appeals Rn [facility] Work Phone: OB/Gynecology Start: 12-19-2023 End: 12-19-2023 ambulatory JACINTA SANCHEZ Facility:[facility] Start: 12-19-2023 End: 12-19-2023 Patient encounter procedure Jacinta Sanchez PA-C Work Phone: [facility] Work Phone: Start: 12-19-2023 End: 12-19-2023 Periodic preventive med est patient 40-64yrs Jacinta Sanchez PA-C Work Phone: Obstetrics/Gynecology Comment on above: Women's annual routi ne gynecological examination (Primary Dx); Encounter for screening mammogram for malignant neoplasm of breast; Cervical cancer screening; Screening for HPV (human papillomavirus); Pelvic pain in female; Incomplete uterovaginal prolapse Start: 09-25-2023 End: 09-25-2023 ambulatory BETO HUERTA Facility:[facility] Start: 09-25-2023 End: 09-25-2023 Telemedicine consultation with patient Best Valdez CARYL Work Phone: Telemedicine Comment on above: Treatment not availa ble (Primary Dx) Start: 09-23-2023 End: 09-23-2023 ambulatory JACINTA SANCHEZ Facility:[facility] Start: 09-23-2023 End: 09-23-2023 Office outpatient visit 25 minutes Jacinta Sanchez PA-C Work Phone: OB/Gynecology Comment on above: Vasomotor symptoms d ue to menopause (Primary Dx); Menstrual irregularity; Acute vaginitis; Cyclical pelvic pain Start: 07-27-2023 End: 07-27-2023 Office outpatient visit 25 minutes Beto Huerta MD Work Phone: [facility] Medical [facility] Family Medicine Comment on above: Seasonal allergies ( Primary Dx); Other seasonal allergic rhinitis; Moderate persistent asthma without complication; Mild episode of recurrent major depressive disorder (HCC); Generalized anxiety disorder Start: 05-23-2023 Refill Beto Huerta MD Work Phone: [facility] Clinical Communication Start: 01-21-2023 End: 01-21-2023 Subsequent hospital visit by physician Alejandrina Mendenhall MD Work Phone: [facility] X-ray Comment on above: Moderate persistent asthma without complication; Acute cough Start: 01-21-2023 End: 01-21-2023 Office outpatient visit 15 minutes Alejandrina Mendenhall MD Work Phone: [facility] Medicine Comment on above: Moderate persistent asthma without complication (Primary Dx); Acute cough; Sinobronchitis Start: 10-08-2022 End: 10-08-2022 Subsequent hospital visit by physician Noah Hayes MD Work Phone: [facility] Endoscopy Comment on above: Colon cancer screeni ng [Z12.11] Start: 08-22-2022 Refill Beto Huerta MD Work Phone: [facility] Medicine Comment on above: Other seasonal aller gic rhinitis Start: 08-09-2022 End: 08-09-2022 Subsequent hospital visit by physician Screen/Diagnostic Mammo 2 [facility] Work Phone: Mammography Start: 08-03-2022 Documentation procedure Mammog yoselin Coordinator [facility] Start: 08-03-2022 Letter encounter Mammography Coordinator [facility] Department Start: 08-03-2022 End: 08-03-2022 Orders Only Jacinta Sanchez PA-C Work Phone: Obstetrics/Gynecology Comment on above: Abnormal mammogram ( Primary Dx) Mammogram Result Ju l Back Encounter for screen ing mammogram for malignant neoplasm of breast [Z12.31] Start: 06-08-2022 End: 06-08-2022 Office outpatient visit 25 minutes Beto Huerta MD Work Phone: [facility] Medicine Comment on above: Seasonal allergies ( Primary Dx); Moderate persistent asthma without complication; Insomnia, unspecified type; Screening for endocrine, metabolic, and immunity disorder Start: 05-31-2022 End: 05-31-2022 Patient encounter procedure Jacinta Sanchez PA-C Work Phone: Obstetrics/Gynecology Comment on above: Women's annual routi ne gynecological examination (Primary Dx); Colon cancer screening; Pelvic pain in female; Encounter for screening mammogram for malignant neoplasm of breast Start: 05-25-2022 Telephone encounter Janie real PA-C Work Phone: [facility] Family Medicine Start: 05-21-2022 ambulatory Jacinta gamble PA-C Work Phone: Obstetrics/Gynecology Comment on above: Test results Start: 05-20-2022 End: 05-20-2022 ambulatory Jacinta Russell MD Work Phone: OB/Gynecology Comment on above: Ultrasound Start: 05-20-2022 End: 05-20-2022 Patient encounter procedure Jacinta Russell MD Work Phone: [facility] Start: 05-03-2022 End: 05-03-2022 Patient encounter procedure Jacinta Sanchez PA-C Work Phone: Obstetrics/Gynecology Comment on above: Pelvic pain in femal e (Primary Dx); History of ovarian cyst Start: 03-12-2022 End: 03-12-2022 ambulatory ELECTRONIC IMAGING SYSTEM OPERATOR-C Jacobo Martinez ELECTRONIC IMAGING SYSTEM OPERATOR Work Phone: [facility] Work Phone: Start: 03-12-2022 End: 03-12-2022 Patient encounter procedure ELECTRONIC IMAGING SYSTEM OPERATOR-C Jacobo Martinez ELECTRONIC IMAGING SYSTEM OPERATOR Work Phone: [facility] [place] Start: 03-12-2022 Patient encounter status ELECTRONIC IMAGING SYSTEM OPERATOR-C Jacobo Martinez ELECTRONIC IMAGING SYSTEM OPERATOR Work Phone: [facility] Start: 03-12-2022 End: 03-12-2022 Encounter for general adult medical examination without abnormal findings ELECTRONIC IMAGING SYSTEM OPERATOR-C Jacobo Martinez ELECTRONIC IMAGING SYSTEM OPERATOR Work Phone: [facility] Start: 03-12-2022 End: 03-12-2022 Patient encounter procedure ELECTRONIC IMAGING SYSTEM OPERATOR-C Jacobo Martinez ELECTRONIC IMAGING SYSTEM OPERATOR Work Phone: [facility] Internal Medicine Start: 02-24-2022 End: 02-24-2022 Office outpatient visit 15 minutes Love F Roberson [employer]ER [employer] Work Phone: [facility] Comment on above: Insomnia, unspecifie d type (Primary Dx); Class 1 obesity due to excess calories without serious comorbidity with body mass index (BMI) of 32.0 to 32.9 in adult; Medication management Start: 11-30-2021 Transcribe Orders Beto rick MD Work Phone: [facility] Comment on above: Encounter for screen ing mammogram for malignant neoplasm of breast (Primary Dx) Start: 11-13-2020 End: 11-13-2020 Subsequent hospital visit by physician Prerna Luna PA-C Work Phone: [facility] X-Ray Comment on above: COVID-19; Persistent cough Start: 10-22-2020 End: 10-22-2020 Emergency department patient visit Brian Brown MD Work Phone: Health system Comment on above: COVID-19 (Primary Dx ); Non-intractable vomiting with nausea, unspecified vomiting type Start: 03-25-2018 End: 03-25-2018 Patient encounter procedure CARYN TORRES Facility:[facility] Start: 03-06-2018 End: 03-06-2018 Patient encounter procedure PAIGE CHEN Facility:[facility] Start: 04-05-2017 Ambulatory BEN HOYT Facil ity:[facility] Procedures Date Procedure Procedure Detail Performing Clinician Start: 07-20-2024 Xtrnl ecg & 48 hr recording Beto Huerta MD Work Phone: Start: 07-11-2024 Thyrotropin [Units/v olume] in Serum or Plasma Beto Huerta MD Work Phone: Start: 06-04-2024 Drug tst prsmv read instrmnt asstd dir opt obs Beto Huerta MD Work Phone: Start: 05-07-2024 Radiologic examinati on knee 3 views Luci Berry [employer] Work Phone: Start: 04-11-2024 Vitamin D, 25-hydrox y measurement Jacobo Martinez ELECTRONIC IMAGING SYSTEM OPERATOR-C Work Phone: Comment on above: Vitamin D StatusDefi ciency: <20 ng/mL (50nmol/L)Insufficiency: 20-30 ng/mL (50-75 nmol/L)Sufficiency: 30-100 ng/mL (75-250 nmol/L)Toxicity: >100 ng/mL (>250 nmol/L) Start: 02-24-2024 Radiologic exam ches t 2 views [facility] Provider Start: 02-16-2024 Mammography Nelsy Lory moe RN Start: 01-02-2024 Us pelvic nonobstetr ic real-time image complete Jacinta Sanchez PA-C Work Phone: Start: 12-19-2023 Microscopic observat ion [Identifier] in Cervix by Cyto stain Beto Huerta MD Work Phone: Start: 07-27-2023 Drug tst prsmv read instrmnt asstd dir opt obs Beto Huerta MD Work Phone: Start: 01-21-2023 Radiologic exam ches t 2 views Alejandrina Mendenhall MD Work Phone: Start: 10-08-2022 Colonoscopy flx dx w /collj spec when pfrmd Jacinta Sanchez PA-C Work Phone: Start: 10-08-2022 Colonoscopy Noah lorenz MD Work Phone: Start: 10-01-2022 Lipid 1996 panel - S matt or Plasma Alejandrina Mendenhall MD Work Phone: Start: 10-01-2022 Thyrotropin [Units/v olume] in Serum or Plasma Beto Huerta MD Work Phone: Start: 08-09-2022 Us breast uni real t félix with image limited Jacinta Sanchez PA-C Work Phone: Start: 08-09-2022 Digital breast tomosynthesis unilateral Jacinta Sanchez PA-C Work Phone: Start: 08-03-2022 End: 08-03-2022 Mammography Jacinta Sanchez PA-C Work Phone: Start: 05-20-2022 Us pelvic nonobstetr ic real-time image complete Jacinta Sanchez PA-C Work Phone: Start: 02-24-2022 Drug tst prsmv read instrmnt asstd dir opt obs Love Roberson [employer] Work Phone: Start: 06-01-2021 Lipid 1996 panel - S matt or Plasma Love Roberson [employer] Work Phone: Start: 10-22-2020 Basic metabolic pane l calcium total Brian Brown MD Work Phone: Start: 04-02-2019 Mammography Jacinta wakefield PA-C Work Phone: Start: 07-18-2015 Mammography Beto marte MD Work Phone: Start: 05-31-2015 Microscopic observat ion [Identifier] in Cervix by Cyto stain Brian Brown MD Work Phone: Plan of Treatment Date Care Activity Detail Author Start: 2048 RSV Immunization for Adults (1 - 1-dose 75+ series) RSV Immunization for Adults (1 - 1-dose 75+ series) [facility] Start: 2038 Pneumococcal 0-64 ye ars Vaccine (2 of 2 - PPSV23) Pneumococcal 0-64 years Vaccine (2 of 2 - PPSV23) [facility] Work Phone: Start: 2033 RSV Immunization age d 60 or older (1 - 1-dose 60+ series) RSV Immunization aged 60 or older (1 - 1-dose 60+ series) [facility] Start: 10-08-2032 Screening for malign ant neoplasm of colon [facility] Start: 12-18-2028 Screening for malign ant neoplasm of cervix Cervical Cancer Screening [facility] Start: 10-02-2027 Lipid panel [facility] Start: 10-02-2027 LIPID SCREEN LIPID SCREEN [facility] Start: 07-12-2027 Diabetes Screening Diabetes Screenin g [facility] Start: 12-18-2026 Screening for malign ant neoplasm of cervix [facility] Start: 06-01-2026 Lipid panel Lipid Panel [facility] Start: 06-01-2026 LIPID SCREEN LIPID SCREEN [facility] Start: 10-01-2025 Diabetes mellitus screening Diabetes Screening [facility] Start: 10-01-2025 DIABETES SCREEN DIABETES SCREEN [facility] Start: 10-01-2025 Diabetes Screening Diabetes Screenin g [facility] Start: 07-11-2025 Thyroid stimulating hormone measurement TSH Level [facility] Start: 05-30-2025 DTaP/Tdap/Td vaccine (2 - Td or Tdap) DTaP/Tdap/Td vaccine (2 - Td or Tdap) [facility] Work Phone: Start: 05-30-2025 DTaP/Tdap/Td Vaccine s (2 - Td or Tdap) DTaP/Tdap/Td Vaccines (2 - Td or Tdap) [facility] Start: 05-30-2025 Urine microalbumin profile DTaP,Tdap,Td Vaccine (2 - Td or Tdap) [facility] Start: 03-27-2025 Depression Monitoring Depression [facility] Start: 03-25-2025 End: 03-25-2025 Patient encounter procedure 03/25/2025 8:40 AM EST Office Visit [facility] [address] [place] [address] [place] [phone] Beto Huerta MD [address] [address] [facility] Start: 02-15-2025 Screening for malign ant neoplasm of breast [facility] Start: 12-24-2024 End: 12-24-2024 Patient encounter procedure 12/24/2024 7:45 AM EST Office Visit Obstetrics/Gynecology [address] [address] Jacinta Sanchez, PAKierraC [address] [place] [address] Annual Obstetrics/Gynecology Comment on above: Annual Start: 12-07-2024 End: 12-07-2024 Patient encounter procedure 12/07/2024 2:40 PM EDT Office Visit [facility] [address] [facility] [address] [place] [phone] Beto Huerta MD [address] [facility] [address] [place] [address] [facility] Start: 10-15-2024 Influenza vaccination S [facility] Start: 09-26-2024 End: 09-26-2024 Patient encounter procedure 09/26/2024 7:00 AM EDT Office Visit Obstetrics/Gynecology [address] [address] Jacinta Sanchez, PA-C [address] [place], [place] [phone] Return in about 4 months (around 01/23/2024) for annual. Obstetrics/Gynecology Comment on above: Return in about 4 mo nths (around 01/23/2024) for annual. Start: 09-14-2024 End: 09-14-2024 Patient encounter procedure 09/14/2024 7:00 AM EDT Office Visit OB/Gynecology [address] [place] [address] Jacinta Sanchez PA-C [address] [place], [place] [phone] annual. OB/Gynecology Comment on above: annual. Start: 09-10-2024 End: 09-10-2024 ambulatory 09/10/2024 9:00 AM EDT [facility] Obstetrics/Gynecology [address] [place] [address] Jacinta Sanchez PA-C [address] [place] [address] Discuss test results? (Patient unclear, but was no happy with her visit in [place] with another Provider) Obstetrics/Gynecology Comment on above: Discuss test results ? (Patient unclear, but was no happy with her visit in [place] with another Provider) Start: 06-18-2024 Borrelia burgdorferi blot test [facility] Start: 06-04-2024 End: 06-04-2024 Patient encounter procedure 06/04/2024 2:00 PM EDT Office Visit [facility] [address] [place] [phone] Beto Huerta MD [address] [facility] [address] [place] [address] [facility] Start: 06-01-2024 Diabetes mellitus screening Diabetes Screening [facility] Start: 05-07-2024 End: 05-07-2025 XR Knee - left 3 Views [facility] Work Phone: Comment on above: Expected: 05/07/2024 , Expires: 05/07/2025 Start: 05-07-2024 End: 05-07-2024 Patient encounter procedure 05/07/2024 8:40 AM EDT Office Visit [facility] [address] [place] [phone] Luci Berry, [employer] [address] [place], [place] [phone] [facility] Start: 03-14-2024 End: 03-14-2024 Patient encounter procedure 03/14/2024 1:00 PM EST Office Visit Obstetrics/Gynecology [address] [address] Jacinta Sanchez, PA-C [address] [place] [address] Return in about 4 months (around 01/23/2024) for annual. Obstetrics/Gynecology Comment on above: Return in about 4 mo nths (around 01/23/2024) for annual. Start: 02-16-2024 End: 02-16-2024 Patient encounter procedure 02/16/2024 7:40 AM EST Appointment Mammography [address] [place] [address] Encounter for screening mammogram for malignant neoplasm of breast [Z12.31] Mammography Comment on above: Encounter for screen ing mammogram for malignant neoplasm of breast [Z12.31] Start: 02-06-2024 HPV TESTING HPV TESTING [facility] Start: 02-06-2024 PAP TESTING PAP TESTING [facility] Start: 02-06-2024 Screening for malign ant neoplasm of cervix Cervical Cancer Screening [facility] Start: 01-02-2024 End: 01-02-2024 Manual pelvic examination 01/02/2024 8:00 AM EST Procedure OB/Gynecology [address] [place] [address] [facility], [address] [facility] [address] [place] [address] Pelvic pain in female [R10.2] OB/Gynecology Comment on above: Pelvic pain in femal e [R10.2] Start: 12-30-2023 COVID-19 Vaccine (#1) COVID-19 Vacci ne (#1) [facility] Comment on above: Postponed from 09/12 (Patient Refused) Start: 12-30-2023 COVID-19 Vaccine ( season) COVID-19 Vaccine ( season) [facility] Comment on above: Postponed from 10/15 (Patient Refused) Start: 12-19-2023 End: 12-18-2024 US Pelvis PELVIC US [facility] Anc Imaging Routine Pelvic pain in female Expected: 12/19/2023, Expires: 12/18/2024 [facility] Comment on above: Expected: 12/19/2023 , Expires: 12/18/2024 Start: 10-26-2023 DIABETES SCREEN DIABETES SCREEN [facility] Start: 10-16-2023 Covid-19 Vaccine () Covid-19 Vaccine () [facility] Start: 10-16-[address] [facility] Start: 10-09-2023 Colonoscopy COLONOSCOPY [facility] Start: 10-09-2023 COLORECTAL CANCER SCREENING COLORECTAL CANCER SCREENING [facility] Start: 10-09-2023 Screening for malign ant neoplasm of colon [facility] Start: 10-02-2023 Thyroid stimulating hormone measurement TSH Level [facility] Start: 08-14-2023 Influenza vaccination Influenza Vacc ine (#1) [facility] Comment on above: Postponed from 10/15 (Patient Refused) Start: 08-04-2023 Mammography MAMMOGRAM [facility] Start: 08-04-2023 Screening for malign ant neoplasm of breast Mammogram Screening [facility] Start: 07-27-2023 End: 07-27-2023 Patient encounter procedure 07/27/2023 3:20 PM EDT Office Visit [facility] Family Medicine [address] [place] [address] [address] [place] [phone] Beto Huerta MD [address] [place] [address] [place] [address] [facility] Start: 07-26-2023 Lipid panel Lipid screen [facility] Work Phone: Start: 2023 Pneumococcal Vaccine : 50+ (2 of 2 - PCV) Pneumococcal Vaccine: 50+ (2 of 2 - PCV) [facility] Start: 2023 Shingrix Vaccine (1 of 2) Shingrix Vaccine (1 of 2) [facility] Start: 2023 Zoster Vaccines (1 of 2) Zoste r Vaccines (1 of 2) [facility] Start: 01-21-2023 End: 01-22-2024 XR Chest 2 Views [facility] Work Phone: Comment on above: Expected: 01/21/2023 , Expires: 01/22/2024 Start: 12-08-2022 End: 12-08-2022 Patient encounter procedure [facility] Start: 10-15-2022 Covid-19 Vaccine ( season) Covid-19 Vaccine ( season) [facility] Start: 09-01-2023 Influenza vaccination [facility] Start: 06-08-2022 End: 06-09-2023 CBC panel - Blood by Automated count CBC Lab Routine Screening for endocrine, metabolic, and immunity disorder Expected: 06/08/2022 (Approximate), Expires: 06/09/2023 [facility] Comment on above: Expected: 06/08/2022 (Approximate), Expires: 06/09/2023 Start: 06-08-2022 End: 06-09-2023 Comprehensive metabolic 1998 panel - Serum or Plasma Comprehensive metabolic panel Lab Routine Screening for endocrine, metabolic, and immunity disorder Expected: 06/08/2022 (Approximate), Expires: 06/09/2023 [facility] Work Phone: Comment on above: Expected: 06/08/2022 (Approximate), Expires: 06/09/2023 Start: 06-08-2022 End: 06-09-2023 Hemoglobin A1c/Hemoglobin.total in Blood Hemoglobin A1c Lab Routine Screening for endocrine, metabolic, and immunity disorder Expected: 06/08/2022 (Approximate), Expires: 06/09/2023 [facility] Comment on above: Expected: 06/08/2022 (Approximate), Expires: 06/09/2023 Start: 06-08-2022 End: 06-09-2023 Lipid 1996 panel - Serum or Plasma Lipid panel Lab Routine Screening for endocrine, metabolic, and immunity disorder Expected: 06/08/2022 (Approximate), Expires: 06/09/2023 [facility] Comment on above: Expected: 06/08/2022 (Approximate), Expires: 06/09/2023 Start: 06-08-2022 End: 06-09-2023 Thyrotropin [Units/volume] in Serum or Plasma TSH Lab Routine Screening for endocrine, metabolic, and immunity disorder Expected: 06/08/2022 (Approximate), Expires: 06/09/2023 [facility] Comment on above: Expected: 06/08/2022 (Approximate), Expires: 06/09/2023 Start: 05-26-2022 End: 05-26-2022 Patient encounter procedure 05/26/2022 Office Visit Family Medicine Love Roberson, [employer] [address] [place] [address] [facility] [place] [facility] Start: 05-03-2022 End: 05-04-2023 PELVIC US WHI PELVIC US [facility] Anc Imaging Routine Pelvic pain in female History of ovarian cyst Expected: 05/03/2022, Expires: 05/04/2023 [facility] Work Phone: Comment on above: Expected: 05/03/2022 , Expires: 05/04/2023 Start: 03-12-2022 Patient referral [facility] Work Phone: Start: 11-30-2021 End: 11-30-2022 MG Breast - bilateral Screening Bilateral screening mammogram Imaging Routine Encounter for screening mammogram for malignant neoplasm of breast Expected: 11/30/2021, Expires: 11/30/2022 [facility] Work Phone: Comment on above: Expected: 11/30/2021 , Expires: 11/30/2022 Start: 10-15-[address] [facility] Start: 09-01-2021 Diabetes screen Diabetes screen [facility] Work Phone: Start: 11-24-2020 LIPID SCREEN LIPID SCREEN [facility] Start: 10-15-2020 Influenza vaccination Flu vaccine (# 1) [facility] Work Phone: Start: 05-30-2020 Screening for malign ant neoplasm of cervix [facility] Start: 04-02-2020 Mammography MAMMOGRAM [facility] Start: 07-15-2019 Pneumococcal Vaccine : 50+ Years (2 of 2 - PCV) Pneumococcal Vaccine: 50+ Years (2 of 2 - PCV) [facility] Start: 07-15-2019 Pneumococcal Vaccine : Pediatrics (0 to 5 Years) and At-Risk Patients (6 to 64 Years) (2 - PCV) Pneumococcal Vaccine: Pediatrics (0 to 5 Years) and At-Risk Patients (6 to 64 Years) (2 - PCV) [facility] Start: 07-15-2019 Pneumococcal Vaccine : Pediatrics (0 to 5 Years) and At-Risk Patients (6 to 64 Years) (2 of 2 - PCV) Pneumococcal Vaccine: Pediatrics (0 to 5 Years) and At-Risk Patients (6 to 64 Years) (2 of 2 - PCV) [facility] Start: 05-30-2018 Screening for malign ant neoplasm of cervix Pap smear [facility] Work Phone: Start: 2018 COLOGUARD (FIT-DNA) COLOGUARD (FIT-D NA) [facility] Start: 2018 Colonoscopy COLONOSCOPY [facility] Start: 2018 COLORECTAL CANCER SCREENING COLORECTAL CANCER SCREENING [facility] Start: [address] COLONOGRAPHY [facility] Start: 2018 FECAL OCCULT BLOOD FECAL OCCULT BLOO D [facility] Start: 2018 Screening for malign ant neoplasm of colon [facility] Start: [address] [facility] Start: 07-17-2016 Screening for malign ant neoplasm of breast Mammogram [facility] Start: 2013 Screening for malign ant neoplasm of breast Mammogram [facility] Start: 2003 Screening for malign ant neoplasm of cervix [facility] Start: 1994 Screening for malign ant neoplasm of cervix Pap Smear [facility] Start: 1992 Hepatitis B Vaccine (1 of 3 - 19+ 3-dose series) Hepatitis B Vaccine (1 of 3 - 19+ 3-dose series) [facility] Start: 1992 Urine microalbumin profile DTAP,TDAP,TD (1 - Tdap) [facility] Start: 1991 HEPATITIS C SCREENING HEPATITIS C SC REENING [facility] Start: 1991 HIV SCREENING HIV SCREENING [facility] Start: 1991 HIV screening HIV Screening [facility] Start: 1988 HIV screening HIV screen [facility] Work Phone: Start: 1985 COVID-19 Vaccine (1) COVID-19 Vaccin e (1) [facility] Work Phone: Start: 1985 Depression Monitoring Depression Mon itoring [facility] Start: 1985 Depresssion Monitoring Depresssion M onitoring [facility] Start: 1974 MMR Vaccines (1 of 1 - Standard series) MMR Vaccines (1 of 1 - Standard series) [facility] Start: 1973 COVID-19 VACCINE (#1) COVID-19 VACCI NE (#1) [facility] Start: 1973 HEPATITIS B (1 of 3 - 3-dose series) HEPATITIS B (1 of 3 - 3-dose series) [facility] Start: 1973 Hepatitis B Vaccines (1 of 3 - 3-dose series) Hepatitis B Vaccines (1 of 3 - 3-dose series) [facility] Start: 1973 Hepatitis C screening Hepatitis C sc reen [facility] Work Phone: Start: 1973 Screening for malign ant neoplasm of colon [facility] Start: 1973 Thyroid stimulating hormone measurement TSH Level [facility] BACTERIAL VAGINOSIS NAAT BACTERI AL VAGINOSIS NAAT Lab Routine Acute vaginitis 09/23/2023 9:25 AM EDT [facility] ANTONI/TRICHOMONAS NAAT ANTONI /TRICHOMONAS NAAT Lab Routine Acute vaginitis 09/23/2023 9:25 AM EDT [facility] Work Phone: End: 06-01-2023 COLONOSCOPY DIAGNOSTIC COLONOSCOPY DIAGNOSTIC Endoscopy Routine Colon cancer screening Pelvic pain in female 1 Occurrences starting 05/31/2022 until 06/01/2023 [facility] Work Phone: Comment on above: 1 Occurrences starti ng 05/31/2022 until 06/01/2023 End: 01-17-2025 DBT Breast - bilateral screening NBA SCREENING [facility]iology Routine Encounter for screening mammogram for malignant neoplasm of breast 1 Occurrences starting 12/19/2023 until 01/17/2025 [facility] Work Phone: Comment on above: 1 Occurrences starti ng 12/19/2023 until 01/17/2025 DBT Breast - bilater al screening NBA SCREENING [facility] Radiology Routine Encounter for screening mammogram for malignant neoplasm of breast 02/16/2024 7:53 AM EST [facility] Work Phone: Laboratory data interpretation [facility] End: 09-02-2023 NBA DIAGNOSTIC LEFT NBA DIAGNOSTIC LEFT Radiology Routine Abnormal mammogram 1 Occurrences starting 08/03/2022 until 09/02/2023 [facility] Work Phone: Comment on above: 1 Occurrences starti ng 08/03/2022 until 09/02/2023 End: 06-30-2023 NBA SCREENING W WILDER NBA SCREENING [facility] Radiology Routine Encounter for screening mammogram for malignant neoplasm of breast 1 Occurrences starting 05/31/2022 until 06/30/2023 [facility] Work Phone: Comment on above: 1 Occurrences starti ng 05/31/2022 until 06/30/2023 PAP TEST PAP TEST Lab [facility] dottie Women's annual routine gynecological examination Cervical cancer screening Screening for HPV (human papillomavirus) Ordered: 12/19/2023 [facility] Comment on above: Ordered: 12/19/2023 Patient referral [facility] Work Phone: End: 11-13-2020 XR CHEST (2 VW) XR CHEST (2 VW) Imaging Routine COVID-19 Persistent cough 1 Occurrences starting 11/13/2020 until 11/13/2020 [facility] Work Phone: Comment on above: 1 Occurrences starti ng 11/13/2020 until 11/13/2020 XR CHEST (2 VW) XR CHEST (2 VW) Imaging Routine COVID-19 Persistent cough 11/13/2020 3:53 PM EDT [facility] Work Phone: [facility] Immunizations Immunization Date Immunization Notes Care Provider Fa cili 11-12-2018 influenza virus vacc ine, unspecified formulation Brian Brown MD Work Phone: [facility] 11-12-2018 influenza, injectabl e, quadrivalent, preservative free Brian Brown MD Work Phone: [facility] 07-14-2018 pneumococcal polysaccharide vaccine, 23 valent Brian Brown MD Work Phone: [facility] 10-04-2015 influenza virus vacc ine, unspecified formulation Brian Brown MD Work Phone: [facility] 10-04-2015 influenza virus vacc ine, whole virus Brian Brown MD Work Phone: [facility] Work Phone: 05-31-2015 tetanus toxoid, redu salbador diphtheria toxoid, and acellular pertussis vaccine, adsorbed Brian Brown MD Work Phone: [facility] Work Phone: Payers Date Payer Category Payer Self-pay 2020 [employer] Blue [employer] BLUE ACCE SS O Member Subscriber Plan / Payer (Effective 2020-Present) Name: CANDELARIA RUSSELL Relation to Subscriber: Spouse Name: Donaldo Russell Date of : 1975 (Home) Address: [address] [place] [address] Payer ID: [id number] (NAIC) Type: PPO Address: [place] [id number] 2020 Blue Cross Blue Shie Managed Care - [facility] BLUE CROSS [id number] 2020 Unknown [id number] 2020 Unknown [id number] [facility] [id number] Unknown [id number] Unknown [id number] Unknown [id number] Social History Date Type Detail Facility Start: 10-22-2020 End: 12-29-2022 Tobacco smoking status NHIS Never smoker [facility] Start: 10-22-2020 End: 12-29-2022 Tobacco use and exposure Never used [facility] Start: 10-22-2020 End: 09-25-2024 Alcohol intake Ex-drinker (finding) [facility] Work Phone: Start: 07-14-2018 End: 05-18-2019 History SDOH Alcohol Frequency 3 [facility] Work Phone: Start: 07-14-2018 End: 02-05-2019 History SDOH Alcohol Std Drinks 1 [facility] Work Phone: Start: 02-05-2019 End: 05-18-2019 History SDOH Physical Activity DPW 2 [facility] Work Phone: Start: 10-15-2020 History SDOH Financial 5 [facility] Work Phone: Start: 02-17-2015 Alcohol Comment occasional--1 drink per week [facility] Work Phone: Start: 1975 Sex Assigned At Not on file [facility] Work Phone: Exposure to SARS-CoV -2 (event) Yes [facility] Start: 03-12-2022 Tobacco smoking stat us RIIS Unknown if ever smoked [facility] Start: 1975 Sex Assigned At Female [facility] Start: 05-03-2022 End: 07-17-2024 Alcohol intake Current drinker of alcohol (finding) [facility] Start: 09-16-2010 Alcohol Comment social [facility] Start: 06-08-2022 End: 09-24-2024 History of Social function [facility] Work Phone: Start: 06-08-2022 End: 09-24-2024 Tobacco use panel [facility] Work Phone: Start: 02-16-2022 Gender identity Identifies as female gender (finding) [facility] Start: 02-16-2022 Sexual orientation Heterosexual (fin martínez) [facility] How often to you hav e a drink containing alcohol? Monthly or less [facility] Work Phone: How many standard drinks containing alcohol do you have on a typical day? 1 or 2 [facility] Work Phone: How often do you hav e 6 or more drinks on 1 occasion? Never [facility] Work Phone: National Score (1-100), lower number is lower risk 51 [facility] Start: 09-14-2021 End: 04-26-2024 Sex Female (finding) [facility] Start: 02-13-2022 End: 02-23-2022 Exposure to SARS-CoV-2 (event) Not sure [facility] Has the [employer], or [employer] threatened to shut off services in your home in past 12Mo No [facility] Are you now , , , , never or living with a partner? [facility] How often to you hav e a drink containing alcohol? 2-4 times a month [facility] Do you feel stress - tense, restless, nervous, or anxious, or unable to sleep at night because your mind is troubled all the time - these days [OSQ] Very much [facility] (I/We) worried wheth er (my/our) food would run out before (I/we) got money to buy more. Never true [facility] NEGATED: Highlighted rowStart: NINF History of tobacco use Passive smoker [facility] Clinical Notes 02-24-2022 to 09-25-2024 Beto Hureta MD - 09/25/2024 9:40 AM Brenda Dumont MD - 07/17/2024 1:00 PM EDTTelephone Encounter - Nakia Branham - 07/12/2024 1:16 PM EDTTelephone Encounter - Nakia Branham - 07/12/2024 1:16 PM EDT Note Date & Type Note Facility 09-25-2024 History of Presen t illness Narrative Images from the original note were not included. [facility] [place] [address] [place] [address] [facility] [id number] Visit type: Established Patient Reason for Visit: Med Refill Assessment and Plan 1. Mild episode of recurrent major depressive disorder (HCC) (Primary) Anxiety is worse -Encouraged regular exercise -She is going to consider counseling -Increase Zoloft from 50 mg daily - sertraline (Zoloft) 100 MG tablet; Take 1 tablet (100 mg) by mouth daily. Dispense: 90 tablet; Refill: 3 2. Generalized anxiety disorder Worse -As #1 - ALPRAZolam (Xanax) 0.5 MG tablet; Take 0.5 tablets (0.25 mg) by mouth Nightly as needed for sleep or anxiety. Dispense: 15 tablet; Refill: 0 - sertraline (Zoloft) 100 MG tablet; Take 1 tablet (100 mg) by mouth daily. Dispense: 90 tablet; Refill: 3 3. Moderate persistent asthma without complication Stable - albuterol 108 (90 Base) MCG/ACT inhaler; Inhale 2 puffs every 6 hours as needed for wheezing. Dispense: 18 g; Refill: 3 4. Seasonal allergies Stable -Singulair 10 mg daily Follow up in about 6 months (around 03/28/2025) for follow up Dr Huerta 20 min. Note compiled with assistance of voice recognition software and though reviewed for errors, sound alike and misspelled words may be contained in the documentation. Subjective Med Refill Follow-up INA/insomnia. Dealing brain fog and inc anxiety. BP was spiking. Stopped her Vivelle patch. 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 More stress at work. Anxiety is worse. Was having some intermittent palpitations. Another clinic ordered a Holter monitor for 24 hours which was without any significant pathology. Does not have time for counseling. Zoloft 50 mg daily. Needing Xanax more often. Seasonal allergies. Not controlled. Taking Singulair Xyzal and Flonase without much help. She has asthma but this has not flared up. Asthma. Prn albuterol on hand but also has not needed as of late. Is taking tirzepitide through loss center. Allergies[1] Current Medications[2] Medical History[3] Social History[4] Surgical History[5] Surgical History[6] Family History[7] Objective BP 111/75 (BP Location: Right arm, Patient Position: Sitting, BP Cuff Size: Adult) Pulse 101 Ht 5' 2.5" (1.588 m) Wt 154 lb (69.9 kg) SpO2 99% BMI 27.72 kg/m Patient Weight 09/25/24 154 lb (69.9 kg) 06/04/24 159 lb (72.1 kg) 05/07/24 159 lb (72.1 kg) Physical Exam Nursing note reviewed. Constitutional: Appearance: Normal appearance. Cardiovascular: Rate and Rhythm: Normal rate and regular rhythm. Pulmonary: Effort: Pulmonary effort is normal. Breath sounds: Normal breath sounds. Abdominal: General: Abdomen is flat. Bowel sounds are normal. Tenderness: There is no abdominal tenderness. Musculoskeletal: Right lower leg: No edema. Left lower leg: No edema. Neurological: Mental Status: She is alert. Psychiatric: Mood and Affect: Mood normal. Behavior: Behavior normal. Thought Content: Thought content normal. Judgment: Judgment normal. Chart Clean Up: Medications Discontinued During This Encounter Medication Reason estradiol (Vivelle-DOT) 0.1 MG/24HR Med list cleanup sertraline (Zoloft) 50 MG tablet albuterol 108 (90 Base) MCG/ACT inhaler Reorder ALPRAZolam (Xanax) 0.5 MG tablet Reorder Beto Huerta MD 09/25/2024 10:12 AM [1] Allergies Allergen Reactions Ciprofloxacin Nausea And Vomiting Other reaction(s): Abd cramps/diarrhea Oxycodone Rash Other reaction(s): Abd cramps/diarrhea Promethazine Other reaction(s): wide awake [2] Current Outpatient Medications Medication Sig Dispense Refill montelukast (Singulair) 10 MG tablet TAKE 1 TABLET (10 MG) BY MOUTH DAILY. 90 tablet 3 Mounjaro 7.5 MG/0.5ML solution pen-injector inject 1 syringe subcutaneously once weekly progesterone (Prometrium) 100 MG capsule Take 100 mg by mouth. albuterol 108 (90 Base) MCG/ACT inhaler Inhale 2 puffs every 6 hours as needed for wheezing. 18 g 3 ALPRAZolam (Xanax) 0.5 MG tablet Take 0.5 tablets (0.25 mg) by mouth Nightly as needed for sleep or anxiety. 15 tablet 0 sertraline (Zoloft) 100 MG tablet Take 1 tablet (100 mg) by mouth daily. 90 tablet 3 No current facility-administered medications for this visit. [3] Past Medical History: Diagnosis Date Generalized anxiety disorder 05/31/2015 Kidney stone Mild episode of recurrent major depressive disorder (HCC) 06/18/2019 Moderate persistent asthma without complication 05/31/2015 Obesity (BMI 30-39.9) 07/19/2015 [4] Social History Socioeconomic History Marital status: Tobacco Use Smoking status: Never Passive exposure: Never Smokeless tobacco: Never Vaping Use Vaping status: Never Used Substance and Sexual Activity Alcohol use: Not Currently Drug use: Never Social Drivers of Health Financial Resource Strain: Low Risk (09/24/2024) Overall Financial Resource Strain (CARDIA) Difficulty of Paying Living Expenses: Not hard at all Food Insecurity: No Food Insecurity (09/24/2024) Hunger Vital Sign Worried About Running Out of Food in the Last Year: Never true Ran Out of Food in the Last Year: Never true Transportation Needs: No Transportation Needs (09/24/2024) PRAPARE - Transportation Lack of Transportation (Medical): No Lack of Transportation (Non-Medical): No Physical Activity: Sufficiently Active (09/24/2024) Exercise Vital Sign Days of Exercise per Week: 4 days Minutes of Exercise per Session: 40 min Stress: Stress Concern Present (09/24/2024) [employer] [place] [employer] - Occupational Stress Questionnaire Feeling of Stress : Very much Social Connections: Socially Integrated (09/24/2024) Social Connection and Isolation Panel [NHANES] Frequency of Communication with Friends and Family: Twice a week Frequency of Social Gatherings with Friends and Family: Once a week Attends Gnosticist Services: More than 4 times per year Active Member of Clubs or Organizations: Yes Attends Club or Organization Meetings: 1 to 4 times per year Marital Status: Intimate Partner Violence: Not At Risk (09/24/2024) Humiliation, Afraid, Rape, and Kick questionnaire Fear of Current or Ex-Partner: No Emotionally Abused: No Physically Abused: No Sexually Abused: No Housing Stability: Unknown (09/24/2024) Housing Stability Vital Sign Unable to Pay for Housing in the Last Year: No Homeless in the Last Year: No [5] Past Surgical History: Procedure Laterality Date ABDOMINAL SURGERY SECTION (HISTORICAL) X 2 OTHER SURGICAL HISTORY Right 11/17/2017 cystoscopy pyelogram ureteroscopy stone basket extraction stent placement right WISDOM TOOTH EXTRACTION [6] Past Surgical History: Procedure Laterality Date ABDOMINAL SURGERY SECTION (HISTORICAL) X 2 OTHER SURGICAL HISTORY Right 11/17/2017 cystoscopy pyelogram ureteroscopy stone basket extraction stent placement right WISDOM TOOTH EXTRACTION [7] Family History Problem Relation Name Age of Onset No Known Problems Paternal Grandmother Heart disease Father Heart disease Paternal Grandfather No Known Problems Daughter No Known Problems Mother No Known Problems Daughter No Known Problems Sister Heart disease Maternal Grandfather documented in this encounter [facility] 09-14-2024 Note HNO ID: [id number] Author: JACINTA SANCHEZ PA-C Service: ? Author Type: Physician Horse Identifier Type: Progress Notes Filed: 09/19/2024 07:24 Note Text: Obstetrics and Gynecology [place] Annual Exam Subjective Recording using ambient [employer] Kitchen software for draft documentation of the visit was discussed with the patient/authorized sales representative uniforms; all questions welcomed and answered. Patient/authorized sales representative uniforms agreed to proceed CHIEF COMPLAINT: Salima Russell is a 49 yo patient who presents for routine POST DOCTORAL FELLOW exam HPI: Anxiety is still "so bad" following start Jinteli elevated blood pressures Switched from Jinteli to Prometrium and Vivelle dot- did not start VMS persist Postmenopausal? No. Menstrual cycle irregular not heavy (after starting Jinteli 09/2023) Intermenstrual spotting? No Post-coital bleeding? No +dyspareunia on occasion History of fibroids? No Dysmenorrhea? No PMDD? No History of sexual abuse? No History of anxiety disorder? Yes History of STD? No Concern for exposure to STDs? No Symptoms suggestive of Irritable Bowel Syndrome? No Dysuria, urinary frequency or urgency? No, stable MARJORIE Recent weight change? No Contraception: tubal sterilization Colonoscopy screening 2 yr ago, nl, repeat 10 yr Last pap 2023 OSMIN w/ neg HPV, no hx abnormal pap Last mammogram 2024 negative , no hx abnormal mammogram No hx nor concern STI, monogamous w/ HISTORY: OB History Gravida2 Para2 Term2 Preterm0 AB0 Living2 SAB0 IAB0 Ectopic0 Multiple0 Live Births2 Oval Or Circular Glass Cutter History LMP: 08/15/2024, Having periods Age at Menarche: 10 Age at First : Age at Menopause: Oval Or Circular Glass Cutter History Comments: Sexual Activity: Yes; Male Contraception: Tubal Ligation Menstrual Tracking History Flowsheet Row Office Visit from 09/14/2024 in OB/Gynecology Period Cycle (Days) 10 Period Duration (Days) 10 Menstrual Flow Heavy PAST MEDICAL HISTORY Diagnosis Date Anxiety and depression History of kidney stones 2018 right, required cysto PAST SURGICAL HISTORY Procedure Laterality Date DELIVERY ONLY 2003 DELIVERY ONLY 2008 with TL CYSTO FRAGMENTATION URETERAL STONE Right 2018 kidney stone PCHG TUBAL W/ Bilateral 2009 FAMILY HISTORY Problem Relation Age of Onset Breast Cancer Mother 64 alive age 70 (2019) Hypertension Father Heart Attack Father other (endometrial ablation) Sister AUB Stroke Maternal Grandfather Heart Attack Paternal Grandmother Cervical Cancer No Family History Ovarian cancer No Family History Uterine Cancer No Family History Colon Cancer No Family History Pancreatic Cancer No Family History Prostate Cancer No Family History Social History Tobacco Use Smoking status: Never Smokeless tobacco: Never Vaping Use Vaping status: Never Used Substance Use Topics Alcohol use: Yes Comment: social Drug use: No Current Outpatient Medications Medication Sig estradiol (VIVELLE-DOT) 0.05 mg/24 hr patch Apply 1 patch as directed two times a week. 2 times a week to lower abdomen or buttocks, not breast progesterone micronized (PROMETRIUM) 200 mg capsule Take 1 capsule by mouth daily with dinner. Take 1 pill in the evening daily with dinner. Needs food for absorption. Can't be used with peanut allergy. MOUNJARO 7.5 mg/0.5 mL pen injector Inject 7.5 mg subcutaneously one time a week. progesterone micronized (PROMETRIUM) 100 mg capsule Take 1 capsule by mouth daily at bedtime. TAKE WITH FOOD. estradiol (VIVELLE-DOT) 0.1 mg/24 hr patch Apply 1 Patch as directed two times a week. ALPRAZolam (XANAX) 0.5 mg tablet Take 0.25 mg by mouth at bedtime as needed. patient takes one half tablet as needed. SERTRALINE 100 mg ORAL tablet No current facility-administered medications for this visit. ALLERGIES Allergen Reactions Hydrocodone Hives Screening tools reviewed and discussed with patient-POST DOCTORAL FELLOW intake questions, POST DOCTORAL FELLOW history questions, and 09/14/2024 New POST DOCTORAL FELLOW Intake First period 10 Still get period Yes LMP 08/15/2024 Period frequency Every 21-28 days Days of bleeding 5-10 Menstrual flow Heavy every hour maxi pad not saturated w/ clots Period amount bothersome Yes Bleeding between periods Yes Period symptoms Cramps Mood change Menopause symptoms Hot flashes Vaginal dryness Sexually active Yes Time with current partner 25 years Number of lifetime partners 2 Contraception Tubal Ligation control frequency Never HPV No Abnormal pap smear No, all prior PAP smears have been normal Pelvic pain Yes Multiple values from one day are sorted in reverse-chronological order . Please see Patient Entered Data. REVIEW OF SYSTEMS: Abdomen: No abdominal pain, nausea, vomiting, diarrhea, or constipation. No bloating, early satiety, indigestion, or increased flatulence. Bladder: No dysuria, gross hematuria, urinary frequency, urinary urgency, or incontinence. Breast: No breast (more content not included)... [facility] 09-10-2024 Note HNO ID: [id number] Author: JACINTA SANCHEZ PA-C Service: ? Author Type: Physician Horse Identifier Type: Progress Notes Filed: 09/10/2024 09:13 Note Text: Connection issues w/ virtual visit. Upcoming visit w/ author scheduled 09/14/24. Offered telephone visit, pt prefers to cancel this appointment today and we can discuss at upcoming appointment 09/14 No charge visit Jacinta Sanchez PA-C September 10, 2024 9:12 AM [facility] 07-17-2024 Note HNO ID: [id number] Author: BRENDA RINALDI MD Service: ? Author Type: Physician Type: Progress Notes Filed: 07/24/2024 20:00 Note Text: Recording using Meeting[employer]out software for draft documentation of the visit was discussed with the patient/authorized sales representative uniforms; all questions welcomed and answered. Patient/authorized sales representative uniforms agreed to proceed SUBJECTIVE: The patient is a 49-year-old female presenting with perimenopausal symptoms, including anxiety, panic attacks, brain fog, and prolonged menstrual periods. Patient's last menstrual period was 06/25/2024 (exact date). Menopausal Symptoms - Currently using Vivelle-Dot estrogen patch twice a week and oral progesterone at night. - Reports feeling "terrible" since starting hormone therapy, with symptoms including increased blood pressure, lightheadedness, and severe anxiety. - Experiencing "brain fog" and memory issues, describing it as not thinking clearly" and "doing really stupid stuff." - Denies experiencing these symptoms while on Gentilly. - Reports panic attacks and anxiety "through the roof" since starting hormone therapy. - Currently taking Zoloft and Xanax as needed for anxiety. - Reports blood pressure readings over 98, which is unusual for her. - Under the care of Dr. Noah Huerta, her primary care physician, for blood pressure management. - Interested in checking hormone levels to adjust medication dosages. Menstrual Irregularities - Still experiencing menstrual cycles, with the most recent period starting on June 25 and lasting a little over two weeks. - Denies ever going a full year without a period. - Reports that the prolonged menstrual period stopped early last week. - Denies abnormal bleeding currently but is concerned about the duration of her periods. Weight Management - Currently on Mounjaro for weight management. - Has lost approximately 40 pounds and reports stable weight loss. PAST MEDICAL HISTORY Diagnosis Date Anxiety and depression History of kidney stones 2018 right, required cysto PAST SURGICAL HISTORY Procedure Laterality Date DELIVERY ONLY 2003 DELIVERY ONLY 2008 with TL CYSTO FRAGMENTATION URETERAL STONE Right 2018 kidney stone PCHG TUBAL W/ Bilateral 2008 Current Outpatient Medications on File Prior to Visit Medication Sig MOUNJARO 7.5 mg/0.5 mL pen injector Inject 7.5 mg subcutaneously one time a week. progesterone micronized (PROMETRIUM) 100 mg capsule Take 1 capsule by mouth daily at bedtime. TAKE WITH FOOD. estradiol (VIVELLE-DOT) 0.1 mg/24 hr patch Apply 1 Patch as directed two times a week. ALPRAZolam (XANAX) 0.5 mg tablet Take 0.25 mg by mouth at bedtime as needed. patient takes one half tablet as needed. SERTRALINE 100 mg ORAL tablet No current facility-administered medications on file prior to visit. Allergies: Hydrocodone OBJECTIVE: BP 132/84 Ht 162.6 cm (5' 4") Wt 69.4 kg (153 lb) LMP 06/25/2024 (Exact Date) BMI 26.26 kg/m? Patient appears well, INAD Pelvic Exam - deferred ASSESSMENT/PLAN: 1. Menopausal and perimenopausal disorder (N95.9) - Discussed perimenopausal symptoms. - Ordered hormone level blood tests; patient instructed to complete lab work today. - Discussed potential adjustment of hormone therapy based on lab results; may decrease Vivelle-Dot dosage and increase progesterone. - Results will be available within 1-2 days; will communicate findings and treatment adjustments via [email or web address][employer][email or web address]. - Advised continuation of Zoloft and Xanax as needed for anxiety management. - If your blood pressure remains high or you?re concerned, schedule an appointment with Dr. Noah Huerta (your PCP) for evaluation. - Patient understands and agrees with the plan. I spent a total of 30 minutes on the date of the service which included [id number] patient care, completing clinical documentation, obtaining and/or reviewing separately obtained history, counseling and educating the patient/family/caregiver, and ordering medications, tests, or procedures. Brenda Rinaldi MD [facility] 07-17-2024 History of Presen t illness Narrative Recording using MeetingSprout software for draft documentation of the visit was discussed with the patient/authorized sales representative uniforms; all questions welcomed and answered. Patient/authorized sales representative uniforms agreed to proceed SUBJECTIVE: The patient is a 49-year-old female presenting with perimenopausal symptoms, including anxiety, panic attacks, brain fog, and prolonged menstrual periods. Patient's last menstrual period was 06/25/2024 (exact date). Menopausal Symptoms - Currently using Vivelle-Dot estrogen patch twice a week and oral progesterone at night. - Reports feeling "terrible" since starting hormone therapy, with symptoms including increased blood pressure, lightheadedness, and severe anxiety. - Experiencing "brain fog" and memory issues, describing it as "not thinking clearly" and doing really stupid stuff. - Denies experiencing these symptoms while on Gentilly. - Reports panic attacks and anxiety "through the roof" since starting hormone therapy. - Currently taking Zoloft and Xanax as needed for anxiety. - Reports blood pressure readings over 98, which is unusual for her. - Under the care of Dr. Noah Huerta, her primary care physician, for blood pressure management. - Interested in checking hormone levels to adjust medication dosages. Menstrual Irregularities - Still experiencing menstrual cycles, with the most recent period starting on June 25 and lasting a little over two weeks. - Denies ever going a full year without a period. - Reports that the prolonged menstrual period stopped early last week. - Denies abnormal bleeding currently but is concerned about the duration of her periods. Weight Management - Currently on Mounjaro for weight management. - Has lost approximately 40 pounds and reports stable weight loss. PAST MEDICAL HISTORY Diagnosis Date Anxiety and depression History of kidney stones 2018 right, required cysto PAST SURGICAL HISTORY Procedure Laterality Date DELIVERY ONLY 2003 DELIVERY ONLY 2008 with TL CYSTO FRAGMENTATION URETERAL STONE Right 2018 kidney stone PCHG TUBAL W/ Bilateral 2008 Current Outpatient Medications on File Prior to Visit Medication Sig MOUNJARO 7.5 mg/0.5 mL pen injector Inject 7.5 mg subcutaneously one time a week. progesterone micronized (PROMETRIUM) 100 mg capsule Take 1 capsule by mouth daily at bedtime. TAKE WITH FOOD. estradiol (VIVELLE-DOT) 0.1 mg/24 hr patch Apply 1 Patch as directed two times a week. ALPRAZolam (XANAX) 0.5 mg tablet Take 0.25 mg by mouth at bedtime as needed. patient takes one half tablet as needed. SERTRALINE 100 mg ORAL tablet No current facility-administered medications on file prior to visit. Allergies: Hydrocodone OBJECTIVE: BP 132/84 Ht 162.6 cm (5' 4") Wt 69.4 kg (153 lb) LMP 06/25/2024 (Exact Date) BMI 26.26 kg/m Patient appears well, INAD Pelvic Exam - deferred ASSESSMENT/PLAN: 1. Menopausal and perimenopausal disorder (N95.9) - Discussed perimenopausal symptoms. - Ordered hormone level blood tests; patient instructed to complete lab work today. - Discussed potential adjustment of hormone therapy based on lab results; may decrease Vivelle-Dot dosage and increase progesterone. - Results will be available within 1-2 days; will communicate findings and treatment adjustments via [employer]. - Advised continuation of Zoloft and Xanax as needed for anxiety management. - If your blood pressure remains high or you re concerned, schedule an appointment with Dr. Noah Huerta (your PCP) for evaluation. - Patient understands and agrees with the plan. I spent a total of 30 minutes on the date of the service which included [id number] patient care, completing clinical documentation, obtaining and/or reviewing separately obtained history, counseling and educating the patient/family/caregiver, and ordering medications, tests, or procedures. Brenda Rinaldi MD documented in this encounter [facility] 07-12-2024 Telephone encounter Note Name of caller: Salima Contact phone number: [phone] Relationship to Patient: patient Provider: [facility] Practice: [facility] Chief Complaint/Reason for Call: patient said she scheduled with a different dr she wanted the ed visit with Luci Berry cancelled . Best time of day caller can be reached: any Patient advised that office/PCP has 24-48 business hours to return their call: No [facility] 07-12-2024 Miscellaneous Notes Name of caller: Salima Contact phone number: [phone] Relationship to Patient: patient Provider: [facility] Practice: [facility] Chief Complaint/Reason for Call: patient said she scheduled with a different dr she wanted the ed visit with Luci Berry cancelled . Best time of day caller can be reached: any Patient advised that office/PCP has 24-48 business hours to return their call: No Appointment noted. Left vm scheduled with Wilman berry Name of Caller: Salima Contact Phone Number: [phone] Reason for Appointment: pt calling needing an ED follow up for chest pain and sob. She also said she needs a heart monitor ordered and would like to get in jeet Office Name: [facility] Medication Refills need, if any: Medication Name: documented in this encounter [facility] 07-12-2024 Telephone encounter Note Appointment noted. [facility] Work Phone: 07-12-2024 Telephone encounter Note Left vm scheduled with Wilman berry [facility] 07-12-2024 Telephone encounter Note Name of Caller: Salima Contact Phone Number: [phone] Reason for Appointment: pt calling needing an ED follow up for chest pain and sob. She also said she needs a heart monitor ordered and would like to get in jeet Office Name: [facility] Medication Refills need, if any: Medication Name: [facility] 06-19-2024 Telephone encounter Note Patient scheduled 12/07/24 [facility] 06-19-2024 Miscellaneous Notes Patient scheduled 12/07/24 Lmom to schedule for physical to get Rx refills. Pt is overdue for physical Please call to schedule documented in this encounter [facility] 06-18-2024 Telephone encounter Note Lmom to schedule for physical to get Rx refills. [facility] 06-18-2024 Telephone encounter Note Pt is overdue for physical Please call to schedule [facility] 06-04-2024 History of Presen t illness Narrative Images from the original note were not included. [facility] [address] [facility] [id number] Visit type: Established Patient Reason for Visit: Med Refill (Here for med refill and requesting Kenalog shot for allergies. Was exposed to ticks recently, daughter was sick. ) Assessment and Plan 1. Seasonal allergies (Primary) Uncontrolled. Recommended: -cont OTC meds - triamcinolone acetonide (Kenalog-40) injection 60 mg 2. Moderate persistent asthma without complication Stable declines daily meds other than singulair -albuterol prn 3. Generalized anxiety disorder stable - ALPRAZolam (Xanax) 0.5 MG tablet; Take 0.5 tablets (0.25 mg) by mouth Nightly as needed for sleep or anxiety. Dispense: 15 tablet; Refill: 0 - AMB POC DRUG SCREEN 12, [facility] Follow up in about 6 months (around 12/04/2024) for follow up Dr Huerta 20 min. Subjective HPI Seasonal allergies. Not controlled. Taking Singulair Xyzal and Flonase without much help. She has asthma but this has not flared up. Would like to have Kenalog. Asthma. Prn albuterol on hand but also has not needed as of late INA/insomnia. Mood has been good. Still needs Xanax 1-2 times a week to help sleep. Zoloft 50 mg daily helpful Allergies Allergen Reactions Ciprofloxacin Nausea And Vomiting Other reaction(s): Abd cramps/diarrhea Oxycodone Rash Other reaction(s): Abd cramps/diarrhea Promethazine Other reaction(s): wide awake Current Outpatient Medications Medication Sig Dispense Refill albuterol 108 (90 Base) MCG/ACT inhaler Inhale 2 puffs every 6 hours as needed for wheezing. 18 g 3 estradiol (Vivelle-DOT) 0.1 MG/24HR Place 1 patch on the skin Twice a Week. montelukast (Singulair) 10 MG tablet Take 1 tablet (10 mg) by mouth daily. 90 tablet 3 Mounjaro 7.5 MG/0.5ML solution pen-injector inject 1 syringe subcutaneously once weekly naproxen (Naprosyn) 500 MG tablet Take 1 tablet (500 mg) by mouth 2 times daily as needed for mild pain (1-3) (pain). 60 tablet 0 progesterone (Prometrium) 100 MG capsule Take 100 mg by mouth. sertraline (Zoloft) 50 MG tablet TAKE 1 TABLET BY MOUTH EVERY DAY 90 tablet 3 ALPRAZolam (Xanax) 0.5 MG tablet Take 0.5 tablets (0.25 mg) by mouth Nightly as needed for sleep or anxiety. 15 tablet 0 No current facility-administered medications for this visit. Past Medical History: Diagnosis Date Generalized anxiety disorder 05/31/2015 Kidney stone Mild episode of recurrent major depressive disorder (HCC) 06/18/2019 Moderate persistent asthma without complication 05/31/2015 Obesity (BMI 30-39.9) 07/19/2015 Social History Socioeconomic History Marital status: Tobacco Use Smoking status: Never Passive exposure: Never Smokeless tobacco: Never Vaping Use Vaping status: Never Used Substance and Sexual Activity Alcohol use: Not Currently Drug use: Never Social Drivers of Health Financial Resource Strain: Low Risk (06/01/2021) Received from [facility] Overall Financial Resource Strain (CARDIA) Difficulty of Paying Living Expenses: Not hard at all Food Insecurity: No Food Insecurity (06/01/2021) Received from [facility] Hunger Vital Sign Worried About Running Out of Food in the Last Year: Never true Ran Out of Food in the Last Year: Never true Transportation Needs: No Transportation Needs (06/01/2021) Received from [facility] PRAPARE - Transportation Lack of Transportation (Medical): No Lack of Transportation (Non-Medical): No Physical Activity: Sufficiently Active (06/01/2021) Received from [facility] Exercise Vital Sign Days of Exercise per Week: 4 days Minutes of Exercise per Session: 60 min Stress: Stress Concern Present (06/01/2021) Received from [facility] [employer] [place] [employer] - Occupational Stress Questionnaire Feeling of Stress : To some extent Social Connections: Socially Integrated (06/01/2021) Received from [facility] Social Connection and Isolation Panel [NHANES] Frequency of Communication with Friends and Family: More than three times a week Frequency of Social Gatherings with Friends and Family: More than three times a week Attends Gnosticist Services: More than 4 times per year Active Member of Clubs or Organizations: Yes Attends Club or Organization Meetings: More than 4 times per year Marital Status: Past Surgical History: Procedure Laterality Date ABDOMINAL SURGERY SECTION (HISTORICAL) X 2 OTHER SURGICAL HISTORY Right 11/17/2017 cystoscopy pyelogram ureteroscopy stone basket extraction stent placement right WISDOM TOOTH EXTRACTION Past Surgical History: Procedure Laterality Date ABDOMINAL SURGERY SECTION (HISTORICAL) X 2 OTHER SURGICAL HISTORY Right 11/17/2017 cystoscopy pyelogram ureteroscopy stone basket extraction stent placement right WISDOM TOOTH EXTRACTION Family History Problem Relation Name Age of Onset No Known Problems Paternal Grandmother Heart disease Father Heart disease Paternal Grandfather No Known Problems Daughter No Known Problems Mother No Known Problems Daughter No Known Problems Sister Heart disease Maternal Grandfather Objective BP 121/81 (BP Location: Left arm, Patient Position: Sitting, BP Cuff Size: Adult) Pulse 73 Temp 36.7 C (98.1 F) (Oral) Ht 5' 4.5" (1.638 m) Wt 159 lb (72.1 kg) SpO2 96% BMI 26.87 kg/m Patient Weight 06/04/24 159 lb (72.1 kg) 05/07/24 159 lb (72.1 kg) 07/27/23 160 lb (72.6 kg) Physical Exam Nursing note reviewed. Constitutional: Appearance: Normal appearance. Cardiovascular: Rate and Rhythm: Normal rate and regular rhythm. Pulmonary: Effort: Pulmonary effort is normal. Breath sounds: Normal breath sounds. Comments: Normal speaking effort Neurological: Mental Status: She is alert. Psychiatric: Mood and Affect: Mood normal. Behavior: Behavior normal. Thought Content: Thought content normal. Judgment: Judgment normal. Chart Clean Up: Medications Discontinued During This Encounter Medication Reason budesonide-formoterol (Symbicort) 160-4.5 MCG/ACT inhaler Med list cleanup ALPRAZolam (Xanax) 0.5 MG tablet Reorder Beto Huerta MD 06/05/2024 10:39 AM documented in this encounter [facility] 05-07-2024 History of Presen t illness Narrative Images from the original note were not included. [facility] [address] [facility] [id number] Dept Visit Date: 05/07/24 HPI: Candelaria Russell is a 49 y.o. female who presents today for: Chief Complaint Patient presents with Knee Pain states has been having intermittent left knee pain for the last month. At times walks with a limp. Has woken her up at night. Unknown injury Knee Pain There was no injury mechanism. The pain is present in the left knee. The quality of the pain is described as aching. The pain is moderate. The pain has been Fluctuating since onset. Associated symptoms include an inability to bear weight. Pertinent negatives include no loss of motion, loss of sensation, muscle weakness, numbness or tingling. She reports no foreign bodies present. The symptoms are aggravated by movement, palpation and weight bearing. She has tried NSAIDs and rest for the symptoms. The treatment provided mild relief. Current Outpatient Medications Medication Sig Dispense Refill albuterol 108 (90 Base) MCG/ACT inhaler Inhale 2 puffs every 6 hours as needed for wheezing. 18 g 3 ALPRAZolam (Xanax) 0.5 MG tablet Take 0.5 tablets (0.25 mg) by mouth Nightly as needed for sleep or anxiety. 15 tablet 0 montelukast (Singulair) 10 MG tablet Take 1 tablet (10 mg) by mouth daily. 90 tablet 3 Mounjaro 7.5 MG/0.5ML solution pen-injector inject 1 syringe subcutaneously once weekly sertraline (Zoloft) 50 MG tablet TAKE 1 TABLET BY MOUTH EVERY DAY 90 tablet 3 budesonide-formoterol (Symbicort) 160-4.5 MCG/ACT inhaler Inhale 2 Inhalation in the morning and 2 Inhalation in the evening. (Patient not taking: Reported on 05/07/2024) naproxen (Naprosyn) 500 MG tablet Take 1 tablet (500 mg) by mouth 2 times daily as needed for mild pain (1-3) (pain). 60 tablet 0 No current facility-administered medications for this visit. Allergies Allergen Reactions Ciprofloxacin Nausea And Vomiting Other reaction(s): Abd cramps/diarrhea Oxycodone Rash Other reaction(s): Abd cramps/diarrhea Promethazine Other reaction(s): wide awake Past Medical History: Diagnosis Date Generalized anxiety disorder 05/31/2015 Kidney stone Mild episode of recurrent major depressive disorder (HCC) 06/18/2019 Moderate persistent asthma without complication 05/31/2015 Obesity (BMI 30-39.9) 07/19/2015 Subjective: Review of Systems Musculoskeletal: Positive for arthralgias and gait problem. Neurological: Negative for tingling and numbness. Objective: BP 114/68 (BP Location: Right arm, Patient Position: Sitting, BP Cuff Size: Adult) Pulse 89 Temp 36.7 C (98.1 F) (Temporal) Ht 5' 2.5" (1.588 m) Wt 159 lb (72.1 kg) SpO2 97% BMI 28.62 kg/m Physical Exam Vitals and nursing note reviewed. Constitutional: General: She is not in acute distress. Appearance: Normal appearance. She is not ill-appearing or toxic-appearing. Pulmonary: Effort: Pulmonary effort is normal. Musculoskeletal: Right knee: Normal. Left knee: No swelling, erythema, ecchymosis or crepitus. Decreased range of motion (limited flexion due to pain). Tenderness present over the lateral joint line. No patellar tendon tenderness. No LCL laxity, MCL laxity or ACL laxity.Normal alignment, normal meniscus and normal patellar mobility. Instability Tests: Anterior drawer test negative. Posterior drawer test negative. Neurological: Mental Status: She is alert. Assessment: Diagnosis Plan 1. Acute pain of left knee XR knee 3 views left naproxen (Naprosyn) 500 MG tablet [facility] [place] Plan: Salima was seen today for knee pain. Diagnoses and all orders for this visit: Acute pain of left knee (Primary) Acute, uncontrolled. No known injury. No improvement with home treatment, activity modification, brace, nsaids. Check xray today. Naproxen as needed. See PT. - XR knee 3 views left; Future - naproxen (Naprosyn) 500 MG tablet; Take 1 tablet (500 mg) by mouth 2 times daily as needed for mild pain (1-3) (pain). - [facility] [place]; Future Follow up if symptoms worsen or fail to improve. DIONE Navarrete 05/07/2024 9:07 AM documented in this encounter [facility] 05-05-2024 Telephone encounter Note S: patient calling [facility] d/t left knee pain B: Symptoms started a month ago A:states has been having intermittent knee pain for the last month. At times walks with a limp. Has woken her up at night. Denies swelling redness, fever. Covid screening negative Has been taking ibuprofen and wearing knee brace that helps temporarily. R: Insurance verified. Maureen scheduled with Wilman Berry on 05/07 at 8:40 advised to come 10-15 minutes early bring insurance card id and medication list. Discussed otc medication. Patient advised to call back with worsening of symptoms, concern or questions. Patient verbalized understanding. Reason for Disposition [1] MODERATE pain (e.g., interferes with normal activities, limping) AND [2] present > 3 days Protocols used: Knee [id number]-DC [facility] 05-05-2024 Miscellaneous Notes S: patient calling [facility] d/t left knee pain B: Symptoms started a month ago A:states has been having intermittent knee pain for the last month. At times walks with a limp. Has woken her up at night. Denies swelling redness, fever. Covid screening negative Has been taking ibuprofen and wearing knee brace that helps temporarily. R: Insurance verified. Maureen scheduled with Wilman Berry on 05/07 at 8:40 advised to come 10-15 minutes early bring insurance card id and medication list. Discussed otc medication. Patient advised to call back with worsening of symptoms, concern or questions. Patient verbalized understanding. Reason for Disposition [1] MODERATE pain (e.g., interferes with normal activities, limping) AND [2] present > 3 days Protocols used: Knee Olza-XJULD-CA documented in this encounter [facility] 04-20-2024 Note HNO ID: [id number] Author: JACINTA SANCHEZ PA-C Service: ? Author Type: Physician Horse Identifier Type: Progress Notes Filed: 04/20/2024 14:16 Note Text: OGI VIRTUAL Patient seen on [employer] Video Visit platform. Location of patient: [place] Virtual limitations reviewed with patient, as well as possible need to travel to have diagnostic services. Patient voiced understanding. I have communicated my name and active licensure. The patient's identity and physical location were verified at the time of this visit. 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 Salima Russell is a 48 year old female who presents with the continued and not improved menopausal symptoms including +irritable, hot flashes, night sweats first two days of bleeding. Becoming bothersome and feels irritability is affecting quality of life and relationships, brain fog. Despite use of Jinteli for past 6 mth, no improvement menses has become more frequent every ~2-3 wk. Tubal sterilzation OB History T2 L2 SAB0 IAB0 Ectopic0 Multiple0 Live Births2 PAST MEDICAL HISTORY Diagnosis Date Anxiety and depression History of kidney stones 2018 right, required cysto PAST SURGICAL HISTORY Procedure Laterality Date DELIVERY ONLY 2004 DELIVERY ONLY 2009 with TL CYSTO FRAGMENTATION URETERAL STONE Right 2018 kidney stone PCHG TUBAL W/ Bilateral 2008 FAMILY HISTORY Problem Relation Age of Onset Breast Cancer Mother 64 alive age 70 (2019) Hypertension Father Heart Attack Father other (endometrial ablation) Sister AUB Stroke Maternal Grandfather Heart Attack Paternal Grandmother Cervical Cancer No Family History Ovarian cancer No Family History Uterine Cancer No Family History Colon Cancer No Family History Pancreatic Cancer No Family History Prostate Cancer No Family History Social History Tobacco Use Smoking status: Never Smokeless tobacco: Never Vaping Use Vaping status: Never Used Substance Use Topics Alcohol use: Yes Comment: social Drug use: No EXAM: GENERAL: pleasant, female in no apparent distress HEENT: Normocephalic, atraumatic, mucus membranes moist, and no lesions NECK: Supple, full range of motion, no adenopathy, and thyroid normal DERMATOLOGY: Normal, without lesions, non-icteric, and non-hirsute CHEST: Normal inspiratory effort ABDOMEN: soft, non-tender, and no masses PELVIC: external genitalia normal, normal Bartholin's glands, urethra, Shelton's glands, no vulvar lesions, no cervical lesions, good vaginal support, physiologic discharge present, normal appearing perineal body and perianal region BIMANUAL: uterus normal size, shape and consistency, no adnexal masses, non-tender, and no cervical motion tenderness RECTOVAGINAL: deferred. NEURO: alert and oriented x3,exam grossly non-focal EXTREMITIES: normal ASSESSMENT: Vasomotor symptoms due to menopause (primary encounter diagnosis) Irritability Brain fog PLAN: Bothersome vasomotor symptoms, mood changes, cyclic menstrual sx. Supportive/hormonal/non-hormonal options discussed, as well as option for observation. No h/o breast disease, no endometrial disease, no abnormal vaginal bleeding, no h/o DVT/clotting disorder, no CVA hx, no liver nor gallbladder disease. No contraindication for HRT. Pt made aware of r/b/a/se of medication, and will trial switch from Jinteli to Prometrium and Vivelle Dot Vaginitis testing for pathogen directed tx as indicated based on results The following approved medication requests have been transmitted electronically. Requested Prescriptions Signed Prescriptions Disp Refills progesterone micronized (PROMETRIUM) 100 mg capsule 90 capsule 1 Sig: Take 1 capsule by mouth daily at bedtime. TAKE WITH FOOD. estradiol (VIVELLE-DOT) 0.1 mg/24 hr patch 24 Patch 1 Sig: Apply 1 Patch as directed two times a week. Jacinta Sanchez PA-C - Red flags discussed for in person care and follow up - All questions answered We strongly encourage you to share the following record of today's visit with your primary care provider. This will help in providing you the best care. Follow up 12/2024 annual POST DOCTORAL FELLOW exam Jacinta Sanchez PA-C [facility] 04-20-2024 History of Presen t illness Narrative OGI VIRTUAL Patient seen on [employer] Video Visit platform. Location of patient: [place] Virtual limitations reviewed with patient, as well as possible need to travel to have diagnostic services. Patient voiced understanding. I have communicated my name and active licensure. The patient's identity and physical location were verified at the time of this visit. 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 Salima Russell is a 48 year old female who presents with the continued and not improved menopausal symptoms including +irritable, hot flashes, night sweats first two days of bleeding. Becoming bothersome and feels irritability is affecting quality of life and relationships, brain fog. Despite use of Jinteli for past 6 mth, no improvement menses has become more frequent every ~2-3 wk. Tubal sterilzation OB History T2 L2 SAB0 IAB0 Ectopic0 Multiple0 Live Births2 PAST MEDICAL HISTORY Diagnosis Date Anxiety and depression History of kidney stones 2018 right, required cysto PAST SURGICAL HISTORY Procedure Laterality Date DELIVERY ONLY 2003 DELIVERY ONLY 2008 with TL CYSTO FRAGMENTATION URETERAL STONE Right 2018 kidney stone PCHG TUBAL W/ Bilateral 2008 FAMILY HISTORY Problem Relation Age of Onset Breast Cancer Mother 64 alive age 70 (2019) Hypertension Father Heart Attack Father other (endometrial ablation) Sister AUB Stroke Maternal Grandfather Heart Attack Paternal Grandmother Cervical Cancer No Family History Ovarian cancer No Family History Uterine Cancer No Family History Colon Cancer No Family History Pancreatic Cancer No Family History Prostate Cancer No Family History Social History Tobacco Use Smoking status: Never Smokeless tobacco: Never Vaping Use Vaping status: Never Used Substance Use Topics Alcohol use: Yes Comment: social Drug use: No EXAM: GENERAL: pleasant, female in no apparent distress HEENT: Normocephalic, atraumatic, mucus membranes moist, and no lesions NECK: Supple, full range of motion, no adenopathy, and thyroid normal DERMATOLOGY: Normal, without lesions, non-icteric, and non-hirsute CHEST: Normal inspiratory effort ABDOMEN: soft, non-tender, and no masses PELVIC: external genitalia normal, normal Bartholin's glands, urethra, Shelton's glands, no vulvar lesions, no cervical lesions, good vaginal support, physiologic discharge present, normal appearing perineal body and perianal region BIMANUAL: uterus normal size, shape and consistency, no adnexal masses, non-tender, and no cervical motion tenderness RECTOVAGINAL: deferred. NEURO: alert and oriented x3,exam grossly non-focal EXTREMITIES: normal ASSESSMENT: Vasomotor symptoms due to menopause (primary encounter diagnosis) Irritability Brain fog PLAN: Bothersome vasomotor symptoms, mood changes, cyclic menstrual sx. Supportive/hormonal/non-hormonal options discussed, as well as option for observation. No h/o breast disease, no endometrial disease, no abnormal vaginal bleeding, no h/o DVT/clotting disorder, no CVA hx, no liver nor gallbladder disease. No contraindication for HRT. Pt made aware of r/b/a/se of medication, and will trial switch from Jinteli to Prometrium and Vivelle Dot Vaginitis testing for pathogen directed tx as indicated based on results The following approved medication requests have been transmitted electronically. Requested Prescriptions Signed Prescriptions Disp Refills progesterone micronized (PROMETRIUM) 100 mg capsule 90 capsule 1 Sig: Take 1 capsule by mouth daily at bedtime. TAKE WITH FOOD. estradiol (VIVELLE-DOT) 0.1 mg/24 hr patch 24 Patch 1 Sig: Apply 1 Patch as directed two times a week. Jacinta Sanchez PA-C - Red flags discussed for in person care and follow up - All questions answered We strongly encourage you to share the following record of today's visit with your primary care provider. This will help in providing you the best care. Follow up 12/2024 annual POST DOCTORAL FELLOW exam Jacinta Sanchez PA-C documented in this encounter [facility] 02-24-2024 History of Presen t illness Narrative Radiology Service Progress Note PATIENT NAME: Salima Russell DATE OF SERVICE: February 24, 2024 TIME: 9:26 AM PATIENT IDENTITY VERIFICATION COMPLETED USING TWO (2) IDENTIFIERS: Name and Date of confirmed by patient verbally. FALL SCREENING: Has the patient had 2 falls in the last year or 1 fall with injury or currently using an Ambulatory Assistive Device (Walker, Cane, Wheelchair, Crutches, etc.)? No PATIENT GENDER DATA: Female. status: : No status: NO. PATIENT RELEVANT IMPLANT DATA REVIEWED: Not Applicable PATIENT PRESENTS WITH AN IMPLANTABLE OR ATTACHED ASSURANCE SOURCING MANAGER: No RADIOLOGY DEPARTMENT: General X-ray: Exam(s) Completed: Chest X-Ray PERIPHERAL IV DATA: Not applicable SIGNED BY: BESS Parnell February 24, 2024 9:26 AM documented in this encounter [facility] 02-24-2024 Note HNO ID: [id number] Author: VIVIAN RINALDI CT Service: Radiology Author Type: Technologist Type: Progress Notes Filed: 02/24/2024 09:27 Note Text: Radiology Service Progress Note PATIENT NAME: Salima Russell DATE OF SERVICE: February 24, 2024 TIME: 9:26 AM PATIENT IDENTITY VERIFICATION COMPLETED USING TWO (2) IDENTIFIERS: Name and Date of confirmed by patient verbally. FALL SCREENING: Has the patient had 2 falls in the last year or 1 fall with injury or currently using an Ambulatory Assistive Device (Walker, Cane, Wheelchair, Crutches, etc.)? No PATIENT GENDER DATA: Female. status: : No status: NO. PATIENT RELEVANT IMPLANT DATA REVIEWED: Not Applicable PATIENT PRESENTS WITH AN IMPLANTABLE OR ATTACHED ASSURANCE SOURCING MANAGER: No RADIOLOGY DEPARTMENT: General X-ray: Exam(s) Completed: Chest X-Ray PERIPHERAL IV DATA: Not applicable SIGNED BY: BESS Parnell February 24, 2024 9:26 AM [facility] 02-16-2024 History of Presen t illness Narrative Radiology Service Progress Note PATIENT NAME: Salima Russell DATE OF SERVICE: February 16, 2024 TIME: 7:52 AM PATIENT IDENTITY VERIFICATION COMPLETED USING TWO (2) IDENTIFIERS: Name and Date of confirmed by patient verbally. FALL SCREENING: Has the patient had 2 falls in the last year or 1 fall with injury or currently using an Ambulatory Assistive Device (Walker, Cane, Wheelchair, Crutches, etc.)? No PATIENT GENDER DATA: Female. status: : No status: NO. PATIENT RELEVANT IMPLANT DATA REVIEWED: Not Applicable PATIENT PRESENTS WITH AN IMPLANTABLE OR ATTACHED ASSURANCE SOURCING MANAGER: No RADIOLOGY DEPARTMENT: Mammography PERIPHERAL IV DATA: Not applicable SIGNED BY: Candy BEAR February 16, 2024 7:52 AM Radiology Service Progress Note PATIENT NAME: Salima Russell DATE OF SERVICE: February 16, 2024 TIME: 8:59 AM PATIENT IDENTITY VERIFICATION COMPLETED USING TWO (2) IDENTIFIERS: Name and Date of confirmed by patient verbally. FALL SCREENING: Has the patient had 2 falls in the last year or 1 fall with injury or currently using an Ambulatory Assistive Device (Walker, Cane, Wheelchair, Crutches, etc.)? No PATIENT GENDER DATA: Female. status: : No status: NO. PATIENT RELEVANT IMPLANT DATA REVIEWED: Not Applicable PATIENT PRESENTS WITH AN IMPLANTABLE OR ATTACHED ASSURANCE SOURCING MANAGER: No RADIOLOGY DEPARTMENT: Mammography PERIPHERAL IV DATA: Not applicable SIGNED BY: Candy BEAR February 16, 2024 8:59 AM documented in this encounter [facility] 02-16-2024 Note HNO ID: [id number] Author: JAMA RINALDI CT Service: Radiology Author Type: Technologist Type: Progress Notes Filed: 02/16/2024 09:00 Note Text: Radiology Service Progress Note PATIENT NAME: Salima Russell DATE OF SERVICE: February 16, 2024 TIME: 8:59 AM PATIENT IDENTITY VERIFICATION COMPLETED USING TWO (2) IDENTIFIERS: Name and Date of confirmed by patient verbally. FALL SCREENING: Has the patient had 2 falls in the last year or 1 fall with injury or currently using an Ambulatory Assistive Device (Walker, Cane, Wheelchair, Crutches, etc.)? No PATIENT GENDER DATA: Female. status: : No status: NO. PATIENT RELEVANT IMPLANT DATA REVIEWED: Not Applicable PATIENT PRESENTS WITH AN IMPLANTABLE OR ATTACHED ASSURANCE SOURCING MANAGER: No RADIOLOGY DEPARTMENT: Mammography PERIPHERAL IV DATA: Not applicable SIGNED BY: Candy BEAR February 16, 2024 8:59 AM [facility] 02-16-2024 Note HNO ID: [id number] Author: JAMA RINALDI CT Service: Radiology Author Type: Technologist Type: Progress Notes Filed: 02/16/2024 07:52 Note Text: Radiology Service Progress Note PATIENT NAME: Salima Russell DATE OF SERVICE: February 16, 2024 TIME: 7:52 AM PATIENT IDENTITY VERIFICATION COMPLETED USING TWO (2) IDENTIFIERS: Name and Date of confirmed by patient verbally. FALL SCREENING: Has the patient had 2 falls in the last year or 1 fall with injury or currently using an Ambulatory Assistive Device (Walker, Cane, Wheelchair, Crutches, etc.)? No PATIENT GENDER DATA: Female. status: : No status: NO. PATIENT RELEVANT IMPLANT DATA REVIEWED: Not Applicable PATIENT PRESENTS WITH AN IMPLANTABLE OR ATTACHED ASSURANCE SOURCING MANAGER: No RADIOLOGY DEPARTMENT: Mammography PERIPHERAL IV DATA: Not applicable SIGNED BY: Candy BEAR February 16, 2024 7:52 AM [facility] 02-09-2024 Telephone encounter Note Duplicate automated callback made. Patient already has apt today with office. Patient advised to call back with other questions or concerns. Reason for Disposition Caller has already spoken with another triager or PCP (or office), and has further questions and triager able to answer questions. Protocols used: No Contact or Duplicate Contact Msea-QCHOE-PT [facility] 02-09-2024 Miscellaneous Notes Duplicate automated callback made. Patient already has apt today with office. Patient advised to call back with other questions or concerns. Reason for Disposition Caller has already spoken with another triager or PCP (or office), and has further questions and triager able to answer questions. Protocols used: No Contact or Duplicate Contact [id number] documented in this encounter [facility] 02-01-2024 Telephone encounter Note POPULATION HEALTH NAVIGATION OUTREACH Action/FYI Contacted Patient Reason for Outreach Care Gap/HCC or Scheduling Wellness Visits Care Gaps due: Physical Therapy Patient Contacted: Unable or unnecessary to reach patient: Left message Navigation Signature: Noelle Winchester February 01, 2024 12:47 PM [facility] 02-01-2024 Miscellaneous Notes POPULATION HEALTH NAVIGATION OUTREACH Action/FYI Contacted Patient Reason for Outreach Care Gap/HCC or Scheduling Wellness Visits Care Gaps due: Physical Therapy Patient Contacted: Unable or unnecessary to reach patient: Left message Navigation Signature: Noelle Winchester February 01, 2024 12:47 PM documented in this encounter [facility] 01-11-2024 Telephone encounter Note Medication name: Alprazolam Medication dosage: 0.50 mg (Miligrams Monthly quantity needed: 15 How many day supply requestin Medication route: oral (PO) Medication administration time(s): daily If taking medication PRN, reason for taking medication: N/A If this is a controlled substance do you receive this or any other controlled medication from any other doctor or facility: N/A Ordering provider: Date of last office visit: 07/27/23 Date of next office visit: None Date of last refill: (see medication tab): 07/27/23 Updated/Validated preferred pharmacy: Yes Patient instructed to contact the pharmacy prior to picking up the medication: Yes [facility] 01-11-2024 Miscellaneous Notes Medication name: Alprazolam Medication dosage: 0.50 mg (Miligrams Monthly quantity needed: 15 How many day supply requestin Medication route: oral (PO) Medication administration time(s): daily If taking medication PRN, reason for taking medication: N/A If this is a controlled substance do you receive this or any other controlled medication from any other doctor or facility: N/A Ordering provider: Date of last office visit: 07/27/23 Date of next office visit: None Date of last refill: (see medication tab): 07/27/23 Updated/Validated preferred pharmacy: Yes Patient instructed to contact the pharmacy prior to picking up the medication: Yes documented in this encounter [facility] 01-03-2024 Note HNO ID: [id number] Author: SANTOS ABURTO MD Service: ? Author Type: Physician Type: Progress Notes Filed: 01/03/2024 09:43 Note Text: The patient presents for requested ultrasound. Full report available in the "Imaging" tab in Gety[employer]. Santos Aburto MD [facility] 01-03-2024 History of Presen t illness Narrative The patient presents for requested ultrasound. Full report available in the "Imaging" tab in [employer]. 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 Pain is Left sided stabbing intermittent. Comes and goes. Normal pelvic US 05/2022 in the evaluation of the same. Currently having any pain? No 0 on a scale of 0 to 10 Her VMS and mood changes +irritable, hot flashes, night sweats have somewhat improved since starting Jinteli, though did have irregular bleeding for the first three months. Not currently bleeding. Postmenopausal? No. Menstrual cycle irregular not heavy (after starting HT 09/2023) Intermenstrual spotting? No Post-coital bleeding? No +dyspareunia on occasion History of fibroids? No Dysmenorrhea? No PMDD? No History of sexual abuse? No History of anxiety disorder? Yes History of STD? No Concern for exposure to STDs? No Symptoms suggestive of Irritable Bowel Syndrome? No Dysuria, urinary frequency or urgency? No, stable MARJORIE Recent weight change? No Contraception: tubal sterilization Colonoscopy screening 1 yr ago, nl, repeat 10 yr Last pap 2018 OSMIN w/ neg HPV, no hx abnormal pap Last mammogram 2022 negative after adtl views, no hx abnormal mammogram No hx nor concern STI, monogamous w/ OB History T2 L2 SAB0 IAB0 Ectopic0 Multiple0 Live Births2 PAST MEDICAL HISTORY Diagnosis Date Anxiety and depression History of kidney stones 2018 right, required cysto PAST SURGICAL HISTORY Procedure Laterality Date DELIVERY ONLY 2003 DELIVERY ONLY 2009 with TL CYSTO FRAGMENTATION URETERAL STONE Right 2018 kidney stone PCHG TUBAL W/ Bilateral 2008 FAMILY HISTORY Problem Relation Age of Onset Breast Cancer Mother 64 alive age 70 (2019) Hypertension Father Heart Attack Father Stroke Maternal Grandfather Heart Attack Paternal Grandmother Cervical Cancer No Family History Ovarian cancer No Family History Uterine Cancer No Family History Colon Cancer No Family History Pancreatic Cancer No Family History Prostate Cancer No Family History Social History Tobacco Use Smoking status: Never Smokeless tobacco: Never Vaping Use Vaping status: Never Used Substance Use Topics Alcohol use: Yes Comment: social Drug use: No EXAM: BP 122/84 Resp 18 Wt 72.6 kg (160 lb 0.9 oz) LMP 10/21/2023 (Exact Date) BMI 27.47 kg/m GENERAL: pleasant, female in no apparent distress HEENT: Normocephalic, atraumatic, mucus membranes moist, and no lesions NECK: Supple, full range of motion, no adenopathy, and thyroid normal DERMATOLOGY: Normal, without lesions, non-icteric, and non-hirsute CHEST: Normal inspiratory effort ABDOMEN: soft, non-tender, and no masses PELVIC: external genitalia normal, normal Bartholin's glands, urethra, Shelton's glands, no vulvar lesions, no cervical lesions, good vaginal support, physiologic discharge present, normal appearing perineal body and perianal region BIMANUAL: uterus normal size, shape and consistency, no adnexal masses, non-tender, and no cervical motion tenderness, grade I-II uterovaginal prolapse RECTOVAGINAL: deferred. NEURO: alert and oriented x3,exam grossly non-focal EXTREMITIES: normal ASSESSMENT: Women's annual routine gynecological examination (primary encounter diagnosis) Encounter for screening mammogram for malignant neoplasm of breast Cervical cancer screening Screening for hpv (human papillomavirus) Pelvic pain in female Incomplete uterovaginal prolapse VMS improvement 3 mth after starting Jinteli, okay to continue. Update at 6 mth to office for refills if indicated, vs VV if change in therapy desired Pelvic US and PFPT w/ normal US 1) Health maintenance: Pap/HPV updated today Mammogram ordered w/ wilder Nutrition, exercise and routine health maintenance exams reviewed. Labs per PCP Colon cancer screening up to date 2) Contraception: tubal ligation. 3) STD screening: declined Follow up 1 yr sooner PRN Jacinta Sanchez PA-C documented in this encounter [facility] 12-19-2023 Note HNO ID: [id number] Author: JACINTA SANCHEZ PA-C Service: ? 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 Pain is Left sided stabbing intermittent. Comes and goes. Normal pelvic US 05/2022 in the evaluation of the same. Currently having any pain? No 0 on a scale of 0 to 10 Her VMS and mood changes +irritable, hot flashes, night sweats have somewhat improved since starting Jinteli, though did have irregular bleeding for the first three months. Not currently bleeding. Postmenopausal? No. Menstrual cycle irregular not heavy (after starting HT 09/2023) Intermenstrual spotting? No Post-coital bleeding? No +dyspareunia on occasion History of fibroids? No Dysmenorrhea? No PMDD? No History of sexual abuse? No History of anxiety disorder? Yes History of STD? No Concern for exposure to STDs? No Symptoms suggestive of Irritable Bowel Syndrome? No Dysuria, urinary frequency or urgency? No, stable MARJORIE Recent weight change? No Contraception: tubal sterilization Colonoscopy screening 1 yr ago, nl, repeat 10 yr Last pap 2018 OSMIN w/ neg HPV, no hx abnormal pap Last mammogram 2022 negative after adtl views, no hx abnormal mammogram No hx nor concern STI, monogamous w/ OB History T2 L2 SAB0 IAB0 Ectopic0 Multiple0 Live Births2 PAST MEDICAL HISTORY Diagnosis Date Anxiety and depression History of kidney stones 2018 right, required cysto PAST SURGICAL HISTORY Procedure Laterality Date DELIVERY ONLY 2003 DELIVERY ONLY 2009 with TL CYSTO FRAGMENTATION URETERAL STONE Right 2018 kidney stone PCHG TUBAL W/ Bilateral 2008 FAMILY HISTORY Problem Relation Age of Onset Breast Cancer Mother 64 alive age 70 (2018) Hypertension Father Heart Attack Father Stroke Maternal Grandfather Heart Attack Paternal Grandmother Cervical Cancer No Family History Ovarian cancer No Family History Uterine Cancer No Family History Colon Cancer No Family History Pancreatic Cancer No Family History Prostate Cancer No Family History Social History Tobacco Use Smoking status: Never Smokeless tobacco: Never Vaping Use Vaping status: Never Used Substance Use Topics Alcohol use: Yes Comment: social Drug use: No EXAM: BP 122/84 Resp 18 Wt 72.6 kg (160 lb 0.9 oz) LMP 10/21/2023 (Exact Date) BMI 27.47 kg/m? GENERAL: pleasant, female in no apparent distress HEENT: Normocephalic, atraumatic, mucus membranes moist, and no lesions NECK: Supple, full range of motion, no adenopathy, and thyroid normal DERMATOLOGY: Normal, without lesions, non-icteric, and non-hirsute CHEST: Normal inspiratory effort ABDOMEN: soft, non-tender, and no masses PELVIC: external genitalia normal, normal Bartholin's glands, urethra, Shelton's glands, no vulvar lesions, no cervical lesions, good vaginal support, physiologic discharge present, normal appearing perineal body and perianal region BIMANUAL: uterus normal size, shape and consistency, no adnexal masses, non-tender, and no cervical motion tenderness, grade I-II uterovaginal prolapse RECTOVAGINAL: deferred. NEURO: alert and oriented x3,exam grossly non-focal EXTREMITIES: normal ASSESSMENT: Women's annual routine gynecological examination (primary encounter diagnosis) Encounter for screening mammogram for malignant neoplasm of breast Cervical cancer screening Screening for hpv (human papillomavirus) Pelvic pain in female Incomplete uterovaginal prolapse VMS improvement 3 mth after starting Jinteli, okay to continue. Update at 6 mth to office for refills if indicated, vs VV if change in therapy desired Pelvic US and PFPT w/ normal US 1) Health maintenance: Pap/HPV updated today Mammogram ordered w/ wilder Nutrition, exercise and routine health maintenance exams reviewed. Labs per PCP Colon cancer screening up to date 2) Contraception: tubal ligation. 3) STD screening: declined Follow up 1 yr sooner DIGNA Sanchez PA-C [facility] 09-25-2023 Note HNO ID: [id number] Author: BEST VALDEZ PA-C Service: ? Author Type: Physician Horse Identifier Type: Progress Notes Filed: 09/25/2023 17:14 Note Text: Telemedicine Visit - Distance Health Virtual Visit Note Patient seen on [employer] Video Visit platform. Location of patient: [place] I have communicated my name and active licensure. The patient's identity and physical location were verified at the time of this visit. 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 Pt presents with persistent/ worsening cough/ sore throat despite 10 day course of augmentin. Advised in person visit. Discussed options for this visit, pt verbalized understanding No charge Best Valdez PA-C [facility] 09-25-2023 History of Presen t illness Narrative Telemedicine Visit - Distance Health Virtual Visit Note Patient seen on [employer] Video Visit platform. Location of patient: [place] I have communicated my name and active licensure. The patient's identity and physical location were verified at the time of this visit. 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 Pt presents with persistent/ worsening cough/ sore throat despite 10 day course of augmentin. Advised in person visit. Discussed options for this visit, pt verbalized understanding No charge Best Valdez PA-C documented in this encounter [facility] 09-23-2023 Instructions Jacinta Sanchez PA-C - 09/23/2023 9:21 AM EDT Images from the original note were not included. Non-Hormonal Ways to [place] with Hot Flashes and Menopause Hormone therapy is the most effective therapy for hot flashes. It is also the only FDA approved method to treat hot flashes. However, other non-hormonal options are available for women who are suffering from symptoms, but are not yet ready to consider hormone therapy. Some women are not appropriate candidates for hormone therapy, such as those have been recently treated for breast cancer, ovarian cancer, or endometrial/uterine cancer. It is important to remember that when used appropriately, hormone therapy can be a safe and effective option for many women. Here we will review non-hormonal treatment options for women. Knowing the triggers of hot flashes Hot flashes may be precipitated by hot weather, smoking, caffeine, spicy foods, alcohol, tight clothing, heat and stress. Identify and avoid your hot flash "triggers." Some women notice hot flashes when they eat a lot of sugar. Exercising in warm temperatures might make hot flashes worse. Diet Avoiding caffeine, spicy foods, and alcohol can help lessen both the number and severity of hot flashes. Many women try to incorporate more plant estrogens into their diet. Plant estrogens, such as isoflavones, are thought to have weak estrogen-like effects that may reduce hot flashes. They may work in the body like a weak form of estrogen. Examples of plant estrogens include: soybeans, chickpeas, lentils, flaxseed, grains, beans, fruits, red clover and vegetables. In general, soybeans, chickpeas, and lentils are considered to have the most powerful plant estrogens, though their effect is much less than that of human estrogen. Try to choose natural foods rather than supplements. Also remember that only crushed or ground forms of flaxseed are likely to help (as compared to the whole seed or seed oil forms). What foods have high amounts of isoflavones Food Isoflavone Amount (Mg) In Food (100g) Soymilk 9.65 Soybeans, green, raw 151.17 Soy flour (textured) 148.61 148.61 Soybeans, dry roasted 128.35 Instant beverage soy, powder, not reconstituted 109.51 Miso soup mix, dry 60.39 Soybean chips 54.16 Tempeh, cooked 53.00 Soybean curd cheese 28.20 Tofu, silken 27.91 Tofu, yogurt 16.30 Source: [employer] -- [facility] Database on the Isoflavone Content of Foods, 1998 Lifestyle changes Reducing the temperature in a room, dressing in layers, and the use of a fan while asleep can be effective ways to help deal with troublesome hot flashes. Women who are overweight tend to have more bothersome hot flashes, therefore weight loss can be helpful. Quitting smoking has a dual importance during menopause. First, smoking contributes to the increased cardiovascular risks of being postmenopausal. Second, smokers tend to experience more hot flashes. Women who lead a sedentary life seem to suffer more from hot flashes; however, it is best to exercise in a cooler environment. Try deep, slow abdominal breathing (6 to 8 breaths per minute). Practice deep breathing for 15 minutes in the morning, 15 minutes in the evening and at the onset of hot flashes. For some women, wearing socks to bed is helpful as it can help to cool core body temperature. Relieving insomnia Keep the bedroom cool to prevent night sweats. Avoid using sleeping pills. Exercise daily. Avoid caffeine and alcohol at night. Take a warm bath or shower at bedtime. Try milk products at bedtime or during the night (but avoid products that contain caffeine). Coping with mood swings, fears, and depression Find a self-calming skill to practice, such as yoga, meditation or slow, deep breathing. Avoid tranquilizers, if possible. Engage in a creative outlet that fosters a sense of achievement. Stay connected with your family and community; nurture your friendships. Relieving painful intercourse Try using a vaginal water-based moisturizing lotion or lubricant during intercourse. These are sold without a prescription near the condoms in most stores. Common names include-Astroglide and [place] liquid . Avoid Vaseline , as it may lead to yeast infections. Prescription and nonprescription remedies A number of non-hormonal remedies are available for the treatment of hot flashes. Some of these remedies (e.g., black cohosh and soy products) are available ckrj-lkd-dikracd but are not FDA-approved. Some prescription medications are used off label to help reduce hot flashes. Using a product "off label" means that it is not FDA approved for the treatment of hot flashes, but is often used because it can be safe and effective for hot flash treatment.(considered the more effective non-hormonal treatments): Drug Side Effect Effectiveness venlafaxine (Effexor ) Nausea, change in bowel habits, headache (temporary side effects for most). Elevated blood pressure (at high doses) Effectiveness has been proven in several well-designed studies. One of the safer medications for women taking tamoxifen (no drug interaction). desvenlafaxine (Pristiq ) Similar to venlafaxine. Nausea, change in bowel habits, headache (temporary side effects for most). Elevated blood pressure (at high doses) Improvement in hot flashes compared to placebo has been shown. Newer med compared to venlafaxine, so a smaller number of studies are available. fluoxetine (Prozac ) Nausea, change in bowel habits, decreased libido, insomnia. Should be avoided in women taking tamoxifen. Improvement in hot flashes has been shown in well-designed studies. paroxetine (Paxil ) Nausea, change in bowel habits, decreased libido, dry mouth, weight gain (not common) Should be avoided in women taking tamoxifen. eTends to be more effective for sleep in women who are also suffering with insomnia. Improvement in hot flashes has been shown in well-designed studies. scitalopram (Lexapro ) Nausea, change in bowel habits, decreased libido, abnormal EKG (not common) Improvement in hot flashes has been shown in well-designed studies. Gabapentin (Neurontin ) Fatigue, dizziness, nausea, disorientation, swelling, weight gain Tends to be more effective for sleep in women who are also suffering with insomnia. Clonidine (Catapres ) Dry mouth, drowsiness, fatigue, constipation, lowers blood pressure Relieved hot flashes in some, but not all studies.Less commonly used than some of the other options. Non-prescription, herbal, kxrb-exm-hxjsyco therapies: Drug Side Effects Effectiveness [facility] Oil Nausea, diarrhea, headache. Only one well-designed study showing not effective. Black cohosh Mild stomach upset. Safe up to 6 months only due to possible estrogen-like effects. Liver toxicity has been reported. Some small, short-term studies have suggested benefits, however most studies do not suggest that it works. Soy (plant estrogen) Also referred to as phytoestrogens. Appears safe if consumed in foods. In supplement form, consistency of dose and quality can be a concern. Supplements are not recommended for breast cancer survivors For the most part, results from clinical studies show that phytoestrogens are not effective for treatment of hot flashes. Acupuncture Uncomfortable for some, often costly. Generally well-tolerated, but multiple visits required Individual trials have reported some benefits, but larger studies have not shown any improvement over placebo procedures. However some women do report benefits with this, so it is possible that more well-designed studies are needed to answer this question. Vitamin E 13% increase risk of heart failure. Might increase rate in those who use high doses for a long time. A higher risk of prostate cancer has also been shown, but applies only to men. One study showing effective. However the improvement seen in this was only one less hot flash per day compared to placebo. Are the tbyk-vyp-blpwzly herbal products (botanicals) safe? While safe when taken in moderate amounts through diet, the consumption of extraordinary amounts of soy and isoflavone supplements may be harmful to women with a history of estrogen-dependent cancer, like breast cancer, and possibly to other women as well. More research is needed to determine the safety and effectiveness of botanical treatments. For example, Ginseng, Dong [place]ai, Wild yam, Progesterone cream, reflexology, and magnetic devices are sold to help menopausal symptoms, but there are no good studies looking at their safety or effectiveness. To make an informed decision about the use of these treatments, be sure to discuss them with your doctor. Because little is known about many botanicals, the best way to evaluate their safety and effectiveness is to become an educated consumer. Here are some tips to consider when shopping for alternative therapies. Ask yourself the following questions: What is the treatment? What does it involve? How does it work? Why does it work? Are there any risks? What are the side effects? Is it effective? (Ask for evidence or proof) How much does it cost? Once you answer these questions, discuss the therapy with your doctor. Make sure your doctor knows what therapy you are considering in order to discuss possible interactions or side effects with your current treatment. What are warning signs that a product may not be legitimate? When trying to determine whether or not a product is what it says it is, one of the elements you may want to look at is how the product is promoted. Be cautious of products promoted through: [employer] Direct mailings Perficient Ads disguised as valid news articles Ads in the back of magazines Additional red flags to look for include: Big claims: If products claim to be a "cure" for your condition, or gives outrageous claims, be cautious. Source: Be wary if the product is only offered through one addressograph operator or purchased only through a health care provider s office. Ingredients: Make sure all of the active ingredients are listed, and don t trust "secret formulas." Testimonials: Remember that only people who are satisfied with a product give testimonials and that they may be getting paid for their endorsement References: National Center for Complementary and Alternative Medicine. Vitamin E. [facility].nih.gov Assessed May 15, 2012 Rick Ibarra et al. meta-analysis: High Dosage Vitamin E. Supplementation Might Increase All Cause Mortality. Annals of Internal Medicine February 18, 2004. annals.org National Center for Complementary and Alternative Medicine. Menopausal Symptoms and CAM. [facility].nih.gov Accessed May 15, 2012 [place] [employer], Hormone Therapy for women in 2012. www.menopause.org Assessed May 15, 2012 [place] [employer]nec[employer]. Publications. The Menopause Years. www.acog.org Accessed 04/13/2010 Centers for Disease Control and Prevention. Women s Reproductive Health: Menopause. www.cdc.gov Accessed 04/13/2010 National [place] [employer] [place]. Age Page: Menopause. www.malissa.nih.gov Accessed 04/13/2010 Hormone Therapy* (HT): Understanding Benefits and Risks (*Sometimes also called hormone replacement therapy, HRT) What are estrogen and progesterone? Estrogen and progesterone are hormones that are produced by a woman's ovaries. Why does the body need estrogen? Estrogen thickens the lining of the uterus, preparing it for the possible implantation of a fertilized egg. Estrogen also influences how the body uses calcium, an important mineral in the building of bones. In addition, estrogen helps maintain healthy levels of cholesterol in the blood. Estrogen is necessary in keeping the vagina healthy. As menopause nears, the ovaries reduce most of their production of these hormones. Lowered or fluctuating estrogen levels may cause menopause symptoms such as hot flashes, and medical conditions such as osteoporosis. What is hormone therapy (HT)? Hormone therapy (HT) is a treatment that is used to supplement the body with either estrogen alone or estrogen and progesterone in combination. When the ovaries no longer produce adequate amounts of these hormones (as in menopause), HT can be given to supplement the body with adequate levels of estrogen and progesterone. HT helps to replenish the estrogen, relieving some of the symptoms of menopause and helping to prevent osteoporosis. Why is progesterone taken? Progesterone is used along with estrogen in women who still have their uterus. In these women, estrogen-- if taken without progesterone--increases a woman's risk for cancer of the endometrium (the lining of the uterus). During a woman's reproductive years, cells from the endometrium are shed during menstruation. When the endometrium is no longer shed, estrogen can cause an overgrowth of cells in the uterus, a condition that can lead to cancer. Progesterone reduces the risk of endometrial (uterine) cancer by making the endometrium thin. Women who take progesterone may have monthly bleeding, or no bleeding at all, depending on how the hormone therapy is taken. Monthly bleeding can be lessened and, in some cases, eliminated by taking progesterone and estrogen together continuously. Women who have had a hysterectomy (removal of the uterus through surgery) usually do not need to take progesterone. This is an important point, because estrogen taken alone has fewer long-term risks than HT that uses a combination of estrogen and progesterone. What are the types of HT? There are two main types of HT: Estrogen Therapy (ET): Estrogen is taken alone. Doctors most often prescribe a low dose of estrogen to be taken as a pill or patch every day. Estrogen may also be prescribed as a cream, vaginal ring, gel or spray. You should take the lowest dose of estrogen needed to relieve menopause symptoms and/or to prevent osteoporosis. This type of HT is used if a woman has had a hysterectomy. Estrogen Progesterone/Progestin Hormone Therapy (EPT): Also called combination therapy, this form of HT combines doses of estrogen and progesterone (progestin is a synthetic form of progesterone). This type of HT is used if a woman still has her uterus. What are the benefits of taking HT? HT is prescribed to relieve: Hot flashes Vaginal dryness that can result in painful intercourse Other problematic symptoms of menopause, such as night sweats and dry, itchy skin Other benefits of taking HT include: Reduced risk of developing osteoporosis and reduced risk of bone breakage Improvement of mood and overall sense of mental well-being in some women Decreased tooth loss Lowered risk of colon cancer Lowered risk of diabetes Modest improvement in joint pains Lower rate for women who take hormone therapy in their 50s. What are the risks of taking HT? While HT helps many women get through menopause, the treatment (like any prescription or even non-prescription medicines) is not risk-free. Known health risks include: An increased risk of endometrial cancer (only if a woman still has her uterus and is not taking a progestin along with estrogen). Increased risk of blood clots and stroke. However, in women within 5 years of menopause there was no statistically significant increase in stroke risk. Also, studies suggest that using estrogen delivered from the skin via a patch/cream might further lessen the risk of blood clots. Increased chance of gallbladder/gallstone problems. Increased risk of dementia if hormone therapy is started after a woman has been in menopause for 10 years. It is not yet known if it might be beneficial for women who start HT in their 50s. Most of our understanding about the benefits and risks of hormone therapy on the heart and breast come from the Women s Health Initiative (WHI) study (one of the largest studies done on hormone therapy): HT and the heart Recent analysis of WHI actually shows that the risk of heart disease may be related more to the advanced age of the participants as opposed to the HT. The study also found that HT given to younger women, at the onset of menopause, appeared to decrease the risk of heart disease. More specifically: An increased risk of heart disease is only seen in women taking long-term estrogen-progestin combination therapy (EPT) if they start HT in their mid-60s. There does not seem to be an increased risk of heart disease when women in their 50s start EPT. Estrogen alone (ET) has not been shown to increase the risk of heart disease. Analysis of the age since menopause actually shows a decrease in the risk of heart disease when ET was started in younger women (those just beginning menopause). Currently, it is not recommended to use hormone therapy solely for the purpose of preventing heart disease. However these studies give us reassurance that when women just newly approaching menopause need HT for a short time, it is safe to do so in terms of [facility] heart disease risk. HT and breast cancer Diagnosis of breast cancer increases when combination EPT is used beyond 3-5 years. This means that out of 10,000 women who use estrogen progestin therapy for more than 5 years, there will be 8 additional breast cancers diagnosed. In contrast, the WHI study showed women who use estrogen alone had no increase in risk of breast cancer even after 11 years of use. In fact, fewer breast cancers were seen in the group taking estrogen alone, though this was not statistically significant. When a woman comes off of hormone therapy, any potential increase in her risk of breast cancer quickly goes back to her baseline norm. This is why hormone therapy can be a safe option when women in their 50s (who are generally at lower risk for breast cancer compared to older women). Does starting HT closer to the time of menopause make it safer? One of the problems with the WHI study, which gave us much of our knowledge on the risks of HT, is that most women in the study were starting hormones in their mid-60s. Typically, women who need HT are newly menopausal, in their early 50s. Younger women in the WHI study had fewer risks and more benefits from HT. Newer studies are trying to understand the risks and benefits of HT in women in their 50s. One such study showed HT started early in postmenopausal women significantly reduced rate, heart attacks and heart failure. These postmenopausal women who started HT early and used it for more than 10 years were not at increased risk of breast cancer or stroke. What are some commonly used postmenopausal hormones? The following charts list the names of some, but not all, postmenopausal hormones. Types Brand Names Vaginal Tablet Vagifem Estrogen Pills Cenestin , Estinyl , Estrace , Menest , Ogen , Premarin , Femtrace Cream Estrace , Ogen , Premarin Vaginal Ring Estring , Femring Patch Belem , Climara , Minivelle , Estraderm , Vivelle , Vivelle-Dot , Menostar Progestin Types Brand Names Pills/Capsules Amen , Aygestin , Curretab , Cycrin , Megace , Prometrium , Provera Vaginal Gel Prochieve progesterone gel 4%, 8% Combination types Brand Names Pills Activella , FemHRT , Premphase , Prempro , Angeliq Patchs CombiPatch , Climara-Pro Who shouldn't take HT? HT is not usually recommended for women who have: Active or past breast cancer Recurrent or active endometrial cancer Abnormal vaginal bleeding that has not been evaluated Recurrent or active blood clots History of stroke Liver disease Known or suspected What are the side effects of HT? Like almost all medications, hormone therapy has side effects. The most common side effects are: Monthly bleeding (if progestin given cyclical) Irregular spotting Breast tenderness Less common side effects of hormone therapy include: Fluid retention Headaches (including migraine) Skin discoloration (brown or black spots) Increased breast density making mammogram interpretation more difficult Skin irritation under estrogen patch How can I reduce these side effects? Adjusting either the dosage or the form of the medication you are taking can often reduce side effects of HT. However, you should never make changes in your medication or stop taking it without first consulting your doctor. How can I know if HT is right for me? The balance of risks versus benefits of HT can be very different for each woman, depending on her age, family history, and personal medical history. It is important to allow enough time at an office visit to discuss the risks and benefits of hormone therapy. This is a question that should usually be addressed at a separate office visit to allow plenty of time for detailed discussion with your doctor. How long should I take HT? Since research on HT is ongoing, women should reevaluate their treatment plans each year. Discontinue HT (under your health care provider's guidance) if you develop a medical condition that would make it less safe for you. Based on the WHI study results, should I stop taking HT? It's important that you do not make any abrupt changes to your HT without consulting your doctor. He or she can discuss with you the benefits and risks of HT based on your individual circumstances. First, the therapy should not be continued or started to prevent heart disease. Women should consult their doctor about other methods of prevention, such as lifestyle changes, and cholesterol- and blood pressure-lowering drugs. Second, for osteoporosis prevention, women should consult their doctor and weigh the benefits against their personal risks. Alternate treatments also are available to prevent osteoporosis and fractures. Finally, women taking HT for relief of menopausal symptoms may reap more benefits than risks. Women should talk with their doctor about their personal risks and benefits. References: Effect of Hormone Replacement Therapy on Cardiovascular Events in Recently Postmenopausal Women: Randomized Trial. BMJ Nov 2011. [place] [employer]. The 2012 hormone therapy position statement Accessed 07/13/12. [place] [employer] Endocrinologists. [place] [employer] Endocrinologists Medical Guidelines for the Clinical Practice for the Diagnosis and Treatment of Menopause Accessed 08/06/12. Committee on Gynecological Practice. Postmenopausal estrogen therapy: Route of administration and risk of venous thromboembolism. Obstet Gynecol 2013 May; 121:887. Estrogen alone and joint symptoms in the Women's Health Initiative randomized trial. Menopause 2012May 01. MENSTRUAL FLOW CHART # of days from start of period to beginning of next Breast Exam Done Month 1 2 3 4 5 6 7 8 9 10 11 12 13 14 15 16 17 18 19 20 21 22 23 24 25 26 27 28 29 30 31 Feb. Mar. April. Oct. Nov. Jan. Don't forget to have this chart with you when you call or visit the doctor TYPE OF FLOW Normal = N Light = L Heavy = H documented in this encounter [facility] 09-23-2023 Note HNO ID: [id number] Author: JACINTA SANCHEZ PA-C Service: ? Author Type: Physician Horse Identifier Type: Progress Notes Filed: 09/23/2023 13:53 Note Text: Salima Russell is a 48 year old female who presents with the complaint of sharp pelvic pain, intermittent for the past 2 mth, but recurrent over the past 1.5 yr. Pain is Left sided stabbing intermittent. Comes and goes Currently having any pain? No 0 on a scale of 0 to 10 Also bothered by +irritable, hot flashes, night sweats first two days of bleeding. Becoming bothersome and feels irritability is affecting quality of life and relationships Also recent abx use and believes sx associated w/ vaginal yeast infection including vaginal irritation Postmenopausal? No. Menstrual cycle every 28-34 days Flow 3-21 days Heavy bleeding? Yes, first few days Intermenstrual spotting? No Post-coital bleeding? sometimes History of fibroids? No Dysmenorrhea? No PMDD? No History of sexual abuse? No History of anxiety disorder? Yes History of STD? No Concern for exposure to STDs? No Symptoms suggestive of Irritable Bowel Syndrome? No Dysuria, urinary frequency or urgency?yes, frequency Recent weight change? No Contraception: tubal sterilization OB History T2 L2 SAB0 IAB0 Ectopic0 Multiple0 Live Births2 PAST MEDICAL HISTORY No date: Anxiety and depression 2018: History of kidney stones Comment: right, required cysto PAST SURGICAL HISTORY 2004: DELIVERY ONLY 2009: DELIVERY ONLY Comment: with TL 2018: CYSTO FRAGMENTATION URETERAL STONE; Right Comment: kidney stone 2009: PCHG TUBAL W/ ; Bilateral FAMILY HISTORY Problem Relation Age of Onset Hypertension Father Stroke Maternal Grandfather Breast Cancer Mother 64 alive age 70 (2019) Cervical Cancer No Family History Ovarian cancer No Family History Uterine Cancer No Family History Colon Cancer No Family History Pancreatic Cancer No Family History Prostate Cancer No Family History Social History Tobacco Use Smoking status: Never Smokeless tobacco: Never Vaping Use Vaping Use: Never used Substance Use Topics Alcohol use: Yes Comment: social Drug use: No EXAM: BP 117/80 Ht 162.6 cm (5' 4") Wt 72.8 kg (160 lb 7.9 oz) LMP 08/26/2023 (Exact Date) BMI 27.55 kg/m? GENERAL: pleasant, female in no apparent distress HEENT: Normocephalic, atraumatic, mucus membranes moist, and no lesions NECK: Supple, full range of motion, no adenopathy, and thyroid normal DERMATOLOGY: Normal, without lesions, non-icteric, and non-hirsute CHEST: Normal inspiratory effort ABDOMEN: soft, non-tender, and no masses PELVIC: external genitalia normal, normal Bartholin's glands, urethra, Shelton's glands, no vulvar lesions, no cervical lesions, good vaginal support, physiologic discharge present, normal appearing perineal body and perianal region BIMANUAL: uterus normal size, shape and consistency, no adnexal masses, non-tender, and no cervical motion tenderness RECTOVAGINAL: deferred. NEURO: alert and oriented x3,exam grossly non-focal EXTREMITIES: normal ASSESSMENT: Vasomotor symptoms due to menopause (primary encounter diagnosis) Menstrual irregularity Acute vaginitis Cyclical pelvic pain PLAN: Bothersome vasomotor symptoms, mood changes, cyclic menstrual sx. Supportive/hormonal/non-hormonal options discussed, as well as option for observation. No h/o breast disease, no endometrial disease, no abnormal vaginal bleeding, no h/o DVT/clotting disorder, no CVA hx, no liver nor gallbladder disease. No contraindication for HRT. Pt made aware of r/b/a/se of medication, and will trial Jinteli Vaginitis testing for pathogen directed tx as indicated based on results The following approved medication requests have been transmitted electronically. Requested Prescriptions Signed Prescriptions Disp Refills norethindrone acetate-ethinyl estradiol (JINTELI) 1-5 mg-mcg tab 90 tablet 1 Sig: Take 1 tablet by mouth once daily. Jacinta Sanchez PA-C Follow up 6 mth routine POST DOCTORAL FELLOW exam and recheck symptoms Jacinta Sanchez PA-C [facility] 09-23-2023 History of Presen t illness Narrative Salima Russell is a 48 year old female who presents with the complaint of sharp pelvic pain, intermittent for the past 2 mth, but recurrent over the past 1.5 yr. Pain is Left sided stabbing intermittent. Comes and goes Currently having any pain? No 0 on a scale of 0 to 10 Also bothered by +irritable, hot flashes, night sweats first two days of bleeding. Becoming bothersome and feels irritability is affecting quality of life and relationships Also recent abx use and believes sx associated w/ vaginal yeast infection including vaginal irritation Postmenopausal? No. Menstrual cycle every 28-34 days Flow 3-21 days Heavy bleeding? Yes, first few days Intermenstrual spotting? No Post-coital bleeding? sometimes History of fibroids? No Dysmenorrhea? No PMDD? No History of sexual abuse? No History of anxiety disorder? Yes History of STD? No Concern for exposure to STDs? No Symptoms suggestive of Irritable Bowel Syndrome? No Dysuria, urinary frequency or urgency?yes, frequency Recent weight change? No Contraception: tubal sterilization OB History T2 L2 SAB0 IAB0 Ectopic0 Multiple0 Live Births2 PAST MEDICAL HISTORY No date: Anxiety and depression 2018: History of kidney stones Comment: right, required cysto PAST SURGICAL HISTORY 2004: DELIVERY ONLY 2009: DELIVERY ONLY Comment: with TL 2018: CYSTO FRAGMENTATION URETERAL STONE; Right Comment: kidney stone 2009: PCHG TUBAL W/ ; Bilateral FAMILY HISTORY Problem Relation Age of Onset Hypertension Father Stroke Maternal Grandfather Breast Cancer Mother 64 alive age 70 (2019) Cervical Cancer No Family History Ovarian cancer No Family History Uterine Cancer No Family History Colon Cancer No Family History Pancreatic Cancer No Family History Prostate Cancer No Family History Social History Tobacco Use Smoking status: Never Smokeless tobacco: Never Vaping Use Vaping Use: Never used Substance Use Topics Alcohol use: Yes Comment: social Drug use: No EXAM: BP 117/80 Ht 162.6 cm (5' 4") Wt 72.8 kg (160 lb 7.9 oz) LMP 08/26/2023 (Exact Date) BMI 27.55 kg/m GENERAL: pleasant, female in no apparent distress HEENT: Normocephalic, atraumatic, mucus membranes moist, and no lesions NECK: Supple, full range of motion, no adenopathy, and thyroid normal DERMATOLOGY: Normal, without lesions, non-icteric, and non-hirsute CHEST: Normal inspiratory effort ABDOMEN: soft, non-tender, and no masses PELVIC: external genitalia normal, normal Bartholin's glands, urethra, Shelton's glands, no vulvar lesions, no cervical lesions, good vaginal support, physiologic discharge present, normal appearing perineal body and perianal region BIMANUAL: uterus normal size, shape and consistency, no adnexal masses, non-tender, and no cervical motion tenderness RECTOVAGINAL: deferred. NEURO: alert and oriented x3,exam grossly non-focal EXTREMITIES: normal ASSESSMENT: Vasomotor symptoms due to menopause (primary encounter diagnosis) Menstrual irregularity Acute vaginitis Cyclical pelvic pain PLAN: Bothersome vasomotor symptoms, mood changes, cyclic menstrual sx. Supportive/hormonal/non-hormonal options discussed, as well as option for observation. No h/o breast disease, no endometrial disease, no abnormal vaginal bleeding, no h/o DVT/clotting disorder, no CVA hx, no liver nor gallbladder disease. No contraindication for HRT. Pt made aware of r/b/a/se of medication, and [facility] directed tx as indicated based on results The following approved medication requests have been transmitted electronically. Requested Prescriptions Signed Prescriptions Disp Refills norethindrone acetate-ethinyl estradiol (JINTELI) 1-5 mg-mcg tab 90 tablet 1 Sig: Take 1 tablet by mouth once daily. Jacinta Sanchez PA-C Follow up 6 mth routine POST DOCTORAL FELLOW exam and recheck symptoms Jacinta Sanchez PA-C documented in this encounter [facility] 07-27-2023 History of Presen t illness Narrative Images from the original note were not included. [facility] [id number] [facility] [id number] Visit type: Established Patient Reason for Visit: Follow-up (Pt states here for follow up appointment. Requesting kenalog injection and refills. ) Assessment and Plan Seasonal allergies Not controlled - montelukast (Singulair) 10 MG tablet; Take 1 tablet (10 mg) by mouth daily. Dispense: 90 tablet; Refill: 3 - triamcinolone acetonide (Kenalog-40) injection 60 mg 3. Moderate persistent asthma without complication Stable -singulair -Symbicort 4. Mild episode of recurrent major depressive disorder (HCC) Controlled -Sertarline 5. Generalized anxiety disorder controlled - ALPRAZolam (Xanax) 0.5 MG tablet; Take 0.5 tablets (0.25 mg) by mouth Nightly as needed for sleep or anxiety. Dispense: 15 tablet; Refill: 0 - AMB POC DRUG SCREEN 12, [facility] I, Beto Huerta MD, provide the continuing focal point for all needed health care services, including all acute and chronic conditions, for, Candelaria Godoydenaprabhjot. I assume responsibility for the patient's ongoing medical care of this condition. Follow up in about 6 months (around 01/26/2024) for follow up Dr Huerta 20 min. Subjective HPI Seasonal allergies. Not controlled. Taking Singulair Xyzal and Flonase without much help. She has asthma but this has not flared up. Asthma. She has Symbicort but not using. Prn albuterol on hand but also has not needed as of late INA/insomnia. Mood has been good. Still needs Xanax 1-2 times a week to help sleep. Zoloft 50 mg daily helpful OARRs Reviewed., Possible medication effects, risk of tolerance/dependence & alternative treatments discussed. , No signs of potential drug abuse or diversion identified., Assessed functional status., Random urine drug screen sent today., and "Opioid Consent" or "Medication Contract" obtained today. Review of Systems As above Allergies Allergen Reactions Ciprofloxacin Nausea And Vomiting Other reaction(s): Abd cramps/diarrhea Oxycodone Rash Other reaction(s): Abd cramps/diarrhea Promethazine Other reaction(s): wide awake Outpatient Medications Prior to Visit Medication Sig Dispense Refill albuterol 108 (90 Base) MCG/ACT inhaler Inhale 2 puffs every 6 hours as needed for wheezing. 18 g 3 budesonide-formoterol (Symbicort) 160-4.5 MCG/ACT inhaler Inhale 2 Inhalation in the morning and 2 Inhalation in the evening. Mounjaro 7.5 MG/0.5ML solution pen-injector inject 1 syringe subcutaneously once weekly sertraline (Zoloft) 50 MG tablet Take 1 tablet (50 mg) by mouth daily. 90 tablet 3 ALPRAZolam (Xanax) 0.5 MG tablet Take 0.25 mg by mouth Nightly as needed. montelukast (Singulair) 10 MG tablet TAKE 1 TABLET BY MOUTH EVERY DAY 30 tablet 11 fluticasone (Flonase) 50 MCG/ACT nasal spray Administer 2 sprays into each nostril daily for 14 days. Shake gently. Before first use, prime pump. After use, clean tip and replace cap. 16 g 0 Mounjaro 5 MG/0.5ML solution pen-injector 5 mg (0.5 mL) subcutaneously every week predniSONE (Deltasone) 10 MG tablet 4 pills daily for 3 days, 3 pills daily for 3 days, 2 pills daily for 3 days, 1 pill daily for 3 days. Take with food. Stop. 30 tablet 0 No facility-administered medications prior to visit. Past Medical History: Diagnosis Date Generalized anxiety disorder 05/31/2015 Kidney stone Mild episode of recurrent major depressive disorder (HCC) 06/18/2019 Moderate persistent asthma without complication 05/31/2015 Obesity (BMI 30-39.9) 07/19/2015 Social History Socioeconomic History Marital status: Tobacco Use Smoking status: Never Passive exposure: Never Smokeless tobacco: Never Vaping Use Vaping Use: Never used Substance and Sexual Activity Alcohol use: Not Currently Drug use: Never Past Surgical History: Procedure Laterality Date ABDOMINAL SURGERY SECTION (HISTORICAL) X 2 OTHER SURGICAL HISTORY Right 11/17/2017 cystoscopy pyelogram ureteroscopy stone basket extraction stent placement right WISDOM TOOTH EXTRACTION Past Surgical History: Procedure Laterality Date ABDOMINAL SURGERY SECTION (HISTORICAL) X 2 OTHER SURGICAL HISTORY Right 11/17/2017 cystoscopy pyelogram ureteroscopy stone basket extraction stent placement right WISDOM TOOTH EXTRACTION Family History Problem Relation Name Age of Onset No Known Problems Paternal Grandmother Heart disease Father Heart disease Paternal Grandfather No Known Problems Daughter No Known Problems Mother No Known Problems Daughter No Known Problems Sister Heart disease Maternal Grandfather Objective BP 129/82 (BP Location: Left arm, Patient Position: Sitting, BP Cuff Size: Adult) Pulse 84 Ht 5' 2.5" (1.588 m) Wt 160 lb (72.6 kg) LMP 06/27/2023 (Approximate) SpO2 98% BMI 28.80 kg/m Patient Weight 07/27/23 160 lb (72.6 kg) 01/21/23 160 lb (72.6 kg) 12/29/22 159 lb (72.1 kg) Physical Exam Nursing note reviewed. Constitutional: Appearance: Normal appearance. Pulmonary: Comments: Normal speaking effort Neurological: Mental Status: She is alert. Psychiatric: Mood and Affect: Mood normal. Behavior: Behavior normal. Thought Content: Thought content normal. Judgment: Judgment normal. Chart Clean Up: Medications Discontinued During This Encounter Medication Reason Mounjaro 5 MG/0.5ML solution pen-injector Duplicate order predniSONE (Deltasone) 10 MG tablet Med list cleanup ALPRAZolam (Xanax) 0.5 MG tablet Reorder montelukast (Singulair) 10 MG tablet Reorder Beto Huerta MD 07/27/2023 3:43 PM The patient, Salima Russell is a 48 y.o. female identity was verified by name and date of . Injection of Kenalog was administered per Beto Huerta MD orders: 07/27/23 The patient tolerated the injection well and without incident. documented in this encounter [facility] 05-23-2023 Telephone encounter Note Medication name: sertraline (Zoloft) 50 MG tablet Medication dosage: 50 mg (Miligrams Monthly quantity needed: 30 How many day supply requestin days Medication route: oral (PO) Medication administration time(s): daily If taking medication PRN, reason for taking medication: N/A If this is a controlled substance do you receive this or any other controlled medication from any other doctor or facility: No Ordering provider: Bradley Date of last office visit: 06.06.22 Date of next office visit: 07.27.23. Date of last refill: (see medication tab): 05.07.22 Updated/Validated preferred pharmacy: Yes Patient instructed to contact the pharmacy prior to picking up the medication: No [facility] 05-23-2023 Miscellaneous Notes Medication name: sertraline (Zoloft) 50 MG tablet Medication dosage: 50 mg (Miligrams Monthly quantity needed: 30 How many day supply requestin days Medication route: oral (PO) Medication administration time(s): daily If taking medication PRN, reason for taking medication: N/A If this is a controlled substance do you receive this or any other controlled medication from any other doctor or facility: No Ordering provider: Bradley Date of last office visit: 06.06.22 Date of next office visit: 07.27.23. Date of last refill: (see medication tab): 05.07.22 Updated/Validated preferred pharmacy: Yes Patient instructed to contact the pharmacy prior to picking up the medication: No documented in this encounter [facility] 01-21-2023 History of Presen t illness Narrative Subjective Patient ID: Salima Russell is a 47 y.o. female who presents for Cough (Patient here today with ongoing cough that initially began 3 weeks ago. She has been seen for the same and given antibiotics.). 3 weeks of cough. Some wheezing. Feels deeper now. Chest feels tight. Took Augmentin and Prednisone last month. [place] some better, then came right back. Chart reviewed Cough This is a new problem. The current episode started 1 to 4 weeks ago. The problem occurs every few minutes. The cough is Non-productive. Associated symptoms include chills, shortness of breath and wheezing. Pertinent negatives include no fever. Review of Systems Constitutional: Positive for chills. Negative for fever. HENT: Some sputum, but unable to get it up. No smoking Respiratory: Positive for cough, shortness of breath and wheezing. Objective Physical Exam Vitals and nursing note reviewed. Constitutional: General: She is not in acute distress. Appearance: She is ill-appearing. She is not toxic-appearing. HENT: Right Ear: Tympanic membrane normal. Left Ear: Tympanic membrane normal. Nose: No congestion. Mouth/Throat: Pharynx: No oropharyngeal exudate or posterior oropharyngeal erythema. Comments: There is some lymphoid studding in the throat Cardiovascular: Rate and Rhythm: Normal rate and regular rhythm. Heart sounds: Normal heart sounds. No murmur heard. Pulmonary: Effort: Pulmonary effort is normal. Breath sounds: Wheezing present. Comments: Wheezing in the bases only with cough. CTA without cough Musculoskeletal: Cervical back: Neck supple. Lymphadenopathy: Cervical: No cervical adenopathy. Neurological: Mental Status: She is alert. Assessment/Plan Problem List Items Addressed This Visit Respiratory Moderate persistent asthma without complication - Primary Chronic, uncontrolled Do a longer prednisone taper Change to an antibiotic to cover atypicals Check the CXR Relevant Medications predniSONE (Deltasone) 10 MG tablet Other Relevant Orders XR chest 2 views Other Visit Diagnoses Acute cough Acute, as above Relevant Medications doxycycline (Vibramycin) 100 MG capsule Other Relevant Orders XR chest 2 views Sinobronchitis Acute, uncontrolled Finished Augmentin Trial of Doxycycline documented in this encounter [facility] 10-08-2022 Hospital Discharg e instructions Noah Hayes MD - 10/08/2022 8:18 AM EDT [employer] [facility] C O N F I D E N T I A L I N F O R M A T I O N The checked information below will help you return to normal function as soon as possible after your surgery. Please read it carefully and save for future reference. PATIENT NAME: Salima Russlel ADMISSION DATE: 10/08/2022 DISCHARGE DATE: 10/08/2022 ACTIVITY: Do not drive before tomorrow. The drugs you were given may alter judgement. Please do not endanger yourself. Go home and rest. Resume normal activity after tomorrow. Do not drive a car for 24 hours Do not use power tools or machinery for 24 hours. DIET: Resume normal diet as before. Next colonoscopy in 10 years Electronically SIGNED by Licensed Independent Practitioner: Noah Hayes MD, October 08, 2022 documented in this encounter [facility] 10-08-2022 History and physical note SURGICAL SERVICES H&P SERVICE DATE: 10/08/2022 SERVICE TIME: 7:27 AM PRIMARY CARE PHYSICIAN: Beto Huerta MD Subjective HISTORY OF PRESENT ILLNESS: Ms. Russell is a 47 year old female who presents for colonoscopy. No prior. No symptoms PAST MEDICAL HISTORY Diagnosis Date Anxiety and depression History of kidney stones 2018 right, required cysto PAST SURGICAL HISTORY Procedure Laterality Date DELIVERY ONLY 2004 DELIVERY ONLY 2009 with TL CYSTO FRAGMENTATION URETERAL STONE Right 2018 kidney stone PCHG TUBAL W/ Bilateral 2009 FAMILY HISTORY Problem Relation Age of Onset Hypertension Father Stroke Maternal Grandfather Breast Cancer Mother 64 alive age 70 (2019) Cervical Cancer No Family History Ovarian cancer No Family History Uterine Cancer No Family History Colon Cancer No Family History Pancreatic Cancer No Family History Prostate Cancer No Family History Social History Tobacco Use Smoking status: Never Smokeless tobacco: Never Vaping Use Vaping Use: Never used Substance Use Topics Alcohol use: Yes Comment: social Drug use: No (Not in a hospital admission) Current Facility-Administered Medications Medication Dose Route Frequency lidocaine (PF) 10 mg/mL (1 %) 1-2 mg injection (XYLOCAINE) 0.1-0.2 mL INTRADERMAL PRN lactated ringers iv infusion 30 mL/hr INTRAVENOUS CONTINUOUS ALLERGIES No Known Allergies COMPLETE REVIEW OF SYSTEMS: GENERAL: No weight loss, malaise or fevers RESPIRATORY: Negative for cough, hemoptysis, wheezing, COPD, dyspnea or shortness of breath CARDIOVASCULAR: Negative for chest pain, leg swelling, hypertension, CHF or palpitations GI: No nausea, vomiting, or diarrhea Objective PHYSICAL EXAM: BP 113/75 Temp (Src) 98.2 (Temporal) Resp 16 Ht 5' 4" (1.63m) Wt 155 lb (70.3kg) SpO2 100% LMP 05/31/2022 BMI 26.59 kg/(m^2). O2 Therapy: Room Air Physical Exam Performed GENERAL: Alert, no distress, cooperative LUNGS: Lungs clear to auscultation, Good diaphragmatic excursion CARDIAC: Normal S1 and S2; no rubs, murmurs, or gallops ABDOMEN: Abdomen soft, non-tender, BS normal, No masses or organomegaly DATA: Diagnostic tests reviewed for today's visit: Most recent labs and imaging results. Assessment/Plan Colonoscopy today SIGNATURE: Noah Hayes MD PATIENT NAME: Salima Russell DATE: October 08, 2022 TIME: 7:27 AM documented in this encounter [facility] 08-24-2022 Telephone encounter Note Last appointment 06/08/2022 , Next appointment is 12/08/2022 Last filled 08/04/21 90 days 3 refills [facility] 08-24-2022 Miscellaneous Notes Last appointment 06/08/2022 , Next appointment is 12/08/2022 Last filled 08/04/21 90 days 3 refills documented in this encounter [facility] 08-09-2022 History of Presen t illness Narrative Radiology Service Progress Note PATIENT NAME: Salima Russell DATE OF SERVICE: August 09, 2022 TIME: 7:52 AM PATIENT IDENTITY VERIFICATION COMPLETED USING TWO (2) IDENTIFIERS: Name and Date of confirmed by patient verbally. FALL SCREENING: Has the patient had 2 falls in the last year or 1 fall with injury or currently using an Ambulatory Assistive Device (Walker, Cane, Wheelchair, Crutches, etc.)? No PATIENT GENDER DATA: Female. status: : No status: NO. PATIENT RELEVANT IMPLANT DATA REVIEWED: Not Applicable RADIOLOGY DEPARTMENT: Mammography PERIPHERAL IV DATA: Not applicable SIGNED BY: RT Bindu August 09, 2022 7:52 AM Radiology Service Progress Note PATIENT NAME: Salima Russell DATE OF SERVICE: August 09, 2022 TIME: 10:58 AM PATIENT IDENTITY VERIFICATION COMPLETED USING TWO (2) IDENTIFIERS: Name and Date of confirmed by patient verbally. FALL SCREENING: Has the patient had 2 falls in the last year or 1 fall with injury or currently using an Ambulatory Assistive Device (Walker, Cane, Wheelchair, Crutches, etc.)? No PATIENT GENDER DATA: Female. status: : No status: NO. PATIENT RELEVANT IMPLANT DATA REVIEWED: Not Applicable RADIOLOGY DEPARTMENT: Mammography PERIPHERAL IV DATA: Not applicable SIGNED BY: RT Bindu(Nikki)(M) August 09, 2022 10:58 AM documented in this encounter [facility] 08-03-2022 Miscellaneous Notes August 03, 2022 PID: [id number] Salima UbaldoMontse Blanchardprabhjot [address] [place] [address] Dear Montse Godoybranden, Your recent breast imaging exam on 08/03/2022 showed a possible finding that requires additional imaging studies for a complete evaluation. Most such findings are probably benign (not cancer). If you have a healthcare provider who ordered/prescribed your screening mammogram: Please call to schedule an appointment for your additional imaging (if you have not already done so). Additional Imaging cannot be self scheduled in [facility]. If you DO NOT have a healthcare provider (ie you did not have an order/prescription for your screening mammogram): Please call to schedule an appointment for your additional imaging (if you have not already done so). Additonal Imaging cannot be self scheduled in [facility]. This exam cannot be self scheduled in [facility]. You must have an order/prescription from your physician when calling to schedule your appointment. If your order/prescription is not electronic, you must bring the hard copy with you on the day of your exam Your imaging studies and reports are kept on file at [facility] as part of your permanent medical record, and are available for your continuing care. Thank you for allowing us to help in meeting your health care needs. Sincerely, Dr. Mccall Interpreting Radiologist [facility] (Additional imaging) documented in this encounter [facility] 08-03-2022 History of Presen t illness Narrative Radiology Service Progress Note PATIENT NAME: Salima Russell DATE OF SERVICE: August 03, 2022 TIME: 7:24 AM PATIENT IDENTITY VERIFICATION COMPLETED USING TWO (2) IDENTIFIERS: Name and Date of confirmed by patient verbally. FALL SCREENING: Has the patient had 2 falls in the last year or 1 fall with injury or currently using an Ambulatory Assistive Device (Walker, Cane, Wheelchair, Crutches, etc.)? No PATIENT GENDER DATA: Female. status: : No status: NO. PATIENT RELEVANT IMPLANT DATA REVIEWED: Not Applicable RADIOLOGY DEPARTMENT: Mammography PERIPHERAL IV DATA: Not applicable SIGNED BY: BESS Loomis August 03, 2022 7:24 AM documented in this encounter [facility] 06-08-2022 History of Presen t illness Narrative Images from the original note were not included. [facility] [address] [facility] [id number] Visit type: Established Patient Reason for Visit: Patient wants allergy shot Assessment and Plan 1. Seasonal allergies Not controlled -Xyazal, singulair and Flonase - triamcinolone acetonide (Kenalog-40) injection 60 mg 2. Moderate persistent asthma without complication stable - albuterol 108 (90 Base) MCG/ACT inhaler; Inhale 2 puffs every 6 hours as needed for wheezing. Dispense: 18 g; Refill: 3 3. Insomnia, unspecified type Stable -Xanax prn 4. Screening for endocrine, metabolic, and immunity disorder - Comprehensive metabolic panel; Future - CBC; Future - Lipid panel; Future - Hemoglobin A1c; Future - TSH; Future - Comprehensive metabolic panel - CBC - Lipid panel - Hemoglobin A1c - TSH Follow up in about 6 months (around 12/08/2022) for cpe 20, labs prior to next office visit, Bradley. Subjective HPI Seassonal allergies. Not controlled. Lots of PND and cough from this., Taking Singulair Xyzal and Flonase without much help. She has asthma but this has not flared up. She has Symbicort but not using. Prn albuterol on hand but also has not needed as of late INA/insomnia. .Mood has been good. Still needs Xanax 1-2 times a week to help sleep. Zoloft 50 mg daily helpful OARRs Reviewed., Possible medication effects, risk of tolerance/dependence & alternative treatments discussed. , No signs of potential drug abuse or diversion identified., Assessed functional status., and "Opioid Consent" or "Medication Contract" on file and up to date. Review of Systems Constitutional: Negative for appetite change, chills, diaphoresis, fatigue and fever. HENT: Positive for postnasal drip and rhinorrhea. Negative for congestion, hearing loss, nosebleeds, sinus pressure, sinus pain and sore throat. Respiratory: Negative for cough, chest tightness, shortness of breath and wheezing. Gastrointestinal: Negative for diarrhea and vomiting. Musculoskeletal: Negative for myalgias. Skin: Negative for rash. Neurological: Negative for dizziness and headaches. Hematological: Negative for adenopathy. Allergies Allergen Reactions Ciprofloxacin Nausea And Vomiting Other reaction(s): Abd cramps/diarrhea Oxycodone Rash Other reaction(s): Abd cramps/diarrhea Promethazine Other reaction(s): wide awake Outpatient Medications Prior to Visit Medication Sig Dispense Refill budesonide-formoterol (Symbicort) 160-4.5 MCG/ACT inhaler Inhale 2 Inhalation in the morning and 2 Inhalation in the evening. montelukast (Singulair) 10 MG tablet Take 10 mg by mouth daily. Mounjaro 5 MG/0.5ML solution pen-injector 5 mg (0.5 mL) subcutaneously every week ondansetron ODT (Zofran-ODT) 4 MG disintegrating tablet TAKE 1 TABLET ORALLY EVERY 8 HOURS NEEDED FOR NAUSEA AND VOMITING sertraline (Zoloft) 50 MG tablet Take 50 mg by mouth daily. albuterol 108 (90 Base) MCG/ACT inhaler Inhale 2 puffs every 6 hours as needed. ALPRAZolam (Xanax) 0.5 MG tablet Take 1 tablet (0.5 mg) by mouth Nightly as needed for sleep. 30 tablet 1 ALPRAZolam (Xanax) 0.5 MG tablet Take 0.25 mg by mouth Nightly as needed. phentermine (Adipex-P) 37.5 MG tablet Take 1 tablet (37.5 mg) by mouth every morning (before breakfast). 30 tablet 0 phentermine (Adipex-P) 37.5 MG tablet Take 37.5 mg by mouth. sertraline (Zoloft) 100 MG tablet Take 100 mg by mouth daily. No facility-administered medications prior to visit. Past Medical History: Diagnosis Date Generalized anxiety disorder 05/31/2015 Kidney stone Mild episode of recurrent major depressive disorder (HCC) 06/18/2019 Moderate persistent asthma without complication 05/31/2015 Obesity (BMI 30-39.9) 07/19/2015 Social History Socioeconomic History Marital status: Tobacco Use Smoking status: Never Smokeless tobacco: Never Vaping Use Vaping Use: Never used Substance and Sexual Activity Alcohol use: Not Currently Drug use: Never Past Surgical History: Procedure Laterality Date ABDOMINAL SURGERY SECTION (HISTORICAL) X 2 OTHER SURGICAL HISTORY Right 11/17/2017 cystoscopy pyelogram ureteroscopy stone basket extraction stent placement right WISDOM TOOTH EXTRACTION Past Surgical History: Procedure Laterality Date ABDOMINAL SURGERY SECTION (HISTORICAL) X 2 OTHER SURGICAL HISTORY Right 11/17/2017 cystoscopy pyelogram ureteroscopy stone basket extraction stent placement right WISDOM TOOTH EXTRACTION Family History Problem Relation Name Age of Onset No Known Problems Paternal Grandmother Heart disease Father Heart disease Paternal Grandfather No Known Problems Daughter No Known Problems Mother No Known Problems Daughter No Known Problems Sister Heart disease Maternal Grandfather Objective BP 115/81 (BP Location: Right arm, Patient Position: Sitting, BP Cuff Size: Adult) Pulse 85 Temp 36.7 C (98 F) (Temporal) Ht 5' 4.5" (1.638 m) Wt 170 lb (77.1 kg) SpO2 98% BMI 28.73 kg/m Patient Weight 06/08/22 170 lb (77.1 kg) 02/24/22 190 lb 6.4 oz (86.4 kg) 06/01/21 184 lb 14.4 oz (83.9 kg) Physical Exam Vitals and nursing note reviewed. Constitutional: General: She is not in acute distress. Appearance: Normal appearance. She is not ill-appearing, toxic-appearing or diaphoretic. HENT: Head: Normocephalic and atraumatic. Right Ear: Tympanic membrane, ear canal and external ear normal. Left Ear: Tympanic membrane, ear canal and external ear normal. Nose: Nose normal. Mouth/Throat: Mouth: Mucous membranes are moist. Pharynx: Oropharynx is clear. Eyes: General: Right eye: No discharge. Left eye: No discharge. Extraocular Movements: Extraocular movements intact. Conjunctiva/sclera: Conjunctivae normal. Pupils: Pupils are equal, round, and reactive to light. Cardiovascular: Rate and Rhythm: Normal rate and regular rhythm. Heart sounds: No murmur heard. Pulmonary: Effort: Pulmonary effort is normal. No respiratory distress. Breath sounds: Normal breath sounds. No wheezing. Abdominal: General: Bowel sounds are normal. There is no distension. Palpations: There is no mass. Tenderness: There is no abdominal tenderness. Musculoskeletal: Cervical back: Normal range of motion and neck supple. Skin: Findings: No rash. Neurological: Mental Status: She is alert and oriented to person, place, and time. Psychiatric: Mood and Affect: Mood normal. Behavior: Behavior normal. Thought Content: Thought content normal. Judgment: Judgment normal. Chart Clean Up: Medications Discontinued During This Encounter Medication Reason phentermine (Adipex-P) 37.5 MG tablet Med list cleanup phentermine (Adipex-P) 37.5 MG tablet Med list cleanup sertraline (Zoloft) 100 MG tablet Med list cleanup albuterol 108 (90 Base) MCG/ACT inhaler Reorder ALPRAZolam (Xanax) 0.5 MG tablet Reorder ALPRAZolam (Xanax) 0.5 MG tablet Med list cleanup Beto Huerta MD 06/08/2022 8:26 AM documented in this encounter [facility] 05-31-2022 Instructions Jacinta Sanchez PA-C - 05/31/2022 7:30 AM EDT Images from the original note were not included. Bowel Preparation Instructions for: Miralax-Gatorade Preparations IF YOU DO NOT FOLLOW THESE DIRECTIONS, YOUR COLONOSCOPY WILL BE CANCELLED. [place] Instructions: Your bowel must be empty so that your doctor can clearly view your colon. Follow all of the instructions in this handout EXACTLY as they are written. Do NOT eat any solid food the ENTIRE day before your colonoscopy. Buy your bowel preparation at least 5 days before your colonoscopy. Four (4) Dulcolax laxative tablets containing 5mg of bisacodyl each (NOT Dulcolax stool softener) One (1) 8.3oz. bottle Miralax (238 grams) or generic equivalent 2 x 32oz. Bottles of Gatorade (NOT RED) Diabetic Patients: Use G2 (Gatorade 2) TRANSPORTATION on the Day of Your Exam A responsible adult MUST be present with you at Check In prior to your colonoscopy and REMAIN in the endoscopy area until you are discharged. You are NOT ALLOWED to drive, take a taxi or bus, or leave the Endoscopy Center ALONE. If you do not have a responsible ups driver (family member or friend) with you to take you home, your exam cannot be done with sedation and will be cancelled. Please bring a list of all of your current medications, including any [id number]-[id number]-Bvhaatf medications with you. Medications If you take insulin, diabetic medications or blood thinners such as Coumadin (warfarin), Plavix (clopidogrel), Ticlid (ticlopidine hydrochloride), Agrylin (anagrelide), Xarelto (Rivaroxaban), Pradaxa (Dabigatran), Eliquis (Apixaban), and Effient (Prasugrel). You MUST call the doctors who orders those medicines for instructions on altering the dosage before your colonoscopy. All other medications should be taken the day of the exam with a sip of water including ASPIRIN. Five (5) Days Before Your Colonoscopy Do NOT take medicines that stop diarrhea - such as Imodium, Kaopectate, or Pepto Bismol. Do NOT take fiber supplements - such as Metamucil, Citrucel, or Perdiem. Do NOT take products that contain iron - such as multi-vitamins (the label lists what is in the products). Three (3) Days Before Your Colonoscopy Do NOT eat high-fiber foods - such as popcorn, beans, seeds (flax, sunflower, quinoa), multigrain bread, nuts, salad/vegetables, or fresh and dried fruit. 1 Bowel Preparation Instructions for: Miralax-Gatorade Preparations One (1) Day Before Your Colonoscopy Only drink clear liquids the ENTIRE DAY before your colonoscopy. Do NOT eat any solid foods. Drink at least 8 ounces of clear liquids every hour after waking up. The clear liquids you can drink include: Clear Liquid (NO RED LIQUIDS) DO NOT DRINK Gatorade, Pedialyte or Powerade Clear broth or bouillon Coffee or tea (no milk or non-dairy creamer) Carbonated and non-carbonated soft drinks Mars-Aid or other fruit flavored drinks Strained fruit juices (no pulp) Jell-O, popsicles, hard candy Water Alcohol Milk or non-dairy creamers Noodles or vegetables in soup Juice with pulp Liquid you cannot see through Do not use tobacco/vaping products Mix 1/2 of Miralax bottle (119 grams) in each 32 ounces of Gatorade bottle until dissolved. Keep cool in the refrigerator. DO NOT ADD ICE. The bowel preparation solution will be consumed in two parts. Part 1 5:00 PM - Evening before your colonoscopy Take 4 Dulcolax tablets. 6 PM - Evening before your colonoscopy Drink 32 oz. of the mixed solution. Drink an 8 oz. glass of bowel preparation every 15 minutes for a total of 4 glasses. Fifteen (15) minutes later, drink an 8 oz. glass of of clear liquids every 15 minutes for a total of 2 glasses. You may continue to drink clear liquids till midnight. Part 2 On the day of your colonoscopy you may drink clear liquids up to (three) 3 hours prior to procedure. 4 1/2 hours before your colonoscopy Take another 32 oz. bottle of mixed solution. Drink an 8 oz. glass of bowel prep every 15 minutes for a total of 4 glasses. Fifteen (15) minutes later, drink an 8 oz. glass of clear liquids every 15 minutes for a total of 2 glasses. You may continue to drink clear liquids up to (three) 3 hours before your exam. 2 01/2019 Patient Information Learning about Mammography To schedule your mammogram at [facility], please call [phone]. General Information Your doctor wants you to have a mammogram. This test is simply an X-ray of your breast. It can be used to screen for breast cancer or to diagnose the cause of a breast complaint. Although the test uses radiation, it is a very small amount. Who should have mammography? Recently the [employer] [employer] changed its mammography screening guidelines to one simple recommendation: Women age 40 and over should get annual mammograms. Women with a family history of breast cancer in a first degree relative,mother,sister or daughter, may start annual mammograms at an earlier age. You physician should discuss this with you. In addition, your doctor may order mammography to help determine the cause of a breast change, such as a lump or nipple discharge. Preparation Because the breast must be compressed during the X-ray, you may want to schedule the test the week following you period, when your breasts are less tender. If you've had previous mammogram at other facilities, please bring those records with you. Do Not apply powder, creams or deodorant on the day of your mammogram. These may contain substances that interfere with the accuracy of the X-rays. You'll be asked to take off your clothing above your waist and put on a gown. During the Test Depending on the type of X-ray machine used, you'll be asked to sit or stand for the test. A technologist will help to position your breast on an X-ray plate. The breasts are X-rayed one at a time. A compression paddle is used to flatten the breast. You'll probably feel a cold sensation where your breast touches the plate, and the pressing of the paddle may cause some discomfort. The flattening to the breasts creates a more accurate picture. Usually, two pictures are taken, one from the top and the other from the side. The procedure will then be repeated for the other breast. The entire exam can be completed in 10 or15 minutes. After the test The technologist may ask you to wait a few minutes before leaving the test area, in case additional views need to be taken. Your mammogram will be evaluated and available to your doctor within 24 hours. If you have any questions regarding your exam, please ask to speak to a radiologist. A Reminder Keep in mind that mammography is not a substitute for regular breast exams. Occasionally, mammography fails to detect a suspicious lump. That is why you should continue examining your breasts for unusual changes once a month and have an annual clinical exam by your doctor. For more breast health information, please call the [facility] at . Menopause Symptoms Not all women experiences menopause in the same way. For some, menopause can bring on an array of uncomfortable symptoms. Others may experience few if any discomforts. This information has been prepared to help you manage the most common changes associated with the midlife transition. RELIEVING HOT FLASHES * Identify and avoid your hot flash triggers. Common triggers may include stress, caffeine, alcohol, spicy foods, tight clothing, heat and cigarette smoke. * Keep the bedroom cool. Use fans during the day. Wear light layers of clothes with natural fibers. * Try deep, slow abdominal paced breathing (6 to 8 breaths per minute). Practice deep breathing for 15 minutes in the morning, 15 minutes in the evening and at the onset of hot flashes. * Exercise daily. Walking, swimming, dancing and bicycling with helmet are good choices along with yoga. * Add soy protein in the form of food (40-60 mg) to your diet daily in place of animal protein. Promensil and isoflavone tablets have NOT been shown to significantly help menopausal symptoms * Black cohosh (in the form of Remifemin) can be used for hot flashes and has been approved by [place] [employer] [place] for only 6 months of use, however has NOT been well studied in the [place] for middle or intermediate school principal effects and THERE HAVE BEEN REPORTS OF LIVER TOXICITY WITH BLACK COHOSH USE. (Avoid kava kava, valerian root and beware that most herbal products are NOT regulated in the [place] and some have been associated with liver toxicity) NOTE: HORMONE THERAPY (HT) is the MOST EFFECTIVE treatment and the only FDA approved treatment for menopausal symptoms. Any form of hormones, including 'bioidentical' hormones have risks as well as benefits. * Antidepressants like Effexor (venlaflaxine) a NSRI or Pristiq (desvenlafaxine) another agent, Neurontin (gabapentin) may help block hot flashes and all have risks and benefits like any prescription or off the shelf medicine. * Use of Bellergal is discouraged as it contains an addictive barbiturate. RELIEVING INSOMNIA * Keep the bedroom cool to prevent night sweats. Special chill pillows that are cool are available. * Avoid using sleeping pills. * Exercise daily but not right before bedtime. * Avoid caffeine and alcohol at night. * Take a warm shower at bedtime. COPING WITH MOOD SWINGS, FEARS AND DEPRESSION * Find a self-calming skill to practice, such as yoga, meditation or slow deep breathing. * Avoid tranquilizers, if possible, however prescription anti-depressants can be very effective. * Engage in a creative outlet that fosters a sense of achievement. * Stay connected with your family and community; nurture your friendships. RELIEVING PAINFUL INTERCOURSE * Try using a vaginal water-based moisturizing lotion 3 times a week (like Replens or SILK-E) or lubricant during intercourse like KY jelly or Astroglide. *Local estrogen treatments for the vagina/bladder are available as a cream, tablet or vaginal ring. HELPFUL WEB SITES www.menopause.org [email or web address] alth Non-Hormonal Ways to [place] with Hot Flashes and Menopause Hormone therapy is the most effective therapy for hot flashes. It is also the only FDA approved method to treat hot flashes. However, other non-hormonal options are available for women who are suffering from symptoms, but are not yet ready to consider hormone therapy. Some women are not appropriate candidates for hormone therapy, such as those have been recently treated for breast cancer, ovarian cancer, or endometrial/uterine cancer. It is important to remember that when used appropriately, hormone therapy can be a safe and effective option for many women. Here we will review non-hormonal treatment options for women. Knowing the triggers of hot flashes Hot flashes may be precipitated by hot weather, smoking, caffeine, spicy foods, alcohol, tight clothing, heat and stress. Identify and avoid your hot flash "triggers." Some women notice hot flashes when they eat a lot of sugar. Exercising in warm temperatures might make hot flashes worse. Diet Avoiding caffeine, spicy foods, and alcohol can help lessen both the number and severity of hot flashes. Many women try to incorporate more plant estrogens into their diet. Plant estrogens, such as isoflavones, are thought to have weak estrogen-like effects that may reduce hot flashes. They may work in the body like a weak form of estrogen. Examples of plant estrogens include: soybeans, chickpeas, lentils, flaxseed, grains, beans, fruits, red clover and vegetables. In general, soybeans, chickpeas, and lentils are considered to have the most powerful plant estrogens, though their effect is much less than that of human estrogen. Try to choose natural foods rather than supplements. Also remember that only crushed or ground forms of flaxseed are likely to help (as compared to the whole seed or seed oil forms). What foods have high amounts of isoflavones Food Isoflavone Amount (Mg) In Food (100g) Soymilk 9.65 Soybeans, green, raw 151.17 Soy flour (textured) 148.61 148.61 Soybeans, dry roasted 128.35 Instant beverage soy, powder, not reconstituted 109.51 Miso soup mix, dry 60.39 Soybean chips 54.16 Tempeh, cooked 53.00 Soybean curd cheese 28.20 Tofu, silken 27.91 Tofu, yogurt 16.30 Source: USDA -- [facility] Database on the Isoflavone Content of Foods, 1998 Lifestyle changes Reducing the temperature in a room, dressing in layers, and the use of a fan while asleep can be effective ways to help deal with troublesome hot flashes. Women who are overweight tend to have more bothersome hot flashes, therefore weight loss can be helpful. Quitting smoking has a dual importance during menopause. First, smoking contributes to the increased cardiovascular risks of being postmenopausal. Second, smokers tend to experience more hot flashes. Women who lead a sedentary life seem to suffer more from hot flashes; however, it is best to exercise in a cooler environment. Try deep, slow abdominal breathing (6 to 8 breaths per minute). Practice deep breathing for 15 minutes in the morning, 15 minutes in the evening and at the onset of hot flashes. For some women, wearing socks to bed is helpful as it can help to cool core body temperature. Relieving insomnia Keep the bedroom cool to prevent night sweats. Avoid using sleeping pills. Exercise daily. Avoid caffeine and alcohol at night. Take a warm bath or shower at bedtime. Try milk products at bedtime or during the night (but avoid products that contain caffeine). Coping with mood swings, fears, and depression Find a self-calming skill to practice, such as yoga, meditation or slow, deep breathing. Avoid tranquilizers, if possible. Engage in a creative outlet that fosters a sense of achievement. Stay connected with your family and community; nurture your friendships. Relieving painful intercourse Try using a vaginal water-based moisturizing lotion or lubricant during intercourse. These are sold without a prescription near the condoms in most stores. Common names include-Astroglide and KY liquid . Avoid Vaseline , as it may lead to yeast infections. Prescription and nonprescription remedies A number of non-hormonal remedies are available for the treatment of hot flashes. Some of these remedies (e.g., black cohosh and soy products) are available [id number] but are not FDA-approved. Some prescription medications are used off label to help reduce hot flashes. Using a product "off label" means that it is not FDA approved for the treatment of hot flashes, but is often used because it can be safe and effective for hot flash treatment.(considered the more effective non-hormonal treatments): Drug Side Effect Effectiveness venlafaxine (Effexor ) Nausea, change in bowel habits, headache (temporary side effects for most). Elevated blood pressure (at high doses) Effectiveness has been proven in several well-designed studies. One of the safer medications for women taking tamoxifen (no drug interaction). desvenlafaxine (Pristiq ) Similar to venlafaxine. Nausea, change in bowel habits, headache (temporary side effects for most). Elevated blood pressure (at high doses) Improvement in hot flashes compared to placebo has been shown. Newer med compared to venlafaxine, so a smaller number of studies are available. fluoxetine (Prozac ) Nausea, change in bowel habits, decreased libido, insomnia. Should be avoided in women taking tamoxifen. Improvement in hot flashes has been shown in well-designed studies. paroxetine (Paxil ) Nausea, change in bowel habits, decreased libido, dry mouth, weight gain (not common) Should be avoided in women taking tamoxifen. eTends to be more effective for sleep in women who are also suffering with insomnia. Improvement in hot flashes has been shown in well-designed studies. scitalopram (Lexapro ) Nausea, change in bowel habits, decreased libido, abnormal EKG (not common) Improvement in hot flashes has been shown in well-designed studies. Gabapentin (Neurontin ) Fatigue, dizziness, nausea, disorientation, swelling, weight gain Tends to be more effective for sleep in women who are also suffering with insomnia. Clonidine (Catapres ) Dry mouth, drowsiness, fatigue, constipation, lowers blood pressure Relieved hot flashes in some, but not all studies.Less commonly used than some of the other options. Non-prescription, herbal, uxpr-[id number]-bevuycd therapies: Drug Side Effects Effectiveness [facility] Oil Nausea, diarrhea, headache. Only one well-designed study showing not effective. Black cohosh Mild stomach upset. Safe up to 6 months only due to possible estrogen-like effects. Liver toxicity has been reported. Some small, short-term studies have suggested benefits, however most studies do not suggest that it works. Soy (plant estrogen) Also referred to as phytoestrogens. Appears safe if consumed in foods. In supplement form, consistency of dose and quality can be a concern. Supplements are not recommended for breast cancer survivors For the most part, results from clinical studies show that phytoestrogens are not effective for treatment of hot flashes. Acupuncture Uncomfortable for some, often costly. Generally well-tolerated, but multiple visits required Individual trials have reported some benefits, but larger studies have not shown any improvement over placebo procedures. However some women do report benefits with this, so it is possible that more well-designed studies are needed to answer this question. Vitamin E 13% increase risk of heart failure. Might increase rate in those who use high doses for a long time. A higher risk of prostate cancer has also been shown, but applies only to men. One study showing effective. However the improvement seen in this was only one less hot flash per day compared to placebo. Are the [id number] herbal products (botanicals) safe? While safe when taken in moderate amounts through diet, the consumption of extraordinary amounts of soy and isoflavone supplements may be harmful to women with a history of estrogen-dependent cancer, like breast cancer, and possibly to other women as well. More research is needed to determine the safety and effectiveness of botanical treatments. For example, Ginseng, [place], Wild yam, Progesterone cream, reflexology, and magnetic devices are sold to help menopausal symptoms, but there are no good studies looking at their safety or effectiveness. To make an informed decision about the use of these treatments, be sure to discuss them with your doctor. Because little is known about many botanicals, the best way to evaluate their safety and effectiveness is to become an educated consumer. Here are some tips to consider when shopping for alternative therapies. Ask yourself the following questions: What is the treatment? What does it involve? How does it work? Why does it work? Are there any risks? What are the side effects? Is it effective? (Ask for evidence or proof) How much does it cost? Once you answer these questions, discuss the therapy with your doctor. Make sure your doctor knows what therapy you are considering in order to discuss possible interactions or side effects with your current treatment. What are warning signs that a product may not be legitimate? When trying to determine whether or not a product is what it says it is, one of the elements you may want to look at is how the product is promoted. Be cautious of products promoted through: Bus[employer] Direct mailings Visual [employer] Ads disguised as valid news articles Ads in the back of magazines Additional red flags to look for include: Big claims: If products claim to be a "cure" for your condition, or gives outrageous claims, be cautious. Source: Be wary if the product is only offered through one addressograph operator or purchased only through a health care provider s office. Ingredients: Make sure all of the active ingredients are listed, and don t trust "secret formulas." Testimonials: Remember that only people who are satisfied with a product give testimonials and that they may be getting paid for their endorsement References: National Center for Complementary and Alternative Medicine. Vitamin E. nccam.nih.gov Assessed May 15, 2012 Rick Ibarra et al. meta-analysis: High Dosage Vitamin E. Supplementation Might Increase All Cause Mortality. Annals of Internal Medicine February 18, 2004. annals.org National Center for Complementary and Alternative Medicine. Menopausal Symptoms and CAM. nccam.nih.gov Accessed May 15, 2012 [place] [employer], Hormone Therapy for women in 2012. www.menopause.org Assessed May 15, 2012 [place] [employer]. Publications. The Menopause Years. www.acog.org Accessed 04/13/2010 Centers for Disease Control and Prevention. Women s Reproductive Health: Menopause. www.cdc.gov Accessed 04/13/2010 National [place] [employer] A[employer]. Age Page: Menopause. www.malissa.nih.gov Accessed 04/13/2010 Hormone Therapy* (HT): Understanding Benefits and Risks (*Sometimes also called hormone replacement therapy, HRT) What are estrogen and progesterone? Estrogen and progesterone are hormones that are produced by a woman's ovaries. Why does the body need estrogen? Estrogen thickens the lining of the uterus, preparing it for the possible implantation of a fertilized egg. Estrogen also influences how the body uses calcium, an important mineral in the building of bones. In addition, estrogen helps maintain healthy levels of cholesterol in the blood. Estrogen is necessary in keeping the vagina healthy. As menopause nears, the ovaries reduce most of their production of these hormones. Lowered or fluctuating estrogen levels may cause menopause symptoms such as hot flashes, and medical conditions such as osteoporosis. What is hormone therapy (HT)? Hormone therapy (HT) is a treatment that is used to supplement the body with either estrogen alone or estrogen and progesterone in combination. When the ovaries no longer produce adequate amounts of these hormones (as in menopause), HT can be given to supplement the body with adequate levels of estrogen and progesterone. HT helps to replenish the estrogen, relieving some of the symptoms of menopause and helping to prevent osteoporosis. Why is progesterone taken? Progesterone is used along with estrogen in women who still have their uterus. In these women, estrogen-- if taken without progesterone--increases a woman's risk for cancer of the endometrium (the lining of the uterus). During a woman's reproductive years, cells from the endometrium are shed during menstruation. When the endometrium is no longer shed, estrogen can cause an overgrowth of cells in the uterus, a condition that can lead to cancer. Progesterone reduces the risk of endometrial (uterine) cancer by making the endometrium thin. Women who take progesterone may have monthly bleeding, or no bleeding at all, depending on how the hormone therapy is taken. Monthly bleeding can be lessened and, in some cases, eliminated by taking progesterone and estrogen together continuously. Women who have had a hysterectomy (removal of the uterus through surgery) usually do not need to take progesterone. This is an important point, because estrogen taken alone has fewer long-term risks than HT that uses a combination of estrogen and progesterone. What are the types of HT? There are two main types of HT: Estrogen Therapy (ET): Estrogen is taken alone. Doctors most often prescribe a low dose of estrogen to be taken as a pill or patch every day. Estrogen may also be prescribed as a cream, vaginal ring, gel or spray. You should take the lowest dose of estrogen needed to relieve menopause symptoms and/or to prevent osteoporosis. This type of HT is used if a woman has had a hysterectomy. Estrogen Progesterone/Progestin Hormone Therapy (EPT): Also called combination therapy, this form of HT combines doses of estrogen and progesterone (progestin is a synthetic form of progesterone). This type of HT is used if a woman still has her uterus. What are the benefits of taking HT? HT is prescribed to relieve: Hot flashes Vaginal dryness that can result in painful intercourse Other problematic symptoms of menopause, such as night sweats and dry, itchy skin Other benefits of taking HT include: Reduced risk of developing osteoporosis and reduced risk of bone breakage Improvement of mood and overall sense of mental well-being in some women Decreased tooth loss Lowered risk of colon cancer Lowered risk of diabetes Modest improvement in joint pains Lower rate for women who take hormone therapy in their 50s. What are the risks of taking HT? While HT helps many women get through menopause, the treatment (like any prescription or even non-prescription medicines) is not risk-free. Known health risks include: An increased risk of endometrial cancer (only if a woman still has her uterus and is not taking a progestin along with estrogen). Increased risk of blood clots and stroke. However, in women within 5 years of menopause there was no statistically significant increase in stroke risk. Also, studies suggest that using estrogen delivered from the skin via a patch/cream might further lessen the risk of blood clots. Increased chance of gallbladder/gallstone problems. Increased risk of dementia if hormone therapy is started after a woman has been in menopause for 10 years. It is not yet known if it might be beneficial for women who start HT in their 50s. Most of our understanding about the benefits and risks of hormone therapy on the heart and breast come from the Women s Health Initiative (WHI) study (one of the largest studies done on hormone therapy): HT and the heart Recent analysis of WHI actually shows that the risk of heart disease may be related more to the advanced age of the participants as opposed to the HT. The study also found that HT given to younger women, at the onset of menopause, appeared to decrease the risk of heart disease. More specifically: An increased risk of heart disease is only seen in women taking long-term estrogen-progestin combination therapy (EPT) if they start HT in their mid-60s. There does not seem to be an increased risk of heart disease when women in their 50s start EPT. Estrogen alone (ET) has not been shown to increase the risk of heart disease. Analysis of the age since menopause actually shows a decrease in the risk of heart disease when ET was started in younger women (those just beginning menopause). Currently, it is not recommended to use hormone therapy solely for the purpose of preventing heart disease. However these studies give us reassurance that when women just newly approaching menopause need HT for a short time, it is safe to do so in terms of [facility] heart disease risk. HT and breast cancer Diagnosis of breast cancer increases when combination EPT is used beyond 3-5 years. This means that out of 10,000 women who use estrogen progestin therapy for more than 5 years, there will be 8 additional breast cancers diagnosed. In contrast, the WHI study showed women who use estrogen alone had no increase in risk of breast cancer even after 11 years of use. In fact, fewer breast cancers were seen in the group taking estrogen alone, though this was not statistically significant. When a woman comes off of hormone therapy, any potential increase in her risk of breast cancer quickly goes back to her baseline norm. This is why hormone therapy can be a safe option when women in their 50s (who are generally at lower risk for breast cancer compared to older women). Does starting HT closer to the time of menopause make it safer? One of the problems with the WHI study, which gave us much of our knowledge on the risks of HT, is that most women in the study were starting hormones in their mid-60s. Typically, women who need HT are newly menopausal, in their early 50s. Younger women in the WHI study had fewer risks and more benefits from HT. Newer studies are trying to understand the risks and benefits of HT in women in their 50s. One such study showed HT started early in postmenopausal women significantly reduced rate, heart attacks and heart failure. These postmenopausal women who started HT early and used it for more than 10 years were not at increased risk of breast cancer or stroke. What are some commonly used postmenopausal hormones? The following charts list the names of some, but not all, postmenopausal hormones. Types Brand Names Vaginal Tablet Vagifem Estrogen Pills Cenestin , Estinyl , Estrace , Menest , Ogen , Premarin , Femtrace Cream Estrace , Ogen , Premarin Vaginal Ring Estring , Femring Patch Belem , Climara , Minivelle , Estraderm , Vivelle , Vivelle-Dot , Menostar Progestin Types Brand Names Pills/Capsules Amen , Aygestin , Curretab , Cycrin , Megace , Prometrium , Provera Vaginal Gel Prochieve progesterone gel 4%, 8% Combination types Brand Names Pills Activella , FemHRT , Premphase , Prempro , Angeliq Patchs CombiPatch , Climara-Pro Who shouldn't take HT? HT is not usually recommended for women who have: Active or past breast cancer Recurrent or active endometrial cancer Abnormal vaginal bleeding that has not been evaluated Recurrent or active blood clots History of stroke Liver disease Known or suspected What are the side effects of HT? Like almost all medications, hormone therapy has side effects. The most common side effects are: Monthly bleeding (if progestin given cyclical) Irregular spotting Breast tenderness Less common side effects of hormone therapy include: Fluid retention Headaches (including migraine) Skin discoloration (brown or black spots) Increased breast density making mammogram interpretation more difficult Skin irritation under estrogen patch How can I reduce these side effects? Adjusting either the dosage or the form of the medication you are taking can often reduce side effects of HT. However, you should never make changes in your medication or stop taking it without first consulting your doctor. How can I know if HT is right for me? The balance of risks versus benefits of HT can be very different for each woman, depending on her age, family history, and personal medical history. It is important to allow enough time at an office visit to discuss the risks and benefits of hormone therapy. This is a question that should usually be addressed at a separate office visit to allow plenty of time for detailed discussion with your doctor. How long should I take HT? Since research on HT is ongoing, women should reevaluate their treatment plans each year. Discontinue HT (under your health care provider's guidance) if you develop a medical condition that would make it less safe for you. Based on the WHI study results, should I stop taking HT? It's important that you do not make any abrupt changes to your HT without consulting your doctor. He or she can discuss with you the benefits and risks of HT based on your individual circumstances. First, the therapy should not be continued or started to prevent heart disease. Women should consult their doctor about other methods of prevention, such as lifestyle changes, and cholesterol- and blood pressure-lowering drugs. Second, for osteoporosis prevention, women should consult their doctor and weigh the benefits against their personal risks. Alternate treatments also are available to prevent osteoporosis and fractures. Finally, women taking HT for relief of menopausal symptoms may reap more benefits than risks. Women should talk with their doctor about their personal risks and benefits. References: Effect of Hormone Replacement Therapy on Cardiovascular Events in Recently Postmenopausal Women: Randomized Trial. BMJ Nov 2011. [place] [employer]. The 2012 hormone therapy position statement Accessed 07/13/12. [place] [employer]. [place] [employer] Medical Guidelines for the Clinical Practice for the Diagnosis and Treatment of Menopause Accessed 08/06/12. Committee on Gynecological Practice. Postmenopausal estrogen therapy: Route of administration and risk of venous thromboembolism. Obstet Gynecol 2013 May; 121:887. Estrogen alone and joint symptoms in the Women's Health Initiative randomized trial. Menopause 2012May 01. documented in this encounter [facility] 05-31-2022 History of Presen t illness Narrative Delmi Russell is a 47 year old who presents for her annual gynecologic exam without complaints. Recent evaluation of pelvic pain w/ exam and pelvic US was wnl this month. Left sided pelvic pain has improved w/ onset menses, still persists to some extent. Would like to discuss menopausal symptoms/therapy options. Seeing PCP regularly. Menses: cycles every 30 days and 3-4 days of heavy then tapering flow, no dysmenorrhea. Contraception: tubal ligation Last Pap: 01/2019 normal HPV: 02/08/2019 negative History of abnormal pap: No Last mammogram: 2019 normal Prior history of abnormal mammogram none. Sexually active: Yes History of STDS: None Menopausal symptoms- h/o PMS w/ menses, +recent irritability worsening over past month. +occasional hot flashes and night sweats. Becoming more bothersome. Colon cancer screening: never OB History T2 L2 SAB0 TAB0 Ectopic0 Multiple0 Live Births2 PAST MEDICAL HISTORY Diagnosis Date Anxiety and depression History of kidney stones 2018 right, required cysto PAST SURGICAL HISTORY Procedure Laterality Date DELIVERY ONLY 2004 DELIVERY ONLY 2009 with TL CYSTO FRAGMENTATION URETERAL STONE Right 2018 kidney stone PCHG TUBAL W/ Bilateral 2008 FAMILY HISTORY Problem Relation Age of Onset Hypertension Father Stroke Maternal Grandfather Breast Cancer Mother 64 alive age 70 (2019) Cervical Cancer No Family History Ovarian cancer No Family History Uterine Cancer No Family History Colon Cancer No Family History Pancreatic Cancer No Family History Prostate Cancer No Family History SOCIAL HISTORY Social History Tobacco Use Smoking status: Never Smokeless tobacco: Never Vaping Use Vaping Use: Never used Substance Use Topics Alcohol use: Yes Comment: social Drug use: No REVIEW OF SYSTEMS Abdomen: No abdominal pain, nausea, vomiting, diarrhea, or constipation. No bloating, early satiety, indigestion, or increased flatulence. Bladder: No dysuria, gross hematuria, urinary urgency, or incontinence; chronic issues with urinary frequency Breast: No breast lumps, nipple d/c, overlying skin changes, redness or skin retraction and +/-SBE normal. Allergies and current medication updated:Yes EXAM: BP 98/70 Wt 173 lb (78.5kg) LMP 05/31/2022 GENERAL: pleasant, female in no apparent distress HEENT: Normocephalic, atraumatic, mucus membranes moist and no lesions NECK: Supple, full range of motion, no adenopathy and thyroid normal DERMATOLOGY: Normal, without lesions, non-icteric and non-hirsute BREAST: soft, non-tender, symmetric, no dominant mass, normal nipple-areolar complex, no lymphadenopathy and no nipple discharge CHEST: Normal inspiratory effort PELVIC: deferred, recently wnl NEURO: alert and oriented x3,exam grossly non-focal EXTREMITIES: normal ASSESSMENT/PLAN: Encounter Diagnosis ICD-10-CM 1. Women's annual routine gynecological examination Z01.419 2. Colon cancer screening Z12.11 COLONOSCOPY DIAGNOSTIC 3. Pelvic pain in female R10.2 COLONOSCOPY DIAGNOSTIC 4. Encounter for screening mammogram for malignant neoplasm of breast Z12.31 NBA SCREENING W WILDER 1) Health maintenance: Pap/HPV up to date Mammogram ordered w/ wilder CBE wnl Nutrition, exercise and routine health maintenance exams reviewed. Labs per PCP Menopausal transition reviewed and tx options including OTC, hormonal, non-hormonal discussed. She was encouraged to review non-hormonal options with PCP Colon cancer screening discussed. Dx colonoscopy ordered (recent pelvic pain) 2) Contraception: tubal ligation. 3) STD screening: declined Follow up one year or sooner as needed Jacinta Sanchez PA-C documented in this encounter [facility] 05-25-2022 Telephone encounter Note Left message for patient letting her know appointment for tomorrow with Janie will be cancelled and that she needs to reschedule with . [facility] 05-25-2022 Miscellaneous Notes Left message for patient letting her know appointment for tomorrow with Janie will be cancelled and that she needs to reschedule with . I do prescribe requesting medication. But unfortunately looks like this medication and follow up is not appropriate (should have been monthly). She should follow up with PCP for further follow up and medication refills. Pt is scheduled with me tomorrow morning for Adipex follow up. I do not prescribe this. She needs rescheduled with provider that will prescribe. documented in this encounter [facility] 05-25-2022 Telephone encounter Note I do prescribe requesting medication. But unfortunately looks like this medication and follow up is not appropriate (should have been monthly). She should follow up with PCP for further follow up and medication refills. [facility] [address] Work Phone: 05-25-2022 Telephone encounter Note Pt is scheduled with me tomorrow morning for Adipex follow up. I do not prescribe this. She needs rescheduled with provider that will prescribe. [facility] 05-21-2022 Miscellaneous Notes Hi, I changed the report to say "follicles" since they measured less than 3cm and were anechoic. Based on O-Rads criteria it would be an O-Rads 1 category. Jacinta Russell MD documented in this encounter [facility] 05-20-2022 History of Presen t illness Narrative The patient presents for requested ultrasound. Full report available in the "Imaging" tab in Epic. Jacinta Russell MD documented in this encounter [facility] 05-03-2022 Instructions Jacinta Sanchez PA-C - 05/03/2022 7:57 AM EDT The Menopause Years Menopause is the time in a woman's life when she stops having menstrual periods. The years leading up to this point are called perimenopause, or "around menopause." Menopause moseley the end of the reproductive years that began in puberty. The average age that women go through menopause is 51 years. Most women enjoy a healthy lifestyle for years afterward. What Is Menopause? The Menstrual Cycle The ovaries, two glands on either side of the uterus, make estrogen from puberty until menopause. Estrogen is made during the entire menstrual cycle. It causes the lining of the uterus (the endometrium) to thicken each month. On about day 14 of your menstrual cycle, an egg is released from one of the ovaries. This is called ovulation. After ovulation, progesterone levels increase. If the egg is not fertilized, no occurs. This causes the levels of estrogen and progesterone to decrease. This signals the uterus to shed its lining. This shedding is your monthly period. Estrogen and Menstrual Changes As menopause nears, the ovaries make less estrogen. One of the earliest and most common signs that menopause may be approaching is a change in your menstrual periods. You may skip one or more periods. The amount of flow may become return to factory clerk or heavier. Bleeding may last a shorter or longer time than is usual for you. Even though periods tend to be irregular around the time of menopause, you should be aware of bleeding that is not normal for you. This could be a sign of a problem. Talk to your doctor if you: Have a change in your monthly cycle Have very heavy bleeding with clots Have bleeding that lasts longer than normal Bleed more often than every 3 weeks Bleed after sex or between periods At some point, the ovaries stop making enough estrogen to thicken the lining of the uterus. This is when the menstrual periods stop. A small amount of estrogen is made by other glands and body fat after menopause. Women who are very overweight may not have symptoms of menopause because their extra body fat allows them to make estrogen even after the ovaries stop working. Menopause also can occur when a woman's ovaries are surgically removed. This may trigger severe symptoms. Women who have surgical menopause may choose to take hormones to replace those made by the ovaries. Although the removal of the uterus (a hysterectomy) ends menstrual periods, it will not cause early menopause unless the ovaries also are removed. If the ovaries remain after surgery, most women will go through menopause around the normal age. What to Expect Menopause is a natural part of aging. The lower amounts of estrogen that come with menopause will cause changes in your body. These changes occur slowly, over time. Menopause is different for everyone. Some women notice little difference in their bodies or moods. Others may find it difficult to cope with their symptoms. Hot Flushes The most common symptom of menopause is hot flushes (hot flashes). As many as 75% of menopausal women in the [place] will have them. A hot flush is a sudden feeling of heat that rushes to the upper body and face. The skin may bonifacio like a blush. You also may break out in a sweat. A hot flush may last from a few seconds to several minutes or longer. Hot flushes can happen at any time--day or night. They can be mild or severe. Hot flushes may come a few times a month or several times a day, depending on the woman. Some women will have hot flushes for a few months, some for a few years, and some not at all. Even though hot flushes are a nuisance, are sometimes embarrassing, and may interfere with daily life, they are not harmful. Sleep Problems Hot flushes can cause a lack of sleep, often waking a woman from a deep sleep. A lack of sleep may be one of the biggest problems you face as you approach menopause. Too little sleep can affect your mood, health, and ability to cope with daily activities. Some women have less rapid eye movement--known as REM--sleep. This is the stage of sleep when you dream. REM sleep makes up about 20% of an adult's normal sleep cycle. Without it, you may wake up without feeling rested. Some women approaching menopause may find it takes longer to get to sleep. Vaginal and Urinary Tract Changes Loss of estrogen causes changes in the vagina. Its lining may become thin and dry. These changes can cause pain during sexual intercourse. They also can make the vagina more prone to infection, which can cause burning and itching. The urinary tract also changes with age. The urethra (the tube that carries urine from the bladder) can become dry, inflamed, or irritated. Some women may need to urinate more often. Women may have an increased risk of bladder infection after menopause. Bone and Other Body Changes Bone loss is a normal part of aging. At menopause, the rate of bone loss increases. Osteoporosis, a result of this bone loss, increases the risk of breaking bones in older women. The bones of the hip, wrist, and spine are affected most often. The estrogen produced by women's ovaries before leroy-pause protects them from heart attacks and stroke. When less estrogen is made after leroy- pause, women lose much of this protection. The risk of heart attack and stroke then increases. Emotional Changes Menopause does not cause sudden mood swings or depression. However, the change in hormone levels may make you feel nervous, irritable, or very tired. These feelings may be linked to other symptoms of menopause, such as lack of sleep. If you are under a lot of stress, the changes of menopause may be harder to manage. Many women in midlife are going through major life changes anyway. There may be stress in the family as time passes and roles change. There may stress related to money or your job. Some women may be watching children leave home and are learning to deal with the "empty nest." Some are saddened that they can no longer have children. More often, women find themselves part of the "sandwich generation," becoming caretakers for their children, grandchildren, and their aging parents. If you find it hard to cope, talk about your feelings with your partner, a close friend, a counselor, or your doctor. Sexuality Menopause does not have to affect your ability to enjoy sex. Although the lack of estrogen may make the vagina dry, vaginal lubricants can help moisten the vagina and make sex more comfortable. There are a number of uris-rke-fktvqfa lubricants available. If you don't like one product, try another. Regular sex may help the vagina keep its natural elasticity. If you have been having sex on a regular basis, you may not notice any major changes during menopause. If you have not been sexually active for a while, you may want to talk with your partner and perhaps your doctor, too, about ways to make sex more comfortable. Some women find that they have less interest in sex around and after menopause. Lower hormone levels may decrease the sex drive. It may affect your ability to have an orgasm, or it may take longer for you to reach orgasm. Table 1. Your Periodic Health Evaluation (ages 40-64) Routine Test What and Why When Pap test A sample of cells taken from the cervix during a pelvic exam to look for changes that could lead to cancer Yearly (doctor and patient to decide to have less often if patient has three normal tests in a row, if low risk) Cholesterol A blood test that checks levels of cholesterol (a substance that helps carry fat through the blood vessels) because levels that are too high can lead to hardening of the arteries Every 5 years beginning at age 45 years Mammography An X-ray of the breast to look for breast cancer Every 1-2 years until age 50 years; yearly beginning at age 50 years Colorectal cancer screening Screening may be done with fecal occult blood test, flexible sigmoidoscopy, colonoscopy, or double contrast barium enema to look for cancer Yearly fecal occult blood test, plus sigmoidoscopy every 5 years beginning at age 50 years, colonoscopy every 10 years, or double contrast barium enema every 5-10 years Fasting glucose testing A test to measure the level of glucose (a sugar that is present in the blood and is the body's main source of fuel) because if it is too high it could signal diabetes Every 3 years after age 45 years Flu vaccine A shot to help prevent the flu (influenza) Once a year beginning at age 50 years Tetanus-diphtheria booster A shot to help prevent tetanus and diphtheria Once every 10 years You are not completely free of the risk of until 1 year after your last period. Until this time, if you do not wish to become , it is important to use a method of control. Keep in mind you still need to prevent sexually transmitted diseases. If you are at risk for sexually transmitted diseases, use a latex condom. Men, too, may find that their sex drive decreases as they age. It may take an older man longer to achieve an erection and ejaculate, or he may have problems with impotence. Impotence usually is caused by physical or medical problems, or it may be caused by medications. In many cases, impotence can be treated with success. Talk with your partner about how you feel. Communication is chavez during this time of changes. This may be a good time to experiment with your sex life. You and your partner may want to try different positions or engage in longer foreplay. There are many "how-to" books and videos available as guides. The Gynecologic Visit Routine visits to your doctor for breast, pelvic, and rectal exams are recommended for all women (see Table 1). Your doctor will do a Pap test to check for cancer of the cervix. Between visits you should perform a breast self-exam once a month. Depending on your age, your doctor may recommend that you have a mammogram. (Women older than 40 years should have a mammogram every 1-2 years, and then every year beginning at age 50 years.) You also will be asked about your general health and medical history. If you have problems at any time, contact your doctor. Don't wait until your next checkup. Hormone Therapy Hormone therapy (HT) can help relieve the symptoms of menopause. It replaces female hormones no longer made by the ovaries. Depending on your situation, you may begin HT before menopause. If you are taking control pills, they will be stopped when you begin treatment. For women with a uterus, estrogen usually is given along with progestin--a synthetic version of the hormone progesterone. This helps reduce the risk of cancer of the lining of the uterus that occurs when estrogen is used alone. The progestin may be taken every day with estrogen, or estrogen may be taken on some days and the progestin added on others. Hormone treatment is most often prescribed in the form of pills, injections, vaginal rings, or patches placed on the skin. Estrogen creams and tablets, used in the vagina, can treat dryness, but do not work as well against other symptoms. Benefits Many of the symptoms of menopause can be eased by taking estrogen. Estrogen is used to treat the main symptom of menopause--hot flushes. It also relieves vaginal dryness. Estrogen also can help to relieve some changes that can cause problems in the urinary tract. Estrogen protects against bone loss. Hormone therapy slows bone loss after menopause and helps prevent osteoporosis. Estrogen also can help reduce the risk of colon cancer. Risks Like any treatment, hormone therapy is not free of risk. In women with a uterus, using estrogen alone can increase the risk of endometrial cancer because estrogen causes the lining of the uterus to grow. Taking a progestin will help reduce the risk of uterine problems. The drawback of using a progestin is that menopausal women may start bleeding again. Although bleeding may occur only for a short time, many women don't want to go through having menstrual periods again. There is an increased risk of breast cancer in women who use combined hormone therapy. The increased risk appears to be small, but increases depending on how long a woman takes hormone therapy. Hormone therapy also modestly increases the risk of heart attack, stroke, and blood clots. Other Therapies Women also can take selective estrogen receptor modulators (SERMs) to help prevent some of the bone problems that can occur during menopause. SERMs are a type of medication that strengthen tissues of the bones. Because SERMs target specific areas, they can treat only the areas that need to be treated. Some types of SERMs can help prevent bone loss that occurs during menopause. SERMs also decrease total cholesterol and "bad" cholesterol (LDL) levels. However, they do not increase "good" cholesterol (HDL) levels. Yet, SERMs still may help reduce the risk of heart disease. SERMs may be a good choice for women who need protection from osteoporosis, but can't or don't want to take HT. This may include: Women at risk of breast cancer Women who can't tolerate the side effects of HT Women who don't need relief from symptoms of menopause. SERMs do not relieve hot flushes. In fact, SERMs may make them worse. If a woman does not take hormone therapy or SERMs, there are some other options for preventing bone loss. A medication called calcitonin slows the breaking down of bone. It can be given by injection or nasal spray. Other medications used to slow bone breakdown are bisphosphonates. Bisphosphonates are used to increase bone density and reduce the risk of fractures. Parathyroid hormone also is used for this purpose. Staying Healthy Good Nutrition Eating a balanced diet will help you stay healthy before, during, and after menopause. It's important to eat a variety of foods to make sure you get all the essential nutrients. Choose a low-fat, low-cholesterol diet. Also, be sure to include enough calcium in your diet to help maintain strong bones. Women older than 50 years should be getting 1,000 mg of calcium each day if they are taking hormone therapy and 1,500 mg each day if they are not. It is hard to get enough calcium from eating dairy products and certain vegetables, so you should consider using calcium supplements. Ask your pharmacist about a supplement to slow bone loss. Calcium cannot be absorbed without vitamin D. Milk that is fortified with vitamin D is one of the best sources. Another is sunlight. You also can use vitamin D supplements. A woman should take the recommended daily amount of vitamin D, which is 400-800 IU (international units). Exercise Exercise is very important, especially as you get older. Regular exercise slows down bone loss and improves your overall health. Follow a program of regular weight-bearing exercise, such as walking and aerobics. Finally... Menopause is a natural event. Today, women can expect to live one third of their lives after leroy-pause. The physical changes that occur around menopause should not prevent you from enjoying this time of your life. To function at your best, you should: Exercise regularly. Eat a balanced diet that contains enough calcium. Visit your doctor for routine checkups. Glossary Estrogen: A female hormone produced in the ovaries that stimulates the growth of the lining of the uterus. Fecal Occult Blood Test: A test of a stool sample for blood, which could be a sign of cancer of the colon or rectum. Hormone Therapy: Treatment in which estrogen, and often progestin, is taken to relieve the symptoms caused by the low levels of hormones produced by the body. Impotence: The inability in a male to have an erection or to sustain it until ejaculation or intercourse takes place. Mammogram: An X-ray of the breast, used to detect breast cancer. Osteoporosis: A condition in which the bones become so fragile that they break more easily. Ovaries: Two glands, located on either side of the uterus, that contain the eggs released at ovulation and produce hormones. Pap Test: A test in which cells are taken from the cervix and examined under a microscope. Progesterone: A female hormone that is produced in the ovaries and matures the lining of the uterus. When its level decreases, menstruation occurs. Sexually Transmitted Diseases: Diseases that are spread by sexual contact, including chlamydial infection, gonorrhea, genital warts, herpes, syphilis, and infection with human immunodeficiency virus (HIV, the cause of acquired immunodeficiency syndrome [AIDS]). Sigmoidoscopy: Test in which a slender device is placed into the rectum and lower colon to look for cancer. Menopause Symptoms Not all women experiences menopause in the same way. For some, menopause can bring on an array of uncomfortable symptoms. Others may experience few if any discomforts. This information has been prepared to help you manage the most common changes associated with the midlife transition. RELIEVING HOT FLASHES * Identify and avoid your hot flash triggers. Common triggers may include stress, caffeine, alcohol, spicy foods, tight clothing, heat and cigarette smoke. * Keep the bedroom cool. Use fans during the day. Wear light layers of clothes with natural fibers. * Try deep, slow abdominal paced breathing (6 to 8 breaths per minute). Practice deep breathing for 15 minutes in the morning, 15 minutes in the evening and at the onset of hot flashes. * Exercise daily. Walking, swimming, dancing and bicycling with helmet are good choices along with yoga. * Add soy protein in the form of food (40-60 mg) to your diet daily in place of animal protein. Promensil and isoflavone tablets have NOT been shown to significantly help menopausal symptoms * Black cohosh (in the form of Remifemin) can be used for hot flashes and has been approved by [place] [employer] [place] for only 6 months of use, however has NOT been well studied in the [place] for middle or intermediate school principal effects and THERE HAVE BEEN REPORTS OF LIVER TOXICITY WITH BLACK COHOSH USE. (Avoid kava kava, valerian root and beware that most herbal products are NOT regulated in the [place] and some have been associated with liver toxicity) NOTE: HORMONE THERAPY (HT) is the MOST EFFECTIVE treatment and the only FDA approved treatment for menopausal symptoms. Any form of hormones, including 'bioidentical' hormones have risks as well as benefits. * Antidepressants like Effexor (venlaflaxine) a NSRI or Pristiq (desvenlafaxine) another agent, Neurontin (gabapentin) may help block hot flashes and all have risks and benefits like any prescription or off the shelf medicine. * Use of Bellergal is discouraged as it contains an addictive barbiturate. RELIEVING INSOMNIA * Keep the bedroom cool to prevent night sweats. Special chill pillows that are cool are available. * Avoid using sleeping pills. * Exercise daily but not right before bedtime. * Avoid caffeine and alcohol at night. * Take a warm shower at bedtime. COPING WITH MOOD SWINGS, FEARS AND DEPRESSION * Find a self-calming skill to practice, such as yoga, meditation or slow deep breathing. * Avoid tranquilizers, if possible, however prescription anti-depressants can be very effective. * Engage in a creative outlet that fosters a sense of achievement. * Stay connected with your family and community; nurture your friendships. RELIEVING PAINFUL INTERCOURSE * Try using a vaginal water-based moisturizing lotion 3 times a week (like Replens or SILK-E) or lubricant during intercourse like KY jelly or Astroglide. *Local estrogen treatments for the vagina/bladder are available as a cream, tablet or vaginal ring. HELPFUL WEB SITES www.menopause.org www.[facility].org/womenshe alth documented in this encounter [facility] 05-03-2022 History of Presen t illness Narrative Salima Russell is a 47 year old female who presents with the complaint of left sided adnexal pelvic pain for 9 days. She reports that the pain feels like "somebody is clamping down on me." And similar to when she had ovarian cyst in the past. She reports that a few days ago she began to feel a similar sensation on the right. Currently having any pain? Yes LOCATION: left adnexa PAIN SCALE: 5 on a scale of 0-10 PAIN CHARACTER: moderate, tight band, and cramping AGGRAVATING FACTORS: no change in pain symptoms with position or activity ALLEVIATING FACTORS: resting and medications - NSAIDs She reports a history of PMS w/ menses, most notable for irritability that seems worse in the last month. She reports that she goes "from hot to cold" daily. She also endorses hot flashes and night sweats. Patient's last menstrual period was 04/09/2022 (exact date). Postmenopausal? No. Menstrual cycle every 30 days Flow 3-4 days, heavy Heavy bleeding? Yes Intermenstrual spotting? No Post-coital bleeding? No History of fibroids? No Dysmenorrhea? Yes, mild cramping, moderate/severe fatigue and mood symptoms. History of sexual abuse? No History of anxiety disorder? Yes History of STD? No Concern for exposure to STDs? No Symptoms suggestive of Irritable Bowel Syndrome? No Dysuria, urinary frequency or urgency? Yes, frequency and urgency, +incontinence (wears liners daily) Recent weight change? No Contraception: tubal sterilization OB History T2 L2 SAB0 IAB0 Ectopic0 Multiple0 Live Births2 PAST MEDICAL HISTORY Diagnosis Date Anxiety and depression History of kidney stones 2018 right, required cysto PAST SURGICAL HISTORY Procedure Laterality Date DELIVERY ONLY 2003 DELIVERY ONLY 2008 with TL CYSTO FRAGMENTATION URETERAL STONE Right 2018 kidney stone PCHG TUBAL W/ Bilateral 2008 FAMILY HISTORY Problem Relation Age of Onset Hypertension Father Stroke Maternal Grandfather Breast Cancer Mother 64 alive age 70 (2019) Cervical Cancer No Family History Ovarian cancer No Family History Uterine Cancer No Family History Colon Cancer No Family History Pancreatic Cancer No Family History Prostate Cancer No Family History Social History Tobacco Use Smoking status: Never Smokeless tobacco: Never Vaping Use Vaping Use: Never used Substance Use Topics Alcohol use: Yes Comment: social Drug use: No EXAM: BP 90/64 Wt 177 lb (80.3 kg) LMP 04/09/2022 (Exact Date) BMI 30.38 kg/m GENERAL: pleasant, female in no apparent distress HEENT: Normocephalic, atraumatic, mucus membranes moist, and no lesions NECK: full range of motion DERMATOLOGY: Normal and without lesions CHEST: Normal inspiratory effort ABDOMEN: Benign, soft, non-tender, and no masses PELVIC: external genitalia normal, normal Bartholin's glands, urethra, Shelton's glands, no vulvar lesions, no cervical lesions, good vaginal support, physiologic discharge present, normal appearing perineal body and perianal region BIMANUAL: uterus normal size, shape and consistency, no adnexal masses, non-tender, and no cervical motion tenderness RECTOVAGINAL: deferred. NEURO: alert and oriented x3,exam grossly non-focal EXTREMITIES: normal IMAGIN10/28/[address]/[place] [address] DEPARTMENT OF RADIOLOGY DEPT: [facility] NAME: DELMI RUSSELL SEX: F BIRTHDATE: 1975 MED. REC. # [id number] ORDERING DRMontse: LJ BEST ROOM: [id number] REFERRING DRMontse: EXAM DATE: 07/24/2012 PROCEDURE ID: [id number] PROCEDURE(s): CT ABDOMEN AND PELVIS WITH CONTRAST CT ABDOMEN AND PELVIS STUDY WITH INTRAVENOUS CONTRAST: CLINICAL INDICATION: Epigastric pain. Multidetector CT images are obtained of the abdomen and pelvis from above the diaphragm through the ischial tuberosities with intravenous contrast material without bowel opacification with coronal reformations. CT abdomen study: The liver, spleen, pancreas, adrenal glands and kidneys are unremarkable. The gallbladder is visualized. There are no pericholecystic inflammatory changes. There are no peripancreatic inflammatory changes. There is no hydronephrosis. There is no bulky lymphadenopathy or free fluid. The visualized unopacified bowel is unremarkable. CT pelvis study: There is a 3.4 cm cystic structure within the left adnexa. The cecum is low lying. The appendix is not convincingly visualized, although there are no obvious pericecal inflammatory changes. There is a small amount of fluid within the cul-de-sac. There is no bulky lymphadenopathy. IMPRESSION: No definite acute intra-abdominal abnormality. 3.4 cm left adnexal cyst. Free fluid within the cul-de-sac, likely physiologic given the patient's age and gender. A report is provided the emergency department physician at time of dictation. APPROVED BY: Milind Sneed TRANSCRIBED BY: INT, XXX VARNISH SUPERVISOR DATE: 07/24/2012 ASSESSMENT: Encounter Diagnosis ICD-10-CM 1. Pelvic pain in female R10.2 PELVIC US WHI 2. History of ovarian cyst Z87.42 PELVIC US WHI Left pelvic pain for 9 days, h/o ovarian cyst Benign exam today, non-acute abdomen History breast cancer mother PLAN: Pelvic US for further evaluation Follow up for routine POST DOCTORAL FELLOW exam for results discussion and VMS review Medical Decision Making: Problems: Low: Acute, uncomplicated illness or injury Data: Unique source(s) for external note(s) reviewed: 1 Unique test result(s) reviewed: 1 Unique test(s) ordered: 1 Risk: Low: Low risk from testing/treatment Medical Decision Making Level: 3 - Low Jacinta Sanchez PA-C documented in this encounter [facility] 02-24-2022 History of Presen t illness Narrative Images from the original note were not included. [facility] [id number] [facility] [id number] Visit type: Established Patient Reason for Visit: Anxiety (Needs refill of Xanax - due for UDS/contract) On this date, 02/24/2022 I have spent 25 minutes reviewing previous notes, test results and face to face with the patient discussing the diagnosis and importance of compliance with the treatment plan as well as documenting on the day of the visit. Assessment and Plan Diagnoses and all orders for this visit: Insomnia, unspecified type - ALPRAZolam (Xanax) 0.5 MG tablet; Take 1 tablet (0.5 mg) by mouth Nightly as needed for sleep. - Intermittent, stable with xanax PRN. Class 1 obesity due to excess calories without serious comorbidity with body mass index (BMI) of 32.0 to 32.9 in adult - phentermine (Adipex-P) 37.5 MG tablet; Take 1 tablet (37.5 mg) by mouth every morning (before breakfast). - Reviewed side effects and MOC. Understands need for 3 month follow up. Medication management - AMB POC DRUG SCREEN 12, LABSOURCE OARRs Reviewed., No signs of potential drug abuse or diversion identified., Random urine drug screen sent today., and "Opioid Consent" or "Medication Contract" obtained today. Follow up in about 3 months (around 05/25/2022) for weight follow up. Subjective HPI Patient here for med check and to discuss weight. She takes xanax PRN for insomnia. States she does not use this very often. It does work well for her when she needs it. Denies any side effects. Patient is also concerned about her weight. She feels hungry constantly. Tries to follow healthy diet. No regular exercise. Review of Systems Constitutional: Positive for unexpected weight change. Negative for fatigue. HENT: Negative for trouble swallowing and voice change. Eyes: Negative for visual disturbance. Respiratory: Negative for shortness of breath. Cardiovascular: Negative for chest pain. Gastrointestinal: Negative for diarrhea, nausea and vomiting. Musculoskeletal: Negative for myalgias. Skin: Negative for color change. Neurological: Negative for headaches. Psychiatric/Behavioral: Positive for sleep disturbance. The patient is not nervous/anxious. Allergies Allergen Reactions Ciprofloxacin Nausea And Vomiting Oxycodone Rash Promethazine Other reaction(s): wide awake Outpatient Medications Prior to Visit Medication Sig Dispense Refill albuterol 108 (90 Base) MCG/ACT inhaler Inhale 2 puffs every 6 hours as needed. budesonide-formoterol (Symbicort) 160-4.5 MCG/ACT inhaler Inhale 2 Inhalation in the morning and 2 Inhalation in the evening. montelukast (Singulair) 10 MG tablet Take 10 mg by mouth daily. sertraline (Zoloft) 100 MG tablet Take 100 mg by mouth daily. ALPRAZolam (Xanax) 0.5 MG tablet Take 0.5 mg by mouth Nightly as needed. No facility-administered medications prior to visit. Past Medical History: Diagnosis Date Generalized anxiety disorder 05/31/2015 Kidney stone Mild episode of recurrent major depressive disorder (HCC) 06/18/2019 Moderate persistent asthma without complication 05/31/2015 Obesity (BMI 30-39.9) 07/19/2015 Social History Socioeconomic History Marital status: Tobacco Use Smoking status: Never Smokeless tobacco: Never Vaping Use Vaping Use: Never used Substance and Sexual Activity Alcohol use: Not Currently Drug use: Never Past Surgical History: Procedure Laterality Date ABDOMINAL SURGERY SECTION (HISTORICAL) X 2 OTHER SURGICAL HISTORY Right 11/17/2017 cystoscopy pyelogram ureteroscopy stone basket extraction stent placement right WISDOM TOOTH EXTRACTION Past Surgical History: Procedure Laterality Date ABDOMINAL SURGERY SECTION (HISTORICAL) X 2 OTHER SURGICAL HISTORY Right 11/17/2017 cystoscopy pyelogram ureteroscopy stone basket extraction stent placement right WISDOM TOOTH EXTRACTION Family History Problem Relation Name Age of Onset No Known Problems Paternal Grandmother Heart disease Father Heart disease Paternal Grandfather No Known Problems Daughter No Known Problems Mother No Known Problems Daughter No Known Problems Sister Heart disease Maternal Grandfather Objective BP 109/77 Pulse 80 Resp 18 Ht 5' 4.5" (1.638 m) Wt 190 lb 6.4 oz (86.4 kg) BMI 32.18 kg/m Physical Exam Vitals reviewed. Constitutional: Appearance: Normal appearance. HENT: Head: Normocephalic. Cardiovascular: Rate and Rhythm: Normal rate. Pulmonary: Effort: Pulmonary effort is normal. Skin: General: Skin is warm and dry. Neurological: Mental Status: She is alert and oriented to person, place, and time. Psychiatric: Mood and Affect: Mood normal. Behavior: Behavior normal. Data Reviewed Labs: Imaging/Testing: Chart Clean Up: Medications Discontinued During This Encounter Medication Reason ALPRAZolam (Xanax) 0.5 MG tablet Reorder JARAD Peraza CNP 02/24/2022 7:35 AM documented in this encounter [facility] 02-24-2022 Miscellaneous Notes Addended by: LOVE ROBERSON on: 02/24/2022 07:57 AM Modules accepted: Orders documented in this encounter [facility] 01-11-2023 Note Addended by: LOVE ROBERSON on: 02/24/2022 07:57 AM Modules accepted: Orders [facility] 02-24-2022 Note Addended by: LOVE ROBERSON on: 02/24/2022 07:57 AM Modules accepted: Orders [facility] 02-24-2022 Note Addended by: LOVE ROBERSON on: 02/24/2022 07:57 AM Modules accepted: Orders [facility] Evaluation note Diagnosis COVID-19- Primary Non-intractable vomiting with nausea, unspecified vomiting type documented in this encounter [facility] Work Phone: Evaluation note* Diagnosis COVID-19 Persistent cough Cough documented in this encounter [facility] Work Phone: Evaluation note* Diagnosis Onset Date Resolution Status Preventative health care acu te Seasonal allergies acute Vitamin deficiency acute Anxiety and depression chron ic Borderline type 2 diabetes mellitus noneactive [facility] Work Phone: Evaluation note* Diagnosis Pelvic pain in female- Primary Unspecified symptom associated with female genital organs History of ovarian cyst Personal history of other genital system and obstetric disorders documented in this encounter [facility] note* Diagnosis Pelvic pain in female Unspecified symptom associated with female genital organs History of ovarian cyst Personal history of other genital system and obstetric disorders documented in this encounter [facility] note* Diagnosis Women's annual routine gynecological examination- Primary Colon cancer screening Special screening for malignant neoplasms, colon Pelvic pain in female Unspecified symptom associated with female genital organs Encounter for screening mammogram for malignant neoplasm of breast Other screening mammogram documented in this encounter [facility] note* Diagnosis Seasonal allergies- Primary Allergic rhinitis, cause unspecified Moderate persistent asthma without complication Insomnia, unspecified type Screening for endocrine, metabolic, and immunity disorder [facility]* Diagnosis Abnormal mammogram- Primary Abnormal mammogram, unspecified documented in this encounter [facility] note* Diagnosis Encounter for screening mammogram for malignant neoplasm of breast Other screening mammogram documented in this encounter [facility] note* Diagnosis Abnormal mammogram Abnormal mammogram, unspecified documented in this encounter [facility] note* Diagnosis Other seasonal allergic rhinitis documented in this encounter [facility] note* Diagnosis History of kidney stones- Primary Personal history of urinary calculi Colon cancer screening Special screening for malignant neoplasms, colon Pelvic pain in female Unspecified symptom associated with female genital organs documented in this encounter [facility] note* Diagnosis Moderate persistent asthma without complication- Primary Acute cough Sinobronchitis documented in this encounter [facility] note* Diagnosis Moderate persistent asthma without complication Acute cough documented in this encounter [facility] note* Diagnosis Seasonal allergies- Primary Allergic rhinitis, cause unspecified Other seasonal allergic rhinitis Moderate persistent asthma without complication Mild episode of recurrent major depressive disorder (HCC) Generalized anxiety disorder documented in this encounter [facility] note* Diagnosis Vasomotor symptoms due to menopause- Primary Menstrual irregularity Irregular menstrual cycle Acute vaginitis Vaginitis and vulvovaginitis, unspecified Cyclical pelvic pain documented in this encounter [facility] note* Diagnosis Treatment not available- Primary Procedure not carried out for other reasons documented in this encounter [facility] note* Diagnosis Women's annual routine gynecological examination- Primary Encounter for screening mammogram for malignant neoplasm of breast Other screening mammogram Cervical cancer screening Screening for malignant neoplasm of the cervix Screening for HPV (human papillomavirus) Special screening examination for human papillomavirus (HPV) Pelvic pain in female Unspecified symptom associated with female genital organs Incomplete uterovaginal prolapse Uterovaginal prolapse, incomplete documented in this encounter [facility] note* Diagnosis Pelvic pain in female Unspecified symptom associated with female genital organs documented in this encounter [facility] note* Diagnosis Generalized anxiety disorder documented in this encounter [facility] note* Diagnosis Insomnia, unspecified type- Primary Class 1 obesity due to excess calories without serious comorbidity with body mass index (BMI) of 32.0 to 32.9 in adult Medication management documented in this encounter [facility] note* Diagnosis Encounter for screening mammogram for malignant neoplasm of breast- Primary documented in this encounter [facility] note* Diagnosis Encounter for screening mammogram for malignant neoplasm of breast Other screening mammogram documented in this encounter [facility] note* Diagnosis Vasomotor symptoms due to menopause Menstrual irregularity Irregular menstrual cycle Acute vaginitis Vaginitis and vulvovaginitis, unspecified Cyclical pelvic pain documented in this encounter [facility] note* Diagnosis Vasomotor symptoms due to menopause Menstrual irregularity Irregular menstrual cycle Acute vaginitis Vaginitis and vulvovaginitis, unspecified Cyclical pelvic pain documented in this encounter [facility] note* Diagnosis Vasomotor symptoms due to menopause- Primary Irritability Brain fog documented in this encounter [facility] note* Diagnosis Acute pain of left knee- Primary documented in this encounter [facility] note* Diagnosis Acute pain of left knee documented in this encounter [facility] noteNo assessment information [facility] Work Phone: Evaluation note* Diagnosis Seasonal allergies- Primary Allergic rhinitis, cause unspecified Moderate persistent asthma without complication Generalized anxiety disorder documented in this encounter [facility] note* Diagnosis Acute pain of left knee documented in this encounter [facility] note* Diagnosis Other seasonal allergic rhinitis documented in this encounter [facility] note* Diagnosis Acute pain of left knee documented in this encounter [facility] note* Diagnosis Menopausal and perimenopausal disorder- Primary Unspecified menopausal and postmenopausal disorder documented in this encounter [facility] note* Diagnosis Vasomotor symptoms due to menopause Irritability Brain fog documented in this encounter [facility] note* Diagnosis Mild episode of recurrent major depressive disorder (HCC)- Primary Generalized anxiety disorder Moderate persistent asthma without complication Seasonal allergies Allergic rhinitis, cause unspecified documented in this encounter [facility] Discharge instructions* Attachments The following attachments cannot be sent through Care Everywhere. * Nausea and Vomiting (Pakistani) * Coronavirus Disease (COVID-19): General Info (Pakistani) documented in this [facility] Work Phone: Instructions* Attachments The following attachments cannot be sent through Care Everywhere. * Knee Pain (Pakistani) documented in this [facility] (n[facility]ative)* Diagnostic Procedure Only (Routine) - Authorized Specialty Diagnoses / Procedures Referred By Taj baugh Referred To Contact [facility] Diagnoses Pelvic pain in female History of ovarian cyst Procedures PELVIC US WHI US PELVIC NONOBSTETRIC REAL-TIME IMAGE COMPLETE Jacinta Sanchez, CARYL [address] [place] [address] [facility] [address] [place] [address] Referral ID Status Reason Start Date Expiration Date Visits Requested Visits Authorized [id number] Authorized Auto-Generat ed Referral 05/03/2022 05/03/2023 1 1 [facility] for referral (narrative)* Diagnostic Procedure Only (Routine) - Pending Review Specialty Diagnoses / Procedures Referred By Taj baugh Referred To Contact [facility] Diagnoses Encounter for screening mammogram for malignant neoplasm of breast Procedures NBA SCREENING W WILDER SCREENING DIGITAL BREAST TOMOSYNTHESIS BI SCREENING MAMMOGRAPHY BI 2-VIEW BREAST INC CAD Jacinat Sanchez PA-C [address] [place] [address] [facility] [address] [place] [phone] Referral ID Status Reason Start Date Expiration Date Visits Requested Visits Authorized [id number] Pending Review Auto-Generat ed Referral 05/31/2022 06/30/2023 1 1 * Outpatient Procedure (Routine) - Pending Review Specialty Diagnoses / Procedures Referred By Taj baugh Referred To Contact [facility] Diagnoses Colon cancer screening Pelvic pain in female Procedures COLONOSCOPY DIAGNOSTIC COLONOSCOPY FLX DX W/COLLJ SPEC WHEN PFRMD Jacinta Sanchez PA-C [address] [place] [address] [facility] [address] [place] [address] Referral ID Status Reason Start Date Expiration Date Visits Requested Visits Authorized [id number] Pending Review Auto-Generat ed Referral 05/31/2022 06/01/2023 1 1 [facility] for referral (narrative)* Diagnostic Procedure Only (Routine) - Authorized Specialty Diagnoses / Procedures Referred By Taj baugh Referred To Contact [facility] Diagnoses Abnormal mammogram Procedures NBA DIAGNOSTIC LEFT DIAGNOSTIC MAMMOGRAPHY COMPUTER-AIDED DETCJ UNI Jacinta Sanchez PA-C [address] [place] [address] [facility] [address] [place] [address] Referral ID Status Reason Start Date Expiration Date Visits Requested Visits Authorized [id number] Authorized Auto-Generat ed Referral 08/03/2022 09/02/2023 1 1 T [facility] for referral (narrative)* Diagnostic Procedure Only (Routine) - Closed Specialty Diagnoses / Procedures Referred By Taj baugh Referred To Contact [facility] Diagnoses Encounter for screening mammogram for malignant neoplasm of breast Procedures NBA SCREENING W WILDER SCREENING DIGITAL BREAST TOMOSYNTHESIS BI SCREENING MAMMOGRAPHY BI 2-VIEW BREAST INC CAD Jacinta Sanchez PA-C [address] [place] [address] [facility] [address] [place] [address] Referral ID Status Reason Start Date Expiration Date V isits Requested Visits Authorized [id number] Closed Auto-Generate d Referral 05/31/2022 06/30/2023 1 1 [facility] for referral (narrative)* Outpatient Procedure (Routine) - Closed Specialty Diagnoses / Procedures Referred By Taj baugh Referred To Contact [facility] Diagnoses Colon cancer screening Pelvic pain in female Procedures COLONOSCOPY DIAGNOSTIC COLONOSCOPY FLX DX W/COLLJ SPEC WHEN PFRMD Jacinta Sanchez PA-C [address] [place] [address] [facility] [address] [place] [address] Referral ID Status Reason Start Date Expiration Date V isits Requested Visits Authorized [id number] Closed Auto-Generate d Referral 05/31/2022 06/01/2023 1 1 [facility] for referral (narrative)No reason for referral information [facility]WM[facility] Work Phone: Reason for visit Narrative* Diagnostic Procedure Only (Routine) - Closed Specialty Diagnoses / Procedures Referred By Taj t [facility] Diagnoses Pelvic pain in female History of ovarian cyst Procedures PELVIC US I US PELVIC NONOBSTETRIC REAL-TIME IMAGE COMPLETE Jacinta Sanchez PA-C [address] [place] [address] [facility] [address] [place] [address] Referral ID Status Reason Start Date Expiration Date V isits Requested Visits Authorized [id number] Closed Auto-Generate d Referral 05/03/2022 05/03/2023 1 1 [facility] for visit Narrative* Diagnostic Procedure Only (Routine) - Closed Specialty Diagnoses / Procedures Referred By Taj t Referred To Contact [facility] Diagnoses Encounter for screening mammogram for malignant neoplasm of breast Procedures NBA SCREENING W WILDER SCREENING DIGITAL BREAST TOMOSYNTHESIS BI SCREENING MAMMOGRAPHY BI 2-VIEW BREAST INC CAD Jacinta Sanchez PA-C [address] [place] [address] [facility] [address] [place] [address] Referral ID Status Reason Start Date Expiration Date V isits Requested Visits Authorized [id number] Closed Auto-Generate d Referral 05/31/2022 06/30/2023 1 1 [facility] for visit Narrative* Diagnostic Procedure Only (Routine) - Closed Specialty Diagnoses / Procedures Referred By Taj t Referred To Contact [facility] Diagnoses Abnormal mammogram Procedures NBA DIAGNOSTIC LEFT DIAGNOSTIC MAMMOGRAPHY COMPUTER-AIDED DETCJ UNI Jacinta Sanchez PA-C [address] [place] [address] [facility] [address] [place] [address] Referral ID Status Reason Start Date Expiration Date V isits Requested Visits Authorized [id number] Closed Auto-Generate d Referral 08/03/2022 09/02/2023 1 1 [facility] for visit Narrative* Outpatient Procedure (Routine) - Closed Specialty Diagnoses / Procedures Referred By Taj baugh Referred To Contact [facility] Diagnoses Colon cancer screening Pelvic pain in female Procedures COLONOSCOPY DIAGNOSTIC COLONOSCOPY FLX DX W/COLLJ SPEC WHEN PFRMD Jacinta Sanchez PA-C [address] [place] [address] [facility] [address] [place] [address] Referral ID Status Reason Start Date Expiration Date V isits Requested Visits Authorized [id number] Closed Auto-Generate d Referral 05/31/2022 06/01/2023 1 1 [facility] for visit Narrative* Diagnostic Procedure Only (Routine) - Closed Specialty Diagnoses / Procedures Referred By Taj baugh Referred To Contact [facility] Diagnoses Pelvic pain in female Procedures PELVIC US WHI US PELVIC NONOBSTETRIC REAL-TIME IMAGE COMPLETE Jacinta Sanchez PA-C [address] [place] [address] [facility] [address] [place] [address] Referral ID Status Reason Start Date Expiration Date V isits Requested Visits Authorized [id number] Closed Auto-Generate d Referral 12/19/2023 12/18/2024 1 1 [facility] for visit Narrative* Diagnostic Procedure Only (Routine) - Closed Specialty Diagnoses / Procedures Referred By Taj baugh Referred To Contact [facility] Diagnoses Encounter for screening mammogram for malignant neoplasm of breast Procedures NBA SCREENING W WILDER SCREENING DIGITAL BREAST TOMOSYNTHESIS BI SCREENING MAMMOGRAPHY BI 2-VIEW BREAST INC CAD Jacinta Sanchez PA-C [address] [place] [address] [facility] [address] [place] [address] Referral ID Status Reason Start Date Expiration Date V isits Requested Visits Authorized [id number] Closed Auto-Generate d Referral 12/19/2023 01/17/2025 1 1 [facility] Summary Purpose Family History No Family History Records Found Relationship Condition Age at Onset Recorded Date/T félix Not Specified Malignant neoplasm of skin Unknown Diabetes mellitus Unknown Myocardial infarction Unknown Hypertension Unknown Cerebrovascular accident (CVA) Unknown Advance Directives No Advanced Directives Records FoundDocuments on File Type Date Recorded 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 N EEDED Reason for Visit Preventative health care Seasonal allergies Vitamin deficiency Anxiety and depression Borderline type 2 diabetes mellitus Medications Administered Section Inactive Administered Medications - up to 3 most recent administrations Medication Order MAR Action Action Date Dose Rate Site lactated ringers iv infusion 30 mL/hr, INTRAVENOUS, CONTINUOUS, Starting on Tue10/08/22 at 0630, Until Tue10/08/22 at 0819, Preprocedure Restarted 10/08/2022 7:27 AM EDT New Bag/Syringe/Bottle 10/08/2022 6:48 AM EDT 30 mL/hr 3 0 mL/hr Reason for Referral Specialty Diagnoses / Procedures Referred By Contac t Referred To Contact [facility] Diagnoses Pelvic pain in female Incomplete uterovaginal prolapse Procedures CONSULT TO PHYSICAL THERAPY PHYSICAL THERAPY EVALUATION HIGH COMPLEX 45 MINS Jacinta Sanchez PA-C [address] [place] [address] [facility] [address] [place] [address] Referral ID Status Reason Start Date Expiration Date Visits Requested Visits Authorized [id number] Pending Review Auto-Generat ed Referral 12/19/2023 12/18/2024 1 1 Specialty Diagnoses / Procedures Referred By Contac t Referred To Contact [facility] Diagnoses Pelvic pain in female Procedures PELVIC US WHI US PELVIC NONOBSTETRIC REAL-TIME IMAGE COMPLETE Jacinta Sanchez PA-C [address] [place] [address] [facility] [address] [place] [address] Referral ID Status Reason Start Date Expiration Date Visits Requested Visits Authorized [id number] Authorized Auto-Generat ed Referral 12/19/2023 12/18/2024 1 1 Specialty Diagnoses / Procedures Referred By Taj t Referred To Contact [facility] Diagnoses Encounter for screening mammogram for malignant neoplasm of breast Procedures NBA SCREENING W WILDER SCREENING DIGITAL BREAST TOMOSYNTHESIS BI SCREENING MAMMOGRAPHY BI 2-VIEW BREAST INC CAD Jacinta Sanchez PA-C [address] [place] [address] [facility] [address] [place] [address] Referral ID Status Reason Start Date Expiration Date Visits Requested Visits Authorized [id number] Authorized Auto-Generat ed Referral 12/19/2023 01/17/2025 1 1 Additional Source Comments INFORMATION SOURCE (unrecogn ized section and content) DATE CREATED AUTHOR 08/05/2017 [facility] DATE CREATED AUTHOR AUTHOR'S ORGANIZ ATION 04/05/2018 [facility] DATE CREATED AUTHOR AUTHOR'S ORGANIZ ATION 10/25/2020 [facility] DATE CREATED AUTHOR AUTHOR'S ORGANIZ ATION 01/21/2021 [facility] DATE CREATED AUTHOR AUTHOR'S ORGANIZ ATION 07/14/2024 [facility] DATE CREATED AUTHOR AUTHOR'S ORGANIZ ATION 07/22/2024 [facility] DATE CREATED AUTHOR AUTHOR'S ORGANIZ ATION 09/19/2024 [facility] DATE CREATED AUTHOR AUTHOR'S ORGANIZ ATION 09/21/2024 [facility] DATE CREATED AUTHOR AUTHOR'S ORGANIZ ATION 09/26/2024 [facility] Reason for Visit (unrecogniz ed section and content) Reason Comments Positive For Covid-19 tested positive 2 days ago, at [place] [facility]. 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 She has been seen for the same and given antibiotics. Reason Onset Date Comments Med Refill 05/23/2023 Reason Comments Follow-up Pt states here for f ollow up appointment. Requesting kenalog injection and refills. Reason Comments Pelvic Pain Reason Comments No Show Reason Comments Well Woman Reason Onset Date Comments Med Refill 01/11/2024 Reason Comments Anxiety Needs refill of Xana x - due for UDS/contract Reason Onset Date Comments Appointment 02/09/2024 Reason Comments Refill Request Reason Onset Date Comments Refill Request 03/09/2024 Reason Comments Menopause Consult Reason Onset Date Comments Knee Pain 05/05/2024 Reason Comments Knee Pain states has been havi ng intermittent left knee pain for the last month. At times walks with a limp. Has woken her up at night. Unknown injury Reason Comments Med Refill Here for med refill and requesting Kenalog shot for allergies. Was exposed to ticks recently, daughter was sick. Reason Onset Date Comments ER Follow-up 07/12/2024 Appointment Request 07/12/2024 Cancelled Appointment 07/12/2024 Patient ca ncelled appointment with luci Berry . Patient stated she made a appointment elsewhere. Ordered Prescriptions (unrec ognized section and content) Prescription Sig Dispensed Refills Start Date End Da te ondansetron (ZOFRAN) 4 MG tablet Take 1 tablet by mouth 3 times daily as needed for Nausea or Vomiting 15 tablet 0 10/22/2020 Scheduled Active and Recently Administ ered Medications (unrecognized section and content) Medication Order 10/20/2020 10/21/2020 10/22/2020 0.9 % sodium chloride bolus (COMPLETED) 1,000 mL (13.4 mL/kg), IntraVENous, at 2,000 mL/hr, Administer over 0.5 Hours, ONCE, On Tue10/22/20 at 1232, For 1 dose 1240 (New Bag - Prov ider: Daniela Gibson RN)1340 (Stopped - Provider: Daniela Gibson RN) ondansetron (ZOFRAN) injection 4 mg (COMPLETED) 4 mg, IntraVENous, ONCE, On Tue10/22/20 at 1232, For 1 dose 1232 (Due)1241 (Give n - Provider: Daniela Gibson RN) Care Teams (unrecognized sec tion and content) Team Status: Active Member Role Status Dates Jacobo Martinez NP, ELECTRONIC IMAGING SYSTEM OPERATOR-C Primary Care Provider Active Team Status: Inactive Member Role Status Dates Jacobo Martinez NP, ELECTRONIC IMAGING SYSTEM OPERATOR-C Attending Provider Active Team Status: Inactive Member Role Status Dates Jacobo Martinez NP, ELECTRONIC IMAGING SYSTEM OPERATOR-C Primary Care Provide r, Attending Provider, Referring Provider Active [employer] Relationship Specialty Start Date End Date Beto Huerta MD PCP - General Family Medicine 09/01/10 [employer] Relationship Specialty Start Date End Date Beto Huerta MD PCP - General Family Medicine 09/01/10 [employer] Relationship Specialty Start Date End Date Beto Huerta MD PCP - General Family Medicine 09/01/10 [employer] Relationship Specialty Start Date End Date Beto Huerta MD PCP - General Family Medicine 09/01/10 [employer] Relationship Specialty Start Date End Date Beto Huerta MD [address] [facility] [address] [place] [address] PCP - General 01/08/15 [employer] Relationship Specialty Start Date End Date Beto Huerta MD [address] [place] [address] PCP - General 01/08/15 [employer] Relationship Specialty Start Date End Date Beto Huerta MD PCP - General Family Medicine 09/01/10 [employer] Relationship Specialty Start Date End Date Beto Huerta MD PCP - General Family Medicine 09/01/10 [employer] Relationship Specialty Start Date End Date Beto Huerta MD PCP - General Family Medicine 09/01/10 [employer] Relationship Specialty Start Date End Date Beto Huerta MD PCP - General Family Medicine 09/01/10 [employer] Relationship Specialty Start Date End Date Beto Huerta MD [address] [place] [address] PCP - General 01/08/15 [employer] Relationship Specialty Start Date End Date Beto Huerta MD PCP - General Family Medicine 09/01/10 [employer] Relationship Specialty Start Date End Date Beto Huerta MD [address] [place] [address] PCP - General 01/08/15 [employer] Relationship Specialty Start Date End Date Beto Huerta MD [address] [place] [address] PCP - General 01/08/15 [employer] Relationship Specialty Start Date End Date Beto Huerta MD [address] [place] [address] PCP - General 01/08/15 [employer] Relationship Specialty Start Date End Date Beto Huerta MD [address] [place] [address] PCP - General 01/08/15 [employer] Relationship Specialty Start Date End Date Beto Huerta MD PCP - General Family Medicine 09/01/10 [employer] Relationship Specialty Start Date End Date Beto Huerta MD PCP - General Family Medicine 09/01/10 [employer] Relationship Specialty Start Date End Date Beto Huerta MD PCP - General Family Medicine 09/01/10 [employer] Relationship Specialty Start Date End Date Beto Huerta MD PCP - General Family Medicine 09/01/10 [employer] Relationship Specialty Start Date End Date Beto Huerta MD [address] [place] [address] PCP - General 01/08/15 [employer] Relationship Specialty Start Date End Date Beto Huerta MD [address] [place] [address] PCP - General 01/08/15 [employer] Club F[employer] Relationship Specialty Start Date End Date Beto Huerta MD [facility] [place] [address] PCP - General 01/08/15 [employer] Facer Relationship Specialty Start Date End Date Beto Huerta MD PCP - General Family Medicine 09/01/10 [employer] Relationship Specialty Start Date End Date Beto Huerta MD PCP - General Family Medicine 09/01/10 [employer] Relationship Specialty Start Date End Date Beto Huerta MD PCP - General Family Medicine 09/01/10 [employer] Relationship Specialty Start Date End Date Beto Huerta MD [address] [place] [address] PCP - General 01/08/15 [employer] Relationship Specialty Start Date End Date Beto Huerta MD PCP - General Family Medicine 09/01/10 [employer] Relationship Specialty Start Date End Date Beto Huerta MD PCP - General Family Medicine 09/01/10 [employer] Relationship Specialty Start Date End Date Beto Huerta MD [address] [place], [place] [address] PCP - General 01/08/15 [employer] Relationship Specialty Start Date End Date Beto Huerta MD [address] [place] [address] PCP - General 01/08/15 Team Status: Active Member Role Status Dates Jacobo BLEVINS, ELECTRONIC IMAGING SYSTEM OPERATOR-C Primary Care Provider Active Team Status: Inactive Member Role Status Dates Jacobo BLEVINS, ELECTRONIC IMAGING SYSTEM OPERATOR-C Primary Care Provider Active Start: April 11, 2024 End: April 11, 2024 Jacobo BLEVINS, ELECTRONIC IMAGING SYSTEM OPERATOR-C Attending Provider Active S tart: April 11, 2024 End: April 11, 2024 Golf Club Facer Relationship Specialty Start Date End Date Beto Huerta MD [address] [place] [address] PCP - General 01/08/15 [employer] Relationship Specialty Start Date End Date Beto Huerta MD [address] [place], [place] [id number] PCP - General 01/08/15 Team Status: Inactive Member Role Status Dates Jacobo BLEVINS, ELECTRONIC IMAGING SYSTEM OPERATOR-C Primary Care Provider Active Start: June 18, 2024 End: June 18, 2024 Radha Fu NP-C Attending Provider Active Start: June 18, 2024 End: June 18, 2024 Golf Club Facer Relationship Specialty Start Date End Date Beto Huerta MD [address] [place] [address] PCP - General 01/08/15 [employer] Relationship Specialty Start Date End Date Beto Huerta MD PCP - General Family Medicine 09/01/10 [employer] Relationship Specialty Start Date End Date Beto Huerta MD PCP - General Family Medicine 09/01/10 [employer] Relationship Specialty Start Date End Date Beto Huerta MD [address] [place] [address] PCP - General 01/08/15 Goals (unrecognized section and content) Goals may be documented in a n alternate sectionGoals may be documented in an alternate sectionGoals may be documented in an alternate section Source Comments (unrecognize d section and content) In the event this informatio n is protected by the Federal Confidentiality of Alcohol and Drug Abuse Patient Records regulations: The Federal rules restrict any use of the information to criminally investigate or prosecute any alcohol or drug abuse patient.[facility] the event this information is protected by the Federal Confidentiality of Alcohol and Drug Abuse Patient Records regulations: The Federal rules restrict any use of the information to criminally investigate or prosecute any alcohol or drug abuse patient.[facility] the event this information is protected by the Federal Confidentiality of Alcohol and Drug Abuse Patient Records regulations: The Federal rules restrict any use of the information to criminally investigate or prosecute any alcohol or drug abuse patient.[facility] the event this information is protected by the Federal Confidentiality of Alcohol and Drug Abuse Patient Records regulations: The Federal rules restrict any use of the information to criminally investigate or prosecute any alcohol or drug abuse patient.[facility] the event this information is protected by the Federal Confidentiality of Alcohol and Drug Abuse Patient Records regulations: The Federal rules restrict any use of the information to criminally investigate or prosecute any alcohol or drug abuse patient.[facility] the event this information is protected by the Federal Confidentiality of Alcohol and Drug Abuse Patient Records regulations: The Federal rules restrict any use of the information to criminally investigate or prosecute any alcohol or drug abuse patient.[facility] Hospital[facility] the event this information is protected by the Federal Confidentiality of Alcohol and Drug Abuse Patient Records regulations: The Federal rules restrict any use of the information to criminally investigate or prosecute any alcohol or drug abuse patient.[facility] Hospital[facility] the event this information is protected by the Federal Confidentiality of Alcohol and Drug Abuse Patient Records regulations: The Federal rules restrict any use of the information to criminally investigate or prosecute any alcohol or drug abuse patient.[facility] Hospital[facility] the event this information is protected by the Federal Confidentiality of Alcohol and Drug Abuse Patient Records regulations: The Federal rules restrict any use of the information to criminally investigate or prosecute any alcohol or drug abuse patient.[facility] Hospital[facility] the event this information is protected by the Federal Confidentiality of Alcohol and Drug Abuse Patient Records regulations: The Federal rules restrict any use of the information to criminally investigate or prosecute any alcohol or drug abuse patient.[facility] Hospital[facility] the event this information is protected by the Federal Confidentiality of Alcohol and Drug Abuse Patient Records regulations: The Federal rules restrict any use of the information to criminally investigate or prosecute any alcohol or drug abuse patient.[facility] Hospital[facility] the event this information is protected by the Federal Confidentiality of Alcohol and Drug Abuse Patient Records regulations: The Federal rules restrict any use of the information to criminally investigate or prosecute any alcohol or drug abuse patient.[facility] Hospital[facility] the event this information is protected by the Federal Confidentiality of Alcohol and Drug Abuse Patient Records regulations: The Federal rules restrict any use of the information to criminally investigate or prosecute any alcohol or drug abuse patient.[facility] HospitalIn the event this information is protected by the Federal Confidentiality of Alcohol and Drug Abuse Patient Records regulations: The Federal rules restrict any use of the information to criminally investigate or prosecute any alcohol or drug abuse patient.[facility] HospitalIn the event this information is protected by the Federal Confidentiality of Alcohol and Drug Abuse Patient Records regulations: The Federal rules restrict any use of the information to criminally investigate or prosecute any alcohol or drug abuse patient.[facility] HospitalIn the event this information is protected by the Federal Confidentiality of Alcohol and Drug Abuse Patient Records regulations: The Federal rules restrict any use of the information to criminally investigate or prosecute any alcohol or drug abuse patient.[facility] HospitalIn the event this information is protected by the Federal Confidentiality of Alcohol and Drug Abuse Patient Records regulations: The Federal rules restrict any use of the information to criminally investigate or prosecute any alcohol or drug abuse patient.[facility] HospitalIn the event this information is protected by the Federal Confidentiality of Alcohol and Drug Abuse Patient Records regulations: The Federal rules restrict any use of the information to criminally investigate or prosecute any alcohol or drug abuse patient.[facility] HospitalIn the event this information is protected by the Federal Confidentiality of Alcohol and Drug Abuse Patient Records regulations: The Federal rules restrict any use of the information to criminally investigate or prosecute any alcohol or drug abuse patient.[facility] HospitalIn the event this information is protected by the Federal Confidentiality of Alcohol and Drug Abuse Patient Records regulations: The Federal rules restrict any use of the information to criminally investigate or prosecute any alcohol or drug abuse patient.[facility] HospitalIn the event this information is protected by the Federal Confidentiality of Alcohol and Drug Abuse Patient Records regulations: The Federal rules restrict any use of the information to criminally investigate or prosecute any alcohol or drug abuse patient.[facility] HospitalIn the event this information is protected by the Federal Confidentiality of Alcohol and Drug Abuse Patient Records regulations: The Federal rules restrict any use of the information to criminally investigate or prosecute any alcohol or drug abuse patient.[facility] HospitalIn the event this information is protected by the Federal Confidentiality of Alcohol and Drug Abuse Patient Records regulations: The Federal rules restrict any use of the information to criminally investigate or prosecute any alcohol or drug abuse patient.[facility] HospitalIn the event this information is protected by the Federal Confidentiality of Alcohol and Drug Abuse Patient Records regulations: The Federal rules restrict any use of the information to criminally investigate or prosecute any alcohol or drug abuse patient.[facility] HospitalIn the event this information is protected by the Federal Confidentiality of Alcohol and Drug Abuse Patient Records regulations: The Federal rules restrict any use of the information to criminally investigate or prosecute any alcohol or drug abuse patient.[facility] HospitalIn the event this information is protected by the Federal Confidentiality of Alcohol and Drug Abuse Patient Records regulations: The Federal rules restrict any use of the information to criminally investigate or prosecute any alcohol or drug abuse patient.[facility] FOR RECORDS PERTAINING TO PATIENTS WHO ARE OR HAVE BEEN ENROLLED IN A CHEMICAL DEPENDENCY/SUBSTANCEABUSE PROGRAM, SOME INFORMATION MAY BE OMITTED. This clinical summary was aggregated from multiple sources. Caution should be exercised in using it in the provision of clinical care. This summary normalizes information from multiple sources, and as a consequence, information in this document may materially change the coding, format and clinical context of patient data. In addition, data may be omitted in some cases. CLINICAL DECISIONS SHOULD BE BASED ON THE PRIMARY CLINICAL RECORDS. [facility] [facility] provides no warranty or guarantee of the accuracy or completeness of information in this document.
[2024-11-03 01:33] LABS: Color, Urine Yellow (Yellow); Glucose, Dipstick Normal (Normal); Ketone-Dipstick Negative (Negative); Leukocyte Esterase-Dipstick 500 /ul (Negative); Nitrite-Dipstick Negative (Negative); Occult Blood-Urine 250 /ul (Negative); Protein-Dipstick 100 mg/dl (Negative); Specific Gravity, Urine 1.015 (1.002-1.030)
[2024-11-03 02:10] LABS: Urine Bilirubin Dipstick 6 mg/dL (Negative)
[2024-11-03 02:12] LABS: Red Blood Cells-Urine 10-25 SEEN /hpf (0-5)
== END | disposition home or self-care (01) ==
PROVIDERS: PCP Nurse Practitioner Family; Referring Provider Nurse Practitioner Family; Visit Provider Nurse Practitioner Family
DX: N39.0 Urinary tract infection, site not specified (principal)
CPT/HCPCS: 81001; 87086; 87088